=== PATIENT | female | born 1965 | race Caucasian/White ===

== ENCOUNTER 2020-12-18 16:45 | Inpatient (IN) | payer BC ==
[2020-12-18] VITALS (7 sets, daily range): BP systolic 94–110; BP diastolic 49–71
[~2020-12-18] VITALS: Ht 160 cm; Wt 74.3 kg
[2020-12-18] MEDS: AA 4.25 %/CALCIUM/LYTES/D5W 1,000 ML IV SCH (18:00)
[2020-12-18] MEDS ORDERED: hydrALAZINE 20 MG/ML VIAL. IVP PRN (18:00)
--- NOTE | 2020-12-18 18:13 | PDOC1 ---
History and Physical Date of Admission Date of Admission DATE: 12/18/20 TIME: 18:06 Identification/Chief Complaint Chief Complaint Shortness of breath Source Source: Patient History of Present Illness History of Present Illness Ms Anton is a 55-year-old female with past medical history of overactive bladder who came to the ED at [facility] complaining of worsening shortness of breath fatigue and cough. Her shortness of breath began on 12/11/2020 she had fatigue started on 12/08/2020. She awoke on 12/12/2020 and noted myalgias and loss of appetite and diarrhea as well. She tested positive for COVID-19. Her also tested positive for COVID-19. She has complaints fever, chills, malaise, nausea, vomiting, arthralgia, myalgia, tachycardia, coughing and increased dyspnea. Patient has been exposed to inmates here plan seeing [facility] who had COVID. Patient previously declined Covid vaccination. Patient now comes very dyspneic with any activity. Initially sats on room air in the 80s. Patient denies any recent travel. No specific ill contacts other than at work and her . Patient denies any previous history of immunosuppression. She had not been vaccinated for COVID-19 but after her daughter had contracted Covid she had planned to get the vaccine last week and had delayed due to her symptoms. 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 She has 3 children at home and 3 adult children whom have also had Covid with fairly severe symptoms and she also has 5 grandchildren, presumably healthy. Febrile on admission 100.8 F, heart rate 114 bpm, respirations 33/min, O2 saturation 86% on room air, blood pressure 113/69. Admission labs WBC 7.6, Hb 14.8, platelets 188, NA 140, K3.2, chloride 101, HCO3 24, BUN 26, CR 1.2, glucose 128, calcium 8.5, bilirubin 0.5, AST 111, ALT 64, alkaline phosphatase 117, troponin 0, albumin 3.2, NT proBNP 90, CRP 143.3. EKG normal sinus rhythm rate of 95 bpm leftward axis otherwise normal intervals, QTC [address] elevations or TWI. Chest radiograph with multifocal opacities. Due to tachycardia and hypoxemia she was evaluated with CTPA which was negative for pulmonary embolism and did reveal extensive bilateral groundglass opacities and incidental finding of enlarged spleen. Initially admitted to ICU at [facility] in [place] on 12/17/2020 given Solumedrol 60 three times a day and Remdesivir. Today she becomes significantly more hypoxic with O2 saturations 86% despite 10 L oxygen and was called for transfer to [facility]. Seen bedside in ICU 40 L/min 100% FiO2 Vapotherm with O2 saturations 93%. Requiring supplemental facemask O2 15 L/min. Past Medical History Renal/: Urinary Incontinence Past Surgical History Past Surgical History: , Other (left knee arthroscopy) Family History Family History: Chronic Fatigue Social History Smoke: No ALCOHOL: occassional Drugs: None Current Problem List Problem List Problems Medical Problems: (1) Acute respiratory failure with hypoxia Status: Acute (2) COVID-19 Status: Acute Current Medications Current Medications Current Medications Remdesivir 100 mg/ Sodium Chloride 230 ml @ 460 mls/hr Q24H IV ; Start 12/18/20 at 21:00; Stop 12/21/20 at 21:29 Allergies Allergies: Coded Allergies: Penicillins (Verified Allergy, Severe, 12/18/20) ROS General: YES: Chills, Fatigue, Malaise, Appetite; No: Night Sweats, Other PSYCHOLOGICAL ROS: No: Anxiety, Behavioral Disorder, Concentration difficultie, Decreased libido, Depression, Disorientation, Hallucinations, Hostility, Irritablity, Memory difficulties, Mood Swings, Obsessive thoughts, Physical a buse, Sexual abuse, Sleep disturbances, Suicidal ideation, Other Eyes: No Blurry vision, No Decreased vision, No Double vision, No Dry eyes, No Excessive tearing, No Eye Pain, No Itchy Eyes, No Loss of vision, No Photophobia, No Scotomata, No Uses contacts, No Uses glasses, No Other HEENT: No: Heacaches, Visual Changes, Hearing change, Nasal congestion, Nasal discharge, Oral lesions, Sinus pain, Sore Throat, Epistaxis, Sneezing, Snoring, Tinnitus, Vertigo, Vocal changes, Other ALLERGY AND IMMUNOLOGY: No: Hives, Insect Bite Sensitivity, Itchy/Watery Eyes, Nasal Congestion, Post Nasal Drip, Seasonal Allergies, Other Hematological and Lymphatic: No: Bleeding Problems, Blood Clots, Blood Transfusions, Brusing, Night Sweats, Pallor, Swollen Lymph Nodes, Other ENDOCRINE: No: Breast Changes, Galactorrhea, Hair Pattern Changes, Hot Flashes, Malaise/lethargy, Mood Swings, Palpitations, Polydipsia/polyuria, Skin Changes, Temperature Intolerance, Unexpected Weight Changes, Other Breast: No New/Changing Breast Lumps, No Nipple changes, No Nipple discharge, No Other Respiratory: YES: Cough, Shortness of breath, SOB with excertion, Tachypnea; No: Hemoptysis, Orthopnea, Pleuritic Pain, Sputum Changes, Stridor, Wheezing, Other Cardiovascular: No Chest Pain, No Palpitations, No Orthopnea, No Paroxysmal Noc. Dyspnea, No Edema, No Lt Headedness, No Other Gastrointestinal: No Nausea, No Vomiting, No Abdominal Pain, No Diarrhea, No Constipation, No Melena, No Hematochezia, No Other Genitourinary: YES Frequency; No Dysuria, No Incontinence, No Hematuria, No Retention, No Discharge, No U rgency, No Pain, No Flank Pain, No Other, No , No , No , No , No , No , No Musculoskeletal: Yes Muscle Pain, Yes Muscular Weakness; No Gait Disturbance, No Joint Pain, No Joint Stiffness, No Joint Swelling, No Pain In:, No Swelling In:, No Other Neurological: No Behavorial Changes, No Bowel/Bladder ControlChng, No Confusion, No Dizziness, No Gait Disturbance, No Headaches, No Impaired Coord/balance, No Memory Loss, No Numbness/Tingling, No Seizures, No Speech Problems, No Tremors, No Visual Changes, No Weakness, No Other Skin: No Dry Skin, No Eczema, No Hair Changes, No Lumps, No Mole Changes, No Mottling, No Nail Changes, No Pruritus, No Rash, No Skin Lesion Changes, No Other, No Acne Physical Exam General: Alert, Oriented X3, Cooperative, moderate distress HEENT: Atraumatic, PERRLA, EOMI, Mucous membr. moist/pink Lungs: Other (Decreased air movement, bibasilar crackles) Heart: S1S2, RRR, no thrills, no rubs, no gallops, no murmurs Abdomen: Normal bowel sounds, Soft, No tenderness, No hepatosplenomegaly, No masses Rectal Exam: not examined Extremities: No clubbing, No cyanosis, No edema, Normal pulses, No tendern ess/swelling Skin: No rashes, No breakdown, No significant lesion Neuro: Normal gait, Normal speech, Strength at 5/5 X4 ext, Normal tone, Sensation intact, Cranial nerves 3-12 NL, Reflexes 2+ Psych/Mental Status: Mental status NL, Mood NL Vitals Vitals Vital Signs Date Time Temp Pulse Resp B/P (MAP) Pulse Ox O2 Delivery O2 Flow Rate FiO2 12/18/20 17:35 98.3 87 110/71 (84) 92 Vapo therm 40/100,+NRB 98.3 Images Images Chest radiograph: Single view of chest obtained. Hypoexpanded exam. Multifocal opacities throughout the bilateral lungs. Cardiac silhouette is mildly prominent but likely exaggerated by portable technique. IMPRESSION: * Hypoexpanded exam with bilateral pulmonic opacities. Given the patient's history this could be secondary to bilateral pneumonia. Edema could also have this radiographic appearance. CT ANGIOGRAPHY CHEST Visualized portions of the thyroid are unremarkable. No enlarged mediastinal lymph nodes are identified. Heart size is normal. No pericardial effusion. Thoracic aorta has a normal course and caliber. Pulmonary artery is not enlarged. No pulmonary embolus identified within the main, lobar or proximal segmental pulmonary arteries. Evaluation distally limited secondary to contrast bolus timing. Airways are patent. Patchy areas of consolidation noted in lungs bilaterally. No pneumothorax. No pleural effusion or thickening. Spleen is enlarged measuring 15.3 cm in long axis. No suspicious osseous lesions or acute fractures. IMPRESSION: 1. No pulmonary embolus identified in the main, lobar or proximal segmental pulmonary arteries. 2. Extensive patchy bilateral groundglass opacity. Infectious or inflammatory in etiology. This consistent with history of Covid. VTE Prophylaxis Ordered VTE Prophylaxis Devices: No VTE Pharmacological Prophylaxi: Yes Assessment/Plan Assessment/Plan A/P: Acute hypoxic Respiratory failure -due to COVID-19 likely developing ARDS. Status post remdesivir dose 1. We will continue this and steroids daily Covid 19 pneumonia -remdesivir complete 5-day course. Solu-Medrol. Eating 9 mg every 8 hours. CRP elevated would be a candidate for Actemra, will discuss with cardiology as availability is limited. Zinc, thiamine, ascorbic acid, and supportive care. Vapotherm Sepsis - due to COVID 19, no clear indication for antibiotics. ANTHONY -vasomotor nephropathy. Will monitor renal function. Elevated LFT's - due to covid 19 Elevated CRP 143. 3 - would consider actemra Mild Hypokalemia - will monitor nutrition, start clinimix Overactive bladder - offered dwyer catheter due to critical illness FEN - Regular diet PPX - lovenox FULL CODE Dispo - ICU, critically ill. She is high risk for severe disease and is amenable to BiPAP and is amenable to ventilation if necessary. cc time 47 minutes Justifications for Admission Other Justification hypoxia JOVANNY REEVES MD Dec 18, 2020 18:13
[2020-12-18] MEDS ORDERED: LOPERAMIDE 2 MG CAPSULE PO PRN (18:15)
[2020-12-18] MEDS: ASCORBIC ACID 500 MG TABLET PO SCH (18:32)
[2020-12-18] MEDS: ZINC SULFATE 220 MG CAPSULE. PO SCH (18:32)
[2020-12-18] MEDS: DOCUSATE SODIUM 100 MG CAPSULE. PO SCH (21:12)
[2020-12-18] MEDS: BENZONATATE 100 MG CAPSULE. PO SCH (21:12)
[2020-12-18] MEDS: REMDESIVIR 100mg in NORMAL SALINE 250ML X 4 DAYS IV SCH (21:13)
[2020-12-18] MEDS: ENOXAPARIN 40 MG/0.4 ML SYRINGE. SQ SCH (21:13)
[2020-12-18] MEDS: methylPREDNISolone SOD SUCC PF 40 MG/ML VIAL. IV SCH (21:13)
[2020-12-18] MEDS: STERILE WATER for RESP 1,000 ML BAG. INH PRN (22:46)
[2020-12-19] VITALS (24 sets, daily range): BP systolic 85–115; BP diastolic 50–77
[2020-12-19] MEDS: ONDANSETRON PF 4 MG/2 ML VIAL. IVP PRN ×2 (05:46→10:14)
[2020-12-19 05:50] LABS: ALBUMIN 2.5 g/dL (3.4-5.0); ALBUMIN/GLOBULIN RATIO 0.6 (1.0-1.7); BASO % 0 % (0-3); CALCIUM 8.8 mg/dL (8.5-10.1); CREATININE 0.7 mg/dL (0.6-1.0); EOS % 0 % (0-3); GFR 87.5; HEMOGLOBIN 13.1 g/dL (12.0-15.5); LYMPH # 0.4 x10^3/uL (1.0-4.8); LYMPH % 7 % (24-48); MEAN CORPUSCULAR HEMOGLOBIN 30 pg (25-35); MEAN CORPUSCULAR HGB CONC 33 g/dL (31-37); MEAN CORPUSCULAR VOLUME 89 fL (79-100); MONO # 0.4 x10^3/uL (0.0-1.1); MONO % 8 % (0-9); NEUT # 4.7 x10^3/uL (1.8-7.7); NEUT % 85 % (31-73); PLATELET COUNT 212 x10^3/uL (140-400); POTASSIUM 3.7 mmol/L (3.5-5.1); RED BLOOD COUNT 4.38 x10^6/uL (3.50-5.40); RED CELL DISTRIBUTION WIDTH 14.2 % (11.5-14.5); TOTAL BILIRUBIN 0.3 mg/dL (0.2-1.0); TOTAL PROTEIN 6.5 g/dL (6.4-8.2); WHITE BLOOD COUNT 5.5 x10^3/uL (4.0-11.0)
[2020-12-19] MEDS: methylPREDNISolone SOD SUCC PF 40 MG/ML VIAL. IV SCH (06:27)
[2020-12-19] MEDS: ASCORBIC ACID 500 MG TABLET PO SCH (08:42)
[2020-12-19] MEDS: DOCUSATE SODIUM 100 MG CAPSULE. PO SCH ×2 (08:42→20:52)
[2020-12-19] MEDS: THIAMINE 100 MG TABLET. PO SCH (08:42)
[2020-12-19] MEDS: ZINC SULFATE 220 MG CAPSULE. PO SCH (08:42)
[2020-12-19] MEDS: BENZONATATE 100 MG CAPSULE. PO SCH ×3 (08:42→19:54)
--- NOTE | 2020-12-19 09:20 | PDOC ---
PULMONARY PROGRESS NOTES DATE: 12/19/20 TIME: 09:18 Vitals Vital Signs Date Time Temp Pulse Resp B/P (MAP) Pulse Ox O2 Delivery O2 Flow Rate FiO2 12/19/20 06:00 70 22 104/62 (76) 99 vapotherm 40.0 12/19/20 04:08 98.5 98.5 Labs Laboratory Tests Test 12/19/20 05:15 White Blood Count 5.5 x10^3/uL (4.0-11.0) Red Blood Count 4.38 x10^6/uL (3.50-5.40) Hemoglobin 13.1 g/dL (12.0-15.5) Hematocrit 39.0 % (36.0-47.0) Mean Corpuscular Volume 89 fL (79-100) Mean Corpuscular Hemoglobin 30 pg (25-35) Mean Corpuscular Hemoglobin Concent 33 g/dL (31-37) Red Cell Distribution Width 14.2 % (11.5-14.5) Platelet Count 212 x10^3/uL (140-400) Neutrophils (%) (Auto) 85 % (31-73) Lymphocytes (%) (Auto) 7 % (24-48) Monocytes (%) (Auto) 8 % (0-9) Eosinophils (%) (Auto) 0 % (0-3) Basophils (%) (Auto) 0 % (0-3) Neutrophils # (Auto) 4.7 x10^3/uL (1.8-7.7) Lymphocytes # (Auto) 0.4 x10^3/uL (1.0-4.8) Monocytes # (Auto) 0.4 x10^3/uL (0.0-1.1) Eosinophils # (Auto) 0.0 x10^3/uL (0.0-0.7) Basophils # (Auto) 0.0 x10^3/uL (0.0-0.2) Sodium Level 139 mmol/L (136-145) Potassium Level 3.7 mmol/L (3.5-5.1) Chloride Level 103 mmol/L (98-107) Carbon Dioxide Level 29 mmol/L (21-32) Anion Gap 7 (6-14) Blood Urea Nitrogen 24 mg/dL (7-20) Creatinine 0.7 mg/dL (0.6-1.0) Estimated GFR (Cockcroft-Gault) 87.5 BUN/Creatinine Ratio 34 (6-20) Glucose Level 268 mg/dL (70-99) Calcium Level 8.8 mg/dL (8.5-10.1) Total Bilirubin 0.3 mg/dL (0.2-1.0) Aspartate Amino Transf (AST/SGOT) 54 U/L (15-37) Alanine Aminotransferase (ALT/SGPT) 45 U/L (14-59) Alkaline Phosphatase 90 U/L (46-116) C-Reactive Protein, Quantitative 71.9 mg/L (0-3.3) Total Protein 6.5 g/dL (6.4-8.2) Albumin 2.5 g/dL (3.4-5.0) Albumin/Globulin Ratio 0.6 (1.0-1.7) Laboratory Tests Test 12/19/20 05:15 White Blood Count 5.5 x10^3/uL (4.0-11.0) Red Blood Count 4.38 x10^6/uL (3.50-5.40) Hemoglobin 13.1 g/dL (12.0-15.5) Hematocrit 39.0 % (36.0-47.0) Mean Corpuscular Volume 89 fL (79-100) Mean Corpuscular Hemoglobin 30 pg (25-35) Mean Corpuscular Hemoglobin Concent 33 g/dL (31-37) Red Cell Distribution Width 14.2 % (11.5-14.5) Platelet Count 212 x10^3/uL (140-400) Neutrophils (%) (Auto) 85 % (31-73) Lymphocytes (%) (Auto) 7 % (24-48) Monocytes (%) (Auto) 8 % (0-9) Eosinophils (%) (Auto) 0 % (0-3) Basophils (%) (Auto) 0 % (0-3) Neutrophils # (Auto) 4.7 x10^3/uL (1.8-7.7) Lymphocytes # (Auto) 0.4 x10^3/uL (1.0-4.8) Monocytes # (Auto) 0.4 x10^3/uL (0.0-1.1) Eosinophils # (Auto) 0.0 x10^3/uL (0.0-0.7) Basophils # (Auto) 0.0 x10^3/uL (0.0-0.2) Sodium Level 139 mmol/L (136-145) Potassium Level 3.7 mmol/L (3.5-5.1) Chloride Level 103 mmol/L (98-107) Carbon Dioxide Level 29 mmol/L (21-32) Anion Gap 7 (6-14) Blood Urea Nitrogen 24 mg/dL (7-20) Creatinine 0.7 mg/dL (0.6-1.0) Estimated GFR (Cockcroft-Gault) 87.5 BUN/Creatinine Ratio 34 (6-20) Glucose Level 268 mg/dL (70-99) Calcium Level 8.8 mg/dL (8.5-10.1) Total Bilirubin 0.3 mg/dL (0.2-1.0) Aspartate Amino Transf (AST/SGOT) 54 U/L (15-37) Alanine Aminotransferase (ALT/SGPT) 45 U/L (14-59) Alkaline Phosphatase 90 U/L (46-116) C-Reactive Protein, Quantitative 71.9 mg/L (0-3.3) Total Protein 6.5 g/dL (6.4-8.2) Albumin 2.5 g/dL (3.4-5.0) Albumin/Globulin Ratio 0.6 (1.0-1.7) Impression . Full consult dictated CRP elevated Will administer Tocilizumab Continue support Remdesivir Change to dexamethasone ROMEL GRANADOS MD Dec 19, 2020 09:20
--- NOTE | 2020-12-19 09:25 | PDOC ---
[employer] PROGRESS NOTE Date of Service DOS: DATE: 12/19/20 TIME: 09:23 Chief Complaint Chief Complaint A/P: Acute hypoxic Respiratory failure -due to COVID-19 likely developing ARDS. On remdesivir, decadron Covid 19 pneumonia -remdesivir complete 5-day course. Solu-Medrol. Eating 9 mg every 8 hours. CRP elevated would be a candidate for Actemra, will discuss with cardiology as availability is limited. Zinc, thiamine, ascorbic acid, and supportive care. Vapotherm Sepsis - due to COVID 19, no clear indication for antibiotics. ANTHONY -vasomotor nephropathy. Will monitor renal function. Elevated LFT's - due to covid 19 Elevated CRP 143. 3 - would consider actemra Mild Hypokalemia - will monitor nutrition, start clinimix Overactive bladder - offered dwyer catheter due to critical illness FEN - Regular diet PPX - lovenox FULL CODE Dispo - ICU, critically ill. She is high risk for severe disease and is amenable to BiPAP and is amenable to ventilation if necessary. History of Present Illness History of Present Illness Ms Anton is a 55-year-old female with past medical history of overactive bladder who came to the ED at [facility] complaining of worsening shortness of breath fatigue and cough. Her shortness of breath began on 12/11/2020 she had fatigue started on 12/08/2020. She awoke on 12/12/2020 and noted myalgias and loss of appetite and diarrhea as well. She tested positive for COVID-19. Her also tested positive for COVID-19. She has complaints fever, chills, malaise, nausea, vomiting, arthralgia, myalgia, tachycardia, coughing and increased dyspnea. 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 Patient previously declined Covid vaccination. Patient now comes very dyspneic with any activity. Initially sats on room air in the 80s. Patient denies any recent travel. No specific ill contacts other than at work and her . Patient denies any previous history of immunosuppression. She had not been vaccinated for COVID-19 but after her daughter had contracted Covid she had planned to get the vaccine last week and had delayed due to her symptoms. 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 She has 3 children at home and 3 adult children whom have also had Covid with fairly severe symptoms and she also has 5 grandchildren, presumably healthy. Febrile on admission 100.8 F, heart rate 114 bpm, respirations 33/min, O2 saturation 86% on room air, blood pressure 113/69. Admission labs WBC 7.6, Hb 14.8, platelets 188, NA 140, K3.2, chloride 101, HCO3 24, BUN 26, CR 1.2, glucose 128, calcium 8.5, bilirubin 0.5, AST 111, ALT 64, alkaline phosphatase 117, troponin 0, albumin 3.2, NT proBNP 90, CRP 143.3. EKG normal sinus rhythm rate of 95 bpm leftward axis otherwise normal intervals, QTC [address] elevations or TWI. Chest radiograph with multifocal opacities. Due to tachycardia and hypoxemia she was evaluated with CTPA which was negative for pulmonary embolism and did reveal extensive bilateral groundglass opacities and incidental finding of e nlarged spleen. Initially admitted to ICU at [facility] in [place] on 12/17/2020 given Solumedrol 60 three times a day and Remdesivir. Today she becomes significantly more hypoxic with O2 saturations 86% despite 10 L oxygen and was called for transfer to [facility]. Seen bedside in ICU 40 L/min 100% FiO2 Vapotherm with O2 saturations 93%. Requiring supplemental facemask O2 15 L/min. 12/18: Seen in ICU. Afebrile. O2 saturation 92% on 4 L/min 100% FiO2 Vapotherm. Also on supplemental facemask O2 15 L/min. She has a little bit of an appetite today. Less GI upset. Cough improved with Tessalon. Discussed with pulmonology to change to Decadron from Solu-Medrol and dose with Actemra based on her highly elevated CRP 143.3 on initial admission. CRP 79 today cc time 30 min Vitals/I&O Vitals/I&O: Vital Signs Date Time Temp Pulse Resp B/P (MAP) Pulse Ox O2 Delivery O2 Flow Rate FiO2 12/19/20 06:00 70 22 104/62 (76) 99 vapotherm 40.0 12/19/20 04:08 98.5 98.5 I & O 12/18/20 12/18/20 12/19/20 15:00 23:00 07:00 Intake Total 150 ml 0 ml Output Total 60 ml 600 ml Balance 90 ml -600 ml Physical Exam General: Alert, Oriented X3, Cooperative, moderate distress Abdomen: Normal bowel sounds, Soft, No tenderness, No hepatosplenomegaly, No masses Extremities: No clubbing, No cyanosis, No edema, Normal pulses, No tenderne ss/swelling Skin: No rashes, No breakdown, No significant lesion Labs Labs: Laboratory Tests Test 12/19/20 05:15 White Blood Count 5.5 x10^3/uL (4.0-11.0) Red Blood Count 4.38 x10^6/uL (3.50-5.40) Hemoglobin 13.1 g/dL (12.0-15.5) Hematocrit 39.0 % (36.0-47.0) Mean Corpuscular Volume 89 fL (79-100) Mean Corpuscular Hemoglobin 30 pg (25-35) Mean Corpuscular Hemoglobin Concent 33 g/dL (31-37) Red Cell Distribution Width 14.2 % (11.5-14.5) Platelet Count 212 x10^3/uL (140-400) Neutrophils (%) (Auto) 85 % (31-73) Lymphocytes (%) (Auto) 7 % (24-48) Monocytes (%) (Auto) 8 % (0-9) Eosinophils (%) (Auto) 0 % (0-3) Basophils (%) (Auto) 0 % (0-3) Neutrophils # (Auto) 4.7 x10^3/uL (1.8-7.7) Lymphocytes # (Auto) 0.4 x10^3/uL (1.0-4.8) Monocytes # (Auto) 0.4 x10^3/uL (0.0-1.1) Eosinophils # (Auto) 0.0 x10^3/uL (0.0-0.7) Basophils # (Auto) 0.0 x10^3/uL (0.0-0.2) Sodium Level 139 mmol/L (136-145) Potassium Level 3.7 mmol/L (3.5-5.1) Chloride Level 103 mmol/L (98-107) Carbon Dioxide Level 29 mmol/L (21-32) Anion Gap 7 (6-14) Blood Urea Nitrogen 24 mg/dL (7-20) Creatinine 0.7 mg/dL (0.6-1.0) Estimated GFR (Cockcroft-Gault) 87.5 BUN/Creatinine Ratio 34 (6-20) Glucose Level 268 mg/dL (70-99) Calcium Level 8.8 mg/dL (8.5-10.1) Total Bilirubin 0.3 mg/dL (0.2-1.0) Aspartate Amino Transf (AST/SGOT) 54 U/L (15-37) Alanine Aminotransferase (ALT/SGPT) 45 U/L (14-59) Alkaline Phosphatase 90 U/L (46-116) C-Reactive Protein, Quantitative 71.9 mg/L (0-3.3) Total Protein 6.5 g/dL (6.4-8.2) Albumin 2.5 g/dL (3.4-5.0) Albumin/Globulin Ratio 0.6 (1.0-1.7) Assessment and Plan Assessmemt and Plan Problems Medical Problems: (1) Acute respiratory failure with hypoxia Status: Acute (2) COVID-19 Status: Acute Comment Review of Relevant I have reviewed the following items jeannie (where applicable) has been applied. Medications: Current Medications Medications (Trade) Dose Ordered Sig/Zoë Route PRN Reason Start Time Stop Time Status Last Admin Dose Admin Remdesivir 100 mg/ Sodium Chloride 230 ml @ 460 mls/hr Q24H IV 12/18/20 21:00 12/21/20 21:29 12/18/20 21:13 Ondansetron HCl (Zofran) 4 mg PRN Q4HRS PRN IVP NAUSEA/VOMITING 12/18/20 18:00 12/19/20 05:46 Enoxaparin Sodium (Lovenox 40mg Syringe) 40 mg Q24H SQ 12/18/20 21:00 12/18/20 21:13 Zinc Sulfate (Orazinc) 220 mg DAILY PO 12/18/20 19:00 12/19/20 08:42 Thiamine Mononitrate (Vitamin B-1) 100 mg DAILY PO 12/19/20 09:00 12/19/20 08:42 Ascorbic Acid (Vitamin C) 500 mg DAILY PO 12/18/20 19:00 12/19/20 08:42 Benzonatate (Tessalon Perle) 100 mg [id number] PO 12/18/20 21:00 12/19/20 08:42 Docusate Sodium (Colace) 100 mg BID PO 12/18/20 21:00 12/19/20 08:42 Amino Acids/ Electrolytes/ Dextrose 1,000 ml @ 80 mls/hr [id number] IV 12/18/20 18:00 12/18/20 18:00 Methylprednisolone Sodium Succinate (SOLU-Medrol 40MG VIAL) 80 mg Q8HRS IV 12/18/20 22:00 12/19/20 09:13 DC 12/19/20 06:27 Sterile Water (WATER for RESP) 1,000 ml CONT PRN INH VIA VAPOTHERM DEVICE 12/18/20 22:45 12/18/20 22:46 Justifications for Admission Other Justification hypoxia JOVANNY REEVES MD Dec 19, 2020 09:25
[2020-12-19] MEDS ORDERED: DEXTROSE 50% 25 GM / 50ML DISP.SYRIN. IV PRN (09:30)
[2020-12-19] MEDS ORDERED: methylPREDNISolone SOD SUCC PF 40 MG/ML VIAL. IV ONE (10:30)
[2020-12-19] MEDS ORDERED: ACETAMINOPHEN 325 MG TABLET. PO ONE (10:30)
[2020-12-19] MEDS ORDERED: diphenhydrAMINE 50 MG/ML VIAL IV ONE (10:30)
[2020-12-19] MEDS ORDERED: TOCILIZUMAB 400 MG in IV NORMAL SALINE 100ML 80 ML IV ONE (11:00)
[2020-12-19] MEDS: FAMOTIDINE 20 MG/2 ML VIAL IVP SCH ×2 (12:25→20:52)
[2020-12-19] MEDS: AA 4.25 %/CALCIUM/LYTES/D5W 1,000 ML IV SCH (12:57)
[2020-12-19] MEDS: INSULIN LISPRO 300 UNITS/3 ML VIAL. SQ SCH ×3 (13:04→23:45)
[2020-12-19] MEDS: guaiFENesin DM 200MG/20MG 10 ML SYRUP PO PRN ×2 (13:17→18:21)
[2020-12-19 13:36] LABS: % BANDS 8 % (0-9); % LYMPHS 4 % (24-48); % MONOS 4 % (0-10); % SEGS 84 % (35-66)
[2020-12-19 13:37] LABS: PLT ESTIMATE ADEQUATE (ADEQUATE)
[2020-12-19] MEDS: traMADol 50 MG TABLET PO PRN (19:55)
[2020-12-19] MEDS: ENOXAPARIN 40 MG/0.4 ML SYRINGE. SQ SCH (20:53)
[2020-12-19] MEDS: REMDESIVIR 100mg in NORMAL SALINE 250ML X 4 DAYS IV SCH (20:53)
[2020-12-19] MEDS: STERILE WATER for RESP 1,000 ML BAG. INH PRN (21:56)
--- NOTE | 2020-12-19 22:38 | CONS ---
DATE OF CONSULTATION: 12/19/2020 ATTENDING PHYSICIAN: Alonzo New MD REASON FOR CONSULTATION: The patient is seen in pulmonary consultation at the request of Dr. New for acute respiratory failure secondary to COVID-19. HISTORY OF PRESENT ILLNESS: The patient is a 55-year-old who presented to [facility] complaining of worsening shortness of breath that began on 12/11. She started feeling fatigued on the . She tested positive for COVID-19. also tested positive. She had some fever, chills, malaise, nausea and vomiting. Apparently, the patient was exposed to inmates at the senior care. 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 She has not been vaccinated. She is currently on nonrebreather and high flow oxygen. I was asked to see her in consultation. She had a fever of 100.8, heart rate was elevated. O2 saturation on room air was initially 86%. Chest x-ray was compatible with bilateral pulmonary infiltrates compatible with COVID-19. She also had a CT angiogram revealing no evidence of pulmonary embolism. PAST MEDICAL HISTORY: Remarkable for overactive bladder. She has had mild asthma. Last time she used albuterol was during her . SOCIAL HISTORY: She has never smoked. FAMILY HISTORY: Multiple family members tested positive for COVID-19. REVIEW OF SYSTEMS: As indicated above, otherwise a 10-point system could not be reviewed secondary to the patient's respiratory status. ALLERGIES: PENICILLIN. CURRENT MEDICATIONS: List was reviewed. She is receiving steroids, remdesivir, DVT prophylaxis, multivitamin, and zinc. PHYSICAL EXAMINATION: GENERAL: The patient was able to complete full sentences. She was in the intensive care unit, currently on Vapotherm 40 liter flow. HEENT: Eyes, the sclerae are nonicteric. NECK: Jugular venous distention was not elevated. No lymphadenopathy. CHEST: Full expansion. LUNGS: Adequate air flow, no wheezes. CARDIOVASCULAR: Regular rate and rhythm with S1, S2, no S3. ABDOMEN: Soft. EXTREMITIES: No clubbing, cyanosis or edema. LABORATORY DATA: White count was normal. She had lymphopenia. Electrolytes were noted. BUN and creatinine were noted. C-reactive protein was elevated. Albumin was low. IMPRESSION: 1. Acute hypoxemic respiratory failure secondary to COVID-19 viral pneumonia. 2. Acute respiratory distress syndrome. 3. Sepsis secondary to above. 4. Acute kidney injury. 5. Elevated LFTs. 6. Hypokalemia. PLAN: 1. Repeat CRP. 2. Continue remdesivir and steroids. 3. Oxygen supplementation. 4. DVT and gastrointestinal prophylaxis. 5. Nutritional support. 6. Vitamin D supplement. I do appreciate the privilege in sharing in this patient's care. Total cumulative critical care time of 50 minutes with no overlap, time spent interviewing and examining the patient, reviewing the current documentation, chest x-ray, formulating an impression and plan. MAGDI/MISAEL/SUNIL DR: Mariel TID: [id number]
[2020-12-20] VITALS (24 sets, daily range): BP systolic 10–124; BP diastolic 43–91
[2020-12-20] MEDS: AA 4.25 %/CALCIUM/LYTES/D5W 1,000 ML IV SCH ×2 (02:26→15:02)
[2020-12-20] MEDS: guaiFENesin DM 200MG/20MG 10 ML SYRUP PO PRN (03:54)
[2020-12-20] MEDS: INSULIN LISPRO 300 UNITS/3 ML VIAL. SQ SCH ×3 (06:07→18:00)
[2020-12-20 07:21] LABS: ALBUMIN 2.4 g/dL (3.4-5.0); ALBUMIN/GLOBULIN RATIO 0.6 (1.0-1.7); CALCIUM 8.7 mg/dL (8.5-10.1); CREATININE 0.9 mg/dL (0.6-1.0); GFR 65.5; TOTAL BILIRUBIN 0.4 mg/dL (0.2-1.0); TOTAL PROTEIN 6.2 g/dL (6.4-8.2)
[2020-12-20] MEDS: ZINC SULFATE 220 MG CAPSULE. PO SCH (08:30)
[2020-12-20] MEDS: FAMOTIDINE 20 MG/2 ML VIAL IVP SCH ×2 (08:30→20:19)
[2020-12-20] MEDS: THIAMINE 100 MG TABLET. PO SCH (08:30)
[2020-12-20] MEDS: BENZONATATE 100 MG CAPSULE. PO SCH ×3 (08:30→20:19)
[2020-12-20] MEDS: DOCUSATE SODIUM 100 MG CAPSULE. PO SCH ×2 (08:30→20:19)
[2020-12-20] MEDS: ASCORBIC ACID 500 MG TABLET PO SCH (08:30)
[2020-12-20] MEDS: DEXAMETHASONE SOD PHOS 4 MG/ML VIAL IVP SCH (08:30)
[2020-12-20] MEDS: CHOLECALCIFEROL (VITAMIN D3) 5,000 UNIT CAPSULE PO SCH (08:30)
[2020-12-20] MEDS: ONDANSETRON PF 4 MG/2 ML VIAL. IVP PRN ×2 (09:31→17:46)
--- NOTE | 2020-12-20 09:31 | PDOC ---
[employer] PROGRESS NOTE Date of Service DOS: DATE: 12/20/20 TIME: 09:26 Chief Complaint Chief Complaint A/P: Acute hypoxic Respiratory failure -due to COVID-19 likely developing ARDS. On remdesivir, decadron Covid 19 pneumonia -remdesivir complete 5-day course. Solu-Medrol. Eating 9 mg every 8 hours. CRP elevated would be a candidate for Actemra, will discuss with cardiology as availability is limited. Zinc, thiamine, ascorbic acid, and supportive care. Vapotherm Sepsis - due to COVID 19, no clear indication for antibiotics. ANTHONY -vasomotor nephropathy. Will monitor renal function. Elevated LFT's - due to covid 19 Elevated CRP 143. 3 - would consider actemra Mild Hypokalemia - will monitor nutrition, start clinimix Overactive bladder - offered dwyer catheter due to critical illness FEN - Regular diet PPX - lovenox FULL CODE Dispo - ICU, critically ill. She is high risk for severe disease and is amenable to BiPAP and is amenable to ventilation if necessary. History of Present Illness History of Present Illness Ms Anton is a 55-year-old female with past medical history of overactive bladder who came to the ED at [facility] complaining of worsening shortness of breath fatigue and cough. Her shortness of breath began on 12/11/2020 she had fatigue started on 12/08/2020. She awoke on 12/12/2020 and noted myalgias and loss of appetite and diarrhea as well. She tested positive for COVID-19. Her also tested positive for COVID-19. She has complaints fever, chills, malaise, nausea, vomiting, arthralgia, myalgia, tachycardia, coughing and increased dyspnea. Patient has been exposed to inmates here plan seeing halfway who had COVID. Patient previously declined Covid vaccination. Patient now comes very dyspneic with any activity. Initially sats on room air in the 80s. Patient denies any recent travel. No specific ill contacts other than at work and her . Patient denies any previous history of immunosuppression. She had not been vaccinated for COVID-19 but after her daughter had contracted Covid she had planned to get the vaccine last week and had delayed due to her symptoms. 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 She has 3 children at home and 3 adult children whom have also had Covid with fairly severe symptoms and she also has 5 grandchildren, presumably healthy. Febrile on admission 100.8 F, heart rate 114 bpm, respirations 33/min, O2 saturation 86% on room air, blood pressure 113/69. Admission labs WBC 7.6, Hb 14.8, platelets 188, NA 140, K3.2, chloride 101, HCO3 24, BUN 26, CR 1.2, glucose 128, calcium 8.5, bilirubin 0.5, AST 111, ALT 64, alkaline phosphatase 117, troponin 0, albumin 3.2, NT proBNP 90, CRP 143.3. EKG normal sinus rhythm rate of 95 bpm leftward axis otherwise normal intervals, QTC [address] elevations or TWI. Chest radiograph with multifocal opacities. Due to tachycardia and hypoxemia she was evaluated with CTPA which was negative for pulmonary embolism and did reveal extensive bilateral groundglass opacities and incidental finding of e nlarged spleen. Initially admitted to ICU at [facility] in [place] on 12/17/2020 given Solumedrol 60 three times a day and Remdesivir. Today she becomes significantly more hypoxic with O2 saturations 86% despite 10 L oxygen and was called for transfer to [facility]. Seen bedside in ICU 40 L/min 100% FiO2 Vapotherm with O2 saturations 93%. Requiring supplemental facemask O2 15 L/min. 12/19: Seen in ICU. Afebrile. O2 saturation 92% on 40 L/min 100% FiO2 Vapotherm + facemask O2 15 L/min. Less GI upset. Cough improved with Tessalon. D/w pulmonology to change to Decadron from Solu-Medrol and dose with Actemra based on her highly elevated CRP 143.3 Seen in ICU afebrile. O2 saturations 94% 40 L/min FiO2 Vapotherm plus facemask O2 15 L/min. Still little appetite. Transaminases decreased. Feels a little better but is complaining of nasal drainage. cc time 30 min Vitals/I&O Vitals/I&O: Vital Signs Date Time Temp Pulse Resp B/P (MAP) Pulse Ox O2 Delivery O2 Flow Rate FiO2 12/20/20 07:00 64 26 112/59 (76) 94 Vapotherm + Bipap 40.0 12/20/20 04:00 97.4 97.4 I & O 12/19/20 12/19/20 12/20/20 15:00 23:00 07:00 Intake Total 230 ml 1152.59 ml Output Total 125 ml 500 ml 275 ml Balance -125 ml -270 ml 877.59 ml Physical Exam General: Alert, Oriented X3, Cooperative, moderate distress Abdomen: Normal bowel sounds, Soft, No tenderness, No hepatosplenomegaly, No masses Extremities: No clubbing, No cyanosis, No edema, Normal pulses, No tenderness/s welling Skin: No rashes, No breakdown, No significant lesion Labs Labs: Laboratory Tests Test 12/19/20 18:13 12/19/20 23:42 12/20/20 06:00 12/20/20 07:00 Glucose (Fingerstick) 247 mg/dL (70-99) 244 mg/dL (70-99) 276 mg/dL (70-99) Sodium Level 141 mmol/L (136-145) Potassium Level 4.0 mmol/L (3.5-5.1) Chloride Level 105 mmol/L (98-107) Carbon Dioxide Level 29 mmol/L (21-32) Anion Gap 7 (6-14) Blood Urea Nitrogen 30 mg/dL (7-20) Creatinine 0.9 mg/dL (0.6-1.0) Estimated GFR (Cockcroft-Gault) 65.5 BUN/Creatinine Ratio 33 (6-20) Glucose Level 241 mg/dL (70-99) Calcium Level 8.7 mg/dL (8.5-10.1) Total Bilirubin 0.4 mg/dL (0.2-1.0) Aspartate Amino Transf (AST/SGOT) 45 U/L (15-37) Alanine Aminotransferase (ALT/SGPT) 40 U/L (14-59) Alkaline Phosphatase 92 U/L (46-116) Total Protein 6.2 g/dL (6.4-8.2) Albumin 2.4 g/dL (3.4-5.0) Albumin/Globulin Ratio 0.6 (1.0-1.7) Assessment and Plan Assessmemt and Plan Problems Medical Problems: (1) Acute respiratory failure with hypoxia Status: Acute (2) COVID-19 Status: Acute Comment Review of Relevant I have reviewed the following items jeannie (where applicable) has been applied. Medications: Current Medications Medications (Trade) Dose Ordered Sig/Zoë Route PRN Reason Start Time Stop Time Status Last Admin Dose Admin Dexamethasone Sodium Phosphate (Decadron) 6 mg DAILY IVP 12/20/20 09:00 12/20/20 08:30 Vitamin D (Vitamin D3) 5,000 unit DAILY PO 12/20/20 09:00 12/20/20 08:30 Tocilizumab 400 mg/Sodium Chloride 100 ml @ 100 mls/hr 1X ONCE IV 12/19/20 11:00 12/19/20 11:59 DC 12/19/20 12:59 Acetaminophen (Tylenol) 650 mg 1X ONCE PO 12/19/20 10:30 12/19/20 10:31 DC 12/19/20 12:26 Diphenhydramine HCl (Benadryl) 25 mg 1X ONCE IV 12/19/20 10:30 12/19/20 10:31 DC 12/19/20 12:25 Insulin Human Lispro (HumaLOG) 0-9 UNITS Q6HRS SQ 12/19/20 12:00 12/20/20 06:07 Methylprednisolone Sodium Succinate (SOLU-Medrol 40MG VIAL) 40 mg 1X ONCE IV 12/19/20 10:30 12/19/20 10:31 DC 12/19/20 12:25 Justifications for Admission Other Justification hypoxia JOVANNY REEVES MD Dec 20, 2020 09:31
--- NOTE | 2020-12-20 09:53 | PDOC ---
PULMONARY PROGRESS NOTES DATE: 12/20/20 TIME: 09:49 Subjective Patient currently on 40 L of oxygen 100% FiO2, not more short of air Vitals Vital Signs Date Time Temp Pulse Resp B/P (MAP) Pulse Ox O2 Delivery O2 Flow Rate FiO2 12/20/20 07:00 64 26 112/59 (76) 94 Vapotherm + Bipap 40.0 12/20/20 04:00 97.4 97.4 Comments On visual inspection, patient seen during the pandemic, no significant respiratory distress, no significant edema no paroxysmal breathing pattern Labs Laboratory Tests Test 12/19/20 05:15 12/19/20 12:54 12/19/20 18:13 12/19/20 23:42 White Blood Count 5.5 x10^3/uL (4.0-11.0) Red Blood Count 4.38 x10^6/uL (3.50-5.40) Hemoglobin 13.1 g/dL (12.0-15.5) Hematocrit 39.0 % (36.0-47.0) Mean Corpuscular Volume 89 fL (79-100) Mean Corpuscular Hemoglobin 30 pg (25-35) Mean Corpuscular Hemoglobin Concent 33 g/dL (31-37) Red Cell Distribution Width 14.2 % (11.5-14.5) Platelet Count 212 x10^3/uL (140-400) Neutrophils (%) (Auto) 85 % (31-73) Lymphocytes (%) (Auto) 7 % (24-48) Monocytes (%) (Auto) 8 % (0-9) Eosinophils (%) (Auto) 0 % (0-3) Basophils (%) (Auto) 0 % (0-3) Neutrophils # (Auto) 4.7 x10^3/uL (1.8-7.7) Lymphocytes # (Auto) 0.4 x10^3/uL (1.0-4.8) Monocytes # (Auto) 0.4 x10^3/uL (0.0-1.1) Eosinophils # (Auto) 0.0 x10^3/uL (0.0-0.7) Basophils # (Auto) 0.0 x10^3/uL (0.0-0.2) Segmented Neutrophils % 84 % (35-66) Band Neutrophils % 8 % (0-9) Lymphocytes % 4 % (24-48) Monocytes % 4 % (0-10) Platelet Estimate Adequate (ADEQUATE) Sodium Level 139 mmol/L (136-145) Potassium Level 3.7 mmol/L (3.5-5.1) Chloride Level 103 mmol/L (98-107) Carbon Dioxide Level 29 mmol/L (21-32) Anion Gap 7 (6-14) Blood Urea Nitrogen 24 mg/dL (7-20) Creatinine 0.7 mg/dL (0.6-1.0) Estimated GFR (Cockcroft-Gault) 87.5 BUN/Creatinine Ratio 34 (6-20) Glucose Level 268 mg/dL (70-99) Calcium Level 8.8 mg/dL (8.5-10.1) Total Bilirubin 0.3 mg/dL (0.2-1.0) Aspartate Amino Transf (AST/SGOT) 54 U/L (15-37) Alanine Aminotransferase (ALT/SGPT) 45 U/L (14-59) Alkaline Phosphatase 90 U/L (46-116) C-Reactive Protein, Quantitative 71.9 mg/L (0-3.3) Total Protein 6.5 g/dL (6.4-8.2) Albumin 2.5 g/dL (3.4-5.0) Albumin/Globulin Ratio 0.6 (1.0-1.7) Glucose (Fingerstick) 213 mg/dL (70-99) 247 mg/dL (70-99) 244 mg/dL (70-99) Test 12/20/20 06:00 12/20/20 07:00 Glucose (Fingerstick) 276 mg/dL (70-99) Sodium Level 141 mmol/L (136-145) Potassium Level 4.0 mmol/L (3.5-5.1) Chloride Level 105 mmol/L (98-107) Carbon Dioxide Level 29 mmol/L (21-32) Anion Gap 7 (6-14) Blood Urea Nitrogen 30 mg/dL (7-20) Creatinine 0.9 mg/dL (0.6-1.0) Estimated GFR (Cockcroft-Gault) 65.5 BUN/Creatinine Ratio 33 (6-20) Glucose Level 241 mg/dL (70-99) Calcium Level 8.7 mg/dL (8.5-10.1) Total Bilirubin 0.4 mg/dL (0.2-1.0) Aspartate Amino Transf (AST/SGOT) 45 U/L (15-37) Alanine Aminotransferase (ALT/SGPT) 40 U/L (14-59) Alkaline Phosphatase 92 U/L (46-116) Total Protein 6.2 g/dL (6.4-8.2) Albumin 2.4 g/dL (3.4-5.0) Albumin/Globulin Ratio 0.6 (1.0-1.7) Laboratory Tests Test 12/19/20 12:54 12/19/20 18:13 12/19/20 23:42 12/20/20 06:00 Glucose (Fingerstick) 213 mg/dL (70-99) 247 mg/dL (70-99) 244 mg/dL (70-99) 276 mg/dL (70-99) Test 12/20/20 07:00 Sodium Level 141 mmol/L (136-145) Potassium Level 4.0 mmol/L (3.5-5.1) Chloride Level 105 mmol/L (98-107) Carbon Dioxide Level 29 mmol/L (21-32) Anion Gap 7 (6-14) Blood Urea Nitrogen 30 mg/dL (7-20) Creatinine 0.9 mg/dL (0.6-1.0) Estimated GFR (Cockcroft-Gault) 65.5 BUN/Creatinine Ratio 33 (6-20) Glucose Level 241 mg/dL (70-99) Calcium Level 8.7 mg/dL (8.5-10.1) Total Bilirubin 0.4 mg/dL (0.2-1.0) Aspartate Amino Transf (AST/SGOT) 45 U/L (15-37) Alanine Aminotransferase (ALT/SGPT) 40 U/L (14-59) Alkaline Phosphatase 92 U/L (46-116) Total Protein 6.2 g/dL (6.4-8.2) Albumin 2.4 g/dL (3.4-5.0) Albumin/Globulin Ratio 0.6 (1.0-1.7) Impression . IMPRESSION: 1. Acute hypoxemic respiratory failure secondary to COVID-19 viral pneumonia. 2. Acute respiratory distress syndrome. 3. Sepsis secondary to above. 4. Acute kidney injury. 5. Elevated LFTs. 6. Hypokalemia. Plan . 12/20 Continue steroids and remdesivir Received Tocilizumab Continue oxygen supplementation Supplement with vitamin D DVT GI prophylaxis Discussed with RN Total cumulative critical care time of 30 minutes with no overlap 12/19 PLAN: 1. Repeat CRP. 2. Continue remdesivir and steroids. 3. Oxygen supplementation. 4. DVT and gastrointestinal prophylaxis. 5. Nutritional support. 6. Vitamin D supplement. I do appreciate the privilege in sharing in this patient's care. Total cumulative critical care time of 50 minutes with no overlap, time spent interviewing and examining the patient, reviewing the current documentation, chest x-ray, formulating an impression and plan. ROMEL GRANADOS MD Dec 20, 2020 09:53
[2020-12-20] MEDS: fentaNYL PF VIAL 100 MCG/2 ML VIAL IVP PRN ×3 (11:54→20:20)
[2020-12-20] MEDS: ENOXAPARIN 40 MG/0.4 ML SYRINGE. SQ SCH (20:19)
[2020-12-20] MEDS: REMDESIVIR 100mg in NORMAL SALINE 250ML X 4 DAYS IV SCH (20:55)
[2020-12-20] MEDS: ACETAMINOPHEN 325 MG TABLET. PO PRN (23:32)
[2020-12-21] VITALS (24 sets, daily range): BP systolic 83–133; BP diastolic 54–74
[2020-12-21] MEDS: AA 4.25 %/CALCIUM/LYTES/D5W 1,000 ML IV SCH ×2 (03:24→15:58)
[2020-12-21] MEDS: STERILE WATER for RESP 1,000 ML BAG. INH PRN ×2 (05:18→17:42)
[2020-12-21] MEDS: ONDANSETRON PF 4 MG/2 ML VIAL. IVP PRN ×3 (05:30→19:36)
[2020-12-21] MEDS: guaiFENesin DM 200MG/20MG 10 ML SYRUP PO PRN ×2 (05:30→21:19)
[2020-12-21] MEDS: fentaNYL PF VIAL 100 MCG/2 ML VIAL IVP PRN ×4 (05:31→19:36)
[2020-12-21] MEDS: INSULIN LISPRO 300 UNITS/3 ML VIAL. SQ SCH ×5 (06:23→23:55)
[2020-12-21] MEDS: ASCORBIC ACID 500 MG TABLET PO SCH (08:55)
[2020-12-21] MEDS: ZINC SULFATE 220 MG CAPSULE. PO SCH (08:55)
[2020-12-21] MEDS: BENZONATATE 100 MG CAPSULE. PO SCH ×3 (08:55→21:07)
[2020-12-21] MEDS: THIAMINE 100 MG TABLET. PO SCH (08:55)
[2020-12-21] MEDS: CHOLECALCIFEROL (VITAMIN D3) 5,000 UNIT CAPSULE PO SCH (08:55)
[2020-12-21] MEDS: DEXAMETHASONE SOD PHOS 4 MG/ML VIAL IVP SCH (08:56)
[2020-12-21] MEDS: FAMOTIDINE 20 MG/2 ML VIAL IVP SCH ×2 (08:56→21:05)
[2020-12-21] MEDS: DOCUSATE SODIUM 100 MG CAPSULE. PO SCH ×2 (08:57→21:00)
[2020-12-21 09:20] LABS: BASO % 0 % (0-3); EOS % 0 % (0-3); HEMATOCRIT 37.4 % (36.0-47.0); HEMOGLOBIN 12.6 g/dL (12.0-15.5); LYMPH # 0.5 x10^3/uL (1.0-4.8); LYMPH % 10 % (24-48); MEAN CORPUSCULAR HEMOGLOBIN 30 pg (25-35); MEAN CORPUSCULAR HGB CONC 34 g/dL (31-37); MEAN CORPUSCULAR VOLUME 88 fL (79-100); MONO # 0.3 x10^3/uL (0.0-1.1); MONO % 6 % (0-9); NEUT # 4.2 x10^3/uL (1.8-7.7); NEUT % 84 % (31-73); PLATELET COUNT 264 x10^3/uL (140-400); RED BLOOD COUNT 4.25 x10^6/uL (3.50-5.40); RED CELL DISTRIBUTION WIDTH 13.6 % (11.5-14.5)
[2020-12-21 09:36] LABS: ALBUMIN 2.2 g/dL (3.4-5.0); ALBUMIN/GLOBULIN RATIO 0.6 (1.0-1.7); CALCIUM 8.3 mg/dL (8.5-10.1); CREATININE 0.6 mg/dL (0.6-1.0); GFR 104.6; POTASSIUM 3.9 mmol/L (3.5-5.1); TOTAL BILIRUBIN 0.5 mg/dL (0.2-1.0); TOTAL PROTEIN 5.7 g/dL (6.4-8.2)
--- NOTE | 2020-12-21 11:17 | PDOC ---
PULMONARY PROGRESS NOTES DATE: 12/21/20 TIME: 11:16 Subjective Patient sleeping on 40 L of oxygen, 100%, Vapotherm Blood pressure low at times Vitals Vital Signs Date Time Temp Pulse Resp B/P (MAP) Pulse Ox O2 Delivery O2 Flow Rate FiO2 12/21/20 10:00 47 22 83/61 (68) 100 Vapotherm + NRB 40.0 12/21/20 08:00 97.8 97.8 Comments On visual inspection, patient seen during the , no significant respiratory distress, no significant edema no paroxysmal breathing pattern Labs Laboratory Tests Test 12/19/20 12:54 12/19/20 18:13 12/19/20 23:42 12/20/20 06:00 Glucose (Fingerstick) 213 mg/dL (70-99) 247 mg/dL (70-99) 244 mg/dL (70-99) 276 mg/dL (70-99) Test 12/20/20 07:00 12/20/20 11:39 12/20/20 17:52 12/21/20 00:00 Sodium Level 141 mmol/L (136-145) Potassium Level 4.0 mmol/L (3.5-5.1) Chloride Level 105 mmol/L (98-107) Carbon Dioxide Level 29 mmol/L (21-32) Anion Gap 7 (6-14) Blood Urea Nitrogen 30 mg/dL (7-20) Creatinine 0.9 mg/dL (0.6-1.0) Estimated GFR (Cockcroft-Gault) 65.5 BUN/Creatinine Ratio 33 (6-20) Glucose Level 241 mg/dL (70-99) Calcium Level 8.7 mg/dL (8.5-10.1) Total Bilirubin 0.4 mg/dL (0.2-1.0) Aspartate Amino Transf (AST/SGOT) 45 U/L (15-37) Alanine Aminotransferase (ALT/SGPT) 40 U/L (14-59) Alkaline Phosphatase 92 U/L (46-116) Total Protein 6.2 g/dL (6.4-8.2) Albumin 2.4 g/dL (3.4-5.0) Albumin/Globulin Ratio 0.6 (1.0-1.7) Glucose (Fingerstick) 210 mg/dL (70-99) 285 mg/dL (70-99) 192 mg/dL (70-99) Test 12/21/20 06:20 12/21/20 08:50 Glucose (Fingerstick) 222 mg/dL (70-99) White Blood Count 5.0 x10^3/uL (4.0-11.0) Red Blood Count 4.25 x10^6/uL (3.50-5.40) Hemoglobin 12.6 g/dL (12.0-15.5) Hematocrit 37.4 % (36.0-47.0) Mean Corpuscular Volume 88 fL (79-100) Mean Corpuscular Hemoglobin 30 pg (25-35) Mean Corpuscular Hemoglobin Concent 34 g/dL (31-37) Red Cell Distribution Width 13.6 % (11.5-14.5) Platelet Count 264 x10^3/uL (140-400) Neutrophils (%) (Auto) 84 % (31-73) Lymphocytes (%) (Auto) 10 % (24-48) Monocytes (%) (Auto) 6 % (0-9) Eosinophils (%) (Auto) 0 % (0-3) Basophils (%) (Auto) 0 % (0-3) Neutrophils # (Auto) 4.2 x10^3/uL (1.8-7.7) Lymphocytes # (Auto) 0.5 x10^3/uL (1.0-4.8) Monocytes # (Auto) 0.3 x10^3/uL (0.0-1.1) Eosinophils # (Auto) 0.0 x10^3/uL (0.0-0.7) Basophils # (Auto) 0.0 x10^3/uL (0.0-0.2) Sodium Level 142 mmol/L (136-145) Potassium Level 3.9 mmol/L (3.5-5.1) Chloride Level 104 mmol/L (98-107) Carbon Dioxide Level 29 mmol/L (21-32) Anion Gap 9 (6-14) Blood Urea Nitrogen 27 mg/dL (7-20) Creatinine 0.6 mg/dL (0.6-1.0) Estimated GFR (Cockcroft-Gault) 104.6 BUN/Creatinine Ratio 45 (6-20) Glucose Level 206 mg/dL (70-99) Calcium Level 8.3 mg/dL (8.5-10.1) Total Bilirubin 0.5 mg/dL (0.2-1.0) Aspartate Amino Transf (AST/SGOT) 58 U/L (15-37) Alanine Aminotransferase (ALT/SGPT) 44 U/L (14-59) Alkaline Phosphatase 83 U/L (46-116) Total Protein 5.7 g/dL (6.4-8.2) Albumin 2.2 g/dL (3.4-5.0) Albumin/Globulin Ratio 0.6 (1.0-1.7) Laboratory Tests Test 12/20/20 11:39 12/20/20 17:52 12/21/20 00:00 12/21/20 06:20 Glucose (Fingerstick) 210 mg/dL (70-99) 285 mg/dL (70-99) 192 mg/dL (70-99) 222 mg/dL (70-99) Test 12/21/20 08:50 White Blood Count 5.0 x10^3/uL (4.0-11.0) Red Blood Count 4.25 x10^6/uL (3.50-5.40) Hemoglobin 12.6 g/dL (12.0-15.5) Hematocrit 37.4 % (36.0-47.0) Mean Corpuscular Volume 88 fL (79-100) Mean Corpuscular Hemoglobin 30 pg (25-35) Mean Corpuscular Hemoglobin Concent 34 g/dL (31-37) Red Cell Distribution Width 13.6 % (11.5-14.5) Platelet Count 264 x10^3/uL (140-400) Neutrophils (%) (Auto) 84 % (31-73) Lymphocytes (%) (Auto) 10 % (24-48) Monocytes (%) (Auto) 6 % (0-9) Eosinophils (%) (Auto) 0 % (0-3) Basophils (%) (Auto) 0 % (0-3) Neutrophils # (Auto) 4.2 x10^3/uL (1.8-7.7) Lymphocytes # (Auto) 0.5 x10^3/uL (1.0-4.8) Monocytes # (Auto) 0.3 x10^3/uL (0.0-1.1) Eosinophils # (Auto) 0.0 x10^3/uL (0.0-0.7) Basophils # (Auto) 0.0 x10^3/uL (0.0-0.2) Sodium Level 142 mmol/L (136-145) Potassium Level 3.9 mmol/L (3.5-5.1) Chloride Level 104 mmol/L (98-107) Carbon Dioxide Level 29 mmol/L (21-32) Anion Gap 9 (6-14) Blood Urea Nitrogen 27 mg/dL (7-20) Creatinine 0.6 mg/dL (0.6-1.0) Estimated GFR (Cockcroft-Gault) 104.6 BUN/Creatinine Ratio 45 (6-20) Glucose Level 206 mg/dL (70-99) Calcium Level 8.3 mg/dL (8.5-10.1) Total Bilirubin 0.5 mg/dL (0.2-1.0) Aspartate Amino Transf (AST/SGOT) 58 U/L (15-37) Alanine Aminotransferase (ALT/SGPT) 44 U/L (14-59) Alkaline Phosphatase 83 U/L (46-116) Total Protein 5.7 g/dL (6.4-8.2) Albumin 2.2 g/dL (3.4-5.0) Albumin/Globulin Ratio 0.6 (1.0-1.7) Impression . IMPRESSION: 1. Acute hypoxemic respiratory failure secondary to COVID-19 viral pneumonia. 2. Acute respiratory distress syndrome. 3. Sepsis secondary to above. 4. Acute kidney injury. 5. Elevated LFTs. 6. Hypokalemia. 7. Hypotension, suspect secondary to sepsis and volume depletion Plan . 12/21, updated IV bolus normal saline Continue current support Received steroids remdesivir and tocilizumab Oxygen supplementation DVT GI prophylaxis Nutritional support Cumulative critical care time of 30 minutes with no overlap 12/20 Continue steroids and remdesivir Received Tocilizumab Continue oxygen supplementation Supplement with vitamin D DVT GI prophylaxis Discussed with RN Total cumulative critical care time of 30 minutes with no overlap ROMEL GRANADOS MD Dec 21, 2020 11:17
[2020-12-21] MEDS ORDERED: IV RINGERS,LACTATED 500ML 500 ML IV ONE (11:30)
--- NOTE | 2020-12-21 14:13 | PDOC ---
[employer] PROGRESS NOTE Date of Service DOS: DATE: 12/21/20 TIME: 13:59 Chief Complaint Chief Complaint CC: Acute hypoxic respiratory failure Covid-19 Sepsis ANTHONY Elevated LFTs Elevated CRP Milk Hypokalemia Overactive bladder History of Present Illness History of Present Illness Ms Anton is a 55-year-old female with past medical history of overactive bladder who came to the ED at [facility] complaining of worsening shortness of breath fatigue and cough. Her shortness of breath began on 12/11/2020 she had fatigue started on 12/08/2020. She awoke on 12/12/2020 and noted myalgias and loss of appetite and diarrhea as well. She tested positive for COVID-19. Her also tested positive for COVID-19. She has complaints fever, chills, malaise, nausea, vomiting, arthralgia, myalgia, tachycardia, coughing and increased dyspnea. Patient has been exposed to inmates here plan seeing nursing home who had COVID. Patient previously declined Covid vaccination. Patient now comes very dyspneic with any activity. Initially sats on room air in the 80s. Patient denies any recent travel. No specific ill contacts other than at work and her . Patient denies any previous history of immunosuppression. She had not been vaccinated for COVID-19 but after her daughter had contracted Covid she had planned to get the vaccine last week and had delayed due to her symptoms. 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 She has 3 children at home and 3 adult children whom have also had Covid with fairly severe symptoms and she also has 5 grandchildren, presumably healthy. Febrile on admission 100.8 F, heart rate 114 bpm, respirations 33/min, O2 saturation 86% on room air, blood pressure 113/69. Admission labs WBC 7.6, Hb 14.8, platelets 188, NA 140, K3.2, chloride 101, HCO3 24, BUN 26, CR 1.2, glucose 128, calcium 8.5, bilirubin 0.5, AST 111, ALT 64, alkaline phosphatase 117, troponin 0, albumin 3.2, NT proBNP 90, CRP 143.3. EKG normal sinus rhythm rate of 95 bpm leftward axis otherwise normal intervals, QTC [address] elevations or TWI. Chest radiograph with multifocal opacities. Due to tachycardia and hypoxemia she was evaluated with CTPA which was negative for pulmonary embolism and did reveal extensive bilateral groundglass opacities and incidental finding of enlarged spleen. Initially admitted to ICU at [facility] in [place] on 12/17/2020 given Solumedrol 60 three times a day and Remdesivir. Today she becomes significantly more hypoxic with O2 saturations 86% despite 10 L oxygen and was called for transfer to [facility]. Seen bedside in ICU 40 L/min 100% FiO2 Vapotherm with O2 saturations 93%. Requiring supplemental facemask O2 15 L/min. 12/19: Seen in ICU. Afebrile. O2 saturation 92% on 40 L/min 100% FiO2 Vapotherm + facemask O2 15 L/min. Less GI upset. Cough improved with Tessalon. D/w pulmonology to change to Decadron from Solu-Medrol and dose with Actemra based on her highly elevated CRP 143.3 Seen in ICU afebrile. O2 saturations 94% 40 L/min FiO2 Vapotherm plus facemask O2 15 L/min. Still little appetite. Transaminases decreased. Feels a little better but is complaining of nasal drainage. cc time 30 min 12/21/20: Patient seen and examined in ICU. Patient currently on 100% O2 on Vapotherm with 40L O2 as well as 100% O2 on nonre breather. O2 sat is at 89% when examined. Patient has Dawn to bedside drainage. Discussed with RN. Chart r jasmin. Vitals/I&O Vitals/I&O: Vital Signs Date Time Temp Pulse Resp B/P (MAP) Pulse Ox O2 Delivery O2 Flow Rate FiO2 12/21/20 13:05 95 VAPOTHERM 40.0 12/21/20 12:00 98.1 55 17 110/68 (82) 98.1 I & O 12/20/20 12/20/20 12/21/20 15:00 23:00 07:00 Intake Total 1759 ml 957.4 ml Output Total 675 ml 680 ml 425 ml Balance -675 ml 1079 ml 532.4 ml Physical Exam General: Alert, Oriented X3, Cooperative, moderate distress Abdomen: Normal bowel sounds, Soft, No tenderness, No hepatosplenomegaly, No masses Extremities: No clubbing, No cyanosis, No edema, Normal pulses, No tenderness/swelling Skin: No rashes, No breakdown, No significant lesion Labs Labs: Laboratory Tests Test 12/20/20 17:52 12/21/20 00:00 12/21/20 06:20 12/21/20 08:50 Glucose (Fingerstick) 285 mg/dL (70-99) 192 mg/dL (70-99) 222 mg/dL (70-99) White Blood Count 5.0 x10^3/uL (4.0-11.0) Red Blood Count 4.25 x10^6/uL (3.50-5.40) Hemoglobin 12.6 g/dL (12.0-15.5) Hematocrit 37.4 % (36.0-47.0) Mean Corpuscular Volume 88 fL (79-100) Mean Corpuscular Hemoglobin 30 pg (25-35) Mean Corpuscular Hemoglobin Concent 34 g/dL (31-37) Red Cell Distribution Width 13.6 % (11.5-14.5) Platelet Count 264 x10^3/uL (140-400) Neutrophils (%) (Auto) 84 % (31-73) Lymphocytes (%) (Auto) 10 % (24-48) Monocytes (%) (Auto) 6 % (0-9) Eosinophils (%) (Auto) 0 % (0-3) Basophils (%) (Auto) 0 % (0-3) Neutrophils # (Auto) 4.2 x10^3/uL (1.8-7.7) Lymphocytes # (Auto) 0.5 x10^3/uL (1.0-4.8) Monocytes # (Auto) 0.3 x10^3/uL (0.0-1.1) Eosinophils # (Auto) 0.0 x10^3/uL (0.0-0.7) Basophils # (Auto) 0.0 x10^3/uL (0.0-0.2) Sodium Level 142 mmol/L (136-145) Potassium Level 3.9 mmol/L (3.5-5.1) Chloride Level 104 mmol/L (98-107) Carbon Dioxide Level 29 mmol/L (21-32) Anion Gap 9 (6-14) Blood Urea Nitrogen 27 mg/dL (7-20) Creatinine 0.6 mg/dL (0.6-1.0) Estimated GFR (Cockcroft-Gault) 104.6 BUN/Creatinine Ratio 45 (6-20) Glucose Level 206 mg/dL (70-99) Calcium Level 8.3 mg/dL (8.5-10.1) Total Bilirubin 0.5 mg/dL (0.2-1.0) Aspartate Amino Transf (AST/SGOT) 58 U/L (15-37) Alanine Aminotransferase (ALT/SGPT) 44 U/L (14-59) Alkaline Phosphatase 83 U/L (46-116) Total Protein 5.7 g/dL (6.4-8.2) Albumin 2.2 g/dL (3.4-5.0) Albumin/Globulin Ratio 0.6 (1.0-1.7) Test 12/21/20 12:10 Glucose (Fingerstick) 250 mg/dL (70-99) Review of Systems Review of Systems: No changes in vision. No bleeding. No rashes. Assessment and Plan Assessmemt and Plan Problems Medical Problems: (1) Acute respiratory failure with hypoxia Status: Acute (2) COVID-19 Status: Acute Acute hypoxic respiratory failure Covid-19 Sepsis ANTHONY Elevated LFTs Elevated CRP Milk Hypokalemia Overactive bladder Plan: 1. ICU monitoring 2. Covid protocol (Vitamin D, Vitamin B1, Vitamin C, Zinc, Dexamethasone, Remdes ivir, Robitussin) 3. Add Adivan 4. Add Lortab 5. Add Robitussin with Codeine 6. Trend labs 7. DVT prophylaxis (Lovenox) 8. Trying to wean down oxygen requirements (currently on BiPAP and Vapotherm) Prognosis guarded CC time 32 minutes Comment Review of Relevant I have reviewed the following items jeannie (where applicable) has been applied. Medications: Current Medications Medications (Trade) Dose Ordered Sig/Zoë Route PRN Reason Start Time Stop Time Status Last Admin Dose Admin Ringer's Solution 500 ml @ 500 mls/hr 1X ONCE IV 12/21/20 11:30 12/21/20 12:29 DC 12/21/20 11:30 Justifications for Admission Other Justification hypoxia CASTLE,NIAL K III DO Dec 21, 2020 14:13
[2020-12-21] MEDS: guaiFENesin/CODEINE 100mg/10mg 5 ML LIQUID PO PRN (14:36)
[2020-12-21] MEDS: ENOXAPARIN 40 MG/0.4 ML SYRINGE. SQ SCH (21:06)
[2020-12-21] MEDS: REMDESIVIR 100mg in NORMAL SALINE 250ML X 4 DAYS IV SCH (21:08)
[2020-12-21] MEDS: ACETAMINOPHEN 325 MG TABLET. PO PRN (23:45)
[2020-12-22] VITALS (24 sets, daily range): BP systolic 86–120; BP diastolic 51–70
[2020-12-22] MEDS: guaiFENesin DM 200MG/20MG 10 ML SYRUP PO PRN (04:12)
[2020-12-22] MEDS: fentaNYL PF VIAL 100 MCG/2 ML VIAL IVP PRN ×2 (04:13→07:25)
[2020-12-22] MEDS: STERILE WATER for RESP 1,000 ML BAG. INH PRN ×2 (05:00→17:34)
[2020-12-22] MEDS: AA 4.25 %/CALCIUM/LYTES/D5W 1,000 ML IV SCH ×2 (05:44→22:00)
[2020-12-22] MEDS: INSULIN LISPRO 300 UNITS/3 ML VIAL. SQ SCH ×4 (06:00→23:32)
[2020-12-22 06:27] LABS: ALBUMIN 2.3 g/dL (3.4-5.0); ALBUMIN/GLOBULIN RATIO 0.7 (1.0-1.7); CALCIUM 8.3 mg/dL (8.5-10.1); CREATININE 0.7 mg/dL (0.6-1.0); GFR 87.5; POTASSIUM 4.2 mmol/L (3.5-5.1); TOTAL BILIRUBIN 0.6 mg/dL (0.2-1.0); TOTAL PROTEIN 5.6 g/dL (6.4-8.2)
[2020-12-22] MEDS: ONDANSETRON PF 4 MG/2 ML VIAL. IVP PRN (07:25)
--- NOTE | 2020-12-22 08:28 | PDOC ---
PULMONARY PROGRESS NOTES DATE: 12/22/20 TIME: 08:28 Subjective Patient with no new symptoms Currently on Vapotherm, some nausea Vitals Vital Signs Date Time Temp Pulse Resp B/P (MAP) Pulse Ox O2 Delivery O2 Flow Rate FiO2 12/22/20 08:00 97.8 55 18 99/54 (69) 97 Vapotherm + NRB 40.0 97.8 Comments On visual inspection, patient seen during the COVID pandemic, no significant respiratory distress, no significant edema no paroxysmal breathing pattern Labs Laboratory Tests Test 12/20/20 11:39 12/20/20 17:52 12/21/20 00:00 12/21/20 06:20 Glucose (Fingerstick) 210 mg/dL (70-99) 285 mg/dL (70-99) 192 mg/dL (70-99) 222 mg/dL (70-99) Test 12/21/20 08:50 12/21/20 12:10 12/21/20 17:43 12/21/20 23:48 White Blood Count 5.0 x10^3/uL (4.0-11.0) Red Blood Count 4.25 x10^6/uL (3.50-5.40) Hemoglobin 12.6 g/dL (12.0-15.5) Hematocrit 37.4 % (36.0-47.0) Mean Corpuscular Volume 88 fL (79-100) Mean Corpuscular Hemoglobin 30 pg (25-35) Mean Corpuscular Hemoglobin Concent 34 g/dL (31-37) Red Cell Distribution Width 13.6 % (11.5-14.5) Platelet Count 264 x10^3/uL (140-400) Neutrophils (%) (Auto) 84 % (31-73) Lymphocytes (%) (Auto) 10 % (24-48) Monocytes (%) (Auto) 6 % (0-9) Eosinophils (%) (Auto) 0 % (0-3) Basophils (%) (Auto) 0 % (0-3) Neutrophils # (Auto) 4.2 x10^3/uL (1.8-7.7) Lymphocytes # (Auto) 0.5 x10^3/uL (1.0-4.8) Monocytes # (Auto) 0.3 x10^3/uL (0.0-1.1) Eosinophils # (Auto) 0.0 x10^3/uL (0.0-0.7) Basophils # (Auto) 0.0 x10^3/uL (0.0-0.2) Sodium Level 142 mmol/L (136-145) Potassium Level 3.9 mmol/L (3.5-5.1) Chloride Level 104 mmol/L (98-107) Carbon Dioxide Level 29 mmol/L (21-32) Anion Gap 9 (6-14) Blood Urea Nitrogen 27 mg/dL (7-20) Creatinine 0.6 mg/dL (0.6-1.0) Estimated GFR (Cockcroft-Gault) 104.6 BUN/Creatinine Ratio 45 (6-20) Glucose Level 206 mg/dL (70-99) Calcium Level 8.3 mg/dL (8.5-10.1) Total Bilirubin 0.5 mg/dL (0.2-1.0) Aspartate Amino Transf (AST/SGOT) 58 U/L (15-37) Alanine Aminotransferase (ALT/SGPT) 44 U/L (14-59) Alkaline Phosphatase 83 U/L (46-116) Total Protein 5.7 g/dL (6.4-8.2) Albumin 2.2 g/dL (3.4-5.0) Albumin/Globulin Ratio 0.6 (1.0-1.7) Glucose (Fingerstick) 250 mg/dL (70-99) 232 mg/dL (70-99) 176 mg/dL (70-99) Test 12/22/20 05:50 12/22/20 05:55 Sodium Level 141 mmol/L (136-145) Potassium Level 4.2 mmol/L (3.5-5.1) Chloride Level 104 mmol/L (98-107) Carbon Dioxide Level 32 mmol/L (21-32) Anion Gap 5 (6-14) Blood Urea Nitrogen 21 mg/dL (7-20) Creatinine 0.7 mg/dL (0.6-1.0) Estimated GFR (Cockcroft-Gault) 87.5 BUN/Creatinine Ratio 30 (6-20) Glucose Level 173 mg/dL (70-99) Calcium Level 8.3 mg/dL (8.5-10.1) Total Bilirubin 0.6 mg/dL (0.2-1.0) Aspartate Amino Transf (AST/SGOT) 62 U/L (15-37) Alanine Aminotransferase (ALT/SGPT) 54 U/L (14-59) Alkaline Phosphatase 85 U/L (46-116) Total Protein 5.6 g/dL (6.4-8.2) Albumin 2.3 g/dL (3.4-5.0) Albumin/Globulin Ratio 0.7 (1.0-1.7) Glucose (Fingerstick) 163 mg/dL (70-99) Laboratory Tests Test 12/21/20 08:50 12/21/20 12:10 12/21/20 17:43 12/21/20 23:48 White Blood Count 5.0 x10^3/uL (4.0-11.0) Red Blood Count 4.25 x10^6/uL (3.50-5.40) Hemoglobin 12.6 g/dL (12.0-15.5) Hematocrit 37.4 % (36.0-47.0) Mean Corpuscular Volume 88 fL (79-100) Mean Corpuscular Hemoglobin 30 pg (25-35) Mean Corpuscular Hemoglobin Concent 34 g/dL (31-37) Red Cell Distribution Width 13.6 % (11.5-14.5) Platelet Count 264 x10^3/uL (140-400) Neutrophils (%) (Auto) 84 % (31-73) Lymphocytes (%) (Auto) 10 % (24-48) Monocytes (%) (Auto) 6 % (0-9) Eosinophils (%) (Auto) 0 % (0-3) Basophils (%) (Auto) 0 % (0-3) Neutrophils # (Auto) 4.2 x10^3/uL (1.8-7.7) Lymphocytes # (Auto) 0.5 x10^3/uL (1.0-4.8) Monocytes # (Auto) 0.3 x10^3/uL (0.0-1.1) Eosinophils # (Auto) 0.0 x10^3/uL (0.0-0.7) Basophils # (Auto) 0.0 x10^3/uL (0.0-0.2) Sodium Level 142 mmol/L (136-145) Potassium Level 3.9 mmol/L (3.5-5.1) Chloride Level 104 mmol/L (98-107) Carbon Dioxide Level 29 mmol/L (21-32) Anion Gap 9 (6-14) Blood Urea Nitrogen 27 mg/dL (7-20) Creatinine 0.6 mg/dL (0.6-1.0) Estimated GFR (Cockcroft-Gault) 104.6 BUN/Creatinine Ratio 45 (6-20) Glucose Level 206 mg/dL (70-99) Calcium Level 8.3 mg/dL (8.5-10.1) Total Bilirubin 0.5 mg/dL (0.2-1.0) Aspartate Amino Transf (AST/SGOT) 58 U/L (15-37) Alanine Aminotransferase (ALT/SGPT) 44 U/L (14-59) Alkaline Phosphatase 83 U/L (46-116) Total Protein 5.7 g/dL (6.4-8.2) Albumin 2.2 g/dL (3.4-5.0) Albumin/Globulin Ratio 0.6 (1.0-1.7) Glucose (Fingerstick) 250 mg/dL (70-99) 232 mg/dL (70-99) 176 mg/dL (70-99) Test 12/22/20 05:50 12/22/20 05:55 Sodium Level 141 mmol/L (136-145) Potassium Level 4.2 mmol/L (3.5-5.1) Chloride Level 104 mmol/L (98-107) Carbon Dioxide Level 32 mmol/L (21-32) Anion Gap 5 (6-14) Blood Urea Nitrogen 21 mg/dL (7-20) Creatinine 0.7 mg/dL (0.6-1.0) Estimated GFR (Cockcroft-Gault) 87.5 BUN/Creatinine Ratio 30 (6-20) Glucose Level 173 mg/dL (70-99) Calcium Level 8.3 mg/dL (8.5-10.1) Total Bilirubin 0.6 mg/dL (0.2-1.0) Aspartate Amino Transf (AST/SGOT) 62 U/L (15-37) Alanine Aminotransferase (ALT/SGPT) 54 U/L (14-59) Alkaline Phosphatase 85 U/L (46-116) Total Protein 5.6 g/dL (6.4-8.2) Albumin 2.3 g/dL (3.4-5.0) Albumin/Globulin Ratio 0.7 (1.0-1.7) Glucose (Fingerstick) 163 mg/dL (70-99) Impression . IMPRESSION: 1. Acute hypoxemic respiratory failure secondary to COVID-19 viral pneumonia. 2. Acute respiratory distress syndrome. 3. Sepsis secondary to above. 4. Acute kidney injury. 5. Elevated LFTs. 6. Hypokalemia. 7. Hypotension, suspect secondary to sepsis and volume depletion Plan . Updated 12/22 Has some nausea, will administer Zofran Blood pressure better today Continue remdesivir Status post tocilizumab DVT GI prophylaxis Oxygen per Vapotherm 12/21, updated IV bolus normal saline Continue current support Received steroids remdesivir and tocilizumab Oxygen supplementation DVT GI prophylaxis Nutritional support Cumulative critical care time of 30 minutes with no overlap 12/20 Continue steroids and remdesivir Received Tocilizumab Continue oxygen supplementation Supplement with vitamin D DVT GI prophylaxis Discussed with RN Total cumulative critical care time of 30 minutes with no overlap ROMEL GRANADOS MD Dec 22, 2020 08:28
[2020-12-22] MEDS: FAMOTIDINE 20 MG/2 ML VIAL IVP SCH ×2 (09:21→20:20)
[2020-12-22] MEDS: DEXAMETHASONE SOD PHOS 4 MG/ML VIAL IVP SCH (09:21)
[2020-12-22] MEDS: PROCHLORPERAZINE 10 MG/2 ML VIAL. IV PRN (09:24)
[2020-12-22] MEDS: THIAMINE 100 MG TABLET. PO SCH (10:34)
[2020-12-22] MEDS: CHOLECALCIFEROL (VITAMIN D3) 5,000 UNIT CAPSULE PO SCH (10:34)
[2020-12-22] MEDS: BENZONATATE 100 MG CAPSULE. PO SCH ×3 (10:35→20:20)
[2020-12-22] MEDS: traMADol 50 MG TABLET PO PRN (10:35)
[2020-12-22] MEDS: DOCUSATE SODIUM 100 MG CAPSULE. PO SCH ×2 (10:35→20:20)
[2020-12-22] MEDS: ZINC SULFATE 220 MG CAPSULE. PO SCH (10:35)
[2020-12-22] MEDS: ASCORBIC ACID 500 MG TABLET PO SCH (10:35)
[2020-12-22] MEDS: guaiFENesin/CODEINE 100mg/10mg 5 ML LIQUID PO PRN (10:35)
--- NOTE | 2020-12-22 11:33 | NUR ---
SS following for discharge planning. SS reviewed pt chart and discussed with pt RN. Pt is from home with spouse and is currently on Vapotherm and non-rebreather at 100%. COVID19 positive. Pt on IV Decadron and Clinimix. Not stable. SS will continue to follow for discharge planning.
--- NOTE | 2020-12-22 13:14 | PDOC ---
[employer] PROGRESS NOTE Date of Service DOS: DATE: 12/22/20 TIME: 13:04 Chief Complaint Chief Complaint CC: Acute hypoxic respiratory failure Covid-19 Sepsis ANTHONY Elevated LFTs Elevated CRP Milk Hypokalemia Overactive bladder History of Present Illness History of Present Illness Ms Anton is a 55-year-old female with past medical history of overactive bladder who came to the ED at [facility] complaining of worsening shortness of breath fatigue and cough. Her shortness of breath began on 12/11/2020 she had fatigue started on 12/08/2020. She awoke on 12/12/2020 and noted myalgias and loss of appetite and diarrhea as well. She tested positive for COVID-19. Her also tested positive for COVID-19. She has complaints fever, chills, malaise, nausea, vomiting, arthralgia, myalgia, tachycardia, coughing and increased dyspnea. Patient has been exposed to inmates here plan seeing senior living who had COVID. Patient previously declined Covid vaccination. Patient now comes very dyspneic with any activity. Initially sats on room air in the 80s. Patient denies any recent travel. No specific ill contacts other than at work and her . Patient denies any previous history of immunosuppression. She had not been vaccinated for COVID-19 but after her daughter had contracted Covid she had planned to get the vaccine last week and had delayed due to her symptoms. 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 She has 3 children at home and 3 adult children whom have also had Covid with fairly severe symptoms and she also has 5 grandchildren, presumably healthy. Febrile on admission 100.8 F, heart rate 114 bpm, respirations 33/min, O2 saturation 86% on room air, blood pressure 113/69. Admission labs WBC 7.6, Hb 14.8, platelets 188, NA 140, K3.2, chloride 101, HCO3 24, BUN 26, CR 1.2, glucose 128, calcium 8.5, bilirubin 0.5, AST 111, ALT 64, alkaline phosphatase 117, troponin 0, albumin 3.2, NT proBNP 90, CRP 143.3. EKG normal sinus rhythm rate of 95 bpm leftward axis otherwise normal intervals, QTC [address] elevations or TWI. Chest radiograph with multifocal opacities. Due to tachycardia and hypoxemia she was evaluated with CTPA which was negative for pulmonary embolism and did reveal extensive bilateral groundglass opacities and incidental finding of enlarged spleen. Initially admitted to ICU at [facility] in [place] on 12/17/2020 given Solumedrol 60 three times a day and Remdesivir. Today she becomes significantly more hypoxic with O2 saturations 86% despite 10 L oxygen and was called for transfer to [facility]. Seen bedside in ICU 40 L/min 100% FiO2 Vapotherm with O2 saturations 93%. Requiring supplemental facemask O2 15 L/min. 12/19: Seen in ICU. Afebrile. O2 saturation 92% on 40 L/min 100% FiO2 Vapotherm + facemask O2 15 L/min. Less GI upset. Cough improved with Tessalon. D/w pulmonology to change to Decadron from Solu-Medrol and dose with Actemra based on her highly elevated CRP 143.3 Seen in ICU afebrile. O2 saturations 94% 40 L/min FiO2 Vapotherm plus facemask O2 15 L/min. Still little appetite. Transaminases decreased. Feels a little better but is complaining of nasal drainage. cc time 30 min 12/21/20: Patient seen and examined in ICU. Patient currently on 100% O2 on Vapotherm with 40L O2 as well as 100% O2 on nonre breather. O2 sat is at 89% when examined. Patient has Dawn to bedside drainage. Discussed with RN. Chart shelley castellanos. 12/22/20: Patient was seen and examined in the ICU today. She is complaining of back pain so pain medications were adjusted for her. Currently on Clinimix. On nonre breather at 100% O2 and Vapotherm at 100% O2. Current O2 sat is 99%. Discussed with RN. Chart reviewed. Vitals/I&O Vitals/I&O: Vital Signs Date Time Temp Pulse Resp B/P (MAP) Pulse Ox O2 Delivery O2 Flow Rate FiO2 12/22/20 11:40 99 VAPOTHERM 40.0 12/22/20 11:00 60 16 86/52 (63) 12/22/20 08:00 97.8 97.8 I & O 12/21/20 12/21/20 12/22/20 15:00 23:00 07:00 Intake Total 500 ml 1428 ml 739.24 ml Output Total 800 ml 1705 ml 670 ml Balance -300 ml -277 ml 69.24 ml Physical Exam General: Alert, Oriented X3, Cooperative, moderate distress Abdomen: Normal bowel sounds, Soft, No tenderness, No hepatosplenomegaly, No masses Extremities: No clubbing, No cyanosis, No edema, Normal pulses, No tenderness/swelling Skin: No rashes, No breakdown, No significant lesion Labs Labs: Laboratory Tests Test 12/21/20 17:43 12/21/20 23:48 12/22/20 05:50 12/22/20 05:55 Glucose (Fingerstick) 232 mg/dL (70-99) 176 mg/dL (70-99) 163 mg/dL (70-99) Sodium Level 141 mmol/L (136-145) Potassium Level 4.2 mmol/L (3.5-5.1) Chloride Level 104 mmol/L (98-107) Carbon Dioxide Level 32 mmol/L (21-32) Anion Gap 5 (6-14) Blood Urea Nitrogen 21 mg/dL (7-20) Creatinine 0.7 mg/dL (0.6-1.0) Estimated GFR (Cockcroft-Gault) 87.5 BUN/Creatinine Ratio 30 (6-20) Glucose Level 173 mg/dL (70-99) Calcium Level 8.3 mg/dL (8.5-10.1) Total Bilirubin 0.6 mg/dL (0.2-1.0) Aspartate Amino Transf (AST/SGOT) 62 U/L (15-37) Alanine Aminotransferase (ALT/SGPT) 54 U/L (14-59) Alkaline Phosphatase 85 U/L (46-116) Total Protein 5.6 g/dL (6.4-8.2) Albumin 2.3 g/dL (3.4-5.0) Albumin/Globulin Ratio 0.7 (1.0-1.7) Review of Systems Review of Systems: GI: no nausea. no vomiting MSK: patient admits back pain. Eyes: no changes in vision. no blurry vision. Assessment and Plan Assessmemt and Plan Problems Medical Problems: (1) Acute respiratory failure with hypoxia Status: Acute (2) COVID-19 Status: Acute Acute hypoxic respiratory failure Covid-19 Sepsis ANTHONY Elevated LFTs Elevated CRP Milk Hypokalemia Overactive bladder Plan: 1. Patient going for PICC line today 2. Start Lortab PRN 5mg q 4 hr for back pain 3. Covid protocol (Vitamin D, Vitamin B1, Vitamin C, Zinc, Dexamethasone, Robitussin) 4. ICU monitoring 5. Vent weaning 6. Trend labs 7. DVT prophylaxis (Lovenox) 8. Full code 9. Prognosis guarded Appreciate subspecialist input CC time 31 minutes Comment Review of Relevant I have reviewed the following items jeannie (where applicable) has been applied. Justifications for Admission Other Justification hypoxia ANJELICA AVILA III DO Dec 22, 2020 13:14
[2020-12-22] MEDS: ENOXAPARIN 40 MG/0.4 ML SYRINGE. SQ SCH (20:21)
[2020-12-23] VITALS (22 sets, daily range): BP systolic 82–100; BP diastolic 51–65
[2020-12-23] MEDS: guaiFENesin/CODEINE 100mg/10mg 5 ML LIQUID PO PRN ×3 (03:13→20:53)
[2020-12-23] MEDS: INSULIN LISPRO 300 UNITS/3 ML VIAL. SQ SCH ×4 (06:00→23:44)
[2020-12-23] MEDS: THIAMINE 100 MG TABLET. PO SCH (09:05)
[2020-12-23] MEDS: DEXAMETHASONE SOD PHOS 4 MG/ML VIAL IVP SCH (09:05)
[2020-12-23] MEDS: DOCUSATE SODIUM 100 MG CAPSULE. PO SCH ×3 (09:05→21:00)
[2020-12-23] MEDS: ZINC SULFATE 220 MG CAPSULE. PO SCH (09:05)
[2020-12-23] MEDS: FAMOTIDINE 20 MG/2 ML VIAL IVP SCH ×2 (09:05→20:53)
[2020-12-23] MEDS: ASCORBIC ACID 500 MG TABLET PO SCH (09:05)
[2020-12-23] MEDS: BENZONATATE 100 MG CAPSULE. PO SCH ×3 (09:05→20:53)
[2020-12-23] MEDS: CHOLECALCIFEROL (VITAMIN D3) 5,000 UNIT CAPSULE PO SCH (09:05)
--- NOTE | 2020-12-23 09:14 | PDOC ---
[employer] PROGRESS NOTE Date of Service DOS: DATE: 12/23/20 TIME: 09:04 Chief Complaint Chief Complaint CC: Acute hypoxic respiratory failure Covid-19 Sepsis ANTHONY Elevated LFTs Elevated CRP Milk Hypokalemia Overactive bladder History of Present Illness History of Present Illness Ms Anton is a 55-year-old female with past medical history of overactive bladder who came to the ED at [facility] complaining of worsening shortness of breath fatigue and cough. Her shortness of breath began on 12/11/2020 she had fatigue started on 12/08/2020. She awoke on 12/12/2020 and noted myalgias and loss of appetite and diarrhea as well. She tested positive for COVID-19. Her also tested positive for COVID-19. She has complaints fever, chills, malaise, nausea, vomiting, arthralgia, myalgia, tachycardia, coughing and increased dyspnea. Patient has been exposed to inmates here plan seeing skilled nursing who had COVID. Patient previously declined Covid vaccination. Patient now comes very dyspneic with any activity. Initially sats on room air in the 80s. Patient denies any recent travel. No specific ill contacts other than at work and her . Patient denies any previous history of immunosuppression. She had not been vaccinated for COVID-19 but after her daughter had contracted Covid she had planned to get the vaccine last week and had delayed due to her symptoms. 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 She has 3 children at home and 3 adult children whom have also had Covid with fairly severe symptoms and she also has 5 grandchildren, presumably healthy. Febrile on admission 100.8 F, heart rate 114 bpm, respirations 33/min, O2 saturation 86% on room air, blood pressure 113/69. Admission labs WBC 7.6, Hb 14.8, platelets 188, NA 140, K3.2, chloride 101, HCO3 24, BUN 26, CR 1.2, glucose 128, calcium 8.5, bilirubin 0.5, AST 111, ALT 64, alkaline phosphatase 117, troponin 0, albumin 3.2, NT proBNP 90, CRP 143.3. EKG normal sinus rhythm rate of 95 bpm leftward axis otherwise normal intervals, QTC [address] elevations or TWI. Chest radiograph with multifocal opacities. Due to tachycardia and hypoxemia she was evaluated with CTPA which was negative for pulmonary embolism and did reveal extensive bilateral groundglass opacities and incidental finding of enlarged spleen. Initially admitted to ICU at [facility] in [place] on 12/17/2020 given Solumedrol 60 three times a day and Remdesivir. Today she becomes significantly more hypoxic with O2 saturations 86% despite 10 L oxygen and was called for transfer to [facility]. Seen bedside in ICU 40 L/min 100% FiO2 Vapotherm with O2 saturations 93%. Requiring supplemental facemask O2 15 L/min. 12/19: Seen in ICU. Afebrile. O2 saturation 92% on 40 L/min 100% FiO2 Vapotherm + facemask O2 15 L/min. Less GI upset. Cough improved with Tessalon. D/w pulmonology to change to Decadron from Solu-Medrol and dose with Actemra based on her highly elevated CRP 143.3 Seen in ICU afebrile. O2 saturations 94% 40 L/min FiO2 Vapotherm plus facemask O2 15 L/min. Still little appetite. Transaminases decreased. Feels a little better but is complaining of nasal drainage. cc time 30 min 12/21/20: Patient seen and examined in ICU. Patient currently on 100% O2 on Vapotherm with 40L O2 as well as 100% O2 on nonre breather. O2 sat is at 89% when examined. Patient has Dawn to bedside drainage. Discussed with RN. Chart r jasmin. 12/22/20: Patient was seen and examined in the ICU today. She is complaining of back pain so pain medications were adjusted for her. Currently on Clinimix. On nonre breather at 100% O2 and Vapotherm at 100% O2. Current O2 sat is 99%. Discussed with RN. Chart reviewed. 12/23/20: Patient seen and examined in ICU. Resting with NAD. Patient has been sleeping all day and night. Current O2 sat is at 95%. On Clinimix. On vapotherm with 100% O2 and non-rebreather at 100% O2. Discussed with RN. Chart reviewed. Vitals/I&O Vitals/I&O: Vital Signs Date Time Temp Pulse Resp B/P (MAP) Pulse Ox O2 Delivery O2 Flow Rate FiO2 12/23/20 08:05 97 VAPOTHERM 40.0 12/23/20 07:00 56 26 100/63 (75) 12/23/20 04:00 97.1 97.1 I & O 12/22/20 12/22/20 12/23/20 15:00 23:00 07:00 Intake Total 0 ml Output Total 605 ml 350 ml 650 ml Balance -605 ml -350 ml -650 ml Physical Exam General: Alert, Oriented X3, Cooperative, moderate distress Abdomen: Normal bowel sounds, Soft, No tenderness, No hepatosplenomegaly, No masses Extremities: No clubbing, No cyanosis, No edema, Normal pulses, No tenderness/swelling Skin: No rashes, No breakdown, No significant lesion Labs Labs: Laboratory Tests Test 12/22/20 13:19 12/22/20 18:44 12/22/20 23:27 Glucose (Fingerstick) 245 mg/dL (70-99) 194 mg/dL (70-99) 151 mg/dL (70-99) Review of Systems Review of Systems: GI: no nausea. no vomiting. Eyes: no changes in vision. no blurry vision. Assessment and Plan Assessmemt and Plan Problems Medical Problems: (1) Acute respiratory failure with hypoxia Status: Acute (2) COVID-19 Status: Acute Acute hypoxic respiratory failure Covid-19 Sepsis ANTHONY Elevated LFTs Elevated CRP Milk Hypokalemia Overactive bladder Plan: 1. ICU monitoring 2. Covid protocol (Vitamin D, Vitamin B1, Vitamin C, Zinc, Dexamethasone, Robitussin) 3. Titrate O2 requirements down 4. Continue Lortab PRN for back pain 5. Trend labs 6. DVT prophylaxis (Lovenox 40mg SQ q 24h) 7. Full code 8. Appreciate subspecialist input 9. Continue Clinimix for nutrition 10. Prognosis guarded CC time 32 minutes Comment Review of Relevant I have reviewed the following items jeannie (where applicable) has been applied. Justifications for Admission Other Justification hypoxia ANJELICA AVILA III DO Dec 23, 2020 09:14
--- NOTE | 2020-12-23 09:30 | PDOC ---
PULMONARY PROGRESS NOTES DATE: 12/23/20 TIME: 09:29 Subjective Patient still nauseated Continue Vapotherm No new complaints Vitals Vital Signs Date Time Temp Pulse Resp B/P (MAP) Pulse Ox O2 Delivery O2 Flow Rate FiO2 12/23/20 08:05 97 VAPOTHERM 40.0 12/23/20 07:00 56 26 100/63 (75) 12/23/20 04:00 97.1 97.1 Comments On visual inspection, patient seen during the pandemic, no significant respiratory distress, no significant edema no paroxysmal breathing pattern Labs Laboratory Tests Test 12/21/20 12:10 12/21/20 17:43 12/21/20 23:48 12/22/20 05:50 Glucose (Fingerstick) 250 mg/dL (70-99) 232 mg/dL (70-99) 176 mg/dL (70-99) Sodium Level 141 mmol/L (136-145) Potassium Level 4.2 mmol/L (3.5-5.1) Chloride Level 104 mmol/L (98-107) Carbon Dioxide Level 32 mmol/L (21-32) Anion Gap 5 (6-14) Blood Urea Nitrogen 21 mg/dL (7-20) Creatinine 0.7 mg/dL (0.6-1.0) Estimated GFR (Cockcroft-Gault) 87.5 BUN/Creatinine Ratio 30 (6-20) Glucose Level 173 mg/dL (70-99) Calcium Level 8.3 mg/dL (8.5-10.1) Total Bilirubin 0.6 mg/dL (0.2-1.0) Aspartate Amino Transf (AST/SGOT) 62 U/L (15-37) Alanine Aminotransferase (ALT/SGPT) 54 U/L (14-59) Alkaline Phosphatase 85 U/L (46-116) Total Protein 5.6 g/dL (6.4-8.2) Albumin 2.3 g/dL (3.4-5.0) Albumin/Globulin Ratio 0.7 (1.0-1.7) Test 12/22/20 05:55 12/22/20 13:19 12/22/20 18:44 12/22/20 23:27 Glucose (Fingerstick) 163 mg/dL (70-99) 245 mg/dL (70-99) 194 mg/dL (70-99) 151 mg/dL (70-99) Laboratory Tests Test 12/22/20 13:19 12/22/20 18:44 12/22/20 23:27 Glucose (Fingerstick) 245 mg/dL (70-99) 194 mg/dL (70-99) 151 mg/dL (70-99) Impression . IMPRESSION: 1. Acute hypoxemic respiratory failure secondary to COVID-19 viral pneumonia. 2. Acute respiratory distress syndrome. 3. Sepsis secondary to above. 4. Acute kidney injury. 5. Elevated LFTs. 6. Hypokalemia. 7. Hypotension, suspect secondary to sepsis and volume depletion Plan . Updated 12/23 As needed Zofran Remdesivir Status post tocilizumab Steroid Vapotherm Up to chair updated 12/22 Has some nausea, will administer Zofran Blood pressure better today Continue remdesivir Status post tocilizumab DVT GI prophylaxis Oxygen per Vapotherm 12/21, updated IV bolus normal saline Continue current support Received steroids remdesivir and tocilizumab Oxygen supplementation DVT GI prophylaxis Nutritional support Cumulative critical care time of 30 minutes with no overlap 12/20 Continue steroids and remdesivir Received Tocilizumab Continue oxygen supplementation Supplement with vitamin D DVT GI prophylaxis Discussed with RN Total cumulative critical care time of 30 minutes with no overlap ROMEL GRANADOS MD Dec 23, 2020 09:30
[2020-12-23] MEDS: ONDANSETRON PF 4 MG/2 ML VIAL. IVP PRN (10:08)
[2020-12-23] MEDS: AA 4.25 %/CALCIUM/LYTES/D5W 1,000 ML IV SCH (10:30)
[2020-12-23] MEDS: traMADol 50 MG TABLET PO PRN ×2 (13:17→20:53)
[2020-12-23] MEDS: STERILE WATER for RESP 1,000 ML BAG. INH PRN (16:34)
--- NOTE | 2020-12-23 16:51 | RAD ---
Single AP view of the chest. Comparison: CT from 12/17/2020. Indication: PICC line placement Findings: New left-sided PICC line is seen with tip in the SVC right atrial junction. The heart is not enlarged . There is no pneumothorax or effusion. Mixed airspace interstitial opacities appear relatively stab le. Impression: 1. New left-sided PICC line appears in good position. 2. Mixed airspace interstitial opacities are grossly unchanged suggest atypical viral infection. Electronically signed by: Gregory Law MD (12/23/2020 4:48 PM) [facility]
--- NOTE | 2020-12-23 19:40 | NUR ---
Pt in bed assessment completed vss poc explained pt denied pain at this time will resume care and continue to monitor pt.
[2020-12-23] MEDS: ENOXAPARIN 40 MG/0.4 ML SYRINGE. SQ SCH (20:54)
[2020-12-24] VITALS (24 sets, daily range): BP systolic 78–105; BP diastolic 48–67
[2020-12-24] MEDS: AA 4.25 %/CALCIUM/LYTES/D5W 1,000 ML IV SCH ×2 (01:08→14:04)
[2020-12-24] MEDS: STERILE WATER for RESP 1,000 ML BAG. INH PRN (04:40)
[2020-12-24] MEDS: INSULIN LISPRO 300 UNITS/3 ML VIAL. SQ SCH ×3 (06:06→18:00)
[2020-12-24 06:16] LABS: BASO % 0 % (0-3); EOS # 0.1 x10^3/uL (0.0-0.7); EOS % 1 % (0-3); HEMATOCRIT 40.8 % (36.0-47.0); HEMOGLOBIN 13.6 g/dL (12.0-15.5); LYMPH # 0.6 x10^3/uL (1.0-4.8); LYMPH % 10 % (24-48); MEAN CORPUSCULAR HEMOGLOBIN 29 pg (25-35); MEAN CORPUSCULAR HGB CONC 33 g/dL (31-37); MEAN CORPUSCULAR VOLUME 88 fL (79-100); MONO # 0.4 x10^3/uL (0.0-1.1); MONO % 6 % (0-9); NEUT % 82 % (31-73); PLATELET COUNT 217 x10^3/uL (140-400); RED BLOOD COUNT 4.61 x10^6/uL (3.50-5.40); RED CELL DISTRIBUTION WIDTH 13.3 % (11.5-14.5); WHITE BLOOD COUNT 6.2 x10^3/uL (4.0-11.0)
[2020-12-24 06:31] LABS: CALCIUM 8.3 mg/dL (8.5-10.1); CREATININE 0.6 mg/dL (0.6-1.0); GFR 104.6; POTASSIUM 3.8 mmol/L (3.5-5.1)
[2020-12-24] MEDS: DOCUSATE SODIUM 100 MG CAPSULE. PO SCH ×2 (09:32→20:57)
[2020-12-24] MEDS: ASCORBIC ACID 500 MG TABLET PO SCH (09:32)
--- NOTE | 2020-12-24 09:32 | PDOC ---
PULMONARY PROGRESS NOTES DATE: 12/24/20 TIME: 09:32 Subjective Patient feels better Continue Vapotherm No new complaints Vitals Vital Signs Date Time Temp Pulse Resp B/P (MAP) Pulse Ox O2 Delivery O2 Flow Rate FiO2 12/24/20 08:45 94 VAPOTHERM 40.0 12/24/20 06:00 82 20 99/63 (75) 12/24/20 03:00 97.2 97.2 Comments On visual inspection, patient seen during the pandemic, no significant respiratory distress, no significant edema no paroxysmal breathing pattern Labs Laboratory Tests Test 12/22/20 13:19 12/22/20 18:44 12/22/20 23:27 12/23/20 12:28 Glucose (Fingerstick) 245 mg/dL (70-99) 194 mg/dL (70-99) 151 mg/dL (70-99) 234 mg/dL (70-99) Test 12/23/20 17:08 12/23/20 23:40 12/24/20 06:00 12/24/20 06:03 Glucose (Fingerstick) 187 mg/dL (70-99) 137 mg/dL (70-99) 156 mg/dL (70-99) White Blood Count 6.2 x10^3/uL (4.0-11.0) Red Blood Count 4.61 x10^6/uL (3.50-5.40) Hemoglobin 13.6 g/dL (12.0-15.5) Hematocrit 40.8 % (36.0-47.0) Mean Corpuscular Volume 88 fL (79-100) Mean Corpuscular Hemoglobin 29 pg (25-35) Mean Corpuscular Hemoglobin Concent 33 g/dL (31-37) Red Cell Distribution Width 13.3 % (11.5-14.5) Platelet Count 217 x10^3/uL (140-400) Neutrophils (%) (Auto) 82 % (31-73) Lymphocytes (%) (Auto) 10 % (24-48) Monocytes (%) (Auto) 6 % (0-9) Eosinophils (%) (Auto) 1 % (0-3) Basophils (%) (Auto) 0 % (0-3) Neutrophils # (Auto) 5.0 x10^3/uL (1.8-7.7) Lymphocytes # (Auto) 0.6 x10^3/uL (1.0-4.8) Monocytes # (Auto) 0.4 x10^3/uL (0.0-1.1) Eosinophils # (Auto) 0.1 x10^3/uL (0.0-0.7) Basophils # (Auto) 0.0 x10^3/uL (0.0-0.2) Sodium Level 138 mmol/L (136-145) Potassium Level 3.8 mmol/L (3.5-5.1) Chloride Level 100 mmol/L (98-107) Carbon Dioxide Level 31 mmol/L (21-32) Anion Gap 7 (6-14) Blood Urea Nitrogen 19 mg/dL (7-20) Creatinine 0.6 mg/dL (0.6-1.0) Estimated GFR (Cockcroft-Gault) 104.6 Glucose Level 143 mg/dL (70-99) Calcium Level 8.3 mg/dL (8.5-10.1) Laboratory Tests Test 12/23/20 12:28 12/23/20 17:08 12/23/20 23:40 12/24/20 06:00 Glucose (Fingerstick) 234 mg/dL (70-99) 187 mg/dL (70-99) 137 mg/dL (70-99) White Blood Count 6.2 x10^3/uL (4.0-11.0) Red Blood Count 4.61 x10^6/uL (3.50-5.40) Hemoglobin 13.6 g/dL (12.0-15.5) Hematocrit 40.8 % (36.0-47.0) Mean Corpuscular Volume 88 fL (79-100) Mean Corpuscular Hemoglobin 29 pg (25-35) Mean Corpuscular Hemoglobin Concent 33 g/dL (31-37) Red Cell Distribution Width 13.3 % (11.5-14.5) Platelet Count 217 x10^3/uL (140-400) Neutrophils (%) (Auto) 82 % (31-73) Lymphocytes (%) (Auto) 10 % (24-48) Monocytes (%) (Auto) 6 % (0-9) Eosinophils (%) (Auto) 1 % (0-3) Basophils (%) (Auto) 0 % (0-3) Neutrophils # (Auto) 5.0 x10^3/uL (1.8-7.7) Lymphocytes # (Auto) 0.6 x10^3/uL (1.0-4.8) Monocytes # (Auto) 0.4 x10^3/uL (0.0-1.1) Eosinophils # (Auto) 0.1 x10^3/uL (0.0-0.7) Basophils # (Auto) 0.0 x10^3/uL (0.0-0.2) Sodium Level 138 mmol/L (136-145) Potassium Level 3.8 mmol/L (3.5-5.1) Chloride Level 100 mmol/L (98-107) Carbon Dioxide Level 31 mmol/L (21-32) Anion Gap 7 (6-14) Blood Urea Nitrogen 19 mg/dL (7-20) Creatinine 0.6 mg/dL (0.6-1.0) Estimated GFR (Cockcroft-Gault) 104.6 Glucose Level 143 mg/dL (70-99) Calcium Level 8.3 mg/dL (8.5-10.1) Test 12/24/20 06:03 Glucose (Fingerstick) 156 mg/dL (70-99) Impression . IMPRESSION: 1. Acute hypoxemic respiratory failure secondary to COVID-19 viral pneumonia. 2. Acute respiratory distress syndrome. 3. Sepsis secondary to above. 4. Acute kidney injury. 5. Elevated LFTs. 6. Hypokalemia. 7. Hypotension, suspect secondary to sepsis and volume depletion Plan . Updated 12/24 We will continue Vapotherm Remdesivir Received tocilizumab Steroids Vapotherm Enteral nutrition DVT GI prophylaxis updated 12/23 As needed Zofran Remdesivir Status post tocilizumab Steroid Vapotherm Up to chair updated 12/22 Has some nausea, will administer Zofran Blood pressure better today Continue remdesivir Status post tocilizumab DVT GI prophylaxis Oxygen per ROMEL Sanz MD Dec 24, 2020 09:32
[2020-12-24] MEDS: THIAMINE 100 MG TABLET. PO SCH (09:33)
[2020-12-24] MEDS: FAMOTIDINE 20 MG/2 ML VIAL IVP SCH ×2 (09:33→20:58)
[2020-12-24] MEDS: BENZONATATE 100 MG CAPSULE. PO SCH ×3 (09:33→20:57)
[2020-12-24] MEDS: CHOLECALCIFEROL (VITAMIN D3) 5,000 UNIT CAPSULE PO SCH (09:33)
[2020-12-24] MEDS: ZINC SULFATE 220 MG CAPSULE. PO SCH (09:33)
[2020-12-24] MEDS: DEXAMETHASONE SOD PHOS 4 MG/ML VIAL IVP SCH (09:35)
--- NOTE | 2020-12-24 10:50 | PDOC ---
[employer] PROGRESS NOTE Date of Service DOS: DATE: 12/24/20 TIME: 10:39 Chief Complaint Chief Complaint CC: Acute hypoxic respiratory failure Covid-19 Sepsis ANTHONY Elevated LFTs Elevated CRP Milk Hypokalemia Overactive bladder History of Present Illness History of Present Illness Ms Anton is a 55-year-old female with past medical history of overactive bladder who came to the ED at [facility] complaining of worsening shortness of breath fatigue and cough. Her shortness of breath began on 12/11/2020 she had fatigue started on 12/08/2020. She awoke on 12/12/2020 and noted myalgias and loss of appetite and diarrhea as well. She tested positive for COVID-19. Her also tested positive for COVID-19. She has complaints fever, chills, malaise, nausea, vomiting, arthralgia, myalgia, tachycardia, coughing and increased dyspnea. Patient has been exposed to inmates here plan seeing group home who had COVID. Patient previously declined Covid vaccination. Patient now comes very dyspneic with any activity. Initially sats on room air in the 80s. Patient denies any recent travel. No specific ill contacts other than at work and her . Patient denies any previous history of immunosuppression. She had not been vaccinated for COVID-19 but after her daughter had contracted Covid she had planned to get the vaccine last week and had delayed due to her symptoms. 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 She has 3 children at home and 3 adult children whom have also had Covid with fairly severe symptoms and she also has 5 grandchildren, presumably healthy. Febrile on admission 100.8 F, heart rate 114 bpm, respirations 33/min, O2 saturation 86% on room air, blood pressure 113/69. Admission labs WBC 7.6, Hb 14.8, platelets 188, NA 140, K3.2, chloride 101, HCO3 24, BUN 26, CR 1.2, glucose 128, calcium 8.5, bilirubin 0.5, AST 111, ALT 64, alkaline phosphatase 117, troponin 0, albumin 3.2, NT proBNP 90, CRP 143.3. EKG normal sinus rhythm rate of 95 bpm leftward axis otherwise normal intervals, QTC [address] elevations or TWI. Chest radiograph with multifocal opacities. Due to tachycardia and hypoxemia she was evaluated with CTPA which was negative for pulmonary embolism and did reveal extensive bilateral groundglass opacities and incidental finding of enlarged spleen. Initially admitted to ICU at [facility] in [place] on 12/17/2020 given Solumedrol 60 three times a day and Remdesivir. Today she becomes significantly more hypoxic with O2 saturations 86% despite 10 L oxygen and was called for transfer to [facility]. Seen bedside in ICU 40 L/min 100% FiO2 Vapotherm with O2 saturations 93%. Requiring supplemental facemask O2 15 L/min. 12/19: Seen in ICU. Afebrile. O2 saturation 92% on 40 L/min 100% FiO2 Vapotherm + facemask O2 15 L/min. Less GI upset. Cough improved with Tessalon. D/w pulmonology to change to Decadron from Solu-Medrol and dose with Actemra based on her highly elevated CRP 143.3 Seen in ICU afebrile. O2 saturations 94% 40 L/min FiO2 Vapotherm plus facemask O2 15 L/min. Still little appetite. Transaminases decreased. Feels a little better but is complaining of nasal drainage. cc time 30 min 12/21/20: Patient seen and examined in ICU. Patient currently on 100% O2 on Vapotherm with 40L O2 as well as 100% O2 on nonre breather. O2 sat is at 89% when examined. Patient has Dawn to bedside drainage. Discussed with RN. Chart r jasmin. 12/22/20: Patient was seen and examined in the ICU today. She is complaining of back pain so pain medications were adjusted for her. Currently on Clinimix. On nonre breather at 100% O2 and Vapotherm at 100% O2. Current O2 sat is 99%. Discussed with RN. Chart reviewed. 12/23/20: Patient seen and examined in ICU. Resting with NAD. Patient has been sleeping all day and night. Current O2 sat is at 95%. On Clinimix. On vapotherm with 100% O2 and non-rebreather at 100% O2. Discussed with RN. Chart reviewed. 12/24/20: Patient was seen and examined in the ICU today. She is currently on Vapotherm with 100% O2 as well as a non-rebreather with 100% O2 which she had on all night. O2 sat has been in the 90s for the past day. Patient has a Dawn to bedside as well as a PICC line in place in the left upper arm. She is on Clinimix. Discussed with RN who states that patient desats with movement or when she tries to stand up. Patient ate about 1/2 her breakfast this morning. Chart reviewed. Vitals/I&O Vitals/I&O: Vital Signs Date Time Temp Pulse Resp B/P (MAP) Pulse Ox O2 Delivery O2 Flow Rate FiO2 12/24/20 10:16 96 VAPOTHERM 40.0 12/24/20 10:00 68 22 81/51 (61) 12/24/20 07:00 98.7 98.7 I & O 12/23/20 12/23/20 12/24/20 15:00 23:00 07:00 Intake Total 360 ml 360 ml 0 ml Output Total 505 ml 320 ml 950 ml Balance -145 ml 40 ml -950 ml Physical Exam General: Alert, Oriented X3, Cooperative, moderate distress Abdomen: Normal bowel sounds, Soft, No tenderness, No hepatosplenomegaly, No masses Extremities: No clubbing, No cyanosis, No edema, Normal pulses, No tenderness/swelling Skin: No rashes, No breakdown, No significant lesion Labs Labs: Laboratory Tests Test 12/23/20 12:28 12/23/20 17:08 12/23/20 23:40 12/24/20 06:00 Glucose (Fingerstick) 234 mg/dL (70-99) 187 mg/dL (70-99) 137 mg/dL (70-99) White Blood Count 6.2 x10^3/uL (4.0-11.0) Red Blood Count 4.61 x10^6/uL (3.50-5.40) Hemoglobin 13.6 g/dL (12.0-15.5) Hematocrit 40.8 % (36.0-47.0) Mean Corpuscular Volume 88 fL (79-100) Mean Corpuscular Hemoglobin 29 pg (25-35) Mean Corpuscular Hemoglobin Concent 33 g/dL (31-37) Red Cell Distribution Width 13.3 % (11.5-14.5) Platelet Count 217 x10^3/uL (140-400) Neutrophils (%) (Auto) 82 % (31-73) Lymphocytes (%) (Auto) 10 % (24-48) Monocytes (%) (Auto) 6 % (0-9) Eosinophils (%) (Auto) 1 % (0-3) Basophils (%) (Auto) 0 % (0-3) Neutrophils # (Auto) 5.0 x10^3/uL (1.8-7.7) Lymphocytes # (Auto) 0.6 x10^3/uL (1.0-4.8) Monocytes # (Auto) 0.4 x10^3/uL (0.0-1.1) Eosinophils # (Auto) 0.1 x10^3/uL (0.0-0.7) Basophils # (Auto) 0.0 x10^3/uL (0.0-0.2) Sodium Level 138 mmol/L (136-145) Potassium Level 3.8 mmol/L (3.5-5.1) Chloride Level 100 mmol/L (98-107) Carbon Dioxide Level 31 mmol/L (21-32) Anion Gap 7 (6-14) Blood Urea Nitrogen 19 mg/dL (7-20) Creatinine 0.6 mg/dL (0.6-1.0) Estimated GFR (Cockcroft-Gault) 104.6 Glucose Level 143 mg/dL (70-99) Calcium Level 8.3 mg/dL (8.5-10.1) Test 12/24/20 06:03 Glucose (Fingerstick) 156 mg/dL (70-99) Review of Systems Review of Systems: GI: no nausea. no vomiting. Eyes: no changes in vision. no blurry vision. Assessment and Plan Assessmemt and Plan Problems Medical Problems: (1) Acute respiratory failure with hypoxia Status: Acute (2) COVID-19 Status: Acute Acute hypoxic respiratory failure Covid-19 Sepsis ANTHONY Elevated LFTs Elevated CRP Milk Hypokalemia Overactive bladder Plan: 1. ICU monitoring 2. Covid protocol (Vitamin D, Vitamin B1, Vitamin C, Zinc, Dexamethasone, Robitussin) 3. Trying to titrate down O2 requirements 4. Trend labs 5. DVT prophylaxis (Lovenox 40mg SQ q 24h) 6. Continue Clinimix for nutrition 7. Full code 8. Appreciate subspecialist input 9. Prognosis guarded CC time 33 minutes Comment Review of Relevant I have reviewed the following items jeannie (where applicable) has been applied. Justifications for Admission Other Justification hypoxia ANJELICA AVILA III DO Dec 24, 2020 10:50
[2020-12-24] MEDS: ACETAMINOPHEN 325 MG TABLET. PO PRN (17:12)
[2020-12-24] MEDS: guaiFENesin/CODEINE 100mg/10mg 5 ML LIQUID PO PRN (17:52)
[2020-12-24] MEDS: CALCIUM CARBONATE 500 MG TAB.CHEW PO PRN (19:47)
[2020-12-24] MEDS: ENOXAPARIN 40 MG/0.4 ML SYRINGE. SQ SCH (20:57)
[2020-12-24] MEDS ORDERED: SODIUM BICARBONATE VIAL 50 MEQ in IV 1/2 NORMAL SALINE 1,000 ML IV SCH (23:00)
[2020-12-24] MEDS ORDERED: SODIUM BICARB ADULT 8.4% 50 MEQ/50 ML DISP.SYRIN. IV ONE (23:00)
[2020-12-25] VITALS (23 sets, daily range): BP systolic 81–114; BP diastolic 52–72
[2020-12-25] MEDS: AA 4.25 %/CALCIUM/LYTES/D5W 1,000 ML IV SCH ×2 (01:45→13:11)
[2020-12-25] MEDS: INSULIN LISPRO 300 UNITS/3 ML VIAL. SQ SCH ×4 (05:42→17:52)
[2020-12-25 06:25] LABS: BASO % 1 % (0-3); EOS # 0.1 x10^3/uL (0.0-0.7); EOS % 1 % (0-3); HEMATOCRIT 39.9 % (36.0-47.0); HEMOGLOBIN 13.5 g/dL (12.0-15.5); LYMPH # 0.6 x10^3/uL (1.0-4.8); LYMPH % 9 % (24-48); MEAN CORPUSCULAR HEMOGLOBIN 29 pg (25-35); MEAN CORPUSCULAR HGB CONC 34 g/dL (31-37); MEAN CORPUSCULAR VOLUME 87 fL (79-100); MONO # 0.5 x10^3/uL (0.0-1.1); MONO % 7 % (0-9); NEUT # 6.3 x10^3/uL (1.8-7.7); NEUT % 83 % (31-73); PLATELET COUNT 223 x10^3/uL (140-400); RED BLOOD COUNT 4.59 x10^6/uL (3.50-5.40); RED CELL DISTRIBUTION WIDTH 13.1 % (11.5-14.5); WHITE BLOOD COUNT 7.6 x10^3/uL (4.0-11.0)
[2020-12-25 06:28] LABS: CALCIUM 8.2 mg/dL (8.5-10.1); CREATININE 0.5 mg/dL (0.6-1.0); GFR 129.1; POTASSIUM 3.8 mmol/L (3.5-5.1)
[2020-12-25] MEDS: ZINC SULFATE 220 MG CAPSULE. PO SCH (08:06)
[2020-12-25] MEDS: THIAMINE 100 MG TABLET. PO SCH (08:06)
[2020-12-25] MEDS: ASCORBIC ACID 500 MG TABLET PO SCH (08:07)
[2020-12-25] MEDS: DEXAMETHASONE SOD PHOS 4 MG/ML VIAL IVP SCH (08:07)
[2020-12-25] MEDS: BENZONATATE 100 MG CAPSULE. PO SCH ×3 (08:07→20:41)
[2020-12-25] MEDS: DOCUSATE SODIUM 100 MG CAPSULE. PO SCH ×2 (08:07→20:41)
[2020-12-25] MEDS: CHOLECALCIFEROL (VITAMIN D3) 5,000 UNIT CAPSULE PO SCH (08:07)
[2020-12-25] MEDS: FAMOTIDINE 20 MG/2 ML VIAL IVP SCH ×2 (08:08→20:41)
[2020-12-25] MEDS: guaiFENesin/CODEINE 100mg/10mg 5 ML LIQUID PO PRN ×3 (08:23→20:41)
--- NOTE | 2020-12-25 09:50 | PDOC ---
PULMONARY PROGRESS NOTES DATE: 12/25/20 TIME: 09:48 Subjective Patient remains on 100% FiO2 at 40 L with Vapotherm and in addition 100% nonrebreather mask. Appears comfortable. Vitals Vital Signs Date Time Temp Pulse Resp B/P (MAP) Pulse Ox O2 Delivery O2 Flow Rate FiO2 12/25/20 09:15 74 85/56 (66) 96 40.0 12/25/20 08:37 VAPOTHERM 12/25/20 06:00 22 12/25/20 04:00 98.2 98.2 Comments On visual inspection, patient seen during the COVID- pandemic, no significant respiratory distress, no significant edema no paroxysmal breathing pattern General: Alert, No acute distress Labs Laboratory Tests Test 12/23/20 12:28 12/23/20 17:08 12/23/20 23:40 12/24/20 06:00 Glucose (Fingerstick) 234 mg/dL (70-99) 187 mg/dL (70-99) 137 mg/dL (70-99) White Blood Count 6.2 x10^3/uL (4.0-11.0) Red Blood Count 4.61 x10^6/uL (3.50-5.40) Hemoglobin 13.6 g/dL (12.0-15.5) Hematocrit 40.8 % (36.0-47.0) Mean Corpuscular Volume 88 fL (79-100) Mean Corpuscular Hemoglobin 29 pg (25-35) Mean Corpuscular Hemoglobin Concent 33 g/dL (31-37) Red Cell Distribution Width 13.3 % (11.5-14.5) Platelet Count 217 x10^3/uL (140-400) Neutrophils (%) (Auto) 82 % (31-73) Lymphocytes (%) (Auto) 10 % (24-48) Monocytes (%) (Auto) 6 % (0-9) Eosinophils (%) (Auto) 1 % (0-3) Basophils (%) (Auto) 0 % (0-3) Neutrophils # (Auto) 5.0 x10^3/uL (1.8-7.7) Lymphocytes # (Auto) 0.6 x10^3/uL (1.0-4.8) Monocytes # (Auto) 0.4 x10^3/uL (0.0-1.1) Eosinophils # (Auto) 0.1 x10^3/uL (0.0-0.7) Basophils # (Auto) 0.0 x10^3/uL (0.0-0.2) Sodium Level 138 mmol/L (136-145) Potassium Level 3.8 mmol/L (3.5-5.1) Chloride Level 100 mmol/L (98-107) Carbon Dioxide Level 31 mmol/L (21-32) Anion Gap 7 (6-14) Blood Urea Nitrogen 19 mg/dL (7-20) Creatinine 0.6 mg/dL (0.6-1.0) Estimated GFR (Cockcroft-Gault) 104.6 Glucose Level 143 mg/dL (70-99) Calcium Level 8.3 mg/dL (8.5-10.1) Test 12/24/20 06:03 12/24/20 11:37 12/24/20 17:57 12/25/20 00:36 Glucose (Fingerstick) 156 mg/dL (70-99) 260 mg/dL (70-99) 222 mg/dL (70-99) 131 mg/dL (70-99) Test 12/25/20 05:37 12/25/20 06:10 Glucose (Fingerstick) 151 mg/dL (70-99) White Blood Count 7.6 x10^3/uL (4.0-11.0) Red Blood Count 4.59 x10^6/uL (3.50-5.40) Hemoglobin 13.5 g/dL (12.0-15.5) Hematocrit 39.9 % (36.0-47.0) Mean Corpuscular Volume 87 fL (79-100) Mean Corpuscular Hemoglobin 29 pg (25-35) Mean Corpuscular Hemoglobin Concent 34 g/dL (31-37) Red Cell Distribution Width 13.1 % (11.5-14.5) Platelet Count 223 x10^3/uL (140-400) Neutrophils (%) (Auto) 83 % (31-73) Lymphocytes (%) (Auto) 9 % (24-48) Monocytes (%) (Auto) 7 % (0-9) Eosinophils (%) (Auto) 1 % (0-3) Basophils (%) (Auto) 1 % (0-3) Neutrophils # (Auto) 6.3 x10^3/uL (1.8-7.7) Lymphocytes # (Auto) 0.6 x10^3/uL (1.0-4.8) Monocytes # (Auto) 0.5 x10^3/uL (0.0-1.1) Eosinophils # (Auto) 0.1 x10^3/uL (0.0-0.7) Basophils # (Auto) 0.0 x10^3/uL (0.0-0.2) Sodium Level 140 mmol/L (136-145) Potassium Level 3.8 mmol/L (3.5-5.1) Chloride Level 104 mmol/L (98-107) Carbon Dioxide Level 32 mmol/L (21-32) Anion Gap 4 (6-14) Blood Urea Nitrogen 17 mg/dL (7-20) Creatinine 0.5 mg/dL (0.6-1.0) Estimated GFR (Cockcroft-Gault) 129.1 Glucose Level 134 mg/dL (70-99) Calcium Level 8.2 mg/dL (8.5-10.1) Laboratory Tests Test 12/24/20 11:37 12/24/20 17:57 12/25/20 00:36 12/25/20 05:37 Glucose (Fingerstick) 260 mg/dL (70-99) 222 mg/dL (70-99) 131 mg/dL (70-99) 151 mg/dL (70-99) Test 12/25/20 06:10 White Blood Count 7.6 x10^3/uL (4.0-11.0) Red Blood Count 4.59 x10^6/uL (3.50-5.40) Hemoglobin 13.5 g/dL (12.0-15.5) Hematocrit 39.9 % (36.0-47.0) Mean Corpuscular Volume 87 fL (79-100) Mean Corpuscular Hemoglobin 29 pg (25-35) Mean Corpuscular Hemoglobin Concent 34 g/dL (31-37) Red Cell Distribution Width 13.1 % (11.5-14.5) Platelet Count 223 x10^3/uL (140-400) Neutrophils (%) (Auto) 83 % (31-73) Lymphocytes (%) (Auto) 9 % (24-48) Monocytes (%) (Auto) 7 % (0-9) Eosinophils (%) (Auto) 1 % (0-3) Basophils (%) (Auto) 1 % (0-3) Neutrophils # (Auto) 6.3 x10^3/uL (1.8-7.7) Lymphocytes # (Auto) 0.6 x10^3/uL (1.0-4.8) Monocytes # (Auto) 0.5 x10^3/uL (0.0-1.1) Eosinophils # (Auto) 0.1 x10^3/uL (0.0-0.7) Basophils # (Auto) 0.0 x10^3/uL (0.0-0.2) Sodium Level 140 mmol/L (136-145) Potassium Level 3.8 mmol/L (3.5-5.1) Chloride Level 104 mmol/L (98-107) Carbon Dioxide Level 32 mmol/L (21-32) Anion Gap 4 (6-14) Blood Urea Nitrogen 17 mg/dL (7-20) Creatinine 0.5 mg/dL (0.6-1.0) Estimated GFR (Cockcroft-Gault) 129.1 Glucose Level 134 mg/dL (70-99) Calcium Level 8.2 mg/dL (8.5-10.1) Comments Chest x-ray reviewed 12/23/2020. Diffuse bilateral interstitial infiltrates consistent with viral pneumonia. Impression . IMPRESSION: 1. Acute hypoxemic respiratory failure secondary to COVID-19 viral pneumonia. 2. Acute respiratory distress syndrome. 3. Sepsis secondary to above. 4. Acute kidney injury. 5. Elevated LFTs. 6. Hypokalemia. 7. Hypotension, suspect secondary to sepsis and volume depletion, stable now Plan . Updated 12/25 We will continue Vapotherm at 100% FiO2 and additional 100% nonrebreather mask. Status post remdesivir Received tocilizumab Steroids with gradual taper per protocol. Nutrition. DVT GI prophylaxis Patient remains critical. We will closely watch for need for mechanical ventilation. Updated 12/24 We will continue Vapotherm Remdesivir Received tocilizumab Steroids Vapotherm Enteral nutrition DVT GI prophylaxis updated 12/23 As needed Zofran Remdesivir Status post tocilizumab Steroid Vapotherm Up to chair updated 12/22 Has some nausea, will administer Zofran Blood pressure better today Continue remdesivir Status post tocilizumab DVT GI prophylaxis Oxygen per Vapotherm KAYLA LUCERO MD Dec 25, 2020 09:50
[2020-12-25] MEDS: ONDANSETRON PF 4 MG/2 ML VIAL. IVP PRN ×2 (10:53→18:37)
[2020-12-25] MEDS: STERILE WATER for RESP 1,000 ML BAG. INH PRN (10:59)
--- NOTE | 2020-12-25 12:40 | PDOC ---
[employer] PROGRESS NOTE Date of Service DOS: DATE: 12/25/20 TIME: 12:31 Chief Complaint Chief Complaint CC: Acute hypoxic respiratory failure Covid-19 Sepsis ANTHONY Elevated LFTs Elevated CRP Milk Hypokalemia Overactive bladder History of Present Illness History of Present Illness Ms Anton is a 55-year-old female with past medical history of overactive bladder who came to the ED at [facility] complaining of worsening shortness of breath fatigue and cough. Her shortness of breath began on 12/11/2020 she had fatigue started on 12/08/2020. She awoke on 12/12/2020 and noted myalgias and loss of appetite and diarrhea as well. She tested positive for COVID-19. Her also tested positive for COVID-19. She has complaints fever, chills, malaise, nausea, vomiting, arthralgia, myalgia, tachycardia, coughing and increased dyspnea. Patient has been exposed to inmates here plan seeing assisted who had COVID. Patient previously declined Covid vaccination. Patient now comes very dyspneic with any activity. Initially sats on room air in the 80s. Patient denies any recent travel. No specific ill contacts other than at work and her . Patient denies any previous history of immunosuppression. She had not been vaccinated for COVID-19 but after her daughter had contracted Covid she had planned to get the vaccine last week and had delayed due to her symptoms. 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 She has 3 children at home and 3 adult children whom have also had Covid with fairly severe symptoms and she also has 5 grandchildren, presumably healthy. Febrile on admission 100.8 F, heart rate 114 bpm, respirations 33/min, O2 saturation 86% on room air, blood pressure 113/69. Admission labs WBC 7.6, Hb 14.8, platelets 188, NA 140, K3.2, chloride 101, HCO3 24, BUN 26, CR 1.2, glucose 128, calcium 8.5, bilirubin 0.5, AST 111, ALT 64, alkaline phosphatase 117, troponin 0, albumin 3.2, NT proBNP 90, CRP 143.3. EKG normal sinus rhythm rate of 95 bpm leftward axis otherwise normal intervals, QTC [address] elevations or TWI. Chest radiograph with multifocal opacities. Due to tachycardia and hypoxemia she was evaluated with CTPA which was negative for pulmonary embolism and did reveal extensive bilateral groundglass opacities and incidental finding of enlarged spleen. Initially admitted to ICU at [facility] in [place] on 12/17/2020 given Solumedrol 60 three times a day and Remdesivir. Today she becomes significantly more hypoxic with O2 saturations 86% despite 10 L oxygen and was called for transfer to [facility]. Seen bedside in ICU 40 L/min 100% FiO2 Vapotherm with O2 saturations 93%. Requi ring supplemental facemask O2 15 L/min. 12/19: Seen in ICU. Afebrile. O2 saturation 92% on 40 L/min 100% FiO2 Vapotherm + facemask O2 15 L/min. Less GI upset. Cough improved with Tessalon. D/w pulmonology to change to Decadron from Solu-Medrol and dose with Actemra based on her highly elevated CRP 143.3 Seen in ICU afebrile. O2 saturations 94% 40 L/min FiO2 Vapotherm plus facemask O2 15 L/min. Still little appetite. Transaminases decreased. Feels a little better but is complaining of nasal drainage. cc time 30 min 12/21/20: Patient seen and examined in ICU. Patient currently on 100% O2 on Vapotherm with 40L O2 as well as 100% O2 on nonre breather. O2 sat is at 89% when examined. Patient has Dawn to bedside drainage. Discussed with RN. Chart reviewed. 12/22/20: Patient was seen and examined in the ICU today. She is complaining of back pain so pain medications were adjusted for her. Currently on Clinimix. On nonre breather at 100% O2 and Vapotherm at 100% O2. Current O2 sat is 99%. Discussed with RN. Chart reviewed. 12/23/20: Patient seen and examined in ICU. Resting with NAD. Patient has been sleeping all day and night. Current O2 sat is at 95%. On Clinimix. On vapotherm with 100% O2 and non-rebreather at 100% O2. Discussed with RN. Chart reviewed. 12/24/20: Patient was seen and examined in the ICU today. She is currently on Vapotherm with 100% O2 as well as a non-rebreather with 100% O2 which she had on all night. O2 sat has been in the 90s for the past day. Patient has a Dawn to bedside as well as a PICC line in place in the left upper arm. She is on Clinimix. Discussed with RN who states that patient desats with movement or when she tries to stand up. Patient ate about 1/2 her breakfast this morning. Chart reviewed. 12/25/20: Patient seen and examined in the ICU. Currently on Vapotherm at 100% O2 as well as non-rebreather at 100% O2. Dawn to bedside present. On Clinimix. Patient does not have good appetite and only ate about 1/2 of her breakfast this morning. Discussed with RN. Chart reviewed. Vitals/I&O Vitals/I&O: Vital Signs Date Time Temp Pulse Resp B/P (MAP) Pulse Ox O2 Delivery O2 Flow Rate FiO2 12/25/20 12:13 84 100/66 (77) 95 40.0 12/25/20 12:10 Vapotherm 12/25/20 11:06 97.5 97.5 12/25/20 06:00 22 I & O 12/24/20 12/24/20 12/25/20 15:00 23:00 07:00 Intake Total 580 ml 350 ml 800 ml Output Total 1000 ml 300 ml 1200 ml Balance -420 ml 50 ml -400 ml Physical Exam General: Alert, Oriented X3, Cooperative, moderate distress Abdomen: Normal bowel sounds, Soft, No tenderness, No hepatosplenomegaly, No masses Extremities: No clubbing, No cyanosis, No edema, Normal pulses, No tenderness/swelling Skin: No rashes, No breakdown, No significant lesion Labs Labs: Laboratory Tests Test 12/24/20 17:57 12/25/20 00:36 12/25/20 05:37 12/25/20 06:10 Glucose (Fingerstick) 222 mg/dL (70-99) 131 mg/dL (70-99) 151 mg/dL (70-99) White Blood Count 7.6 x10^3/uL (4.0-11.0) Red Blood Count 4.59 x10^6/uL (3.50-5.40) Hemoglobin 13.5 g/dL (12.0-15.5) Hematocrit 39.9 % (36.0-47.0) Mean Corpuscular Volume 87 fL (79-100) Mean Corpuscular Hemoglobin 29 pg (25-35) Mean Corpuscular Hemoglobin Concent 34 g/dL (31-37) Red Cell Distribution Width 13.1 % (11.5-14.5) Platelet Count 223 x10^3/uL (140-400) Neutrophils (%) (Auto) 83 % (31-73) Lymphocytes (%) (Auto) 9 % (24-48) Monocytes (%) (Auto) 7 % (0-9) Eosinophils (%) (Auto) 1 % (0-3) Basophils (%) (Auto) 1 % (0-3) Neutrophils # (Auto) 6.3 x10^3/uL (1.8-7.7) Lymphocytes # (Auto) 0.6 x10^3/uL (1.0-4.8) Monocytes # (Auto) 0.5 x10^3/uL (0.0-1.1) Eosinophils # (Auto) 0.1 x10^3/uL (0.0-0.7) Basophils # (Auto) 0.0 x10^3/uL (0.0-0.2) Sodium Level 140 mmol/L (136-145) Potassium Level 3.8 mmol/L (3.5-5.1) Chloride Level 104 mmol/L (98-107) Carbon Dioxide Level 32 mmol/L (21-32) Anion Gap 4 (6-14) Blood Urea Nitrogen 17 mg/dL (7-20) Creatinine 0.5 mg/dL (0.6-1.0) Estimated GFR (Cockcroft-Gault) 129.1 Glucose Level 134 mg/dL (70-99) Calcium Level 8.2 mg/dL (8.5-10.1) Test 12/25/20 11:48 Glucose (Fingerstick) 245 mg/dL (70-99) Review of Systems Review of Systems: GI: no vomiting. patient admits heartburn. Eyes: no changes in vision. no blurry vision. Assessment and Plan Assessmemt and Plan Problems Medical Problems: (1) Acute respiratory failure with hypoxia Status: Acute (2) COVID-19 Status: Acute Acute hypoxic respiratory failure Covid-19 Sepsis ANTHONY Elevated LFTs Elevated CRP Milk Hypokalemia Overactive bladder Plan: 1. ICU monitoring 2. Continue covid protocol (completed remdesivir on 12/21, added doxycycline , Vitamin D, Vitamin B1, Vitamin C, Zinc, Dexamethasone, Robitussin) 3. Titrate down O2 requirements 4. Trend labs 5. Continue DVT prophylaxis (Lovenox 40mg SQ q 24hr) 6. Continue Clinimix 7. Full code 8. Appreciate subspecialist input 9. Prognosis guarded Discussed with pharmacy CC time 32 minutes Comment Review of Relevant I have reviewed the following items jeannie (where applicable) has been applied. Medications: Current Medications Medications (Trade) Dose Ordered Sig/Zoë Route PRN Reason Start Time Stop Time Status Last Admin Dose Admin Calcium Carbonate/ Glycine (Tums) 500 mg PRN AFTMEALHC PRN PO INDIGESTION 12/24/20 19:30 12/24/20 19:47 Justifications for Admission Other Justification hypoxia ANJELICA AVILA III DO Dec 25, 2020 12:40
[2020-12-25] MEDS: DOXYCYCLINE HYCLATE 100 MG in IV DEXTROSE 5% 100ML 100 ML IV SCH ×2 (13:57→21:02)
--- NOTE | 2020-12-25 16:19 | NUR ---
SS following up with discharge planning. SS reviewed pt chart and discussed with pt RN. Pt is currently on Vapotherm and Non-Rebreather at 100%. COVID19 positive. Pt on IV Decadron, IV Doxycycline, and Clinimix. Not stable. SS will continue to follow for discharge planning.
[2020-12-25] MEDS: CALCIUM CARBONATE 500 MG TAB.CHEW PO PRN (17:47)
[2020-12-25] MEDS: ENOXAPARIN 40 MG/0.4 ML SYRINGE. SQ SCH (20:41)
[2020-12-25] MEDS: ZOLPIDEM 5 MG TABLET. PO PRN (20:41)
[2020-12-25] MEDS: LACTOBACILLUS RHAMNOSUS GG 1 CAPSULE. PO SCH (20:41)
[2020-12-26] VITALS (24 sets, daily range): BP systolic 70–156; BP diastolic 50–126
[2020-12-26 04:03] LABS: BASO # 0.1 x10^3/uL (0.0-0.2); BASO % 1 % (0-3); EOS # 0.1 x10^3/uL (0.0-0.7); EOS % 1 % (0-3); HEMOGLOBIN 13.7 g/dL (12.0-15.5); LYMPH # 0.7 x10^3/uL (1.0-4.8); LYMPH % 6 % (24-48); MEAN CORPUSCULAR HEMOGLOBIN 29 pg (25-35); MEAN CORPUSCULAR HGB CONC 34 g/dL (31-37); MEAN CORPUSCULAR VOLUME 87 fL (79-100); MONO # 0.7 x10^3/uL (0.0-1.1); MONO % 7 % (0-9); NEUT # 9.7 x10^3/uL (1.8-7.7); NEUT % 86 % (31-73); PLATELET COUNT 204 x10^3/uL (140-400); RED BLOOD COUNT 4.72 x10^6/uL (3.50-5.40); RED CELL DISTRIBUTION WIDTH 13.4 % (11.5-14.5); WHITE BLOOD COUNT 11.3 x10^3/uL (4.0-11.0)
[2020-12-26 04:30] LABS: CALCIUM 8.5 mg/dL (8.5-10.1); CREATININE 0.6 mg/dL (0.6-1.0); GFR 104.6
[2020-12-26] MEDS: guaiFENesin/CODEINE 100mg/10mg 5 ML LIQUID PO PRN ×2 (04:34→20:15)
[2020-12-26] MEDS: AA 4.25 %/CALCIUM/LYTES/D5W 1,000 ML IV SCH ×2 (04:37→14:30)
[2020-12-26] MEDS: INSULIN LISPRO 300 UNITS/3 ML VIAL. SQ SCH ×4 (05:10→18:33)
[2020-12-26] MEDS: THIAMINE 100 MG TABLET. PO SCH (08:49)
[2020-12-26] MEDS: LACTOBACILLUS RHAMNOSUS GG 1 CAPSULE. PO SCH ×2 (08:49→20:15)
[2020-12-26] MEDS: DEXAMETHASONE SOD PHOS 4 MG/ML VIAL IVP SCH (08:49)
[2020-12-26] MEDS: ZINC SULFATE 220 MG CAPSULE. PO SCH (08:49)
[2020-12-26] MEDS: BENZONATATE 100 MG CAPSULE. PO SCH ×3 (08:49→20:15)
[2020-12-26] MEDS: CHOLECALCIFEROL (VITAMIN D3) 5,000 UNIT CAPSULE PO SCH (08:49)
[2020-12-26] MEDS: ASCORBIC ACID 500 MG TABLET PO SCH (08:49)
[2020-12-26] MEDS: FAMOTIDINE 20 MG/2 ML VIAL IVP SCH ×2 (08:49→20:16)
[2020-12-26] MEDS: DOCUSATE SODIUM 100 MG CAPSULE. PO SCH ×2 (08:49→20:15)
[2020-12-26] MEDS: DOXYCYCLINE HYCLATE 100 MG in IV DEXTROSE 5% 100ML 100 ML IV SCH ×2 (08:50→20:16)
--- NOTE | 2020-12-26 09:59 | PDOC ---
PULMONARY PROGRESS NOTES DATE: 12/26/20 TIME: 09:58 Subjective Patient remains on 100% FiO2 at 40 L with Vapotherm and in addition 100% nonrebreather mask. Appears comfortable. Vitals Vital Signs Date Time Temp Pulse Resp B/P (MAP) Pulse Ox O2 Delivery O2 Flow Rate FiO2 12/26/20 07:40 95 VAPOTHERM 40.0 12/26/20 07:00 84 22 95/57 (70) 12/26/20 04:00 98.4 98.4 Comments On visual inspection, patient seen during the COVID- pandemic, no significant respiratory distress, no significant edema no paroxysmal breathing pattern General: Alert, No acute distress Labs Laboratory Tests Test 12/24/20 11:37 12/24/20 17:57 12/25/20 00:36 12/25/20 05:37 Glucose (Fingerstick) 260 mg/dL (70-99) 222 mg/dL (70-99) 131 mg/dL (70-99) 151 mg/dL (70-99) Test 12/25/20 06:10 12/25/20 11:48 12/25/20 17:49 12/25/20 23:35 White Blood Count 7.6 x10^3/uL (4.0-11.0) Red Blood Count 4.59 x10^6/uL (3.50-5.40) Hemoglobin 13.5 g/dL (12.0-15.5) Hematocrit 39.9 % (36.0-47.0) Mean Corpuscular Volume 87 fL (79-100) Mean Corpuscular Hemoglobin 29 pg (25-35) Mean Corpuscular Hemoglobin Concent 34 g/dL (31-37) Red Cell Distribution Width 13.1 % (11.5-14.5) Platelet Count 223 x10^3/uL (140-400) Neutrophils (%) (Auto) 83 % (31-73) Lymphocytes (%) (Auto) 9 % (24-48) Monocytes (%) (Auto) 7 % (0-9) Eosinophils (%) (Auto) 1 % (0-3) Basophils (%) (Auto) 1 % (0-3) Neutrophils # (Auto) 6.3 x10^3/uL (1.8-7.7) Lymphocytes # (Auto) 0.6 x10^3/uL (1.0-4.8) Monocytes # (Auto) 0.5 x10^3/uL (0.0-1.1) Eosinophils # (Auto) 0.1 x10^3/uL (0.0-0.7) Basophils # (Auto) 0.0 x10^3/uL (0.0-0.2) Sodium Level 140 mmol/L (136-145) Potassium Level 3.8 mmol/L (3.5-5.1) Chloride Level 104 mmol/L (98-107) Carbon Dioxide Level 32 mmol/L (21-32) Anion Gap 4 (6-14) Blood Urea Nitrogen 17 mg/dL (7-20) Creatinine 0.5 mg/dL (0.6-1.0) Estimated GFR (Cockcroft-Gault) 129.1 Glucose Level 134 mg/dL (70-99) Calcium Level 8.2 mg/dL (8.5-10.1) Glucose (Fingerstick) 245 mg/dL (70-99) 234 mg/dL (70-99) 139 mg/dL (70-99) Test 12/26/20 03:48 White Blood Count 11.3 x10^3/uL (4.0-11.0) Red Blood Count 4.72 x10^6/uL (3.50-5.40) Hemoglobin 13.7 g/dL (12.0-15.5) Hematocrit 41.0 % (36.0-47.0) Mean Corpuscular Volume 87 fL (79-100) Mean Corpuscular Hemoglobin 29 pg (25-35) Mean Corpuscular Hemoglobin Concent 34 g/dL (31-37) Red Cell Distribution Width 13.4 % (11.5-14.5) Platelet Count 204 x10^3/uL (140-400) Neutrophils (%) (Auto) 86 % (31-73) Lymphocytes (%) (Auto) 6 % (24-48) Monocytes (%) (Auto) 7 % (0-9) Eosinophils (%) (Auto) 1 % (0-3) Basophils (%) (Auto) 1 % (0-3) Neutrophils # (Auto) 9.7 x10^3/uL (1.8-7.7) Lymphocytes # (Auto) 0.7 x10^3/uL (1.0-4.8) Monocytes # (Auto) 0.7 x10^3/uL (0.0-1.1) Eosinophils # (Auto) 0.1 x10^3/uL (0.0-0.7) Basophils # (Auto) 0.1 x10^3/uL (0.0-0.2) Sodium Level 139 mmol/L (136-145) Potassium Level 4.0 mmol/L (3.5-5.1) Chloride Level 103 mmol/L (98-107) Carbon Dioxide Level 31 mmol/L (21-32) Anion Gap 5 (6-14) Blood Urea Nitrogen 17 mg/dL (7-20) Creatinine 0.6 mg/dL (0.6-1.0) Estimated GFR (Cockcroft-Gault) 104.6 Glucose Level 124 mg/dL (70-99) Calcium Level 8.5 mg/dL (8.5-10.1) Laboratory Tests Test 12/25/20 11:48 12/25/20 17:49 12/25/20 23:35 12/26/20 03:48 Glucose (Fingerstick) 245 mg/dL (70-99) 234 mg/dL (70-99) 139 mg/dL (70-99) White Blood Count 11.3 x10^3/uL (4.0-11.0) Red Blood Count 4.72 x10^6/uL (3.50-5.40) Hemoglobin 13.7 g/dL (12.0-15.5) Hematocrit 41.0 % (36.0-47.0) Mean Corpuscular Volume 87 fL (79-100) Mean Corpuscular Hemoglobin 29 pg (25-35) Mean Corpuscular Hemoglobin Concent 34 g/dL (31-37) Red Cell Distribution Width 13.4 % (11.5-14.5) Platelet Count 204 x10^3/uL (140-400) Neutrophils (%) (Auto) 86 % (31-73) Lymphocytes (%) (Auto) 6 % (24-48) Monocytes (%) (Auto) 7 % (0-9) Eosinophils (%) (Auto) 1 % (0-3) Basophils (%) (Auto) 1 % (0-3) Neutrophils # (Auto) 9.7 x10^3/uL (1.8-7.7) Lymphocytes # (Auto) 0.7 x10^3/uL (1.0-4.8) Monocytes # (Auto) 0.7 x10^3/uL (0.0-1.1) Eosinophils # (Auto) 0.1 x10^3/uL (0.0-0.7) Basophils # (Auto) 0.1 x10^3/uL (0.0-0.2) Sodium Level 139 mmol/L (136-145) Potassium Level 4.0 mmol/L (3.5-5.1) Chloride Level 103 mmol/L (98-107) Carbon Dioxide Level 31 mmol/L (21-32) Anion Gap 5 (6-14) Blood Urea Nitrogen 17 mg/dL (7-20) Creatinine 0.6 mg/dL (0.6-1.0) Estimated GFR (Cockcroft-Gault) 104.6 Glucose Level 124 mg/dL (70-99) Calcium Level 8.5 mg/dL (8.5-10.1) Comments Chest x-ray reviewed 12/23/2020. Diffuse bilateral interstitial infiltrates consistent with viral pneumonia. Impression . IMPRESSION: 1. Acute hypoxemic respiratory failure secondary to COVID-19 viral pneumonia. 2. Acute respiratory distress syndrome. 3. Sepsis secondary to above. 4. Acute kidney injury. 5. Elevated LFTs. 6. Hypokalemia. 7. Hypotension, suspect secondary to sepsis and volume depletion, stable now Plan . Updated 12/26 We will continue Vapotherm at 100% FiO2 and additional 100% nonrebreather mask. Status post remdesivir Received tocilizumab Steroids with gradual taper per protocol. Nutrition. DVT GI prophylaxis Patient remains critical. We will closely watch for need for mechanical ventilation. So far tolerating reasonably well Updated 12/25 We will continue Vapotherm at 100% FiO2 and additional 100% nonrebreather mask. Status post remdesivir Received tocilizumab Steroids with gradual taper per protocol. Nutrition. DVT GI prophylaxis Patient remains critical. We will closely watch for need for mechanical ventilation. Updated 12/24 We will continue Vapotherm Remdesivir Received tocilizumab Steroids Vapotherm Enteral nutrition DVT GI prophylaxis updated 12/23 As needed Zofran Remdesivir Status post tocilizumab Steroid Vapotherm Up to chair updated 12/22 Has some nausea, will administer Zofran Blood pressure better today Continue remdesivir Status post tocilizumab DVT GI prophylaxis Oxygen per Vapotherm KAYLA LUCERO MD Dec 26, 2020 09:59
--- NOTE | 2020-12-26 11:15 | PDOC ---
[employer] PROGRESS NOTE Date of Service DOS: DATE: 12/26/20 TIME: 11:06 Chief Complaint Chief Complaint CC: Acute hypoxic respiratory failure Covid-19 Sepsis ANTHONY Elevated LFTs Elevated CRP Milk Hypokalemia Overactive bladder History of Present Illness History of Present Illness Ms Anton is a 55-year-old female with past medical history of overactive bladder who came to the ED at [facility] complaining of worsening shortness of breath fatigue and cough. Her shortness of breath began on 12/11/2020 she had fatigue started on 12/08/2020. She awoke on 12/12/2020 and noted myalgias and loss of appetite and diarrhea as well. She tested positive for COVID-19. Her also tested positive for COVID-19. She has complaints fever, chills, malaise, nausea, vomiting, arthralgia, myalgia, tachycardia, coughing and increased dyspnea. Patient has been exposed to inmates here plan seeing fpc who had COVID. Patient previously declined Covid vaccination. Patient now comes very dyspneic with any activity. Initially sats on room air in the 80s. Patient denies any recent travel. No specific ill contacts other than at work and her . Patient denies any previous history of immunosuppression. She had not been vaccinated for COVID-19 but after her daughter had contracted Covid she had planned to get the vaccine last week and had delayed due to her symptoms. 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 She has 3 children at home and 3 adult children whom have also had Covid with fairly severe symptoms and she also has 5 grandchildren, presumably healthy. Febrile on admission 100.8 F, heart rate 114 bpm, respirations 33/min, O2 saturation 86% on room air, blood pressure 113/69. Admission labs WBC 7.6, Hb 14.8, platelets 188, NA 140, K3.2, chloride 101, HCO3 24, BUN 26, CR 1.2, glucose 128, calcium 8.5, bilirubin 0.5, AST 111, ALT 64, alkaline phosphatase 117, troponin 0, albumin 3.2, NT proBNP 90, CRP 143.3. EKG normal sinus rhythm rate of 95 bpm leftward axis otherwise normal intervals, QTC [address] elevations or TWI. Chest radiograph with multifocal opacities. Due to tachycardia and hypoxemia she was evaluated with CTPA which was negative for pulmonary embolism and did reveal extensive bilateral groundglass opacities and incidental finding of enlarged spleen. Initially admitted to ICU at [facility] in [place] on 12/17/2020 given Solumedrol 60 three times a day and Remdesivir. Today she becomes significantly more hypoxic with O2 saturations 86% despite 10 L oxygen and was called for transfer to [facility]. Seen bedside in ICU 40 L/min 100% FiO2 Vapotherm with O2 saturations 93%. Requi ring supplemental facemask O2 15 L/min. 12/19: Seen in ICU. Afebrile. O2 saturation 92% on 40 L/min 100% FiO2 Vapotherm + facemask O2 15 L/min. Less GI upset. Cough improved with Tessalon. D/w pulmonology to change to Decadron from Solu-Medrol and dose with Actemra based on her highly elevated CRP 143.3 Seen in ICU afebrile. O2 saturations 94% 40 L/min FiO2 Vapotherm plus facemask O2 15 L/min. Still little appetite. Transaminases decreased. Feels a little better but is complaining of nasal drainage. cc time 30 min 12/21/20: Patient seen and examined in ICU. Patient currently on 100% O2 on Vapotherm with 40L O2 as well as 100% O2 on nonre breather. O2 sat is at 89% when examined. Patient has Dawn to bedside drainage. Discussed with RN. Chart reviewed. 12/22/20: Patient was seen and examined in the ICU today. She is complaining of back pain so pain medications were adjusted for her. Currently on Clinimix. On nonre breather at 100% O2 and Vapotherm at 100% O2. Current O2 sat is 99%. Discussed with RN. Chart reviewed. 12/23/20: Patient seen and examined in ICU. Resting with NAD. Patient has been sleeping all day and night. Current O2 sat is at 95%. On Clinimix. On vapotherm with 100% O2 and non-rebreather at 100% O2. Discussed with RN. Chart reviewed. 12/24/20: Patient was seen and examined in the ICU today. She is currently on Vapotherm with 100% O2 as well as a non-rebreather with 100% O2 which she had on all night. O2 sat has been in the 90s for the past day. Patient has a Dawn to bedside as well as a PICC line in place in the left upper arm. She is on Clinimix. Discussed with RN who states that patient desats with movement or when she tries to stand up. Patient ate about 1/2 her breakfast this morning. Chart reviewed. 12/25/20: Patient seen and examined in the ICU. Currently on Vapotherm at 100% O2 as well as non-rebreather at 100% O2. Dawn to bedside present. On Clinimix. Patient does not have good appetite and only ate about 1/2 of her breakfast this morning. Discussed with RN. Chart reviewed. 12/26/20: Patient seen and examined in the ICU today. She is resting. O2 sat is at 98% while being examined. Dawn to bedside in place. She is on Vapotherm at 100% O2 and non-rebreather at 100% O2. She is still on Clinimix. Discussed with Rn. Chart reviewed. Vitals/I&O Vitals/I&O: Vital Signs Date Time Temp Pulse Resp B/P (MAP) Pulse Ox O2 Delivery O2 Flow Rate FiO2 12/26/20 07:40 95 VAPOTHERM 40.0 12/26/20 07:00 84 22 95/57 (70) 12/26/20 04:00 98.4 98.4 I & O 12/25/20 12/25/20 12/26/20 15:00 23:00 07:00 Intake Total 50 ml 300 ml 100 ml Output Total 1200 ml 575 ml 500 ml Balance -1150 ml -275 ml -400 ml Physical Exam General: Alert, Oriented X3, Cooperative, moderate distress Abdomen: Normal bowel sounds, Soft, No tenderness, No hepatosplenomegaly, No masses Extremities: No clubbing, No cyanosis, No edema, Normal pulses, No tenderness/swelling Skin: No rashes, No breakdown, No significant lesion Labs Labs: Laboratory Tests Test 12/25/20 11:48 12/25/20 17:49 12/25/20 23:35 12/26/20 03:48 Glucose (Fingerstick) 245 mg/dL (70-99) 234 mg/dL (70-99) 139 mg/dL (70-99) White Blood Count 11.3 x10^3/uL (4.0-11.0) Red Blood Count 4.72 x10^6/uL (3.50-5.40) Hemoglobin 13.7 g/dL (12.0-15.5) Hematocrit 41.0 % (36.0-47.0) Mean Corpuscular Volume 87 fL (79-100) Mean Corpuscular Hemoglobin 29 pg (25-35) Mean Corpuscular Hemoglobin Concent 34 g/dL (31-37) Red Cell Distribution Width 13.4 % (11.5-14.5) Platelet Count 204 x10^3/uL (140-400) Neutrophils (%) (Auto) 86 % (31-73) Lymphocytes (%) (Auto) 6 % (24-48) Monocytes (%) (Auto) 7 % (0-9) Eosinophils (%) (Auto) 1 % (0-3) Basophils (%) (Auto) 1 % (0-3) Neutrophils # (Auto) 9.7 x10^3/uL (1.8-7.7) Lymphocytes # (Auto) 0.7 x10^3/uL (1.0-4.8) Monocytes # (Auto) 0.7 x10^3/uL (0.0-1.1) Eosinophils # (Auto) 0.1 x10^3/uL (0.0-0.7) Basophils # (Auto) 0.1 x10^3/uL (0.0-0.2) Sodium Level 139 mmol/L (136-145) Potassium Level 4.0 mmol/L (3.5-5.1) Chloride Level 103 mmol/L (98-107) Carbon Dioxide Level 31 mmol/L (21-32) Anion Gap 5 (6-14) Blood Urea Nitrogen 17 mg/dL (7-20) Creatinine 0.6 mg/dL (0.6-1.0) Estimated GFR (Cockcroft-Gault) 104.6 Glucose Level 124 mg/dL (70-99) Calcium Level 8.5 mg/dL (8.5-10.1) Review of Systems Review of Systems: GI: no nausea. no vomiting. Eyes: no changes in vision. no blurry vision. Assessment and Plan Assessmemt and Plan Problems Medical Problems: (1) Acute respiratory failure with hypoxia Status: Acute (2) COVID-19 Status: Acute Acute hypoxic respiratory failure Covid-19 Sepsis ANTHONY Elevated LFTs Elevated CRP Milk Hypokalemia Overactive bladder Plan: 1. ICU monitoring 2. Continue Covid protocol (completed remdesivir on 12/21, doxycycline, Vitamin D, Vitamin B1, Vitamin C, Zinc, Dexamethasone, Robitussin) 3. Trying to titrate down O2 requirements 4. DVT prophylaxis (Lovenox 40mg SQ q 24hr) 5. Trend labs 6. Continue Clinimix 7. Full code 8. Appreciate subspecialist input 9. Prognosis guarded CC time 31 minutes Comment Review of Relevant I have reviewed the following items jeannie (where applicable) has been applied. Medications: Current Medications Medications (Trade) Dose Ordered Sig/Zoë Route PRN Reason Start Time Stop Time Status Last Admin Dose Admin Doxycycline Hyclate 100 mg/ Dextrose 100 ml @ 50 mls/hr Q12HR IV 12/25/20 14:00 12/26/20 08:50 Lactobacillus Rhamnosus (Culturelle) 1 cap BID PO 12/25/20 21:00 12/26/20 08:49 Justifications for Admission Other Justification hypoxia ANJELICA AVILA III DO Dec 26, 2020 11:15
[2020-12-26] MEDS: ONDANSETRON PF 4 MG/2 ML VIAL. IVP PRN (12:43)
[2020-12-26] MEDS: PROCHLORPERAZINE 10 MG/2 ML VIAL. IV PRN (12:50)
[2020-12-26] MEDS: fentaNYL PF VIAL 100 MCG/2 ML VIAL IVP PRN (14:28)
[2020-12-26] MEDS: ENOXAPARIN 40 MG/0.4 ML SYRINGE. SQ SCH (20:15)
[2020-12-26] MEDS: ZOLPIDEM 5 MG TABLET. PO PRN (21:38)
[2020-12-27] VITALS (23 sets, daily range): BP systolic 79–143; BP diastolic 47–95
[2020-12-27] MEDS: STERILE WATER for RESP 1,000 ML BAG. INH PRN ×2 (01:30→13:20)
[2020-12-27] MEDS: CALCIUM CARBONATE 500 MG TAB.CHEW PO PRN (02:27)
[2020-12-27] MEDS: guaiFENesin/CODEINE 100mg/10mg 5 ML LIQUID PO PRN ×4 (03:03→22:17)
[2020-12-27] MEDS: INSULIN LISPRO 300 UNITS/3 ML VIAL. SQ SCH ×5 (06:00→22:15)
[2020-12-27 06:23] LABS: BASO % 0 % (0-3); EOS # 0.1 x10^3/uL (0.0-0.7); EOS % 1 % (0-3); HEMATOCRIT 38.7 % (36.0-47.0); LYMPH # 0.5 x10^3/uL (1.0-4.8); LYMPH % 5 % (24-48); MEAN CORPUSCULAR HEMOGLOBIN 30 pg (25-35); MEAN CORPUSCULAR HGB CONC 34 g/dL (31-37); MEAN CORPUSCULAR VOLUME 87 fL (79-100); MONO # 0.7 x10^3/uL (0.0-1.1); MONO % 6 % (0-9); NEUT # 8.9 x10^3/uL (1.8-7.7); NEUT % 88 % (31-73); PLATELET COUNT 157 x10^3/uL (140-400); RED BLOOD COUNT 4.43 x10^6/uL (3.50-5.40); RED CELL DISTRIBUTION WIDTH 13.2 % (11.5-14.5); WHITE BLOOD COUNT 10.1 x10^3/uL (4.0-11.0)
[2020-12-27] MEDS: AA 4.25 %/CALCIUM/LYTES/D5W 1,000 ML IV SCH ×2 (06:42→18:04)
[2020-12-27 06:49] LABS: CALCIUM 8.4 mg/dL (8.5-10.1); CREATININE 0.6 mg/dL (0.6-1.0); GFR 104.6; POTASSIUM 4.1 mmol/L (3.5-5.1)
[2020-12-27] MEDS: DOXYCYCLINE HYCLATE 100 MG in IV DEXTROSE 5% 100ML 100 ML IV SCH ×2 (08:08→20:04)
[2020-12-27] MEDS: ZINC SULFATE 220 MG CAPSULE. PO SCH (08:10)
[2020-12-27] MEDS: THIAMINE 100 MG TABLET. PO SCH (08:10)
[2020-12-27] MEDS: CHOLECALCIFEROL (VITAMIN D3) 5,000 UNIT CAPSULE PO SCH (08:10)
[2020-12-27] MEDS: LACTOBACILLUS RHAMNOSUS GG 1 CAPSULE. PO SCH ×2 (08:10→20:04)
[2020-12-27] MEDS: DOCUSATE SODIUM 100 MG CAPSULE. PO SCH ×2 (08:10→20:04)
[2020-12-27] MEDS: ASCORBIC ACID 500 MG TABLET PO SCH (08:11)
[2020-12-27] MEDS: FAMOTIDINE 20 MG/2 ML VIAL IVP SCH ×2 (08:11→20:04)
[2020-12-27] MEDS: DEXAMETHASONE SOD PHOS 4 MG/ML VIAL IVP SCH (08:11)
[2020-12-27] MEDS: BENZONATATE 100 MG CAPSULE. PO SCH ×3 (08:11→20:03)
--- NOTE | 2020-12-27 11:05 | PDOC ---
[employer] PROGRESS NOTE Date of Service DOS: DATE: 12/27/20 TIME: 10:56 Chief Complaint Chief Complaint CC: Acute hypoxic respiratory failure Covid-19 Sepsis ANTHONY Elevated LFTs Elevated CRP Milk Hypokalemia Overactive bladder History of Present Illness History of Present Illness Ms Anton is a 55-year-old female with past medical history of overactive bladder who came to the ED at [facility] complaining of worsening shortness of breath fatigue and cough. Her shortness of breath began on 12/11/2020 she had fatigue started on 12/08/2020. She awoke on 12/12/2020 and noted myalgias and loss of appetite and diarrhea as well. She tested positive for COVID-19. Her also tested positive for COVID-19. She has complaints fever, chills, malaise, nausea, vomiting, arthralgia, myalgia, tachycardia, coughing and increased dyspnea. 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 Patient previously declined Covid vaccination. Patient now comes very dyspneic with any activity. Initially sats on room air in the 80s. Patient denies any recent travel. No specific ill contacts other than at work and her . Patient denies any previous history of immunosuppression. She had not been vaccinated for COVID-19 but after her daughter had contracted Covid she had planned to get the vaccine last week and had delayed due to her symptoms. 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 She has 3 children at home and 3 adult children whom have also had Covid with fairly severe symptoms and she also has 5 grandchildren, presumably healthy. Febrile on admission 100.8 F, heart rate 114 bpm, respirations 33/min, O2 saturation 86% on room air, blood pressure 113/69. Admission labs WBC 7.6, Hb 14.8, platelets 188, NA 140, K3.2, chloride 101, HCO3 24, BUN 26, CR 1.2, glucose 128, calcium 8.5, bilirubin 0.5, AST 111, ALT 64, alkaline phosphatase 117, troponin 0, albumin 3.2, NT proBNP 90, CRP 143.3. EKG normal sinus rhythm rate of 95 bpm leftward axis otherwise normal intervals, QTC [address] elevations or TWI. Chest radiograph with multifocal opacities. Due to tachycardia and hypoxemia she was evaluated with CTPA which was negative for pulmonary embolism and did reveal extensive bilateral groundglass opacities and incidental finding of enlarged spleen. Initially admitted to ICU at [facility] in [place] on 12/17/2020 given Solumedrol 60 three times a day and Remdesivir. Today she becomes significantly more hypoxic with O2 saturations 86% despite 10 L oxygen and was called for transfer to [facility]. Seen bedside in ICU 40 L/min 100% FiO2 Vapotherm with O2 saturations 93%. Requi ring supplemental facemask O2 15 L/min. 12/19: Seen in ICU. Afebrile. O2 saturation 92% on 40 L/min 100% FiO2 Vapotherm + facemask O2 15 L/min. Less GI upset. Cough improved with Tessalon. D/w pulmonology to change to Decadron from Solu-Medrol and dose with Actemra based on her highly elevated CRP 143.3 Seen in ICU afebrile. O2 saturations 94% 40 L/min FiO2 Vapotherm plus facemask O2 15 L/min. Still little appetite. Transaminases decreased. Feels a little better but is complaining of nasal drainage. cc time 30 min 12/21/20: Patient seen and examined in ICU. Patient currently on 100% O2 on Vapotherm with 40L O2 as well as 100% O2 on nonre breather. O2 sat is at 89% when examined. Patient has Dawn to bedside drainage. Discussed with RN. Chart reviewed. 12/22/20: Patient was seen and examined in the ICU today. She is complaining of back pain so pain medications were adjusted for her. Currently on Clinimix. On nonre breather at 100% O2 and Vapotherm at 100% O2. Current O2 sat is 99%. Discussed with RN. Chart reviewed. 12/23/20: Patient seen and examined in ICU. Resting with NAD. Patient has been sleeping all day and night. Current O2 sat is at 95%. On Clinimix. On vapotherm with 100% O2 and non-rebreather at 100% O2. Discussed with RN. Chart reviewed. 12/24/20: Patient was seen and examined in the ICU today. She is currently on Vapotherm with 100% O2 as well as a non-rebreather with 100% O2 which she had on all night. O2 sat has been in the 90s for the past day. Patient has a Dawn to bedside as well as a PICC line in place in the left upper arm. She is on Clinimix. Discussed with RN who states that patient desats with movement or when she tries to stand up. Patient ate about 1/2 her breakfast this morning. Chart reviewed. 12/25/20: Patient seen and examined in the ICU. Currently on Vapotherm at 100% O2 as well as non-rebreather at 100% O2. Dawn to bedside present. On Clinimix. Patient does not have good appetite and only ate about 1/2 of her breakfast this morning. Discussed with RN. Chart reviewed. 12/26/20: Patient seen and examined in the ICU today. She is resting. O2 sat is at 98% while being examined. Dawn to bedside in place. She is on Vapotherm at 100% O2 and non-rebreather at 100% O2. She is still on Clinimix. Discussed with Rn. Chart reviewed. 12/27/20: Patient seen and examined in the ICU. Resting with NAD. O2 sat is at 94%. On non-rebreather at 100% O2 and Vapotherm at 100% O2. She is on IV fluid, Clinimix, and Doxycycline. Discussed with RN who states that patient is eating better this morning than yesterday. Chart reviewed. Vitals/I&O Vitals/I&O: Vital Signs Date Time Temp Pulse Resp B/P (MAP) Pulse Ox O2 Delivery O2 Flow Rate FiO2 12/27/20 10:00 75 26 94/62 (73) 96 Vapotherm + nonrebreather 55.0 12/27/20 08:00 98.5 98.5 I & O 12/26/20 12/26/20 12/27/20 14:59 22:59 06:59 Intake Total 3141 ml Output Total 575 ml 1175 ml 405 ml Balance -575 ml 1966 ml -405 ml Physical Exam General: Alert, Oriented X3, Cooperative, moderate distress Abdomen: Normal bowel sounds, Soft, No tenderness, No hepatosplenomegaly, No masses Extremities: No clubbing, No cyanosis, No edema, Normal pulses, No tenderness/swelling Skin: No rashes, No breakdown, No significant lesion Labs Labs: Laboratory Tests Test 12/26/20 18:31 12/27/20 00:05 12/27/20 05:45 12/27/20 06:00 Glucose (Fingerstick) 219 mg/dL (70-99) 186 mg/dL (70-99) 144 mg/dL (70-99) White Blood Count 10.1 x10^3/uL (4.0-11.0) Red Blood Count 4.43 x10^6/uL (3.50-5.40) Hemoglobin 13.0 g/dL (12.0-15.5) Hematocrit 38.7 % (36.0-47.0) Mean Corpuscular Volume 87 fL (79-100) Mean Corpuscular Hemoglobin 30 pg (25-35) Mean Corpuscular Hemoglobin Concent 34 g/dL (31-37) Red Cell Distribution Width 13.2 % (11.5-14.5) Platelet Count 157 x10^3/uL (140-400) Neutrophils (%) (Auto) 88 % (31-73) Lymphocytes (%) (Auto) 5 % (24-48) Monocytes (%) (Auto) 6 % (0-9) Eosinophils (%) (Auto) 1 % (0-3) Basophils (%) (Auto) 0 % (0-3) Neutrophils # (Auto) 8.9 x10^3/uL (1.8-7.7) Lymphocytes # (Auto) 0.5 x10^3/uL (1.0-4.8) Monocytes # (Auto) 0.7 x10^3/uL (0.0-1.1) Eosinophils # (Auto) 0.1 x10^3/uL (0.0-0.7) Basophils # (Auto) 0.0 x10^3/uL (0.0-0.2) Sodium Level 137 mmol/L (136-145) Potassium Level 4.1 mmol/L (3.5-5.1) Chloride Level 100 mmol/L (98-107) Carbon Dioxide Level 31 mmol/L (21-32) Anion Gap 6 (6-14) Blood Urea Nitrogen 17 mg/dL (7-20) Creatinine 0.6 mg/dL (0.6-1.0) Estimated GFR (Cockcroft-Gault) 104.6 Glucose Level 137 mg/dL (70-99) Calcium Level 8.4 mg/dL (8.5-10.1) Review of Systems Review of Systems: GI: no nausea. no vomiting. Eyes: no changes in vision. no blurry vision. Assessment and Plan Assessmemt and Plan Problems Medical Problems: (1) Acute respiratory failure with hypoxia Status: Acute (2) COVID-19 Status: Acute Acute hypoxic respiratory failure Covid-19 Sepsis ANTHONY Elevated LFTs Elevated CRP Milk Hypokalemia Overactive bladder Plan: 1. ICU monitoring 2. Covid protocol (Completed Remdesivir on 12/21. Currently on doxycycline, Vitamin D, Vitamin B1, Vitamin C, Zinc, Dexamethasone, Robitussin) 3. Titrate down O2 requirements 4. Continue DVT prophylaxis (Lovenox 40mg SQ q 24hr) 5. Trend labs 6. Continue Clinimix 7. Full code 8. Appreciate subspecialist input 9. Prognosis guarded CC time 31 minutes Comment Review of Relevant I have reviewed the following items jeannie (where applicable) has been applied. Justifications for Admission Other Justification hypoxia ANJELICA AVILA III DO Dec 27, 2020 11:05
--- NOTE | 2020-12-27 11:13 | PDOC ---
PULMONARY PROGRESS NOTES DATE: 12/27/20 TIME: 11:13 Subjective Patient remains on 100% FiO2 at 40 L with Vapotherm and in addition 100% nonrebreather mask. Appears comfortable. Vitals Vital Signs Date Time Temp Pulse Resp B/P (MAP) Pulse Ox O2 Delivery O2 Flow Rate FiO2 12/27/20 10:00 75 26 94/62 (73) 96 Vapotherm + nonrebreather 55.0 12/27/20 08:00 98.5 98.5 Comments On visual inspection, patient seen during the ID pandemic, no significant respiratory distress, no significant edema no paroxysmal breathing pattern General: Alert, No acute distress Labs Laboratory Tests Test 12/25/20 11:48 12/25/20 17:49 12/25/20 23:35 12/26/20 03:48 Glucose (Fingerstick) 245 mg/dL (70-99) 234 mg/dL (70-99) 139 mg/dL (70-99) White Blood Count 11.3 x10^3/uL (4.0-11.0) Red Blood Count 4.72 x10^6/uL (3.50-5.40) Hemoglobin 13.7 g/dL (12.0-15.5) Hematocrit 41.0 % (36.0-47.0) Mean Corpuscular Volume 87 fL (79-100) Mean Corpuscular Hemoglobin 29 pg (25-35) Mean Corpuscular Hemoglobin Concent 34 g/dL (31-37) Red Cell Distribution Width 13.4 % (11.5-14.5) Platelet Count 204 x10^3/uL (140-400) Neutrophils (%) (Auto) 86 % (31-73) Lymphocytes (%) (Auto) 6 % (24-48) Monocytes (%) (Auto) 7 % (0-9) Eosinophils (%) (Auto) 1 % (0-3) Basophils (%) (Auto) 1 % (0-3) Neutrophils # (Auto) 9.7 x10^3/uL (1.8-7.7) Lymphocytes # (Auto) 0.7 x10^3/uL (1.0-4.8) Monocytes # (Auto) 0.7 x10^3/uL (0.0-1.1) Eosinophils # (Auto) 0.1 x10^3/uL (0.0-0.7) Basophils # (Auto) 0.1 x10^3/uL (0.0-0.2) Sodium Level 139 mmol/L (136-145) Potassium Level 4.0 mmol/L (3.5-5.1) Chloride Level 103 mmol/L (98-107) Carbon Dioxide Level 31 mmol/L (21-32) Anion Gap 5 (6-14) Blood Urea Nitrogen 17 mg/dL (7-20) Creatinine 0.6 mg/dL (0.6-1.0) Estimated GFR (Cockcroft-Gault) 104.6 Glucose Level 124 mg/dL (70-99) Calcium Level 8.5 mg/dL (8.5-10.1) Test 12/26/20 18:31 12/27/20 00:05 12/27/20 05:45 12/27/20 06:00 Glucose (Fingerstick) 219 mg/dL (70-99) 186 mg/dL (70-99) 144 mg/dL (70-99) White Blood Count 10.1 x10^3/uL (4.0-11.0) Red Blood Count 4.43 x10^6/uL (3.50-5.40) Hemoglobin 13.0 g/dL (12.0-15.5) Hematocrit 38.7 % (36.0-47.0) Mean Corpuscular Volume 87 fL (79-100) Mean Corpuscular Hemoglobin 30 pg (25-35) Mean Corpuscular Hemoglobin Concent 34 g/dL (31-37) Red Cell Distribution Width 13.2 % (11.5-14.5) Platelet Count 157 x10^3/uL (140-400) Neutrophils (%) (Auto) 88 % (31-73) Lymphocytes (%) (Auto) 5 % (24-48) Monocytes (%) (Auto) 6 % (0-9) Eosinophils (%) (Auto) 1 % (0-3) Basophils (%) (Auto) 0 % (0-3) Neutrophils # (Auto) 8.9 x10^3/uL (1.8-7.7) Lymphocytes # (Auto) 0.5 x10^3/uL (1.0-4.8) Monocytes # (Auto) 0.7 x10^3/uL (0.0-1.1) Eosinophils # (Auto) 0.1 x10^3/uL (0.0-0.7) Basophils # (Auto) 0.0 x10^3/uL (0.0-0.2) Sodium Level 137 mmol/L (136-145) Potassium Level 4.1 mmol/L (3.5-5.1) Chloride Level 100 mmol/L (98-107) Carbon Dioxide Level 31 mmol/L (21-32) Anion Gap 6 (6-14) Blood Urea Nitrogen 17 mg/dL (7-20) Creatinine 0.6 mg/dL (0.6-1.0) Estimated GFR (Cockcroft-Gault) 104.6 Glucose Level 137 mg/dL (70-99) Calcium Level 8.4 mg/dL (8.5-10.1) Laboratory Tests Test 12/26/20 18:31 12/27/20 00:05 12/27/20 05:45 12/27/20 06:00 Glucose (Fingerstick) 219 mg/dL (70-99) 186 mg/dL (70-99) 144 mg/dL (70-99) White Blood Count 10.1 x10^3/uL (4.0-11.0) Red Blood Count 4.43 x10^6/uL (3.50-5.40) Hemoglobin 13.0 g/dL (12.0-15.5) Hematocrit 38.7 % (36.0-47.0) Mean Corpuscular Volume 87 fL (79-100) Mean Corpuscular Hemoglobin 30 pg (25-35) Mean Corpuscular Hemoglobin Concent 34 g/dL (31-37) Red Cell Distribution Width 13.2 % (11.5-14.5) Platelet Count 157 x10^3/uL (140-400) Neutrophils (%) (Auto) 88 % (31-73) Lymphocytes (%) (Auto) 5 % (24-48) Monocytes (%) (Auto) 6 % (0-9) Eosinophils (%) (Auto) 1 % (0-3) Basophils (%) (Auto) 0 % (0-3) Neutrophils # (Auto) 8.9 x10^3/uL (1.8-7.7) Lymphocytes # (Auto) 0.5 x10^3/uL (1.0-4.8) Monocytes # (Auto) 0.7 x10^3/uL (0.0-1.1) Eosinophils # (Auto) 0.1 x10^3/uL (0.0-0.7) Basophils # (Auto) 0.0 x10^3/uL (0.0-0.2) Sodium Level 137 mmol/L (136-145) Potassium Level 4.1 mmol/L (3.5-5.1) Chloride Level 100 mmol/L (98-107) Carbon Dioxide Level 31 mmol/L (21-32) Anion Gap 6 (6-14) Blood Urea Nitrogen 17 mg/dL (7-20) Creatinine 0.6 mg/dL (0.6-1.0) Estimated GFR (Cockcroft-Gault) 104.6 Glucose Level 137 mg/dL (70-99) Calcium Level 8.4 mg/dL (8.5-10.1) Comments Chest x-ray reviewed 12/23/2020. Diffuse bilateral interstitial infiltrates consistent with viral pneumonia. Impression . IMPRESSION: 1. Acute hypoxemic respiratory failure secondary to COVID-19 viral pneumonia. 2. Acute respiratory distress syndrome. 3. Sepsis secondary to above. 4. Acute kidney injury. 5. Elevated LFTs. 6. Hypokalemia. 7. Hypotension, suspect secondary to sepsis and volume depletion, stable now Plan . Updated 12/27 We will continue Vapotherm at 100% FiO2 and additional 100% nonrebreather mask. Status post remdesivir Received tocilizumab Steroids with gradual taper per protocol. Nutrition. DVT GI prophylaxis Patient remains critical. We will closely watch for need for mechanical ventilation. So far tolerating reasonably well Updated 12/26 We will continue Vapotherm at 100% FiO2 and additional 100% nonrebreather mask. Status post remdesivir Received tocilizumab Steroids with gradual taper per protocol. Nutrition. DVT GI prophylaxis Patient remains critical. We will closely watch for need for mechanical ventilation. So far tolerating reasonably well Updated 12/25 We will continue Vapotherm at 100% FiO2 and additional 100% nonrebreather mask. Status post remdesivir Received tocilizumab Steroids with gradual taper per protocol. Nutrition. DVT GI prophylaxis Patient remains critical. We will closely watch for need for mechanical ventilation. Updated 12/24 We will continue Vapotherm Remdesivir Received tocilizumab Steroids Vapotherm Enteral nutrition DVT GI prophylaxis updated 12/23 As needed Zofran Remdesivir Status post tocilizumab Steroid Vapotherm Up to chair updated 12/22 Has some nausea, will administer Zofran Blood pressure better today Continue remdesivir Status post tocilizumab DVT GI prophylaxis Oxygen per Vapotherm KAYLA LUCERO MD Dec 27, 2020 11:13
[2020-12-27] MEDS: ENOXAPARIN 40 MG/0.4 ML SYRINGE. SQ SCH (20:03)
[2020-12-27] MEDS: ZOLPIDEM 5 MG TABLET. PO PRN (20:04)
[2020-12-28] VITALS (23 sets, daily range): BP systolic 85–117; BP diastolic 53–81
[2020-12-28] MEDS: AA 4.25 %/CALCIUM/LYTES/D5W 1,000 ML IV SCH ×2 (02:54→15:30)
[2020-12-28 04:34] LABS: BASO % 0 % (0-3); EOS # 0.1 x10^3/uL (0.0-0.7); EOS % 1 % (0-3); HEMATOCRIT 38.3 % (36.0-47.0); HEMOGLOBIN 13.2 g/dL (12.0-15.5); LYMPH # 0.8 x10^3/uL (1.0-4.8); LYMPH % 8 % (24-48); MEAN CORPUSCULAR HEMOGLOBIN 30 pg (25-35); MEAN CORPUSCULAR HGB CONC 34 g/dL (31-37); MEAN CORPUSCULAR VOLUME 87 fL (79-100); MONO # 0.8 x10^3/uL (0.0-1.1); MONO % 7 % (0-9); NEUT % 83 % (31-73); PLATELET COUNT 159 x10^3/uL (140-400); RED CELL DISTRIBUTION WIDTH 13.3 % (11.5-14.5); WHITE BLOOD COUNT 10.8 x10^3/uL (4.0-11.0)
[2020-12-28] MEDS: INSULIN LISPRO 300 UNITS/3 ML VIAL. SQ SCH ×4 (04:37→23:31)
[2020-12-28 04:54] LABS: CALCIUM 8.8 mg/dL (8.5-10.1); CREATININE 0.5 mg/dL (0.6-1.0); GFR 129.1
[2020-12-28] MEDS: guaiFENesin/CODEINE 100mg/10mg 5 ML LIQUID PO PRN ×2 (07:13→20:10)
[2020-12-28] MEDS: LACTOBACILLUS RHAMNOSUS GG 1 CAPSULE. PO SCH ×2 (07:53→19:59)
[2020-12-28] MEDS: ASCORBIC ACID 500 MG TABLET PO SCH (07:54)
[2020-12-28] MEDS: DOCUSATE SODIUM 100 MG CAPSULE. PO SCH ×2 (07:54→19:59)
[2020-12-28] MEDS: CHOLECALCIFEROL (VITAMIN D3) 5,000 UNIT CAPSULE PO SCH (07:54)
[2020-12-28] MEDS: ZINC SULFATE 220 MG CAPSULE. PO SCH (07:54)
[2020-12-28] MEDS: BENZONATATE 100 MG CAPSULE. PO SCH ×3 (07:54→19:59)
[2020-12-28] MEDS: THIAMINE 100 MG TABLET. PO SCH (07:54)
[2020-12-28] MEDS: FAMOTIDINE 20 MG/2 ML VIAL IVP SCH ×2 (07:55→20:00)
[2020-12-28] MEDS: DEXAMETHASONE SOD PHOS 4 MG/ML VIAL IVP SCH (07:55)
[2020-12-28] MEDS: DOXYCYCLINE HYCLATE 100 MG in IV DEXTROSE 5% 100ML 100 ML IV SCH ×2 (07:56→19:57)
--- NOTE | 2020-12-28 08:48 | PDOC ---
[employer] PROGRESS NOTE Date of Service DOS: DATE: 12/28/20 TIME: 08:43 Chief Complaint Chief Complaint CC: Acute hypoxic respiratory failure Covid-19 Sepsis ANTHONY Elevated LFTs Elevated CRP Milk Hypokalemia Overactive bladder History of Present Illness History of Present Illness Ms Anton is a 55-year-old female with past medical history of overactive bladder who came to the ED at [facility] complaining of worsening shortness of breath fatigue and cough. Her shortness of breath began on 12/11/2020 she had fatigue started on 12/08/2020. She awoke on 12/12/2020 and noted myalgias and loss of appetite and diarrhea as well. She tested positive for COVID-19. Her also tested positive for COVID-19. She has complaints fever, chills, malaise, nausea, vomiting, arthralgia, myalgia, tachycardia, coughing and increased dyspnea. 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 Patient previously declined Covid vaccination. Patient now comes very dyspneic with any activity. Initially sats on room air in the 80s. Patient denies any recent travel. No specific ill contacts other than at work and her . Patient denies any previous history of immunosuppression. She had not been vaccinated for COVID-19 but after her daughter had contracted Covid she had planned to get the vaccine last week and had delayed due to her symptoms. 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 She has 3 children at home and 3 adult children whom have also had Covid with fairly severe symptoms and she also has 5 grandchildren, presumably healthy. Febrile on admission 100.8 F, heart rate 114 bpm, respirations 33/min, O2 saturation 86% on room air, blood pressure 113/69. Admission labs WBC 7.6, Hb 14.8, platelets 188, NA 140, K3.2, chloride 101, HCO3 24, BUN 26, CR 1.2, glucose 128, calcium 8.5, bilirubin 0.5, AST 111, ALT 64, alkaline phosphatase 117, troponin 0, albumin 3.2, NT proBNP 90, CRP 143.3. EKG normal sinus rhythm rate of 95 bpm leftward axis otherwise normal intervals, QTC [address] elevations or TWI. Chest radiograph with multifocal opacities. Due to tachycardia and hypoxemia she was evaluated with CTPA which was negative for pulmonary embolism and did reveal extensive bilateral groundglass opacities and incidental finding of enlarged spleen. Initially admitted to ICU at [facility] in [place] on 12/17/2020 given Solumedrol 60 three times a day and Remdesivir. Today she becomes significantly more hypoxic with O2 saturations 86% despite 10 L oxygen and was called for transfer to [facility]. Seen bedside in ICU 40 L/min 100% FiO2 Vapotherm with O2 saturations 93%. Requi ring supplemental facemask O2 15 L/min. 12/19: Seen in ICU. Afebrile. O2 saturation 92% on 40 L/min 100% FiO2 Vapotherm + facemask O2 15 L/min. Less GI upset. Cough improved with Tessalon. D/w pulmonology to change to Decadron from Solu-Medrol and dose with Actemra based on her highly elevated CRP 143.3 Seen in ICU afebrile. O2 saturations 94% 40 L/min FiO2 Vapotherm plus facemask O2 15 L/min. Still little appetite. Transaminases decreased. Feels a little better but is complaining of nasal drainage. cc time 30 min 12/21/20: Patient seen and examined in ICU. Patient currently on 100% O2 on Vapotherm with 40L O2 as well as 100% O2 on nonre breather. O2 sat is at 89% when examined. Patient has Dawn to bedside drainage. Discussed with RN. Chart reviewed. 12/22/20: Patient was seen and examined in the ICU today. She is complaining of back pain so pain medications were adjusted for her. Currently on Clinimix. On nonre breather at 100% O2 and Vapotherm at 100% O2. Current O2 sat is 99%. Discussed with RN. Chart reviewed. 12/23/20: Patient seen and examined in ICU. Resting with NAD. Patient has been sleeping all day and night. Current O2 sat is at 95%. On Clinimix. On vapotherm with 100% O2 and non-rebreather at 100% O2. Discussed with RN. Chart reviewed. 12/24/20: Patient was seen and examined in the ICU today. She is currently on Vapotherm with 100% O2 as well as a non-rebreather with 100% O2 which she had on all night. O2 sat has been in the 90s for the past day. Patient has a Dawn to bedside as well as a PICC line in place in the left upper arm. She is on Clinimix. Discussed with RN who states that patient desats with movement or when she tries to stand up. Patient ate about 1/2 her breakfast this morning. Chart reviewed. 12/25/20: Patient seen and examined in the ICU. Currently on Vapotherm at 100% O2 as well as non-rebreather at 100% O2. Dawn to bedside present. On Clinimix. Patient does not have good appetite and only ate about 1/2 of her breakfast this morning. Discussed with RN. Chart reviewed. 12/26/20: Patient seen and examined in the ICU today. She is resting. O2 sat is at 98% while being examined. Dawn to bedside in place. She is on Vapotherm at 100% O2 and non-rebreather at 100% O2. She is still on Clinimix. Discussed with Rn. Chart reviewed. 12/27/20: Patient seen and examined in the ICU. Resting with NAD. O2 sat is at 94%. On non-rebreather at 100% O2 and Vapotherm at 100% O2. She is on IV fluid, Clinimix, and Doxycycline. Discussed with RN who states that patient is eating better this morning than yesterday. Chart reviewed. 12/28/2020: Patient seen in ICU. Afebrile, breathing on Vapotherm 40 L. She has completed remdesivir and s/p tocilizumab. Continue Decadron for 10-day course with slow taper to begin tomorrow. Continue empiric antibiotics. Continue supportive care, Clinimix. Critical care time 30 minutes spent reviewing charts, reviewing labs, reviewing imaging, discussing with RN. Vitals/I&O Vitals/I&O: Vital Signs Date Time Temp Pulse Resp B/P (MAP) Pulse Ox O2 Delivery O2 Flow Rate FiO2 12/28/20 07:46 95 VAPOTHERM 40.0 12/28/20 06:05 82 22 96/62 (73) 12/28/20 04:13 98.4 98.4 I & O 12/27/20 12/27/20 12/28/20 15:00 23:00 07:00 Intake Total 850 ml 2188 ml 1210 ml Output Total 1450 ml 1150 ml 575 ml Balance -600 ml 1038 ml 635 ml Physical Exam General: Alert, Oriented X3, Cooperative, moderate distress Lungs: Crackles Abdomen: Normal bowel sounds, Soft, No tenderness, No hepatosplenomegaly, No masses Extremities: No clubbing, No cyanosis, No edema, Normal pulses, No tenderness/swelling Skin: No rashes, No breakdown, No significant lesion Labs Labs: Laboratory Tests Test 12/27/20 12:48 12/27/20 16:55 12/27/20 22:13 12/28/20 04:20 Glucose (Fingerstick) 267 mg/dL (70-99) 204 mg/dL (70-99) 150 mg/dL (70-99) White Blood Count 10.8 x10^3/uL (4.0-11.0) Red Blood Count 4.40 x10^6/uL (3.50-5.40) Hemoglobin 13.2 g/dL (12.0-15.5) Hematocrit 38.3 % (36.0-47.0) Mean Corpuscular Volume 87 fL (79-100) Mean Corpuscular Hemoglobin 30 pg (25-35) Mean Corpuscular Hemoglobin Concent 34 g/dL (31-37) Red Cell Distribution Width 13.3 % (11.5-14.5) Platelet Count 159 x10^3/uL (140-400) Neutrophils (%) (Auto) 83 % (31-73) Lymphocytes (%) (Auto) 8 % (24-48) Monocytes (%) (Auto) 7 % (0-9) Eosinophils (%) (Auto) 1 % (0-3) Basophils (%) (Auto) 0 % (0-3) Neutrophils # (Auto) 9.0 x10^3/uL (1.8-7.7) Lymphocytes # (Auto) 0.8 x10^3/uL (1.0-4.8) Monocytes # (Auto) 0.8 x10^3/uL (0.0-1.1) Eosinophils # (Auto) 0.1 x10^3/uL (0.0-0.7) Basophils # (Auto) 0.0 x10^3/uL (0.0-0.2) Sodium Level 137 mmol/L (136-145) Potassium Level 4.0 mmol/L (3.5-5.1) Chloride Level 102 mmol/L (98-107) Carbon Dioxide Level 31 mmol/L (21-32) Anion Gap 4 (6-14) Blood Urea Nitrogen 17 mg/dL (7-20) Creatinine 0.5 mg/dL (0.6-1.0) Estimated GFR (Cockcroft-Gault) 129.1 Glucose Level 127 mg/dL (70-99) Calcium Level 8.8 mg/dL (8.5-10.1) Test 12/28/20 04:27 Glucose (Fingerstick) 122 mg/dL (70-99) Assessment and Plan Assessmemt and Plan Problems Medical Problems: (1) Acute respiratory failure with hypoxia Status: Acute (2) COVID-19 Status: Acute Comment Review of Relevant I have reviewed the following items jeannie (where applicable) has been applied. Justifications for Admission Other Justification hypoxia SANDRA HILLS MD Dec 28, 2020 08:47
--- NOTE | 2020-12-28 09:24 | RAD ---
EXAM: Chest, single view. HISTORY: Covid 19. COMPARISON: 12/23/2020 FINDINGS: A frontal view of the chest is obtained. There has been interval increase in diffuse mixed interstitial and alveolar infiltrate. There are suspected trace pleural effusions. There is no pneumo thorax. There is a stable cardiac silhouette. There is a left PICC with the tip overlying expected lo cation of the superior cavoatrial junction. IMPRESSION: Increase in diffuse mixed interstitial and alveolar infiltrate. Electronically signed by: Flory Phillips MD (12/28/2020 9:22 AM) [id number]
--- NOTE | 2020-12-28 10:30 | PDOC ---
PULMONARY PROGRESS NOTES DATE: 12/28/20 TIME: 10:28 Subjective Patient remains on 100% FiO2 at 40 L with Vapotherm and in addition 100% nonrebreather mask. Appears comfortable. Vitals Vital Signs Date Time Temp Pulse Resp B/P (MAP) Pulse Ox O2 Delivery O2 Flow Rate FiO2 12/28/20 09:00 80 26 96/62 (73) 97 Vapotherm + nonrebreather 40.0 12/28/20 08:00 98.2 98.2 Comments On visual inspection, patient seen during the ID pandemic, no significant respiratory distress, no significant edema no paroxysmal breathing pattern General: Alert, No acute distress Labs Laboratory Tests Test 12/26/20 18:31 12/27/20 00:05 12/27/20 05:45 12/27/20 06:00 Glucose (Fingerstick) 219 mg/dL (70-99) 186 mg/dL (70-99) 144 mg/dL (70-99) White Blood Count 10.1 x10^3/uL (4.0-11.0) Red Blood Count 4.43 x10^6/uL (3.50-5.40) Hemoglobin 13.0 g/dL (12.0-15.5) Hematocrit 38.7 % (36.0-47.0) Mean Corpuscular Volume 87 fL (79-100) Mean Corpuscular Hemoglobin 30 pg (25-35) Mean Corpuscular Hemoglobin Concent 34 g/dL (31-37) Red Cell Distribution Width 13.2 % (11.5-14.5) Platelet Count 157 x10^3/uL (140-400) Neutrophils (%) (Auto) 88 % (31-73) Lymphocytes (%) (Auto) 5 % (24-48) Monocytes (%) (Auto) 6 % (0-9) Eosinophils (%) (Auto) 1 % (0-3) Basophils (%) (Auto) 0 % (0-3) Neutrophils # (Auto) 8.9 x10^3/uL (1.8-7.7) Lymphocytes # (Auto) 0.5 x10^3/uL (1.0-4.8) Monocytes # (Auto) 0.7 x10^3/uL (0.0-1.1) Eosinophils # (Auto) 0.1 x10^3/uL (0.0-0.7) Basophils # (Auto) 0.0 x10^3/uL (0.0-0.2) Sodium Level 137 mmol/L (136-145) Potassium Level 4.1 mmol/L (3.5-5.1) Chloride Level 100 mmol/L (98-107) Carbon Dioxide Level 31 mmol/L (21-32) Anion Gap 6 (6-14) Blood Urea Nitrogen 17 mg/dL (7-20) Creatinine 0.6 mg/dL (0.6-1.0) Estimated GFR (Cockcroft-Gault) 104.6 Glucose Level 137 mg/dL (70-99) Calcium Level 8.4 mg/dL (8.5-10.1) Test 12/27/20 12:48 12/27/20 16:55 12/27/20 22:13 12/28/20 04:20 Glucose (Fingerstick) 267 mg/dL (70-99) 204 mg/dL (70-99) 150 mg/dL (70-99) White Blood Count 10.8 x10^3/uL (4.0-11.0) Red Blood Count 4.40 x10^6/uL (3.50-5.40) Hemoglobin 13.2 g/dL (12.0-15.5) Hematocrit 38.3 % (36.0-47.0) Mean Corpuscular Volume 87 fL (79-100) Mean Corpuscular Hemoglobin 30 pg (25-35) Mean Corpuscular Hemoglobin Concent 34 g/dL (31-37) Red Cell Distribution Width 13.3 % (11.5-14.5) Platelet Count 159 x10^3/uL (140-400) Neutrophils (%) (Auto) 83 % (31-73) Lymphocytes (%) (Auto) 8 % (24-48) Monocytes (%) (Auto) 7 % (0-9) Eosinophils (%) (Auto) 1 % (0-3) Basophils (%) (Auto) 0 % (0-3) Neutrophils # (Auto) 9.0 x10^3/uL (1.8-7.7) Lymphocytes # (Auto) 0.8 x10^3/uL (1.0-4.8) Monocytes # (Auto) 0.8 x10^3/uL (0.0-1.1) Eosinophils # (Auto) 0.1 x10^3/uL (0.0-0.7) Basophils # (Auto) 0.0 x10^3/uL (0.0-0.2) Sodium Level 137 mmol/L (136-145) Potassium Level 4.0 mmol/L (3.5-5.1) Chloride Level 102 mmol/L (98-107) Carbon Dioxide Level 31 mmol/L (21-32) Anion Gap 4 (6-14) Blood Urea Nitrogen 17 mg/dL (7-20) Creatinine 0.5 mg/dL (0.6-1.0) Estimated GFR (Cockcroft-Gault) 129.1 Glucose Level 127 mg/dL (70-99) Calcium Level 8.8 mg/dL (8.5-10.1) Test 12/28/20 04:27 Glucose (Fingerstick) 122 mg/dL (70-99) Laboratory Tests Test 12/27/20 12:48 12/27/20 16:55 12/27/20 22:13 12/28/20 04:20 Glucose (Fingerstick) 267 mg/dL (70-99) 204 mg/dL (70-99) 150 mg/dL (70-99) White Blood Count 10.8 x10^3/uL (4.0-11.0) Red Blood Count 4.40 x10^6/uL (3.50-5.40) Hemoglobin 13.2 g/dL (12.0-15.5) Hematocrit 38.3 % (36.0-47.0) Mean Corpuscular Volume 87 fL (79-100) Mean Corpuscular Hemoglobin 30 pg (25-35) Mean Corpuscular Hemoglobin Concent 34 g/dL (31-37) Red Cell Distribution Width 13.3 % (11.5-14.5) Platelet Count 159 x10^3/uL (140-400) Neutrophils (%) (Auto) 83 % (31-73) Lymphocytes (%) (Auto) 8 % (24-48) Monocytes (%) (Auto) 7 % (0-9) Eosinophils (%) (Auto) 1 % (0-3) Basophils (%) (Auto) 0 % (0-3) Neutrophils # (Auto) 9.0 x10^3/uL (1.8-7.7) Lymphocytes # (Auto) 0.8 x10^3/uL (1.0-4.8) Monocytes # (Auto) 0.8 x10^3/uL (0.0-1.1) Eosinophils # (Auto) 0.1 x10^3/uL (0.0-0.7) Basophils # (Auto) 0.0 x10^3/uL (0.0-0.2) Sodium Level 137 mmol/L (136-145) Potassium Level 4.0 mmol/L (3.5-5.1) Chloride Level 102 mmol/L (98-107) Carbon Dioxide Level 31 mmol/L (21-32) Anion Gap 4 (6-14) Blood Urea Nitrogen 17 mg/dL (7-20) Creatinine 0.5 mg/dL (0.6-1.0) Estimated GFR (Cockcroft-Gault) 129.1 Glucose Level 127 mg/dL (70-99) Calcium Level 8.8 mg/dL (8.5-10.1) Test 12/28/20 04:27 Glucose (Fingerstick) 122 mg/dL (70-99) Comments Chest x-ray reviewed 12/28/2020 Diffuse interstitial infiltrates without any pleural effusion. Mild worsening Chest x-ray reviewed 12/23/2020. Diffuse bilateral interstitial infiltrates consistent with viral pneumonia. Impression . IMPRESSION: 1. Acute hypoxemic respiratory failure secondary to COVID-19 viral pneumonia. 2. Acute respiratory distress syndrome. 3. Sepsis secondary to above. 4. Acute kidney injury. 5. Elevated LFTs. 6. Hypokalemia. 7. Hypotension, suspect secondary to sepsis and volume depletion, stable now Plan . Updated 12/28 We will continue Vapotherm at 100% FiO2 and additional 100% nonrebreather mask. Status post remdesivir Received tocilizumab Steroids with gradual taper per protocol. Nutrition. DVT GI prophylaxis Patient remains critical. We will closely watch for need for mechanical ventilation. So far tolerating reasonably well Chest x-ray with persistent diffuse infiltrates with mild worsening. Needs to closely watch respiratory status while in the ICU Updated 12/27 We will continue Vapotherm at 100% FiO2 and additional 100% nonrebreather mask. Status post remdesivir Received tocilizumab Steroids with gradual taper per protocol. Nutrition. DVT GI prophylaxis Patient remains critical. We will closely watch for need for mechanical ventilation. So far tolerating reasonably well Updated 12/26 We will continue Vapotherm at 100% FiO2 and additional 100% nonrebreather mask. Status post remdesivir Received tocilizumab Steroids with gradual taper per protocol. Nutrition. DVT GI prophylaxis Patient remains critical. We will closely watch for need for mechanical ventilation. So far tolerating reasonably well Updated 12/25 We will continue Vapotherm at 100% FiO2 and additional 100% nonrebreather mask. Status post remdesivir Received tocilizumab Steroids with gradual taper per protocol. Nutrition. DVT GI prophylaxis Patient remains critical. We will closely watch for need for mechanical ventilation. Updated 12/24 We will continue Vapotherm Remdesivir Received tocilizumab Steroids Vapotherm Enteral nutrition DVT GI prophylaxis updated 12/23 As needed Zofran Remdesivir Status post tocilizumab Steroid Vapotherm Up to chair updated 12/22 Has some nausea, will administer Zofran Blood pressure better today Continue remdesivir Status post tocilizumab DVT GI prophylaxis Oxygen per Vapotherm KAYLA LUCERO MD Dec 28, 2020 10:30
[2020-12-28] MEDS: ENOXAPARIN 40 MG/0.4 ML SYRINGE. SQ SCH (19:59)
[2020-12-28] MEDS: ZOLPIDEM 5 MG TABLET. PO PRN (20:07)
[2020-12-28] MEDS: CALCIUM CARBONATE 500 MG TAB.CHEW PO PRN (20:07)
[2020-12-28] MEDS: STERILE WATER for RESP 1,000 ML BAG. INH PRN (23:19)
[2020-12-29] VITALS (20 sets, daily range): BP systolic 81–112; BP diastolic 49–80
[2020-12-29] MEDS: AA 4.25 %/CALCIUM/LYTES/D5W 1,000 ML IV SCH ×2 (03:24→16:30)
[2020-12-29] MEDS: guaiFENesin/CODEINE 100mg/10mg 5 ML LIQUID PO PRN ×2 (05:31→17:46)
[2020-12-29] MEDS: INSULIN LISPRO 300 UNITS/3 ML VIAL. SQ SCH ×4 (05:41→23:59)
[2020-12-29 05:53] LABS: BASO % 1 % (0-3); EOS # 0.2 x10^3/uL (0.0-0.7); EOS % 2 % (0-3); HEMATOCRIT 38.9 % (36.0-47.0); HEMOGLOBIN 13.2 g/dL (12.0-15.5); LYMPH # 1.1 x10^3/uL (1.0-4.8); LYMPH % 10 % (24-48); MEAN CORPUSCULAR HEMOGLOBIN 30 pg (25-35); MEAN CORPUSCULAR HGB CONC 34 g/dL (31-37); MEAN CORPUSCULAR VOLUME 88 fL (79-100); MONO # 0.9 x10^3/uL (0.0-1.1); MONO % 9 % (0-9); NEUT % 79 % (31-73); PLATELET COUNT 133 x10^3/uL (140-400); RED BLOOD COUNT 4.44 x10^6/uL (3.50-5.40); RED CELL DISTRIBUTION WIDTH 13.2 % (11.5-14.5); WHITE BLOOD COUNT 10.1 x10^3/uL (4.0-11.0)
[2020-12-29 06:06] LABS: CALCIUM 8.8 mg/dL (8.5-10.1); CREATININE 0.5 mg/dL (0.6-1.0); GFR 129.1; POTASSIUM 3.9 mmol/L (3.5-5.1)
--- NOTE | 2020-12-29 07:19 | PDOC ---
[employer] PROGRESS NOTE Date of Service DOS: DATE: 12/29/20 TIME: 07:14 Chief Complaint Chief Complaint CC: Acute hypoxic respiratory failure Covid-19 Sepsis ANTHONY Elevated LFTs Elevated CRP Milk Hypokalemia Overactive bladder History of Present Illness History of Present Illness Ms Anton is a 55-year-old female with past medical history of overactive bladder who came to the ED at [facility] complaining of worsening shortness of breath fatigue and cough. Her shortness of breath began on 12/11/2020 she had fatigue started on 12/08/2020. She awoke on 12/12/2020 and noted myalgias and loss of appetite and diarrhea as well. She tested positive for COVID-19. Her also tested positive for COVID-19. She has complaints fever, chills, malaise, nausea, vomiting, arthralgia, myalgia, tachycardia, coughing and increased dyspnea. Patient has been exposed to inmates here plan seeing alf who had COVID. Patient previously declined Covid vaccination. Patient now comes very dyspneic with any activity. Initially sats on room air in the 80s. Patient denies any recent travel. No specific ill contacts other than at work and her . Patient denies any previous history of immunosuppression. She had not been vaccinated for COVID-19 but after her daughter had contracted Covid she had planned to get the vaccine last week and had delayed due to her symptoms. 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 She has 3 children at home and 3 adult children whom have also had Covid with fairly severe symptoms and she also has 5 grandchildren, presumably healthy. Febrile on admission 100.8 F, heart rate 114 bpm, respirations 33/min, O2 saturation 86% on room air, blood pressure 113/69. Admission labs WBC 7.6, Hb 14.8, platelets 188, NA 140, K3.2, chloride 101, HCO3 24, BUN 26, CR 1.2, glucose 128, calcium 8.5, bilirubin 0.5, AST 111, ALT 64, alkaline phosphatase 117, troponin 0, albumin 3.2, NT proBNP 90, CRP 143.3. EKG normal sinus rhythm rate of 95 bpm leftward axis otherwise normal intervals, QTC [address] elevations or TWI. Chest radiograph with multifocal opacities. Due to tachycardia and hypoxemia she was evaluated with CTPA which was negative for pulmonary embolism and did reveal extensive bilateral groundglass opacities and incidental finding of enlarged spleen. Initially admitted to ICU at [facility] in [place] on 12/17/2020 given Solumedrol 60 three times a day and Remdesivir. Today she becomes significantly more hypoxic with O2 saturations 86% despite 10 L oxygen and was called for transfer to [facility]. Seen bedside in ICU 40 L/min 100% FiO2 Vapotherm with O2 saturations 93%. Requi ring supplemental facemask O2 15 L/min. 12/19: Seen in ICU. Afebrile. O2 saturation 92% on 40 L/min 100% FiO2 Vapotherm + facemask O2 15 L/min. Less GI upset. Cough improved with Tessalon. D/w pulmonology to change to Decadron from Solu-Medrol and dose with Actemra based on her highly elevated CRP 143.3 Seen in ICU afebrile. O2 saturations 94% 40 L/min FiO2 Vapotherm plus facemask O2 15 L/min. Still little appetite. Transaminases decreased. Feels a little better but is complaining of nasal drainage. cc time 30 min 12/21/20: Patient seen and examined in ICU. Patient currently on 100% O2 on Vapotherm with 40L O2 as well as 100% O2 on nonre breather. O2 sat is at 89% when examined. Patient has Dawn to bedside drainage. Discussed with RN. Chart reviewed. 12/22/20: Patient was seen and examined in the ICU today. She is complaining of back pain so pain medications were adjusted for her. Currently on Clinimix. On nonre breather at 100% O2 and Vapotherm at 100% O2. Current O2 sat is 99%. Discussed with RN. Chart reviewed. 12/23/20: Patient seen and examined in ICU. Resting with NAD. Patient has been sleeping all day and night. Current O2 sat is at 95%. On Clinimix. On vapotherm with 100% O2 and non-rebreather at 100% O2. Discussed with RN. Chart reviewed. 12/24/20: Patient was seen and examined in the ICU today. She is currently on Vapotherm with 100% O2 as well as a non-rebreather with 100% O2 which she had on all night. O2 sat has been in the 90s for the past day. Patient has a Dawn to bedside as well as a PICC line in place in the left upper arm. She is on Clinimix. Discussed with RN who states that patient desats with movement or when she tries to stand up. Patient ate about 1/2 her breakfast this morning. Chart reviewed. 12/25/20: Patient seen and examined in the ICU. Currently on Vapotherm at 100% O2 as well as non-rebreather at 100% O2. Dawn to bedside present. On Clinimix. Patient does not have good appetite and only ate about 1/2 of her breakfast this morning. Discussed with RN. Chart reviewed. 12/26/20: Patient seen and examined in the ICU today. She is resting. O2 sat is at 98% while being examined. Dawn to bedside in place. She is on Vapotherm at 100% O2 and non-rebreather at 100% O2. She is still on Clinimix. Discussed with Rn. Chart reviewed. 12/27/20: Patient seen and examined in the ICU. Resting with NAD. O2 sat is at 94%. On non-rebreather at 100% O2 and Vapotherm at 100% O2. She is on IV fluid, Clinimix, and Doxycycline. Discussed with RN who states that patient is eating better this morning than yesterday. Chart reviewed. 12/28/2020: Patient seen in ICU. Afebrile, breathing on Vapotherm 40 L. She has completed remdesivir and s/p tocilizumab. Continue Decadron for 10-day course with slow taper to begin tomorrow. Continue empiric antibiotics. Continue supportive care, Clinimix. Critical care time 30 minutes spent reviewing charts, reviewing labs, reviewing imaging, discussing with RN. 12/29/2020: Afebrile overnight; breathing on Vapotherm 40 L. She has completed remdesivir and s/p tocilizumab. Continue Decadron for 10-day course with slow taper to begin tomorrow. Continue empiric antibiotics. Continue supportive care. Critical care time 30 minutes spent reviewing charts, reviewing labs, reviewing imaging, discussing with RN. Vitals/I&O Vitals/I&O: Vital Signs Date Time Temp Pulse Resp B/P (MAP) Pulse Ox O2 Delivery O2 Flow Rate FiO2 12/29/20 06:00 80 28 108/69 (82) 97 Vapotherm + nonrebreather 40.0 12/29/20 03:00 97.0 97.0 I & O 12/28/20 12/28/20 12/29/20 15:00 23:00 07:00 Intake Total 400 ml 1250 ml Output Total 630 ml 1260 ml 630 ml Balance -230 ml -1260 ml 620 ml Physical Exam General: Alert, Oriented X3, Cooperative, mild distress Heart: Regular rate Lungs: Other (Intubated on vent) Abdomen: Normal bowel sounds, Soft, No tenderness, No hepatosplenomegaly, No masses Extremities: No clubbing, No cyanosis, No edema, Normal pulses, No tenderness/swelling Skin: No rashes, No breakdown, No significant lesion Labs Labs: Laboratory Tests Test 12/29/20 05:26 12/29/20 05:30 Glucose (Fingerstick) 65 mg/dL (70-99) White Blood Count 10.1 x10^3/uL (4.0-11.0) Red Blood Count 4.44 x10^6/uL (3.50-5.40) Hemoglobin 13.2 g/dL (12.0-15.5) Hematocrit 38.9 % (36.0-47.0) Mean Corpuscular Volume 88 fL (79-100) Mean Corpuscular Hemoglobin 30 pg (25-35) Mean Corpuscular Hemoglobin Concent 34 g/dL (31-37) Red Cell Distribution Width 13.2 % (11.5-14.5) Platelet Count 133 x10^3/uL (140-400) Neutrophils (%) (Auto) 79 % (31-73) Lymphocytes (%) (Auto) 10 % (24-48) Monocytes (%) (Auto) 9 % (0-9) Eosinophils (%) (Auto) 2 % (0-3) Basophils (%) (Auto) 1 % (0-3) Neutrophils # (Auto) 8.0 x10^3/uL (1.8-7.7) Lymphocytes # (Auto) 1.1 x10^3/uL (1.0-4.8) Monocytes # (Auto) 0.9 x10^3/uL (0.0-1.1) Eosinophils # (Auto) 0.2 x10^3/uL (0.0-0.7) Basophils # (Auto) 0.0 x10^3/uL (0.0-0.2) Sodium Level 138 mmol/L (136-145) Potassium Level 3.9 mmol/L (3.5-5.1) Chloride Level 101 mmol/L (98-107) Carbon Dioxide Level 32 mmol/L (21-32) Anion Gap 5 (6-14) Blood Urea Nitrogen 19 mg/dL (7-20) Creatinine 0.5 mg/dL (0.6-1.0) Estimated GFR (Cockcroft-Gault) 129.1 Glucose Level 120 mg/dL (70-99) Calcium Level 8.8 mg/dL (8.5-10.1) Assessment and Plan Assessmemt and Plan Problems Medical Problems: (1) Acute respiratory failure with hypoxia Status: Acute (2) COVID-19 Status: Acute Comment Review of Relevant I have reviewed the following items jeannie (where applicable) has been applied. Justifications for Admission Other Justification hypoxia SANDRA HILLS MD Dec 29, 2020 07:19
[2020-12-29] MEDS: DEXAMETHASONE SOD PHOS 4 MG/ML VIAL IVP SCH (08:34)
[2020-12-29] MEDS: ASCORBIC ACID 500 MG TABLET PO SCH (08:35)
[2020-12-29] MEDS: CHOLECALCIFEROL (VITAMIN D3) 5,000 UNIT CAPSULE PO SCH (08:35)
[2020-12-29] MEDS: FAMOTIDINE 20 MG/2 ML VIAL IVP SCH ×2 (08:35→20:34)
[2020-12-29] MEDS: LACTOBACILLUS RHAMNOSUS GG 1 CAPSULE. PO SCH ×2 (08:35→20:34)
[2020-12-29] MEDS: DOCUSATE SODIUM 100 MG CAPSULE. PO SCH ×2 (08:35→20:34)
[2020-12-29] MEDS: THIAMINE 100 MG TABLET. PO SCH (08:35)
[2020-12-29] MEDS: ZINC SULFATE 220 MG CAPSULE. PO SCH (08:35)
[2020-12-29] MEDS: DOXYCYCLINE HYCLATE 100 MG in IV DEXTROSE 5% 100ML 100 ML IV SCH ×2 (08:36→20:35)
[2020-12-29] MEDS: BENZONATATE 100 MG CAPSULE. PO SCH ×3 (08:39→20:33)
--- NOTE | 2020-12-29 11:01 | PDOC ---
PULMONARY PROGRESS NOTES DATE: 12/29/20 TIME: 11:00 Subjective Patient remains on 100% FiO2 at 40 L with Vapotherm and in addition 100% nonrebreather mask. Appears comfortable. Vitals Vital Signs Date Time Temp Pulse Resp B/P (MAP) Pulse Ox O2 Delivery O2 Flow Rate FiO2 12/29/20 08:50 98 VAPOTHERM 40.0 12/29/20 06:00 80 28 108/69 (82) 12/29/20 03:00 97.0 97.0 Comments On visual inspection, patient seen during the COVID- pandemic, no significant respiratory distress, no significant edema no paroxysmal breathing pattern General: Alert, No acute distress Lungs: Other (Intubated on vent) Labs Laboratory Tests Test 12/27/20 12:48 12/27/20 16:55 12/27/20 22:13 12/28/20 04:20 Glucose (Fingerstick) 267 mg/dL (70-99) 204 mg/dL (70-99) 150 mg/dL (70-99) White Blood Count 10.8 x10^3/uL (4.0-11.0) Red Blood Count 4.40 x10^6/uL (3.50-5.40) Hemoglobin 13.2 g/dL (12.0-15.5) Hematocrit 38.3 % (36.0-47.0) Mean Corpuscular Volume 87 fL (79-100) Mean Corpuscular Hemoglobin 30 pg (25-35) Mean Corpuscular Hemoglobin Concent 34 g/dL (31-37) Red Cell Distribution Width 13.3 % (11.5-14.5) Platelet Count 159 x10^3/uL (140-400) Neutrophils (%) (Auto) 83 % (31-73) Lymphocytes (%) (Auto) 8 % (24-48) Monocytes (%) (Auto) 7 % (0-9) Eosinophils (%) (Auto) 1 % (0-3) Basophils (%) (Auto) 0 % (0-3) Neutrophils # (Auto) 9.0 x10^3/uL (1.8-7.7) Lymphocytes # (Auto) 0.8 x10^3/uL (1.0-4.8) Monocytes # (Auto) 0.8 x10^3/uL (0.0-1.1) Eosinophils # (Auto) 0.1 x10^3/uL (0.0-0.7) Basophils # (Auto) 0.0 x10^3/uL (0.0-0.2) Sodium Level 137 mmol/L (136-145) Potassium Level 4.0 mmol/L (3.5-5.1) Chloride Level 102 mmol/L (98-107) Carbon Dioxide Level 31 mmol/L (21-32) Anion Gap 4 (6-14) Blood Urea Nitrogen 17 mg/dL (7-20) Creatinine 0.5 mg/dL (0.6-1.0) Estimated GFR (Cockcroft-Gault) 129.1 Glucose Level 127 mg/dL (70-99) Calcium Level 8.8 mg/dL (8.5-10.1) Test 12/28/20 04:27 12/29/20 05:26 12/29/20 05:30 Glucose (Fingerstick) 122 mg/dL (70-99) 65 mg/dL (70-99) White Blood Count 10.1 x10^3/uL (4.0-11.0) Red Blood Count 4.44 x10^6/uL (3.50-5.40) Hemoglobin 13.2 g/dL (12.0-15.5) Hematocrit 38.9 % (36.0-47.0) Mean Corpuscular Volume 88 fL (79-100) Mean Corpuscular Hemoglobin 30 pg (25-35) Mean Corpuscular Hemoglobin Concent 34 g/dL (31-37) Red Cell Distribution Width 13.2 % (11.5-14.5) Platelet Count 133 x10^3/uL (140-400) Neutrophils (%) (Auto) 79 % (31-73) Lymphocytes (%) (Auto) 10 % (24-48) Monocytes (%) (Auto) 9 % (0-9) Eosinophils (%) (Auto) 2 % (0-3) Basophils (%) (Auto) 1 % (0-3) Neutrophils # (Auto) 8.0 x10^3/uL (1.8-7.7) Lymphocytes # (Auto) 1.1 x10^3/uL (1.0-4.8) Monocytes # (Auto) 0.9 x10^3/uL (0.0-1.1) Eosinophils # (Auto) 0.2 x10^3/uL (0.0-0.7) Basophils # (Auto) 0.0 x10^3/uL (0.0-0.2) Sodium Level 138 mmol/L (136-145) Potassium Level 3.9 mmol/L (3.5-5.1) Chloride Level 101 mmol/L (98-107) Carbon Dioxide Level 32 mmol/L (21-32) Anion Gap 5 (6-14) Blood Urea Nitrogen 19 mg/dL (7-20) Creatinine 0.5 mg/dL (0.6-1.0) Estimated GFR (Cockcroft-Gault) 129.1 Glucose Level 120 mg/dL (70-99) Calcium Level 8.8 mg/dL (8.5-10.1) Laboratory Tests Test 12/29/20 05:26 12/29/20 05:30 Glucose (Fingerstick) 65 mg/dL (70-99) White Blood Count 10.1 x10^3/uL (4.0-11.0) Red Blood Count 4.44 x10^6/uL (3.50-5.40) Hemoglobin 13.2 g/dL (12.0-15.5) Hematocrit 38.9 % (36.0-47.0) Mean Corpuscular Volume 88 fL (79-100) Mean Corpuscular Hemoglobin 30 pg (25-35) Mean Corpuscular Hemoglobin Concent 34 g/dL (31-37) Red Cell Distribution Width 13.2 % (11.5-14.5) Platelet Count 133 x10^3/uL (140-400) Neutrophils (%) (Auto) 79 % (31-73) Lymphocytes (%) (Auto) 10 % (24-48) Monocytes (%) (Auto) 9 % (0-9) Eosinophils (%) (Auto) 2 % (0-3) Basophils (%) (Auto) 1 % (0-3) Neutrophils # (Auto) 8.0 x10^3/uL (1.8-7.7) Lymphocytes # (Auto) 1.1 x10^3/uL (1.0-4.8) Monocytes # (Auto) 0.9 x10^3/uL (0.0-1.1) Eosinophils # (Auto) 0.2 x10^3/uL (0.0-0.7) Basophils # (Auto) 0.0 x10^3/uL (0.0-0.2) Sodium Level 138 mmol/L (136-145) Potassium Level 3.9 mmol/L (3.5-5.1) Chloride Level 101 mmol/L (98-107) Carbon Dioxide Level 32 mmol/L (21-32) Anion Gap 5 (6-14) Blood Urea Nitrogen 19 mg/dL (7-20) Creatinine 0.5 mg/dL (0.6-1.0) Estimated GFR (Cockcroft-Gault) 129.1 Glucose Level 120 mg/dL (70-99) Calcium Level 8.8 mg/dL (8.5-10.1) Comments Chest x-ray reviewed 12/28/2020 Diffuse interstitial infiltrates without any pleural effusion. Mild worsening Chest x-ray reviewed 12/23/2020. Diffuse bilateral interstitial infiltrates consistent with viral pneumonia. Impression . IMPRESSION: 1. Acute hypoxemic respiratory failure secondary to COVID-19 viral pneumonia. 2. Acute respiratory distress syndrome. 3. Sepsis secondary to above. 4. Acute kidney injury. 5. Elevated LFTs. 6. Hypokalemia. 7. Hypotension, suspect secondary to sepsis and volume depletion, stable now Plan . Updated 12/29 We will continue Vapotherm at 100% FiO2 and additional 100% nonrebreather mask. Status post remdesivir Received tocilizumab Steroids with gradual taper per protocol. Nutrition. DVT GI prophylaxis Patient remains critical. We will closely watch for need for mechanical ventilation. So far tolerating reasonably well Chest x-ray with persistent diffuse infiltrates with mild worsening. Needs to closely watch respiratory status while in the ICU Updated 12/28 We will continue Vapotherm at 100% FiO2 and additional 100% nonrebreather mask. Status post remdesivir Received tocilizumab Steroids with gradual taper per protocol. Nutrition. DVT GI prophylaxis Patient remains critical. We will closely watch for need for mechanical ventilation. So far tolerating reasonably well Chest x-ray with persistent diffuse infiltrates with mild worsening. Needs to closely watch respiratory status while in the ICU Updated 12/27 We will continue Vapotherm at 100% FiO2 and additional 100% nonrebreather mask. Status post remdesivir Received tocilizumab Steroids with gradual taper per protocol. Nutrition. DVT GI prophylaxis Patient remains critical. We will closely watch for need for mechanical ventilation. So far tolerating reasonably well Updated 12/26 We will continue Vapotherm at 100% FiO2 and additional 100% nonrebreather mask. Status post remdesivir Received tocilizumab Steroids with gradual taper per protocol. Nutrition. DVT GI prophylaxis Patient remains critical. We will closely watch for need for mechanical ventilation. So far tolerating reasonably well Updated 12/25 We will continue Vapotherm at 100% FiO2 and additional 100% nonrebreather mask. Status post remdesivir Received tocilizumab Steroids with gradual taper per protocol. Nutrition. DVT GI prophylaxis Patient remains critical. We will closely watch for need for mechanical ventilation. Updated 12/24 We will continue Vapotherm Remdesivir Received tocilizumab Steroids Vapotherm Enteral nutrition DVT GI prophylaxis updated 12/23 As needed Zofran Remdesivir Status post tocilizumab Steroid Vapotherm Up to chair updated 12/22 Has some nausea, will administer Zofran Blood pressure better today Continue remdesivir Status post tocilizumab DVT GI prophylaxis Oxygen per Vapotherm KAYLA LUCERO MD Dec 29, 2020 11:01
[2020-12-29] MEDS: STERILE WATER for RESP 1,000 ML BAG. INH PRN (11:44)
[2020-12-29] MEDS: CALCIUM CARBONATE 500 MG TAB.CHEW PO PRN (16:44)
[2020-12-29] MEDS: ZOLPIDEM 5 MG TABLET. PO PRN (20:33)
[2020-12-29] MEDS: ENOXAPARIN 40 MG/0.4 ML SYRINGE. SQ SCH (20:34)
[2020-12-30] VITALS (17 sets, daily range): BP systolic 87–111; BP diastolic 48–83
[2020-12-30] MEDS: STERILE WATER for RESP 1,000 ML BAG. INH PRN (01:00)
[2020-12-30] MEDS: AA 4.25 %/CALCIUM/LYTES/D5W 1,000 ML IV SCH ×2 (05:33→18:23)
[2020-12-30] MEDS: INSULIN LISPRO 300 UNITS/3 ML VIAL. SQ SCH ×4 (05:39→23:08)
[2020-12-30 05:41] LABS: BASO # 0.1 x10^3/uL (0.0-0.2); BASO % 1 % (0-3); EOS # 0.1 x10^3/uL (0.0-0.7); EOS % 1 % (0-3); HEMATOCRIT 36.4 % (36.0-47.0); HEMOGLOBIN 12.5 g/dL (12.0-15.5); LYMPH # 1.2 x10^3/uL (1.0-4.8); LYMPH % 12 % (24-48); MEAN CORPUSCULAR HEMOGLOBIN 30 pg (25-35); MEAN CORPUSCULAR HGB CONC 34 g/dL (31-37); MEAN CORPUSCULAR VOLUME 87 fL (79-100); MONO # 0.9 x10^3/uL (0.0-1.1); MONO % 9 % (0-9); NEUT # 8.1 x10^3/uL (1.8-7.7); NEUT % 78 % (31-73); PLATELET COUNT 155 x10^3/uL (140-400); RED BLOOD COUNT 4.19 x10^6/uL (3.50-5.40); RED CELL DISTRIBUTION WIDTH 13.1 % (11.5-14.5); WHITE BLOOD COUNT 10.4 x10^3/uL (4.0-11.0)
[2020-12-30 05:49] LABS: CALCIUM 8.1 mg/dL (8.5-10.1); CREATININE 0.6 mg/dL (0.6-1.0); GFR 104.6
--- NOTE | 2020-12-30 07:47 | PDOC ---
[employer] PROGRESS NOTE Date of Service DOS: DATE: 12/30/20 TIME: 07:39 Chief Complaint Chief Complaint CC: Acute hypoxic respiratory failure Covid-19 Sepsis ANTHONY Elevated LFTs Elevated CRP Milk Hypokalemia Overactive bladder History of Present Illness History of Present Illness Ms Anton is a 55-year-old female with past medical history of overactive bladder who came to the ED at [facility] complaining of worsening shortness of breath fatigue and cough. Her shortness of breath began on 12/11/2020 she had fatigue started on 12/08/2020. She awoke on 12/12/2020 and noted myalgias and loss of appetite and diarrhea as well. She tested positive for COVID-19. Her also tested positive for COVID-19. She has complaints fever, chills, malaise, nausea, vomiting, arthralgia, myalgia, tachycardia, coughing and increased dyspnea. Patient has been exposed to inmates here plan seeing jail who had COVID. Patient previously declined Covid vaccination. Patient now comes very dyspneic with any activity. Initially sats on room air in the 80s. Patient denies any recent travel. No specific ill contacts other than at work and her . Patient denies any previous history of immunosuppression. She had not been vaccinated for COVID-19 but after her daughter had contracted Covid she had planned to get the vaccine last week and had delayed due to her symptoms. 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 She has 3 children at home and 3 adult children whom have also had Covid with fairly severe symptoms and she also has 5 grandchildren, presumably healthy. Febrile on admission 100.8 F, heart rate 114 bpm, respirations 33/min, O2 saturation 86% on room air, blood pressure 113/69. Admission labs WBC 7.6, Hb 14.8, platelets 188, NA 140, K3.2, chloride 101, HCO3 24, BUN 26, CR 1.2, glucose 128, calcium 8.5, bilirubin 0.5, AST 111, ALT 64, alkaline phosphatase 117, troponin 0, albumin 3.2, NT proBNP 90, CRP 143.3. EKG normal sinus rhythm rate of 95 bpm leftward axis otherwise normal intervals, QTC [address] elevations or TWI. Chest radiograph with multifocal opacities. Due to tachycardia and hypoxemia she was evaluated with CTPA which was negative for pulmonary embolism and did reveal extensive bilateral groundglass opacities and incidental finding of enlarged spleen. Initially admitted to ICU at [facility] in [place] on 12/17/2020 given Solumedrol 60 three times a day and Remdesivir. Today she becomes significantly more hypoxic with O2 saturations 86% despite 10 L oxygen and was called for transfer to [facility]. Seen bedside in ICU 40 L/min 100% FiO2 Vapotherm with O2 saturations 93%. Requi ring supplemental facemask O2 15 L/min. 12/19: Seen in ICU. Afebrile. O2 saturation 92% on 40 L/min 100% FiO2 Vapotherm + facemask O2 15 L/min. Less GI upset. Cough improved with Tessalon. D/w pulmonology to change to Decadron from Solu-Medrol and dose with Actemra based on her highly elevated CRP 143.3 Seen in ICU afebrile. O2 saturations 94% 40 L/min FiO2 Vapotherm plus facemask O2 15 L/min. Still little appetite. Transaminases decreased. Feels a little better but is complaining of nasal drainage. cc time 30 min 12/21/20: Patient seen and examined in ICU. Patient currently on 100% O2 on Vapotherm with 40L O2 as well as 100% O2 on nonre breather. O2 sat is at 89% when examined. Patient has Dawn to bedside drainage. Discussed with RN. Chart reviewed. 12/22/20: Patient was seen and examined in the ICU today. She is complaining of back pain so pain medications were adjusted for her. Currently on Clinimix. On nonre breather at 100% O2 and Vapotherm at 100% O2. Current O2 sat is 99%. Discussed with RN. Chart reviewed. 12/23/20: Patient seen and examined in ICU. Resting with NAD. Patient has been sleeping all day and night. Current O2 sat is at 95%. On Clinimix. On vapotherm with 100% O2 and non-rebreather at 100% O2. Discussed with RN. Chart reviewed. 12/24/20: Patient was seen and examined in the ICU today. She is currently on Vapotherm with 100% O2 as well as a non-rebreather with 100% O2 which she had on all night. O2 sat has been in the 90s for the past day. Patient has a Dawn to bedside as well as a PICC line in place in the left upper arm. She is on Clinimix. Discussed with RN who states that patient desats with movement or when she tries to stand up. Patient ate about 1/2 her breakfast this morning. Chart reviewed. 12/25/20: Patient seen and examined in the ICU. Currently on Vapotherm at 100% O2 as well as non-rebreather at 100% O2. Dawn to bedside present. On Clinimix. Patient does not have good appetite and only ate about 1/2 of her breakfast this morning. Discussed with RN. Chart reviewed. 12/26/20: Patient seen and examined in the ICU today. She is resting. O2 sat is at 98% while being examined. Dawn to bedside in place. She is on Vapotherm at 100% O2 and non-rebreather at 100% O2. She is still on Clinimix. Discussed with Rn. Chart reviewed. 12/27/20: Patient seen and examined in the ICU. Resting with NAD. O2 sat is at 94%. On non-rebreather at 100% O2 and Vapotherm at 100% O2. She is on IV fluid, Clinimix, and Doxycycline. Discussed with RN who states that patient is eating better this morning than yesterday. Chart reviewed. 12/28/2020: Patient seen in ICU. Afebrile, breathing on Vapotherm 40 L. She has completed remdesivir and s/p tocilizumab. Continue Decadron for 10-day course with slow taper to begin tomorrow. Continue empiric antibiotics. Continue supportive care, Clinimix. Critical care time 30 minutes spent reviewing charts, reviewing labs, reviewing imaging, discussing with RN. 12/29/2020: Afebrile overnight; breathing on Vapotherm 40 L. She has completed remdesivir and s/p tocilizumab. Continue Decadron for 10-day course with slow taper to begin tomorrow. Continue empiric antibiotics. Continue supportive care. Critical care time 30 minutes spent reviewing charts, reviewing labs, reviewing imaging, discussing with RN. 12/30/2020: Afebrile. On Vapotherm 40 L. Completed remdesivir and s/p tocilizumab. Completed Decadron for 10-day course; will initiate Decadron 5-day taper. Continue to monitor respiratory status in ICU. Continue empiric antibiotics. Continue supportive care. Critical care time 30 minutes spent reviewing charts, reviewing labs, reviewing imaging, discussing with RN. Vitals/I&O Vitals/I&O: Vital Signs Date Time Temp Pulse Resp B/P (MAP) Pulse Ox O2 Delivery O2 Flow Rate FiO2 12/30/20 06:44 72 23 107/73 (84) 99 Vapotherm + nonrebreather 40.0 12/30/20 05:29 98.9 98.9 I & O 12/29/20 12/29/20 12/30/20 15:00 23:00 07:00 Intake Total 100 ml 2134 ml 400 ml Output Total 750 ml 1200 ml 1100 ml Balance -650 ml 934 ml -700 ml Physical Exam General: Alert, Oriented X3, Cooperative, No acute distress Heart: Regular rate Lungs: Other (Intubated on vent) Abdomen: Normal bowel sounds, Soft, No tenderness, No hepatosplenomegaly, No masses Extremities: No clubbing, No cyanosis, No edema, Normal pulses, No tenderness/swelling Skin: No rashes, No breakdown, No significant lesion Labs Labs: Laboratory Tests Test 12/29/20 12:37 12/29/20 16:52 12/29/20 23:47 12/30/20 05:20 Glucose (Fingerstick) 244 mg/dL (70-99) 255 mg/dL (70-99) 130 mg/dL (70-99) White Blood Count 10.4 x10^3/uL (4.0-11.0) Red Blood Count 4.19 x10^6/uL (3.50-5.40) Hemoglobin 12.5 g/dL (12.0-15.5) Hematocrit 36.4 % (36.0-47.0) Mean Corpuscular Volume 87 fL (79-100) Mean Corpuscular Hemoglobin 30 pg (25-35) Mean Corpuscular Hemoglobin Concent 34 g/dL (31-37) Red Cell Distribution Width 13.1 % (11.5-14.5) Platelet Count 155 x10^3/uL (140-400) Neutrophils (%) (Auto) 78 % (31-73) Lymphocytes (%) (Auto) 12 % (24-48) Monocytes (%) (Auto) 9 % (0-9) Eosinophils (%) (Auto) 1 % (0-3) Basophils (%) (Auto) 1 % (0-3) Neutrophils # (Auto) 8.1 x10^3/uL (1.8-7.7) Lymphocytes # (Auto) 1.2 x10^3/uL (1.0-4.8) Monocytes # (Auto) 0.9 x10^3/uL (0.0-1.1) Eosinophils # (Auto) 0.1 x10^3/uL (0.0-0.7) Basophils # (Auto) 0.1 x10^3/uL (0.0-0.2) Sodium Level 138 mmol/L (136-145) Potassium Level 4.0 mmol/L (3.5-5.1) Chloride Level 102 mmol/L (98-107) Carbon Dioxide Level 31 mmol/L (21-32) Anion Gap 5 (6-14) Blood Urea Nitrogen 17 mg/dL (7-20) Creatinine 0.6 mg/dL (0.6-1.0) Estimated GFR (Cockcroft-Gault) 104.6 Glucose Level 104 mg/dL (70-99) Calcium Level 8.1 mg/dL (8.5-10.1) Test 12/30/20 05:37 Glucose (Fingerstick) 119 mg/dL (70-99) Assessment and Plan Assessmemt and Plan Problems Medical Problems: (1) Acute respiratory failure with hypoxia Status: Acute (2) COVID-19 Status: Acute Comment Review of Relevant I have reviewed the following items jeannie (where applicable) has been applied. Justifications for Admission Other Justification hypoxia SANDRA HILLS MD Dec 30, 2020 07:47
[2020-12-30] MEDS: DOXYCYCLINE HYCLATE 100 MG in IV DEXTROSE 5% 100ML 100 ML IV SCH ×2 (08:49→20:17)
[2020-12-30] MEDS: DEXAMETHASONE SOD PHOS 4 MG/ML VIAL IVP SCH (08:53)
[2020-12-30] MEDS: CHOLECALCIFEROL (VITAMIN D3) 5,000 UNIT CAPSULE PO SCH (08:54)
[2020-12-30] MEDS: CALCIUM CARBONATE 500 MG TAB.CHEW PO PRN (08:54)
[2020-12-30] MEDS: BENZONATATE 100 MG CAPSULE. PO SCH ×3 (08:54→20:16)
[2020-12-30] MEDS: DOCUSATE SODIUM 100 MG CAPSULE. PO SCH ×2 (08:54→20:16)
[2020-12-30] MEDS: ZINC SULFATE 220 MG CAPSULE. PO SCH (08:54)
[2020-12-30] MEDS: FAMOTIDINE 20 MG/2 ML VIAL IVP SCH ×2 (08:54→20:17)
[2020-12-30] MEDS: LACTOBACILLUS RHAMNOSUS GG 1 CAPSULE. PO SCH ×2 (08:54→20:17)
[2020-12-30] MEDS: THIAMINE 100 MG TABLET. PO SCH (08:54)
[2020-12-30] MEDS: ASCORBIC ACID 500 MG TABLET PO SCH (08:54)
[2020-12-30] MEDS: guaiFENesin/CODEINE 100mg/10mg 5 ML LIQUID PO PRN ×2 (08:54→18:17)
--- NOTE | 2020-12-30 10:19 | PDOC ---
PULMONARY PROGRESS NOTES DATE: 12/30/20 TIME: 10:18 Subjective Patient remains on 100% FiO2 at 40 L with Vapotherm and in addition 100% nonrebreather mask. Appears comfortable. Vitals Vital Signs Date Time Temp Pulse Resp B/P (MAP) Pulse Ox O2 Delivery O2 Flow Rate FiO2 12/30/20 08:53 98 VAPOTHERM 40.0 12/30/20 06:44 72 23 107/73 (84) 12/30/20 05:29 98.9 98.9 Comments On visual inspection, patient seen during the ID pandemic, no significant respiratory distress, no significant edema no paroxysmal breathing pattern General: Alert, No acute distress Labs Laboratory Tests Test 12/29/20 05:26 12/29/20 05:30 12/29/20 12:37 12/29/20 16:52 Glucose (Fingerstick) 65 mg/dL (70-99) 244 mg/dL (70-99) 255 mg/dL (70-99) White Blood Count 10.1 x10^3/uL (4.0-11.0) Red Blood Count 4.44 x10^6/uL (3.50-5.40) Hemoglobin 13.2 g/dL (12.0-15.5) Hematocrit 38.9 % (36.0-47.0) Mean Corpuscular Volume 88 fL (79-100) Mean Corpuscular Hemoglobin 30 pg (25-35) Mean Corpuscular Hemoglobin Concent 34 g/dL (31-37) Red Cell Distribution Width 13.2 % (11.5-14.5) Platelet Count 133 x10^3/uL (140-400) Neutrophils (%) (Auto) 79 % (31-73) Lymphocytes (%) (Auto) 10 % (24-48) Monocytes (%) (Auto) 9 % (0-9) Eosinophils (%) (Auto) 2 % (0-3) Basophils (%) (Auto) 1 % (0-3) Neutrophils # (Auto) 8.0 x10^3/uL (1.8-7.7) Lymphocytes # (Auto) 1.1 x10^3/uL (1.0-4.8) Monocytes # (Auto) 0.9 x10^3/uL (0.0-1.1) Eosinophils # (Auto) 0.2 x10^3/uL (0.0-0.7) Basophils # (Auto) 0.0 x10^3/uL (0.0-0.2) Sodium Level 138 mmol/L (136-145) Potassium Level 3.9 mmol/L (3.5-5.1) Chloride Level 101 mmol/L (98-107) Carbon Dioxide Level 32 mmol/L (21-32) Anion Gap 5 (6-14) Blood Urea Nitrogen 19 mg/dL (7-20) Creatinine 0.5 mg/dL (0.6-1.0) Estimated GFR (Cockcroft-Gault) 129.1 Glucose Level 120 mg/dL (70-99) Calcium Level 8.8 mg/dL (8.5-10.1) Test 12/29/20 23:47 12/30/20 05:20 12/30/20 05:37 Glucose (Fingerstick) 130 mg/dL (70-99) 119 mg/dL (70-99) White Blood Count 10.4 x10^3/uL (4.0-11.0) Red Blood Count 4.19 x10^6/uL (3.50-5.40) Hemoglobin 12.5 g/dL (12.0-15.5) Hematocrit 36.4 % (36.0-47.0) Mean Corpuscular Volume 87 fL (79-100) Mean Corpuscular Hemoglobin 30 pg (25-35) Mean Corpuscular Hemoglobin Concent 34 g/dL (31-37) Red Cell Distribution Width 13.1 % (11.5-14.5) Platelet Count 155 x10^3/uL (140-400) Neutrophils (%) (Auto) 78 % (31-73) Lymphocytes (%) (Auto) 12 % (24-48) Monocytes (%) (Auto) 9 % (0-9) Eosinophils (%) (Auto) 1 % (0-3) Basophils (%) (Auto) 1 % (0-3) Neutrophils # (Auto) 8.1 x10^3/uL (1.8-7.7) Lymphocytes # (Auto) 1.2 x10^3/uL (1.0-4.8) Monocytes # (Auto) 0.9 x10^3/uL (0.0-1.1) Eosinophils # (Auto) 0.1 x10^3/uL (0.0-0.7) Basophils # (Auto) 0.1 x10^3/uL (0.0-0.2) Sodium Level 138 mmol/L (136-145) Potassium Level 4.0 mmol/L (3.5-5.1) Chloride Level 102 mmol/L (98-107) Carbon Dioxide Level 31 mmol/L (21-32) Anion Gap 5 (6-14) Blood Urea Nitrogen 17 mg/dL (7-20) Creatinine 0.6 mg/dL (0.6-1.0) Estimated GFR (Cockcroft-Gault) 104.6 Glucose Level 104 mg/dL (70-99) Calcium Level 8.1 mg/dL (8.5-10.1) Laboratory Tests Test 12/29/20 12:37 12/29/20 16:52 12/29/20 23:47 12/30/20 05:20 Glucose (Fingerstick) 244 mg/dL (70-99) 255 mg/dL (70-99) 130 mg/dL (70-99) White Blood Count 10.4 x10^3/uL (4.0-11.0) Red Blood Count 4.19 x10^6/uL (3.50-5.40) Hemoglobin 12.5 g/dL (12.0-15.5) Hematocrit 36.4 % (36.0-47.0) Mean Corpuscular Volume 87 fL (79-100) Mean Corpuscular Hemoglobin 30 pg (25-35) Mean Corpuscular Hemoglobin Concent 34 g/dL (31-37) Red Cell Distribution Width 13.1 % (11.5-14.5) Platelet Count 155 x10^3/uL (140-400) Neutrophils (%) (Auto) 78 % (31-73) Lymphocytes (%) (Auto) 12 % (24-48) Monocytes (%) (Auto) 9 % (0-9) Eosinophils (%) (Auto) 1 % (0-3) Basophils (%) (Auto) 1 % (0-3) Neutrophils # (Auto) 8.1 x10^3/uL (1.8-7.7) Lymphocytes # (Auto) 1.2 x10^3/uL (1.0-4.8) Monocytes # (Auto) 0.9 x10^3/uL (0.0-1.1) Eosinophils # (Auto) 0.1 x10^3/uL (0.0-0.7) Basophils # (Auto) 0.1 x10^3/uL (0.0-0.2) Sodium Level 138 mmol/L (136-145) Potassium Level 4.0 mmol/L (3.5-5.1) Chloride Level 102 mmol/L (98-107) Carbon Dioxide Level 31 mmol/L (21-32) Anion Gap 5 (6-14) Blood Urea Nitrogen 17 mg/dL (7-20) Creatinine 0.6 mg/dL (0.6-1.0) Estimated GFR (Cockcroft-Gault) 104.6 Glucose Level 104 mg/dL (70-99) Calcium Level 8.1 mg/dL (8.5-10.1) Test 12/30/20 05:37 Glucose (Fingerstick) 119 mg/dL (70-99) Comments Chest x-ray reviewed 12/28/2020 Diffuse interstitial infiltrates without any pleural effusion. Mild worsening Chest x-ray reviewed 12/23/2020. Diffuse bilateral interstitial infiltrates consistent with viral pneumonia. Impression . IMPRESSION: 1. Acute hypoxemic respiratory failure secondary to COVID-19 viral pneumonia. 2. Acute respiratory distress syndrome. 3. Sepsis secondary to above. 4. Acute kidney injury. 5. Elevated LFTs. 6. Hypokalemia. 7. Hypotension, suspect secondary to sepsis and volume depletion, stable now Plan . Updated 12/30 We will continue Vapotherm at 100% FiO2 and additional 100% nonrebreather mask. Status post remdesivir Received tocilizumab Steroids with gradual taper per protocol. Nutrition. DVT GI prophylaxis Patient remains critical. We will closely watch for need for mechanical ventilation. So far tolerating reasonably well Chest x-ray with persistent diffuse infiltrates with mild worsening. Needs to closely watch respiratory status while in the ICU Updated 12/29 We will continue Vapotherm at 100% FiO2 and additional 100% nonrebreather mask. Status post remdesivir Received tocilizumab Steroids with gradual taper per protocol. Nutrition. DVT GI prophylaxis Patient remains critical. We will closely watch for need for mechanical ventilation. So far tolerating reasonably well Chest x-ray with persistent diffuse infiltrates with mild worsening. Needs to closely watch respiratory status while in the ICU Updated 12/28 We will continue Vapotherm at 100% FiO2 and additional 100% nonrebreather mask. Status post remdesivir Received tocilizumab Steroids with gradual taper per protocol. Nutrition. DVT GI prophylaxis Patient remains critical. We will closely watch for need for mechanical ventilation. So far tolerating reasonably well Chest x-ray with persistent diffuse infiltrates with mild worsening. Needs to closely watch respiratory status while in the ICU Updated 12/27 We will continue Vapotherm at 100% FiO2 and additional 100% nonrebreather mask. Status post remdesivir Received tocilizumab Steroids with gradual taper per protocol. Nutrition. DVT GI prophylaxis Patient remains critical. We will closely watch for need for mechanical ventil ation. So far tolerating reasonably well Updated 12/26 We will continue Vapotherm at 100% FiO2 and additional 100% nonrebreather mask. Status post remdesivir Received tocilizumab Steroids with gradual taper per protocol. Nutrition. DVT GI prophylaxis Patient remains critical. We will closely watch for need for mechanical ventilation. So far tolerating reasonably well Updated 12/25 We will continue Vapotherm at 100% FiO2 and additional 100% nonrebreather mask. Status post remdesivir Received tocilizumab Steroids with gradual taper per protocol. Nutrition. DVT GI prophylaxis Patient remains critical. We will closely watch for need for mechanical ventilation. Updated 12/24 We will continue Vapotherm Remdesivir Received tocilizumab Steroids Vapotherm Enteral nutrition DVT GI prophylaxis updated 12/23 As needed Zofran Remdesivir Status post tocilizumab Steroid Vapotherm Up to chair updated 12/22 Has some nausea, will administer Zofran Blood pressure better today Continue remdesivir Status post tocilizumab DVT GI prophylaxis Oxygen per Vapotherm KAYLA LUCERO MD Dec 30, 2020 10:19
[2020-12-30] MEDS: ONDANSETRON PF 4 MG/2 ML VIAL. IVP PRN (19:06)
[2020-12-30] MEDS: ENOXAPARIN 40 MG/0.4 ML SYRINGE. SQ SCH (20:16)
[2020-12-30] MEDS: ZOLPIDEM 5 MG TABLET. PO PRN (20:19)
[2020-12-31] VITALS (23 sets, daily range): BP systolic 84–103; BP diastolic 49–67
[2020-12-31] MEDS: AA 4.25 %/CALCIUM/LYTES/D5W 1,000 ML IV SCH ×2 (05:30→17:50)
[2020-12-31] MEDS: INSULIN LISPRO 300 UNITS/3 ML VIAL. SQ SCH ×3 (06:00→17:54)
[2020-12-31 08:14] LABS: BASO # 0.1 x10^3/uL (0.0-0.2); BASO % 1 % (0-3); EOS # 0.1 x10^3/uL (0.0-0.7); EOS % 1 % (0-3); HEMATOCRIT 37.1 % (36.0-47.0); HEMOGLOBIN 12.7 g/dL (12.0-15.5); LYMPH # 1.5 x10^3/uL (1.0-4.8); LYMPH % 14 % (24-48); MEAN CORPUSCULAR HEMOGLOBIN 30 pg (25-35); MEAN CORPUSCULAR HGB CONC 34 g/dL (31-37); MEAN CORPUSCULAR VOLUME 87 fL (79-100); MONO # 0.9 x10^3/uL (0.0-1.1); MONO % 8 % (0-9); NEUT # 8.3 x10^3/uL (1.8-7.7); NEUT % 76 % (31-73); PLATELET COUNT 159 x10^3/uL (140-400); RED BLOOD COUNT 4.27 x10^6/uL (3.50-5.40); RED CELL DISTRIBUTION WIDTH 13.4 % (11.5-14.5); WHITE BLOOD COUNT 10.9 x10^3/uL (4.0-11.0)
[2020-12-31] MEDS: DOXYCYCLINE HYCLATE 100 MG in IV DEXTROSE 5% 100ML 100 ML IV SCH ×2 (08:21→20:09)
[2020-12-31] MEDS: CHOLECALCIFEROL (VITAMIN D3) 5,000 UNIT CAPSULE PO SCH (08:22)
[2020-12-31] MEDS: THIAMINE 100 MG TABLET. PO SCH (08:22)
[2020-12-31] MEDS: LACTOBACILLUS RHAMNOSUS GG 1 CAPSULE. PO SCH ×2 (08:22→20:06)
[2020-12-31] MEDS: DOCUSATE SODIUM 100 MG CAPSULE. PO SCH ×2 (08:22→20:05)
[2020-12-31] MEDS: guaiFENesin/CODEINE 100mg/10mg 5 ML LIQUID PO PRN ×2 (08:22→17:50)
[2020-12-31] MEDS: ASCORBIC ACID 500 MG TABLET PO SCH (08:22)
[2020-12-31] MEDS: ZINC SULFATE 220 MG CAPSULE. PO SCH (08:22)
[2020-12-31] MEDS: BENZONATATE 100 MG CAPSULE. PO SCH ×3 (08:23→20:06)
[2020-12-31] MEDS: DEXAMETHASONE SOD PHOS 4 MG/ML VIAL IVP SCH (08:23)
[2020-12-31] MEDS: FAMOTIDINE 20 MG/2 ML VIAL IVP SCH ×2 (08:24→20:05)
[2020-12-31 08:41] LABS: ALBUMIN 2.4 g/dL (3.4-5.0); ALBUMIN/GLOBULIN RATIO 0.8 (1.0-1.7); CALCIUM 8.7 mg/dL (8.5-10.1); CREATININE 0.4 mg/dL (0.6-1.0); POTASSIUM 4.1 mmol/L (3.5-5.1); TOTAL BILIRUBIN 0.4 mg/dL (0.2-1.0); TOTAL PROTEIN 5.6 g/dL (6.4-8.2)
--- NOTE | 2020-12-31 10:10 | PDOC ---
PULMONARY PROGRESS NOTES DATE: 12/31/20 TIME: 10:10 Subjective Patient remains on 100% FiO2 at 40 L with Vapotherm and in addition 100% nonrebreather mask. Appears comfortable. Vitals Vital Signs Date Time Temp Pulse Resp B/P (MAP) Pulse Ox O2 Delivery O2 Flow Rate FiO2 12/31/20 09:00 76 40 85/51 (62) 98 vapotherm/NRB 40.0 12/31/20 07:00 97.0 97.0 Comments On visual inspection, patient seen during the ID pandemic, no significant respiratory distress, no significant edema no paroxysmal breathing pattern General: Alert, No acute distress Labs Laboratory Tests Test 12/29/20 12:37 12/29/20 16:52 12/29/20 23:47 12/30/20 05:20 Glucose (Fingerstick) 244 mg/dL (70-99) 255 mg/dL (70-99) 130 mg/dL (70-99) White Blood Count 10.4 x10^3/uL (4.0-11.0) Red Blood Count 4.19 x10^6/uL (3.50-5.40) Hemoglobin 12.5 g/dL (12.0-15.5) Hematocrit 36.4 % (36.0-47.0) Mean Corpuscular Volume 87 fL (79-100) Mean Corpuscular Hemoglobin 30 pg (25-35) Mean Corpuscular Hemoglobin Concent 34 g/dL (31-37) Red Cell Distribution Width 13.1 % (11.5-14.5) Platelet Count 155 x10^3/uL (140-400) Neutrophils (%) (Auto) 78 % (31-73) Lymphocytes (%) (Auto) 12 % (24-48) Monocytes (%) (Auto) 9 % (0-9) Eosinophils (%) (Auto) 1 % (0-3) Basophils (%) (Auto) 1 % (0-3) Neutrophils # (Auto) 8.1 x10^3/uL (1.8-7.7) Lymphocytes # (Auto) 1.2 x10^3/uL (1.0-4.8) Monocytes # (Auto) 0.9 x10^3/uL (0.0-1.1) Eosinophils # (Auto) 0.1 x10^3/uL (0.0-0.7) Basophils # (Auto) 0.1 x10^3/uL (0.0-0.2) Sodium Level 138 mmol/L (136-145) Potassium Level 4.0 mmol/L (3.5-5.1) Chloride Level 102 mmol/L (98-107) Carbon Dioxide Level 31 mmol/L (21-32) Anion Gap 5 (6-14) Blood Urea Nitrogen 17 mg/dL (7-20) Creatinine 0.6 mg/dL (0.6-1.0) Estimated GFR (Cockcroft-Gault) 104.6 Glucose Level 104 mg/dL (70-99) Calcium Level 8.1 mg/dL (8.5-10.1) Test 12/30/20 05:37 12/30/20 13:00 12/30/20 18:00 12/30/20 23:06 Glucose (Fingerstick) 119 mg/dL (70-99) 227 mg/dL (70-99) 269 mg/dL (70-99) 173 mg/dL (70-99) Test 12/31/20 05:48 12/31/20 06:00 Glucose (Fingerstick) 104 mg/dL (70-99) White Blood Count 10.9 x10^3/uL (4.0-11.0) Red Blood Count 4.27 x10^6/uL (3.50-5.40) Hemoglobin 12.7 g/dL (12.0-15.5) Hematocrit 37.1 % (36.0-47.0) Mean Corpuscular Volume 87 fL (79-100) Mean Corpuscular Hemoglobin 30 pg (25-35) Mean Corpuscular Hemoglobin Concent 34 g/dL (31-37) Red Cell Distribution Width 13.4 % (11.5-14.5) Platelet Count 159 x10^3/uL (140-400) Neutrophils (%) (Auto) 76 % (31-73) Lymphocytes (%) (Auto) 14 % (24-48) Monocytes (%) (Auto) 8 % (0-9) Eosinophils (%) (Auto) 1 % (0-3) Basophils (%) (Auto) 1 % (0-3) Neutrophils # (Auto) 8.3 x10^3/uL (1.8-7.7) Lymphocytes # (Auto) 1.5 x10^3/uL (1.0-4.8) Monocytes # (Auto) 0.9 x10^3/uL (0.0-1.1) Eosinophils # (Auto) 0.1 x10^3/uL (0.0-0.7) Basophils # (Auto) 0.1 x10^3/uL (0.0-0.2) Sodium Level 138 mmol/L (136-145) Potassium Level 4.1 mmol/L (3.5-5.1) Chloride Level 100 mmol/L (98-107) Carbon Dioxide Level 31 mmol/L (21-32) Anion Gap 7 (6-14) Blood Urea Nitrogen 18 mg/dL (7-20) Creatinine 0.4 mg/dL (0.6-1.0) Estimated GFR (Cockcroft-Gault) 167.0 BUN/Creatinine Ratio 45 (6-20) Glucose Level 89 mg/dL (70-99) Calcium Level 8.7 mg/dL (8.5-10.1) Total Bilirubin 0.4 mg/dL (0.2-1.0) Aspartate Amino Transf (AST/SGOT) 27 U/L (15-37) Alanine Aminotransferase (ALT/SGPT) 17 U/L (14-59) Alkaline Phosphatase 91 U/L (46-116) Total Protein 5.6 g/dL (6.4-8.2) Albumin 2.4 g/dL (3.4-5.0) Albumin/Globulin Ratio 0.8 (1.0-1.7) Laboratory Tests Test 12/30/20 13:00 12/30/20 18:00 12/30/20 23:06 12/31/20 05:48 Glucose (Fingerstick) 227 mg/dL (70-99) 269 mg/dL (70-99) 173 mg/dL (70-99) 104 mg/dL (70-99) Test 12/31/20 06:00 White Blood Count 10.9 x10^3/uL (4.0-11.0) Red Blood Count 4.27 x10^6/uL (3.50-5.40) Hemoglobin 12.7 g/dL (12.0-15.5) Hematocrit 37.1 % (36.0-47.0) Mean Corpuscular Volume 87 fL (79-100) Mean Corpuscular Hemoglobin 30 pg (25-35) Mean Corpuscular Hemoglobin Concent 34 g/dL (31-37) Red Cell Distribution Width 13.4 % (11.5-14.5) Platelet Count 159 x10^3/uL (140-400) Neutrophils (%) (Auto) 76 % (31-73) Lymphocytes (%) (Auto) 14 % (24-48) Monocytes (%) (Auto) 8 % (0-9) Eosinophils (%) (Auto) 1 % (0-3) Basophils (%) (Auto) 1 % (0-3) Neutrophils # (Auto) 8.3 x10^3/uL (1.8-7.7) Lymphocytes # (Auto) 1.5 x10^3/uL (1.0-4.8) Monocytes # (Auto) 0.9 x10^3/uL (0.0-1.1) Eosinophils # (Auto) 0.1 x10^3/uL (0.0-0.7) Basophils # (Auto) 0.1 x10^3/uL (0.0-0.2) Sodium Level 138 mmol/L (136-145) Potassium Level 4.1 mmol/L (3.5-5.1) Chloride Level 100 mmol/L (98-107) Carbon Dioxide Level 31 mmol/L (21-32) Anion Gap 7 (6-14) Blood Urea Nitrogen 18 mg/dL (7-20) Creatinine 0.4 mg/dL (0.6-1.0) Estimated GFR (Cockcroft-Gault) 167.0 BUN/Creatinine Ratio 45 (6-20) Glucose Level 89 mg/dL (70-99) Calcium Level 8.7 mg/dL (8.5-10.1) Total Bilirubin 0.4 mg/dL (0.2-1.0) Aspartate Amino Transf (AST/SGOT) 27 U/L (15-37) Alanine Aminotransferase (ALT/SGPT) 17 U/L (14-59) Alkaline Phosphatase 91 U/L (46-116) Total Protein 5.6 g/dL (6.4-8.2) Albumin 2.4 g/dL (3.4-5.0) Albumin/Globulin Ratio 0.8 (1.0-1.7) Comments Chest x-ray reviewed 12/28/2020 Diffuse interstitial infiltrates without any pleural effusion. Mild worsening Chest x-ray reviewed 12/23/2020. Diffuse bilateral interstitial infiltrates consistent with viral pneumonia. Impression . IMPRESSION: 1. Acute hypoxemic respiratory failure secondary to COVID-19 viral pneumonia. 2. Acute respiratory distress syndrome. 3. Sepsis secondary to above. 4. Acute kidney injury. 5. Elevated LFTs. 6. Hypokalemia. 7. Hypotension, suspect secondary to sepsis and volume depletion, stable now Plan . Updated 12/31 We will continue Vapotherm at 100% FiO2 and additional 100% nonrebreather mask. Status post remdesivir Received tocilizumab Steroids with gradual taper per protocol. Nutrition. DVT GI prophylaxis Patient remains critical. We will closely watch for need for mechanical ventilation. So far tolerating reasonably well Chest x-ray with persistent diffuse infiltrates with mild worsening. Needs to closely watch respiratory status while in the ICU Updated 12/30 We will continue Vapotherm at 100% FiO2 and additional 100% nonrebreather mask. Status post remdesivir Received tocilizumab Steroids with gradual taper per protocol. Nutrition. DVT GI prophylaxis Patient remains critical. We will closely watch for need for mechanical ventilation. So far tolerating reasonably well Chest x-ray with persistent diffuse infiltrates with mild worsening. Needs to closely watch respiratory status while in the ICU Updated 12/29 We will continue Vapotherm at 100% FiO2 and additional 100% nonrebreather mask. Status post remdesivir Received tocilizumab Steroids with gradual taper per protocol. Nutrition. DVT GI prophylaxis Patient remains critical. We will closely watch for need for mechanical ventilation. So far tolerating reasonably well Chest x-ray with persistent diffuse infiltrates with mild worsening. Needs to closely watch respiratory status while in the ICU Updated 12/28 We will continue Vapotherm at 100% FiO2 and additional 100% nonrebreather mask. Status post remdesivir Received tocilizumab Steroids with gradual taper per protocol. Nutrition. DVT GI prophylaxis Patient remains critical. We will closely watch for need for mechanical ventilation. So far tolerating reasonably well Chest x-ray with persistent diffuse infiltrates with mild worsening. Needs to closely watch respiratory status while in the ICU Updated 12/27 We will continue Vapotherm at 100% FiO2 and additional 100% nonrebreather mask. Status post remdesivir Received tocilizumab Steroids with gradual taper per protocol. Nutrition. DVT GI prophylaxis Patient remains critical. We will closely watch for need for mechanical ventilation. So far tolerating reasonably well Updated 12/26 We will continue Vapotherm at 100% FiO2 and additional 100% nonrebreather mask. Status post remdesivir Received tocilizumab Steroids with gradual taper per protocol. Nutrition. DVT GI prophylaxis Patient remains critical. We will closely watch for need for mechanical ventilation. So far tolerating reasonably well Updated 12/25 We will continue Vapotherm at 100% FiO2 and additional 100% nonrebreather mask. Status post remdesivir Received tocilizumab Steroids with gradual taper per protocol. Nutrition. DVT GI prophylaxis Patient remains critical. We will closely watch for need for mechanical ventilation. Updated 12/24 We will continue Vapotherm Remdesivir Received tocilizumab Steroids Vapotherm Enteral nutrition DVT GI prophylaxis updated 12/23 As needed Zofran Remdesivir Status post tocilizumab Steroid Vapotherm Up to chair updated 12/22 Has some nausea, will administer Zofran Blood pressure better today Continue remdesivir Status post tocilizumab DVT GI prophylaxis Oxygen per Vapotherm KAYLA LUCERO MD Dec 31, 2020 10:10
[2020-12-31] MEDS: ACETAMINOPHEN 325 MG TABLET. PO PRN (11:58)
--- NOTE | 2020-12-31 12:09 | PDOC ---
[employer] PROGRESS NOTE Date of Service DOS: DATE: 12/31/20 TIME: 12:08 Chief Complaint Chief Complaint CC: Acute hypoxic respiratory failure Covid-19 Sepsis ANTHONY Elevated LFTs Elevated CRP Milk Hypokalemia Overactive bladder History of Present Illness History of Present Illness Ms Anton is a 55-year-old female with past medical history of overactive bladder who came to the ED at [facility] complaining of worsening shortness of breath fatigue and cough. Her shortness of breath began on 12/11/2020 she had fatigue started on 12/08/2020. She awoke on 12/12/2020 and noted myalgias and loss of appetite and diarrhea as well. She tested positive for COVID-19. Her also tested positive for COVID-19. She has complaints fever, chills, malaise, nausea, vomiting, arthralgia, myalgia, tachycardia, coughing and increased dyspnea. Patient has been exposed to inmates here plan seeing [facility] who had COVID. Patient previously declined Covid vaccination. Patient now comes very dyspneic with any activity. Initially sats on room air in the 80s. Patient denies any recent travel. No specific ill contacts other than at work and her . Patient denies any previous history of immunosuppression. She had not been vaccinated for COVID-19 but after her daughter had contracted Covid she had planned to get the vaccine last week and had delayed due to her symptoms. 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 She has 3 children at home and 3 adult children whom have also had Covid with fairly severe symptoms and she also has 5 grandchildren, presumably healthy. Febrile on admission 100.8 F, heart rate 114 bpm, respirations 33/min, O2 saturation 86% on room air, blood pressure 113/69. Admission labs WBC 7.6, Hb 14.8, platelets 188, NA 140, K3.2, chloride 101, HCO3 24, BUN 26, CR 1.2, glucose 128, calcium 8.5, bilirubin 0.5, AST 111, ALT 64, alkaline phosphatase 117, troponin 0, albumin 3.2, NT proBNP 90, CRP 143.3. EKG normal sinus rhythm rate of 95 bpm leftward axis otherwise normal intervals, QTC [address] elevations or TWI. Chest radiograph with multifocal opacities. Due to tachycardia and hypoxemia she was evaluated with CTPA which was negative for pulmonary embolism and did reveal extensive bilateral groundglass opacities and incidental finding of enlarged spleen. Initially admitted to ICU at [facility] in [place] on 12/17/2020 given Solumedrol 60 three times a day and Remdesivir. Today she becomes significantly more hypoxic with O2 saturations 86% despite 10 L oxygen and was called for transfer to [facility]. Seen bedside in ICU 40 L/min 100% FiO2 Vapotherm with O2 saturations 93%. Requi ring supplemental facemask O2 15 L/min. 12/19: Seen in ICU. Afebrile. O2 saturation 92% on 40 L/min 100% FiO2 Vapotherm + facemask O2 15 L/min. Less GI upset. Cough improved with Tessalon. D/w pulmonology to change to Decadron from Solu-Medrol and dose with Actemra based on her highly elevated CRP 143.3 Seen in ICU afebrile. O2 saturations 94% 40 L/min FiO2 Vapotherm plus facemask O2 15 L/min. Still little appetite. Transaminases decreased. Feels a little better but is complaining of nasal drainage. cc time 30 min 12/21/20: Patient seen and examined in ICU. Patient currently on 100% O2 on Vapotherm with 40L O2 as well as 100% O2 on nonre breather. O2 sat is at 89% when examined. Patient has Dawn to bedside drainage. Discussed with RN. Chart reviewed. 12/22/20: Patient was seen and examined in the ICU today. She is complaining of back pain so pain medications were adjusted for her. Currently on Clinimix. On nonre breather at 100% O2 and Vapotherm at 100% O2. Current O2 sat is 99%. Discussed with RN. Chart reviewed. 12/23/20: Patient seen and examined in ICU. Resting with NAD. Patient has been sleeping all day and night. Current O2 sat is at 95%. On Clinimix. On vapotherm with 100% O2 and non-rebreather at 100% O2. Discussed with RN. Chart reviewed. 12/24/20: Patient was seen and examined in the ICU today. She is currently on Vapotherm with 100% O2 as well as a non-rebreather with 100% O2 which she had on all night. O2 sat has been in the 90s for the past day. Patient has a Dawn to bedside as well as a PICC line in place in the left upper arm. She is on Clinimix. Discussed with RN who states that patient desats with movement or when she tries to stand up. Patient ate about 1/2 her breakfast this morning. Chart reviewed. 12/25/20: Patient seen and examined in the ICU. Currently on Vapotherm at 100% O2 as well as non-rebreather at 100% O2. Dawn to bedside present. On Clinimix. Patient does not have good appetite and only ate about 1/2 of her breakfast this morning. Discussed with RN. Chart reviewed. 12/26/20: Patient seen and examined in the ICU today. She is resting. O2 sat is at 98% while being examined. Dawn to bedside in place. She is on Vapotherm at 100% O2 and non-rebreather at 100% O2. She is still on Clinimix. Discussed with Rn. Chart reviewed. 12/27/20: Patient seen and examined in the ICU. Resting with NAD. O2 sat is at 94%. On non-rebreather at 100% O2 and Vapotherm at 100% O2. She is on IV fluid, Clinimix, and Doxycycline. Discussed with RN who states that patient is eating better this morning than yesterday. Chart reviewed. 12/28/2020: Patient seen in ICU. Afebrile, breathing on Vapotherm 40 L. She has completed remdesivir and s/p tocilizumab. Continue Decadron for 10-day course with slow taper to begin tomorrow. Continue empiric antibiotics. Continue supportive care, Clinimix. Critical care time 30 minutes spent reviewing charts, reviewing labs, reviewing imaging, discussing with RN. 12/29/2020: Afebrile overnight; breathing on Vapotherm 40 L. She has completed remdesivir and s/p tocilizumab. Continue Decadron for 10-day course with slow taper to begin tomorrow. Continue empiric antibiotics. Continue supportive care. Critical care time 30 minutes spent reviewing charts, reviewing labs, reviewing imaging, discussing with RN. 12/30/2020: Afebrile. On Vapotherm 40 L. Completed remdesivir and s/p tocilizumab. Completed Decadron for 10-day course; will initiate Decadron 5-day taper. Continue to monitor respiratory status in ICU. Continue empiric antibiotics. Continue supportive care. Critical care time 30 minutes spent reviewing charts, reviewing labs, reviewing imaging, discussing with RN. 12/31/2020: Sitting upright in bed eating food, using smart phone. Afebrile, on Vapotherm 40 L. Completed remdesivir and s/p tocilizumab. Continue Decadron taper. Continue to monitor respiratory status in ICU. Continue empiric antibiotics. Continue supportive care. Critical care time 30 minutes spent reviewing charts, reviewing labs, reviewing imaging, discussing with RN. Vitals/I&O Vitals/I&O: Vital Signs Date Time Temp Pulse Resp B/P (MAP) Pulse Ox O2 Delivery O2 Flow Rate FiO2 12/31/20 10:00 68 37 90/55 (67) 96 vapotherm/NRB 40.0 12/31/20 07:00 97.0 97.0 I & O 12/30/20 12/30/20 12/31/20 15:00 23:00 07:00 Intake Total 100 ml 2225 ml 580 ml Output Total 625 ml 1600 ml 1050 ml Balance -525 ml 625 ml -470 ml Physical Exam General: Alert, Oriented X3, Cooperative, No acute distress Heart: Regular rate Abdomen: Normal bowel sounds, Soft, No tenderness, No hepatosplenomegaly, No masses Extremities: No clubbing, No cyanosis, No edema, Normal pulses, No tenderness/swelling Skin: No rashes, No breakdown, No significant lesion Labs Labs: Laboratory Tests Test 12/30/20 13:00 12/30/20 18:00 12/30/20 23:06 12/31/20 05:48 Glucose (Fingerstick) 227 mg/dL (70-99) 269 mg/dL (70-99) 173 mg/dL (70-99) 104 mg/dL (70-99) Test 12/31/20 06:00 12/31/20 11:48 White Blood Count 10.9 x10^3/uL (4.0-11.0) Red Blood Count 4.27 x10^6/uL (3.50-5.40) Hemoglobin 12.7 g/dL (12.0-15.5) Hematocrit 37.1 % (36.0-47.0) Mean Corpuscular Volume 87 fL (79-100) Mean Corpuscular Hemoglobin 30 pg (25-35) Mean Corpuscular Hemoglobin Concent 34 g/dL (31-37) Red Cell Distribution Width 13.4 % (11.5-14.5) Platelet Count 159 x10^3/uL (140-400) Neutrophils (%) (Auto) 76 % (31-73) Lymphocytes (%) (Auto) 14 % (24-48) Monocytes (%) (Auto) 8 % (0-9) Eosinophils (%) (Auto) 1 % (0-3) Basophils (%) (Auto) 1 % (0-3) Neutrophils # (Auto) 8.3 x10^3/uL (1.8-7.7) Lymphocytes # (Auto) 1.5 x10^3/uL (1.0-4.8) Monocytes # (Auto) 0.9 x10^3/uL (0.0-1.1) Eosinophils # (Auto) 0.1 x10^3/uL (0.0-0.7) Basophils # (Auto) 0.1 x10^3/uL (0.0-0.2) Sodium Level 138 mmol/L (136-145) Potassium Level 4.1 mmol/L (3.5-5.1) Chloride Level 100 mmol/L (98-107) Carbon Dioxide Level 31 mmol/L (21-32) Anion Gap 7 (6-14) Blood Urea Nitrogen 18 mg/dL (7-20) Creatinine 0.4 mg/dL (0.6-1.0) Estimated GFR (Cockcroft-Gault) 167.0 BUN/Creatinine Ratio 45 (6-20) Glucose Level 89 mg/dL (70-99) Calcium Level 8.7 mg/dL (8.5-10.1) Total Bilirubin 0.4 mg/dL (0.2-1.0) Aspartate Amino Transf (AST/SGOT) 27 U/L (15-37) Alanine Aminotransferase (ALT/SGPT) 17 U/L (14-59) Alkaline Phosphatase 91 U/L (46-116) Total Protein 5.6 g/dL (6.4-8.2) Albumin 2.4 g/dL (3.4-5.0) Albumin/Globulin Ratio 0.8 (1.0-1.7) Glucose (Fingerstick) 272 mg/dL (70-99) Assessment and Plan Assessmemt and Plan Problems Medical Problems: (1) Acute respiratory failure with hypoxia Status: Acute (2) COVID-19 Status: Acute Comment Review of Relevant I have reviewed the following items jeannie (where applicable) has been applied. Justifications for Admission Other Justification hypoxia SANDRA HILLS MD Dec 31, 2020 12:09
[2020-12-31] MEDS: ENOXAPARIN 40 MG/0.4 ML SYRINGE. SQ SCH (20:06)
[2020-12-31] MEDS: CALCIUM CARBONATE 500 MG TAB.CHEW PO PRN (20:06)
[2020-12-31] MEDS: ZOLPIDEM 5 MG TABLET. PO PRN (22:13)
[2021-01-01] VITALS (15 sets, daily range): BP systolic 69–112; BP diastolic 42–74
[2021-01-01] MEDS: STERILE WATER for RESP 1,000 ML BAG. INH PRN (01:51)
[2021-01-01] MEDS: AA 4.25 %/CALCIUM/LYTES/D5W 1,000 ML IV SCH ×2 (05:52→19:28)
[2021-01-01] MEDS: INSULIN LISPRO 300 UNITS/3 ML VIAL. SQ SCH ×5 (06:00→23:52)
--- NOTE | 2021-01-01 08:16 | PDOC ---
[employer] PROGRESS NOTE Date of Service DOS: DATE: 01/01/21 TIME: 08:10 Chief Complaint Chief Complaint CC: Acute hypoxic respiratory failure Covid-19 Sepsis ANTHONY Elevated LFTs Elevated CRP Milk Hypokalemia Overactive bladder History of Present Illness History of Present Illness Ms Anton is a 55-year-old female with past medical history of overactive bladder who came to the ED at [facility] complaining of worsening shortness of breath fatigue and cough. Her shortness of breath began on 12/11/2020 she had fatigue started on 12/08/2020. She awoke on 12/12/2020 and noted myalgias and loss of appetite and diarrhea as well. She tested positive for COVID-19. Her also tested positive for COVID-19. She has complaints fever, chills, malaise, nausea, vomiting, arthralgia, myalgia, tachycardia, coughing and increased dyspnea. Patient has been exposed to inmates here plan seeing [facility] who had COVID. Patient previously declined Covid vaccination. Patient now comes very dyspneic with any activity. Initially sats on room air in the 80s. Patient denies any recent travel. No specific ill contacts other than at work and her . Patient denies any previous history of immunosuppression. She had not been vaccinated for COVID-19 but after her daughter had contracted Covid she had planned to get the vaccine last week and had delayed due to her symptoms. 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 She has 3 children at home and 3 adult children whom have also had Covid with fairly severe symptoms and she also has 5 grandchildren, presumably healthy. Febrile on admission 100.8 F, heart rate 114 bpm, respirations 33/min, O2 saturation 86% on room air, blood pressure 113/69. Admission labs WBC 7.6, Hb 14.8, platelets 188, NA 140, K3.2, chloride 101, HCO3 24, BUN 26, CR 1.2, glucose 128, calcium 8.5, bilirubin 0.5, AST 111, ALT 64, alkaline phosphatase 117, troponin 0, albumin 3.2, NT proBNP 90, CRP 143.3. EKG normal sinus rhythm rate of 95 bpm leftward axis otherwise normal intervals, QTC [address] elevations or TWI. Chest radiograph with multifocal opacities. Due to tachycardia and hypoxemia she was evaluated with CTPA which was negative for pulmonary embolism and did reveal extensive bilateral groundglass opacities and incidental finding of enlarged spleen. Initially admitted to ICU at [facility] in [place] on 12/17/2020 given Solumedrol 60 three times a day and Remdesivir. Today she becomes significantly more hypoxic with O2 saturations 86% despite 10 L oxygen and was called for transfer to [facility]. Seen bedside in ICU 40 L/min 100% FiO2 Vapotherm with O2 saturations 93%. Requi ring supplemental facemask O2 15 L/min. 12/19: Seen in ICU. Afebrile. O2 saturation 92% on 40 L/min 100% FiO2 Vapotherm + facemask O2 15 L/min. Less GI upset. Cough improved with Tessalon. D/w pulmonology to change to Decadron from Solu-Medrol and dose with Actemra based on her highly elevated CRP 143.3 Seen in ICU afebrile. O2 saturations 94% 40 L/min FiO2 Vapotherm plus facemask O2 15 L/min. Still little appetite. Transaminases decreased. Feels a little better but is complaining of nasal drainage. cc time 30 min 12/21/20: Patient seen and examined in ICU. Patient currently on 100% O2 on Vapotherm with 40L O2 as well as 100% O2 on nonre breather. O2 sat is at 89% when examined. Patient has Dawn to bedside drainage. Discussed with RN. Chart reviewed. 12/22/20: Patient was seen and examined in the ICU today. She is complaining of back pain so pain medications were adjusted for her. Currently on Clinimix. On nonre breather at 100% O2 and Vapotherm at 100% O2. Current O2 sat is 99%. Discussed with RN. Chart reviewed. 12/23/20: Patient seen and examined in ICU. Resting with NAD. Patient has been sleeping all day and night. Current O2 sat is at 95%. On Clinimix. On vapotherm with 100% O2 and non-rebreather at 100% O2. Discussed with RN. Chart reviewed. 12/24/20: Patient was seen and examined in the ICU today. She is currently on Vapotherm with 100% O2 as well as a non-rebreather with 100% O2 which she had on all night. O2 sat has been in the 90s for the past day. Patient has a Dawn to bedside as well as a PICC line in place in the left upper arm. She is on Clinimix. Discussed with RN who states that patient desats with movement or when she tries to stand up. Patient ate about 1/2 her breakfast this morning. Chart reviewed. 12/25/20: Patient seen and examined in the ICU. Currently on Vapotherm at 100% O2 as well as non-rebreather at 100% O2. Dawn to bedside present. On Clinimix. Patient does not have good appetite and only ate about 1/2 of her breakfast this morning. Discussed with RN. Chart reviewed. 12/26/20: Patient seen and examined in the ICU today. She is resting. O2 sat is at 98% while being examined. Dawn to bedside in place. She is on Vapotherm at 100% O2 and non-rebreather at 100% O2. She is still on Clinimix. Discussed with Rn. Chart reviewed. 12/27/20: Patient seen and examined in the ICU. Resting with NAD. O2 sat is at 94%. On non-rebreather at 100% O2 and Vapotherm at 100% O2. She is on IV fluid, Clinimix, and Doxycycline. Discussed with RN who states that patient is eating better this morning than yesterday. Chart reviewed. 12/28/2020: Patient seen in ICU. Afebrile, breathing on Vapotherm 40 L. She has completed remdesivir and s/p tocilizumab. Continue Decadron for 10-day course with slow taper to begin tomorrow. Continue empiric antibiotics. Continue supportive care, Clinimix. Critical care time 30 minutes spent reviewing charts, reviewing labs, reviewing imaging, discussing with RN. 12/29/2020: Afebrile overnight; breathing on Vapotherm 40 L. She has completed remdesivir and s/p tocilizumab. Continue Decadron for 10-day course with slow taper to begin tomorrow. Continue empiric antibiotics. Continue supportive care. Critical care time 30 minutes spent reviewing charts, reviewing labs, reviewing imaging, discussing with RN. 12/30/2020: Afebrile. On Vapotherm 40 L. Completed remdesivir and s/p tocilizumab. Completed Decadron for 10-day course; will initiate Decadron 5-day taper. Continue to monitor respiratory status in ICU. Continue empiric antibiotics. Continue supportive care. Critical care time 30 minutes spent reviewing charts, reviewing labs, reviewing imaging, discussing with RN. 12/31/2020: Sitting upright in bed eating food, using smart phone. Afebrile, on Vapotherm 40 L. Completed remdesivir and s/p tocilizumab. Continue Decadron taper. Continue to monitor respiratory status in ICU. Continue empiric antibiotics. Continue supportive care. Critical care time 30 minutes spent reviewing charts, reviewing labs, reviewing imaging, discussing with RN. 01/01/2021: Afebrile. Currently on 15 L nonrebreather. Completed remdesivir and s/p tocilizumab. Discussed with Dr. Davies, not a candidate for baricitinib. Continue Decadron taper. Continue empiric antibiotics. Continue supportive care and monitoring of respiratory status in ICU. Critical care time 30 minutes spent reviewing charts, reviewing labs, reviewing imaging, discussing with RN. Vitals/I&O Vitals/I&O: Vital Signs Date Time Temp Pulse Resp B/P (MAP) Pulse Ox O2 Delivery O2 Flow Rate FiO2 01/01/21 07:28 Non-Rebreather 15.0 01/01/21 06:00 74 19 87/55 (66) 90 01/01/21 04:00 94.2 94.2 I & O 12/31/20 12/31/20 01/01/21 15:00 23:00 07:00 Intake Total 250 ml 300 ml 3322 ml Output Total 750 ml 1150 ml 1400 ml Balance -500 ml -850 ml 1922 ml Physical Exam General: Alert, Oriented X3, Cooperative, No acute distress Heart: Regular rate Lungs: Other (No significant increased work of breathing) Abdomen: Normal bowel sounds, Soft, No tenderness, No hepatosplenomegaly, No masses Extremities: No clubbing, No cyanosis, No edema, Normal pulses, No tenderness/swelling Skin: No rashes, No breakdown, No significant lesion Labs Labs: Laboratory Tests Test 12/31/20 11:48 12/31/20 17:39 12/31/20 23:59 01/01/21 05:59 Glucose (Fingerstick) 272 mg/dL (70-99) 180 mg/dL (70-99) 134 mg/dL (70-99) 130 mg/dL (70-99) Assessment and Plan Assessmemt and Plan Problems Medical Problems: (1) Acute respiratory failure with hypoxia Status: Acute (2) COVID-19 Status: Acute Comment Review of Relevant I have reviewed the following items jeannie (where applicable) has been applied. Justifications for Admission Other Justification hypoxia SANDRA HILLS MD Jan 01, 2021 08:16
[2021-01-01] MEDS: DOCUSATE SODIUM 100 MG CAPSULE. PO SCH ×2 (08:19→19:42)
[2021-01-01] MEDS: ASCORBIC ACID 500 MG TABLET PO SCH (08:19)
[2021-01-01] MEDS: ZINC SULFATE 220 MG CAPSULE. PO SCH (08:19)
[2021-01-01] MEDS: CHOLECALCIFEROL (VITAMIN D3) 5,000 UNIT CAPSULE PO SCH (08:19)
[2021-01-01] MEDS: THIAMINE 100 MG TABLET. PO SCH (08:19)
[2021-01-01] MEDS: BENZONATATE 100 MG CAPSULE. PO SCH ×3 (08:19→19:42)
[2021-01-01] MEDS: FAMOTIDINE 20 MG/2 ML VIAL IVP SCH ×2 (08:20→19:41)
[2021-01-01] MEDS: LACTOBACILLUS RHAMNOSUS GG 1 CAPSULE. PO SCH ×2 (08:20→19:42)
[2021-01-01] MEDS: guaiFENesin/CODEINE 100mg/10mg 5 ML LIQUID PO PRN ×3 (08:20→23:51)
[2021-01-01] MEDS: DEXAMETHASONE SOD PHOS 4 MG/ML VIAL IVP SCH (08:20)
[2021-01-01] MEDS: DOXYCYCLINE HYCLATE 100 MG in IV DEXTROSE 5% 100ML 100 ML IV SCH ×2 (08:34→19:43)
--- NOTE | 2021-01-01 09:46 | PDOC ---
PULMONARY PROGRESS NOTES DATE: 01/01/21 TIME: 09:45 Subjective Patient remains on 100% FiO2 at 40 L with Vapotherm and in addition 100% nonrebreather mask. Appears comfortable. Vitals Vital Signs Date Time Temp Pulse Resp B/P (MAP) Pulse Ox O2 Delivery O2 Flow Rate FiO2 01/01/21 08:00 74 38 91/60 (70) 96 40.0 01/01/21 07:45 VAPOTHERM 01/01/21 04:00 94.2 94.2 Comments On visual inspection, patient seen during the COVID- pandemic, no significant respiratory distress, no significant edema no paroxysmal breathing pattern General: Alert, No acute distress Labs Laboratory Tests Test 12/30/20 13:00 12/30/20 18:00 12/30/20 23:06 12/31/20 05:48 Glucose (Fingerstick) 227 mg/dL (70-99) 269 mg/dL (70-99) 173 mg/dL (70-99) 104 mg/dL (70-99) Test 12/31/20 06:00 12/31/20 11:48 12/31/20 17:39 12/31/20 23:59 White Blood Count 10.9 x10^3/uL (4.0-11.0) Red Blood Count 4.27 x10^6/uL (3.50-5.40) Hemoglobin 12.7 g/dL (12.0-15.5) Hematocrit 37.1 % (36.0-47.0) Mean Corpuscular Volume 87 fL (79-100) Mean Corpuscular Hemoglobin 30 pg (25-35) Mean Corpuscular Hemoglobin Concent 34 g/dL (31-37) Red Cell Distribution Width 13.4 % (11.5-14.5) Platelet Count 159 x10^3/uL (140-400) Neutrophils (%) (Auto) 76 % (31-73) Lymphocytes (%) (Auto) 14 % (24-48) Monocytes (%) (Auto) 8 % (0-9) Eosinophils (%) (Auto) 1 % (0-3) Basophils (%) (Auto) 1 % (0-3) Neutrophils # (Auto) 8.3 x10^3/uL (1.8-7.7) Lymphocytes # (Auto) 1.5 x10^3/uL (1.0-4.8) Monocytes # (Auto) 0.9 x10^3/uL (0.0-1.1) Eosinophils # (Auto) 0.1 x10^3/uL (0.0-0.7) Basophils # (Auto) 0.1 x10^3/uL (0.0-0.2) Sodium Level 138 mmol/L (136-145) Potassium Level 4.1 mmol/L (3.5-5.1) Chloride Level 100 mmol/L (98-107) Carbon Dioxide Level 31 mmol/L (21-32) Anion Gap 7 (6-14) Blood Urea Nitrogen 18 mg/dL (7-20) Creatinine 0.4 mg/dL (0.6-1.0) Estimated GFR (Cockcroft-Gault) 167.0 BUN/Creatinine Ratio 45 (6-20) Glucose Level 89 mg/dL (70-99) Calcium Level 8.7 mg/dL (8.5-10.1) Total Bilirubin 0.4 mg/dL (0.2-1.0) Aspartate Amino Transf (AST/SGOT) 27 U/L (15-37) Alanine Aminotransferase (ALT/SGPT) 17 U/L (14-59) Alkaline Phosphatase 91 U/L (46-116) Total Protein 5.6 g/dL (6.4-8.2) Albumin 2.4 g/dL (3.4-5.0) Albumin/Globulin Ratio 0.8 (1.0-1.7) Glucose (Fingerstick) 272 mg/dL (70-99) 180 mg/dL (70-99) 134 mg/dL (70-99) Test 01/01/21 05:59 Glucose (Fingerstick) 130 mg/dL (70-99) Laboratory Tests Test 12/31/20 11:48 12/31/20 17:39 12/31/20 23:59 01/01/21 05:59 Glucose (Fingerstick) 272 mg/dL (70-99) 180 mg/dL (70-99) 134 mg/dL (70-99) 130 mg/dL (70-99) Comments Chest x-ray reviewed 12/28/2020 Diffuse interstitial infiltrates without any pleural effusion. Mild worsening Chest x-ray reviewed 12/23/2020. Diffuse bilateral interstitial infiltrates consistent with viral pneumonia. Impression . IMPRESSION: 1. Acute hypoxemic respiratory failure secondary to COVID-19 viral pneumonia. 2. Acute respiratory distress syndrome. 3. Sepsis secondary to above. 4. Acute kidney injury. 5. Elevated LFTs. 6. Hypokalemia. 7. Hypotension, suspect secondary to sepsis and volume depletion, stable now Plan . Updated 01/01 We will continue Vapotherm at 100% FiO2 and additional 100% nonrebreather mask. Status post remdesivir Received tocilizumab Steroids with gradual taper per protocol. Nutrition. DVT GI prophylaxis Patient remains critical. We will closely watch for need for mechanical ventilation. So far tolerating reasonably well Chest x-ray with persistent diffuse infiltrates with mild worsening. Needs to closely watch respiratory status while in the ICU. So far holding okay Updated 12/31 We will continue Vapotherm at 100% FiO2 and additional 100% nonrebreather mask. Status post remdesivir Received tocilizumab Steroids with gradual taper per protocol. Nutrition. DVT GI prophylaxis Patient remains critical. We will closely watch for need for mechanical ventilation. So far tolerating reasonably well Chest x-ray with persistent diffuse infiltrates with mild worsening. Needs to closely watch respiratory status while in the ICU Updated 12/30 We will continue Vapotherm at 100% FiO2 and additional 100% nonrebreather mask. Status post remdesivir Received tocilizumab Steroids with gradual taper per protocol. Nutrition. DVT GI prophylaxis Patient remains critical. We will closely watch for need for mechanical ventilation. So far tolerating reasonably well Chest x-ray with persistent diffuse infiltrates with mild worsening. Needs to closely watch respiratory status while in the ICU Updated 12/29 We will continue Vapotherm at 100% FiO2 and additional 100% nonrebreather mask. Status post remdesivir Received tocilizumab Steroids with gradual taper per protocol. Nutrition. DVT GI prophylaxis Patient remains critical. We will closely watch for need for mechanical ventilation. So far tolerating reasonably well Chest x-ray with persistent diffuse infiltrates with mild worsening. Needs to closely watch respiratory status while in the ICU Updated 12/28 We will continue Vapotherm at 100% FiO2 and additional 100% nonrebreather mask. Status post remdesivir Received tocilizumab Steroids with gradual taper per protocol. Nutrition. DVT GI prophylaxis Patient remains critical. We will closely watch for need for mechanical ventilation. So far tolerating reasonably well Chest x-ray with persistent diffuse infiltrates with mild worsening. Needs to closely watch respiratory status while in the ICU Updated 12/27 We will continue Vapotherm at 100% FiO2 and additional 100% nonrebreather mask. Status post remdesivir Received tocilizumab Steroids with gradual taper per protocol. Nutrition. DVT GI prophylaxis Patient remains critical. We will closely watch for need for mechanical ventilation. So far tolerating reasonably well Updated 12/26 We will continue Vapotherm at 100% FiO2 and additional 100% nonrebreather mask. Status post remdesivir Received tocilizumab Steroids with gradual taper per protocol. Nutrition. DVT GI prophylaxis Patient remains critical. We will closely watch for need for mechanical ventilation. So far tolerating reasonably well Updated 12/25 We will continue Vapotherm at 100% FiO2 and additional 100% nonrebreather mask. Status post remdesivir Received tocilizumab Steroids with gradual taper per protocol. Nutrition. DVT GI prophylaxis Patient remains critical. We will closely watch for need for mechanical ventilation. Updated 12/24 We will continue Vapotherm Remdesivir Received tocilizumab Steroids Vapotherm Enteral nutrition DVT GI prophylaxis updated 12/23 As needed Zofran Remdesivir Status post tocilizumab Steroid Vapotherm Up to chair updated 12/22 Has some nausea, will administer Zofran Blood pressure better today Continue remdesivir Status post tocilizumab DVT GI prophylaxis Oxygen per Vapotherm KAYLA LUCERO MD Jan 01, 2021 09:46
[2021-01-01] MEDS: ONDANSETRON PF 4 MG/2 ML VIAL. IVP PRN (19:42)
[2021-01-01] MEDS: ENOXAPARIN 40 MG/0.4 ML SYRINGE. SQ SCH (19:42)
[2021-01-01] MEDS: CALCIUM CARBONATE 500 MG TAB.CHEW PO PRN (21:06)
[2021-01-01] MEDS: ZOLPIDEM 5 MG TABLET. PO PRN (22:29)
[2021-01-02] VITALS (14 sets, daily range): BP systolic 82–116; BP diastolic 51–69
[2021-01-02] MEDS: STERILE WATER for RESP 1,000 ML BAG. INH PRN ×2 (04:35→15:37)
[2021-01-02] MEDS ORDERED: ALTEPLASE 1MG SYRINGE. INT CAT ONE (05:00)
[2021-01-02] MEDS: INSULIN LISPRO 300 UNITS/3 ML VIAL. SQ SCH ×3 (05:30→17:15)
--- NOTE | 2021-01-02 06:06 | PDOC ---
PULMONARY PROGRESS NOTES DATE: 01/02/21 TIME: 06:05 Subjective Patient remains on 90% FiO2 at 40 L with Vapotherm and in addition 100% nonrebreather mask. Appears comfortable. has cough Vitals Vital Signs Date Time Temp Pulse Resp B/P (MAP) Pulse Ox O2 Delivery O2 Flow Rate FiO2 01/02/21 05:00 94 VAPOTHERM 40.0 01/02/21 05:00 68 19 84/59 (67) 01/02/21 00:00 98.1 98.1 Comments On visual inspection, patient seen during the COVID-19 pandemic, no distress alert nc at rrr no accessory muscle use no rash no edema General: Alert, No acute distress Labs Laboratory Tests Test 12/31/20 11:48 12/31/20 17:39 12/31/20 23:59 01/01/21 05:59 Glucose (Fingerstick) 272 mg/dL (70-99) 180 mg/dL (70-99) 134 mg/dL (70-99) 130 mg/dL (70-99) Test 01/01/21 12:25 01/01/21 16:54 01/01/21 23:01 01/02/21 05:26 Glucose (Fingerstick) 274 mg/dL (70-99) 183 mg/dL (70-99) 121 mg/dL (70-99) 111 mg/dL (70-99) Laboratory Tests Test 01/01/21 12:25 01/01/21 16:54 01/01/21 23:01 01/02/21 05:26 Glucose (Fingerstick) 274 mg/dL (70-99) 183 mg/dL (70-99) 121 mg/dL (70-99) 111 mg/dL (70-99) Comments Chest x-ray reviewed 12/28/2020 Diffuse interstitial infiltrates without any pleural effusion. Mild worsening Chest x-ray reviewed 12/23/2020. Diffuse bilateral interstitial infiltrates consistent with viral pneumonia. Impression . IMPRESSION: 1. Acute hypoxemic respiratory failure secondary to COVID-19 viral pneumonia. 2. Acute respiratory distress syndrome. 3. Sepsis secondary to above. 4. Acute kidney injury. 5. Elevated LFTs. 6. Hypokalemia. 7. Hypotension, suspect secondary to sepsis and volume depletion, stable now Plan . Updated 01/02 We will continue Vapotherm 100% nonrebreather mask. titrate fi02 to keep sat 90% Status post remdesivir Received tocilizumab Steroids with gradual taper per protocol. Nutrition. DVT GI prophylaxis Patient remains critical. monitor resp status closely in icu So far tolerating reasonably well Chest x-ray with persistent diffuse infiltrates with mild worsening. discussed w rn Updated 01/01 We will continue Vapotherm at 100% FiO2 and additional 100% nonrebreather mask. Status post remdesivir Received tocilizumab Steroids with gradual taper per protocol. Nutrition. DVT GI prophylaxis Patient remains critical. We will closely watch for need for mechanical ventilation. So far tolerating reasonably well Chest x-ray with persistent diffuse infiltrates with mild worsening. Needs to closely watch respiratory status while in the ICU. So far holding okay Updated 12/31 We will continue Vapotherm at 100% FiO2 and additional 100% nonrebreather mask. Status post remdesivir Received tocilizumab Steroids with gradual taper per protocol. Nutrition. DVT GI prophylaxis Patient remains critical. We will closely watch for need for mechanical ventilation. So far tolerating reasonably well Chest x-ray with persistent diffuse infiltrates with mild worsening. Needs to closely watch respiratory status while in the ICU Updated 12/30 We will continue Vapotherm at 100% FiO2 and additional 100% nonrebreather mask. Status post remdesivir Received tocilizumab Steroids with gradual taper per protocol. Nutrition. DVT GI prophylaxis Patient remains critical. We will closely watch for need for mechanical ventilation. So far tolerating reasonably well Chest x-ray with persistent diffuse infiltrates with mild worsening. Needs to closely watch respiratory status while in the ICU Updated 12/29 We will continue Vapotherm at 100% FiO2 and additional 100% nonrebreather mask. Status post remdesivir Received tocilizumab Steroids with gradual taper per protocol. Nutrition. DVT GI prophylaxis Patient remains critical. We will closely watch for need for mechanical ventilation. So far tolerating reasonably well Chest x-ray with persistent diffuse infiltrates with mild worsening. Needs to closely watch respiratory status while in the ICU Updated 12/28 We will continue Vapotherm at 100% FiO2 and additional 100% nonrebreather mask. Status post remdesivir Received tocilizumab Steroids with gradual taper per protocol. Nutrition. DVT GI prophylaxis Patient remains critical. We will closely watch for need for mechanical ventilation. So far tolerating reasonably well Chest x-ray with persistent diffuse infiltrates with mild worsening. Needs to closely watch respiratory status while in the ICU Updated 12/27 We will continue Vapotherm at 100% FiO2 and additional 100% nonrebreather mask. Status post remdesivir Received tocilizumab Steroids with gradual taper per protocol. Nutrition. DVT GI prophylaxis Patient remains critical. We will closely watch for need for mechanical ventilation. So far tolerating reasonably well Updated 12/26 We will continue Vapotherm at 100% FiO2 and additional 100% nonrebreather mask. Status post remdesivir Received tocilizumab Steroids with gradual taper per protocol. Nutrition. DVT GI prophylaxis Patient remains critical. We will closely watch for need for mechanical ventilation. So far tolerating reasonably well Updated 12/25 We will continue Vapotherm at 100% FiO2 and additional 100% nonrebreather mask. Status post remdesivir Received tocilizumab Steroids with gradual taper per protocol. Nutrition. DVT GI prophylaxis Patient remains critical. We will closely watch for need for mechanical ventilation. Updated 12/24 We will continue Vapotherm Remdesivir Received tocilizumab Steroids Vapotherm Enteral nutrition DVT GI prophylaxis updated 12/23 As needed Zofran Remdesivir Status post tocilizumab Steroid Vapotherm Up to chair updated 12/22 Has some nausea, will administer Zofran Blood pressure better today Continue remdesivir Status post tocilizumab DVT GI prophylaxis Oxygen per GIOVANNI Vann MD Jan 02, 2021 06:06
[2021-01-02 06:38] LABS: BASO # 0.1 x10^3/uL (0.0-0.2); BASO % 1 % (0-3); EOS # 0.2 x10^3/uL (0.0-0.7); EOS % 2 % (0-3); HEMATOCRIT 37.5 % (36.0-47.0); HEMOGLOBIN 12.6 g/dL (12.0-15.5); LYMPH # 1.7 x10^3/uL (1.0-4.8); LYMPH % 17 % (24-48); MEAN CORPUSCULAR HEMOGLOBIN 29 pg (25-35); MEAN CORPUSCULAR HGB CONC 34 g/dL (31-37); MEAN CORPUSCULAR VOLUME 87 fL (79-100); MONO # 1.1 x10^3/uL (0.0-1.1); MONO % 11 % (0-9); NEUT # 6.8 x10^3/uL (1.8-7.7); NEUT % 69 % (31-73); PLATELET COUNT 203 x10^3/uL (140-400); RED CELL DISTRIBUTION WIDTH 13.5 % (11.5-14.5); WHITE BLOOD COUNT 9.9 x10^3/uL (4.0-11.0)
[2021-01-02 06:46] LABS: CALCIUM 8.6 mg/dL (8.5-10.1); CREATININE 0.5 mg/dL (0.6-1.0); GFR 129.1; POTASSIUM 3.9 mmol/L (3.5-5.1)
--- NOTE | 2021-01-02 07:00 | NUR ---
gera used x1 for PICC line. Blood return noted. No complaints noted at this time.
--- NOTE | 2021-01-02 07:48 | PDOC ---
[employer] PROGRESS NOTE Date of Service DOS: DATE: 01/02/21 TIME: 07:45 Chief Complaint Chief Complaint CC: Acute hypoxic respiratory failure Covid-19 Sepsis ANTHONY Elevated LFTs Elevated CRP Milk Hypokalemia Overactive bladder History of Present Illness History of Present Illness Ms Antno is a 55-year-old female with past medical history of overactive bladder who came to the ED at [facility] complaining of worsening shortness of breath fatigue and cough. Her shortness of breath began on 12/11/2020 she had fatigue started on 12/08/2020. She awoke on 12/12/2020 and noted myalgias and loss of appetite and diarrhea as well. She tested positive for COVID-19. Her also tested positive for COVID-19. She has complaints fever, chills, malaise, nausea, vomiting, arthralgia, myalgia, tachycardia, coughing and increased dyspnea. Patient has been exposed to inmates here plan seeing senior living who had COVID. Patient previously declined Covid vaccination. Patient now comes very dyspneic with any activity. Initially sats on room air in the 80s. Patient denies any recent travel. No specific ill contacts other than at work and her . Patient denies any previous history of immunosuppression. She had not been vaccinated for COVID-19 but after her daughter had contracted Covid she had planned to get the vaccine last week and had delayed due to her symptoms. 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 She has 3 children at home and 3 adult children whom have also had Covid with fairly severe symptoms and she also has 5 grandchildren, presumably healthy. Febrile on admission 100.8 F, heart rate 114 bpm, respirations 33/min, O2 saturation 86% on room air, blood pressure 113/69. Admission labs WBC 7.6, Hb 14.8, platelets 188, NA 140, K3.2, chloride 101, HCO3 24, BUN 26, CR 1.2, glucose 128, calcium 8.5, bilirubin 0.5, AST 111, ALT 64, alkaline phosphatase 117, troponin 0, albumin 3.2, NT proBNP 90, CRP 143.3. EKG normal sinus rhythm rate of 95 bpm leftward axis otherwise normal intervals, QTC [address] elevations or TWI. Chest radiograph with multifocal opacities. Due to tachycardia and hypoxemia she was evaluated with CTPA which was negative for pulmonary embolism and did reveal extensive bilateral groundglass opacities and incidental finding of enlarged spleen. Initially admitted to ICU at [facility] in [place] on 12/17/2020 given Solumedrol 60 three times a day and Remdesivir. Today she becomes significantly more hypoxic with O2 saturations 86% despite 10 L oxygen and was called for transfer to [facility]. Seen bedside in ICU 40 L/min 100% FiO2 Vapotherm with O2 saturations 93%. Requi ring supplemental facemask O2 15 L/min. 12/19: Seen in ICU. Afebrile. O2 saturation 92% on 40 L/min 100% FiO2 Vapotherm + facemask O2 15 L/min. Less GI upset. Cough improved with Tessalon. D/w pulmonology to change to Decadron from Solu-Medrol and dose with Actemra based on her highly elevated CRP 143.3 Seen in ICU afebrile. O2 saturations 94% 40 L/min FiO2 Vapotherm plus facemask O2 15 L/min. Still little appetite. Transaminases decreased. Feels a little better but is complaining of nasal drainage. cc time 30 min 12/21/20: Patient seen and examined in ICU. Patient currently on 100% O2 on Vapotherm with 40L O2 as well as 100% O2 on nonre breather. O2 sat is at 89% when examined. Patient has Dawn to bedside drainage. Discussed with RN. Chart reviewed. 12/22/20: Patient was seen and examined in the ICU today. She is complaining of back pain so pain medications were adjusted for her. Currently on Clinimix. On nonre breather at 100% O2 and Vapotherm at 100% O2. Current O2 sat is 99%. Discussed with RN. Chart reviewed. 12/23/20: Patient seen and examined in ICU. Resting with NAD. Patient has been sleeping all day and night. Current O2 sat is at 95%. On Clinimix. On vapotherm with 100% O2 and non-rebreather at 100% O2. Discussed with RN. Chart reviewed. 12/24/20: Patient was seen and examined in the ICU today. She is currently on Vapotherm with 100% O2 as well as a non-rebreather with 100% O2 which she had on all night. O2 sat has been in the 90s for the past day. Patient has a Dawn to bedside as well as a PICC line in place in the left upper arm. She is on Clinimix. Discussed with RN who states that patient desats with movement or when she tries to stand up. Patient ate about 1/2 her breakfast this morning. Chart reviewed. 12/25/20: Patient seen and examined in the ICU. Currently on Vapotherm at 100% O2 as well as non-rebreather at 100% O2. Dawn to bedside present. On Clinimix. Patient does not have good appetite and only ate about 1/2 of her breakfast this morning. Discussed with RN. Chart reviewed. 12/26/20: Patient seen and examined in the ICU today. She is resting. O2 sat is at 98% while being examined. Dawn to bedside in place. She is on Vapotherm at 100% O2 and non-rebreather at 100% O2. She is still on Clinimix. Discussed with Rn. Chart reviewed. 12/27/20: Patient seen and examined in the ICU. Resting with NAD. O2 sat is at 94%. On non-rebreather at 100% O2 and Vapotherm at 100% O2. She is on IV fluid, Clinimix, and Doxycycline. Discussed with RN who states that patient is eating better this morning than yesterday. Chart reviewed. 12/28/2020: Patient seen in ICU. Afebrile, breathing on Vapotherm 40 L. She has completed remdesivir and s/p tocilizumab. Continue Decadron for 10-day course with slow taper to begin tomorrow. Continue empiric antibiotics. Continue supportive care, Clinimix. Critical care time 30 minutes spent reviewing charts, reviewing labs, reviewing imaging, discussing with RN. 12/29/2020: Afebrile overnight; breathing on Vapotherm 40 L. She has completed remdesivir and s/p tocilizumab. Continue Decadron for 10-day course with slow taper to begin tomorrow. Continue empiric antibiotics. Continue supportive care. Critical care time 30 minutes spent reviewing charts, reviewing labs, reviewing imaging, discussing with RN. 12/30/2020: Afebrile. On Vapotherm 40 L. Completed remdesivir and s/p tocilizumab. Completed Decadron for 10-day course; will initiate Decadron 5-day taper. Continue to monitor respiratory status in ICU. Continue empiric antibiotics. Continue supportive care. Critical care time 30 minutes spent reviewing charts, reviewing labs, reviewing imaging, discussing with RN. 12/31/2020: Sitting upright in bed eating food, using smart phone. Afebrile, on Vapotherm 40 L. Completed remdesivir and s/p tocilizumab. Continue Decadron taper. Continue to monitor respiratory status in ICU. Continue empiric antibiotics. Continue supportive care. Critical care time 30 minutes spent reviewing charts, reviewing labs, reviewing imaging, discussing with RN. 01/01/2021: Afebrile. Currently on 15 L nonrebreather. Completed remdesivir and s/p tocilizumab. Discussed with Dr. Davies, not a candidate for baricitinib. Continue Decadron taper. Continue empiric antibiotics. Continue supportive care and monitoring of respiratory status in ICU. Critical care time 30 minutes spent reviewing charts, reviewing labs, reviewing imaging, discussing with RN. 01/02/2021: Breathing on Vapotherm 40 L. Afebrile. No acute events overnight. S/P remdesivir and Tocilizumab; not a candidate for baricitinib. Continue Decadron taper and empiric antibiotics. Continue supportive care and monitoring of respiratory status in ICU. Critical care time 30 minutes spent reviewing charts, reviewing labs, reviewing imaging, discussing with RN. Vitals/I&O Vitals/I&O: Vital Signs Date Time Temp Pulse Resp B/P (MAP) Pulse Ox O2 Delivery O2 Flow Rate FiO2 01/02/21 07:44 95 VAPOTHERM 40.0 01/02/21 07:38 98.1 80 23 98/63 (75) 98.1 I & O0 01/01/21 01/01/21 01/02/21 15:00 23:00 07:00 Intake Total 100 ml 1318 ml 460 ml Output Total 775 ml 350 ml 1275 ml Balance -675 ml 968 ml -815 ml Physical Exam General: Alert, Oriented X3, Cooperative, No acute distress Heart: Regular rate Lungs: Other (No increased work of breathing) Abdomen: Normal bowel sounds, Soft, No tenderness, No hepatosplenomegaly, No masses Extremities: No clubbing, No cyanosis, No edema, Normal pulses, No tenderness/swelling Skin: No rashes, No breakdown, No significant lesion Labs Labs: Laboratory Tests Test 01/01/21 12:25 01/01/21 16:54 01/01/21 23:01 01/02/21 05:26 Glucose (Fingerstick) 274 mg/dL (70-99) 183 mg/dL (70-99) 121 mg/dL (70-99) 111 mg/dL (70-99) Test 01/02/21 06:20 White Blood Count 9.9 x10^3/uL (4.0-11.0) Red Blood Count 4.30 x10^6/uL (3.50-5.40) Hemoglobin 12.6 g/dL (12.0-15.5) Hematocrit 37.5 % (36.0-47.0) Mean Corpuscular Volume 87 fL (79-100) Mean Corpuscular Hemoglobin 29 pg (25-35) Mean Corpuscular Hemoglobin Concent 34 g/dL (31-37) Red Cell Distribution Width 13.5 % (11.5-14.5) Platelet Count 203 x10^3/uL (140-400) Neutrophils (%) (Auto) 69 % (31-73) Lymphocytes (%) (Auto) 17 % (24-48) Monocytes (%) (Auto) 11 % (0-9) Eosinophils (%) (Auto) 2 % (0-3) Basophils (%) (Auto) 1 % (0-3) Neutrophils # (Auto) 6.8 x10^3/uL (1.8-7.7) Lymphocytes # (Auto) 1.7 x10^3/uL (1.0-4.8) Monocytes # (Auto) 1.1 x10^3/uL (0.0-1.1) Eosinophils # (Auto) 0.2 x10^3/uL (0.0-0.7) Basophils # (Auto) 0.1 x10^3/uL (0.0-0.2) Sodium Level 137 mmol/L (136-145) Potassium Level 3.9 mmol/L (3.5-5.1) Chloride Level 101 mmol/L (98-107) Carbon Dioxide Level 33 mmol/L (21-32) Anion Gap 3 (6-14) Blood Urea Nitrogen 16 mg/dL (7-20) Creatinine 0.5 mg/dL (0.6-1.0) Estimated GFR (Cockcroft-Gault) 129.1 Glucose Level 105 mg/dL (70-99) Calcium Level 8.6 mg/dL (8.5-10.1) Assessment and Plan Assessmemt and Plan Problems Medical Problems: (1) Acute respiratory failure with hypoxia Status: Acute (2) COVID-19 Status: Acute Comment Review of Relevant I have reviewed the following items jeannie (where applicable) has been applied. Medications: Current Medications Medications (Trade) Dose Ordered Sig/Zoë Route PRN Reason Start Time Stop Time Status Last Admin Dose Admin Alteplase, Recombinant (Cathflo For Central Catheter Clearance) 1 mg 1X ONCE INT CAT 01/02/21 05:00 01/02/21 05:01 DC 01/02/21 05:12 Justifications for Admission Other Justification hypoxia SANDRA HILLS MD Jan 02, 2021 07:48
[2021-01-02] MEDS: AA 4.25 %/CALCIUM/LYTES/D5W 1,000 ML IV SCH ×2 (08:08→20:31)
[2021-01-02] MEDS: DOXYCYCLINE HYCLATE 100 MG in IV DEXTROSE 5% 100ML 100 ML IV SCH ×2 (08:11→20:49)
[2021-01-02] MEDS: DEXAMETHASONE SOD PHOS 4 MG/ML VIAL IVP SCH (08:13)
[2021-01-02] MEDS: FAMOTIDINE 20 MG/2 ML VIAL IVP SCH ×2 (08:15→20:49)
[2021-01-02] MEDS: THIAMINE 100 MG TABLET. PO SCH (08:17)
[2021-01-02] MEDS: guaiFENesin/CODEINE 100mg/10mg 5 ML LIQUID PO PRN (08:17)
[2021-01-02] MEDS: ASCORBIC ACID 500 MG TABLET PO SCH (08:17)
[2021-01-02] MEDS: LACTOBACILLUS RHAMNOSUS GG 1 CAPSULE. PO SCH ×2 (08:17→20:31)
[2021-01-02] MEDS: BENZONATATE 100 MG CAPSULE. PO SCH ×3 (08:17→20:31)
[2021-01-02] MEDS: ZINC SULFATE 220 MG CAPSULE. PO SCH (08:17)
[2021-01-02] MEDS: DOCUSATE SODIUM 100 MG CAPSULE. PO SCH ×2 (08:17→20:31)
[2021-01-02] MEDS: CHOLECALCIFEROL (VITAMIN D3) 5,000 UNIT CAPSULE PO SCH (08:18)
[2021-01-02] MEDS: ENOXAPARIN 40 MG/0.4 ML SYRINGE. SQ SCH (20:31)
[2021-01-02] MEDS: CALCIUM CARBONATE 500 MG TAB.CHEW PO PRN (20:31)
[2021-01-02] MEDS: ZOLPIDEM 5 MG TABLET. PO PRN (20:49)
[2021-01-03] VITALS (13 sets, daily range): BP systolic 84–123; BP diastolic 53–79
[2021-01-03] MEDS: STERILE WATER for RESP 1,000 ML BAG. INH PRN ×2 (01:31→12:11)
[2021-01-03] MEDS: INSULIN LISPRO 300 UNITS/3 ML VIAL. SQ SCH ×5 (06:00→21:12)
--- NOTE | 2021-01-03 07:00 | PDOC ---
PULMONARY PROGRESS NOTES DATE: 01/03/21 TIME: 07:00 Subjective Patient remains on 100% FiO2 at 40 L with Vapotherm no 100% nonrebreather mask. Appears comfortable. has cough Vitals Vital Signs Date Time Temp Pulse Resp B/P (MAP) Pulse Ox O2 Delivery O2 Flow Rate FiO2 01/03/21 06:00 78 31 96/60 (72) 94 01/03/21 04:13 VAPOTHERM 40.0 01/02/21 20:00 98.2 98.2 Comments On visual inspection, patient seen during the COVID- pandemic, no distress alert nc at rrr no accessory muscle use no rash no edema General: Alert, No acute distress Lungs: Other (No increased work of breathing) Labs Laboratory Tests Test 01/01/21 12:25 01/01/21 16:54 01/01/21 23:01 01/02/21 05:26 Glucose (Fingerstick) 274 mg/dL (70-99) 183 mg/dL (70-99) 121 mg/dL (70-99) 111 mg/dL (70-99) Test 01/02/21 06:20 01/02/21 11:31 01/02/21 16:50 01/02/21 23:54 White Blood Count 9.9 x10^3/uL (4.0-11.0) Red Blood Count 4.30 x10^6/uL (3.50-5.40) Hemoglobin 12.6 g/dL (12.0-15.5) Hematocrit 37.5 % (36.0-47.0) Mean Corpuscular Volume 87 fL (79-100) Mean Corpuscular Hemoglobin 29 pg (25-35) Mean Corpuscular Hemoglobin Concent 34 g/dL (31-37) Red Cell Distribution Width 13.5 % (11.5-14.5) Platelet Count 203 x10^3/uL (140-400) Neutrophils (%) (Auto) 69 % (31-73) Lymphocytes (%) (Auto) 17 % (24-48) Monocytes (%) (Auto) 11 % (0-9) Eosinophils (%) (Auto) 2 % (0-3) Basophils (%) (Auto) 1 % (0-3) Neutrophils # (Auto) 6.8 x10^3/uL (1.8-7.7) Lymphocytes # (Auto) 1.7 x10^3/uL (1.0-4.8) Monocytes # (Auto) 1.1 x10^3/uL (0.0-1.1) Eosinophils # (Auto) 0.2 x10^3/uL (0.0-0.7) Basophils # (Auto) 0.1 x10^3/uL (0.0-0.2) Sodium Level 137 mmol/L (136-145) Potassium Level 3.9 mmol/L (3.5-5.1) Chloride Level 101 mmol/L (98-107) Carbon Dioxide Level 33 mmol/L (21-32) Anion Gap 3 (6-14) Blood Urea Nitrogen 16 mg/dL (7-20) Creatinine 0.5 mg/dL (0.6-1.0) Estimated GFR (Cockcroft-Gault) 129.1 Glucose Level 105 mg/dL (70-99) Calcium Level 8.6 mg/dL (8.5-10.1) Glucose (Fingerstick) 254 mg/dL (70-99) 243 mg/dL (70-99) 160 mg/dL (70-99) Test 01/03/21 06:41 Glucose (Fingerstick) 121 mg/dL (70-99) Laboratory Tests Test 01/02/21 11:31 01/02/21 16:50 01/02/21 23:54 01/03/21 06:41 Glucose (Fingerstick) 254 mg/dL (70-99) 243 mg/dL (70-99) 160 mg/dL (70-99) 121 mg/dL (70-99) Comments Chest x-ray reviewed 12/28/2020 Diffuse interstitial infiltrates without any pleural effusion. Mild worsening Chest x-ray reviewed 12/23/2020. Diffuse bilateral interstitial infiltrates consistent with viral pneumonia. Impression . IMPRESSION: 1. Acute hypoxemic respiratory failure secondary to COVID-19 viral pneumonia. 2. Acute respiratory distress syndrome. 3. Sepsis secondary to above. 4. Acute kidney injury. 5. Elevated LFTs. 6. Hypokalemia. 7. Hypotension, suspect secondary to sepsis and volume depletion, stable now Plan . Updated 01/03 We will continue Vapotherm oxygenation improved titrate fi02 to keep sat 90% Status post remdesivir Received tocilizumab Steroids with gradual taper per protocol. Nutrition. DVT GI prophylaxis monitor resp status closely Chest x-ray with persistent diffuse infiltrates with mild worsening. discussed w rn Updated 01/02 We will continue Vapotherm 100% nonrebreather mask. titrate fi02 to keep sat 90% Status post remdesivir Received tocilizumab Steroids with gradual taper per protocol. Nutrition. DVT GI prophylaxis Patient remains critical. monitor resp status closely in icu So far tolerating reasonably well Chest x-ray with persistent diffuse infiltrates with mild worsening. discussed w rn Updated 01/01 We will continue Vapotherm at 100% FiO2 and additional 100% nonrebreather mask. Status post remdesivir Received tocilizumab Steroids with gradual taper per protocol. Nutrition. DVT GI prophylaxis Patient remains critical. We will closely watch for need for mechanical ventilation. So far tolerating reasonably well Chest x-ray with persistent diffuse infiltrates with mild worsening. Needs to closely watch respiratory status while in the ICU. So far holding okay Updated 12/31 We will continue Vapotherm at 100% FiO2 and additional 100% nonrebreather mask. Status post remdesivir Received tocilizumab Steroids with gradual taper per protocol. Nutrition. DVT GI prophylaxis Patient remains critical. We will closely watch for need for mechanical ventilation. So far tolerating reasonably well Chest x-ray with persistent diffuse infiltrates with mild worsening. Needs to closely watch respiratory status while in the ICU Updated 12/30 We will continue Vapotherm at 100% FiO2 and additional 100% nonrebreather mask. Status post remdesivir Received tocilizumab Steroids with gradual taper per protocol. Nutrition. DVT GI prophylaxis Patient remains critical. We will closely watch for need for mechanical ventilation. So far tolerating reasonably well Chest x-ray with persistent diffuse infiltrates with mild worsening. Needs to closely watch respiratory status while in the ICU Updated 12/29 We will continue Vapotherm at 100% FiO2 and additional 100% nonrebreather mask. Status post remdesivir Received tocilizumab Steroids with gradual taper per protocol. Nutrition. DVT GI prophylaxis Patient remains critical. We will closely watch for need for mechanical ventilation. So far tolerating reasonably well Chest x-ray with persistent diffuse infiltrates with mild worsening. Needs to closely watch respiratory status while in the ICU Updated 12/28 We will continue Vapotherm at 100% FiO2 and additional 100% nonrebreather mask. Status post remdesivir Received tocilizumab Steroids with gradual taper per protocol. Nutrition. DVT GI prophylaxis Patient remains critical. We will closely watch for need for mechanical ventilation. So far tolerating reasonably well Chest x-ray with persistent diffuse infiltrates with mild worsening. Needs to closely watch respiratory status while in the ICU Updated 12/27 We will continue Vapotherm at 100% FiO2 and additional 100% nonrebreather mask. Status post remdesivir Received tocilizumab Steroids with gradual taper per protocol. Nutrition. DVT GI prophylaxis Patient remains critical. We will closely watch for need for mechanical ventilation. So far tolerating reasonably well Updated 12/26 We will continue Vapotherm at 100% FiO2 and additional 100% nonrebreather mask. Status post remdesivir Received tocilizumab Steroids with gradual taper per protocol. Nutrition. DVT GI prophylaxis Patient remains critical. We will closely watch for need for mechanical ventilation. So far tolerating reasonably well Updated 12/25 We will continue Vapotherm at 100% FiO2 and additional 100% nonrebreather mask. Status post remdesivir Received tocilizumab Steroids with gradual taper per protocol. Nutrition. DVT GI prophylaxis Patient remains critical. We will closely watch for need for mechanical ventilation. Updated 12/24 We will continue Vapotherm Remdesivir Received tocilizumab Steroids Vapotherm Enteral nutrition DVT GI prophylaxis updated 12/23 As needed Zofran Remdesivir Status post tocilizumab Steroid Vapotherm Up to chair updated 12/22 Has some nausea, will administer Zofran Blood pressure better today Continue remdesivir Status post tocilizumab DVT GI prophylaxis Oxygen per Vapotherm GIOVANNI BUSH MD Jan 03, 2021 07:00
--- NOTE | 2021-01-03 07:25 | PDOC ---
[employer] PROGRESS NOTE Date of Service DOS: DATE: 01/03/21 TIME: 07:21 Chief Complaint Chief Complaint CC: Acute hypoxic respiratory failure Covid-19 Sepsis ANTHONY Elevated LFTs Elevated CRP Milk Hypokalemia Overactive bladder History of Present Illness History of Present Illness Ms Anton is a 55-year-old female with past medical history of overactive bladder who came to the ED at [facility] complaining of worsening shortness of breath fatigue and cough. Her shortness of breath began on 12/11/2020 she had fatigue started on 12/08/2020. She awoke on 12/12/2020 and noted myalgias and loss of appetite and diarrhea as well. She tested positive for COVID-19. Her also tested positive for COVID-19. She has complaints fever, chills, malaise, nausea, vomiting, arthralgia, myalgia, tachycardia, coughing and increased dyspnea. 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 Patient previously declined Covid vaccination. Patient now comes very dyspneic with any activity. Initially sats on room air in the 80s. Patient denies any recent travel. No specific ill contacts other than at work and her . Patient denies any previous history of immunosuppression. She had not been vaccinated for COVID-19 but after her daughter had contracted Covid she had planned to get the vaccine last week and had delayed due to her symptoms. 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 She has 3 children at home and 3 adult children whom have also had Covid with fairly severe symptoms and she also has 5 grandchildren, presumably healthy. Febrile on admission 100.8 F, heart rate 114 bpm, respirations 33/min, O2 saturation 86% on room air, blood pressure 113/69. Admission labs WBC 7.6, Hb 14.8, platelets 188, NA 140, K3.2, chloride 101, HCO3 24, BUN 26, CR 1.2, glucose 128, calcium 8.5, bilirubin 0.5, AST 111, ALT 64, alkaline phosphatase 117, troponin 0, albumin 3.2, NT proBNP 90, CRP 143.3. EKG normal sinus rhythm rate of 95 bpm leftward axis otherwise normal intervals, QTC [address] elevations or TWI. Chest radiograph with multifocal opacities. Due to tachycardia and hypoxemia she was evaluated with CTPA which was negative for pulmonary embolism and did reveal extensive bilateral groundglass opacities and incidental finding of enlarged spleen. Initially admitted to ICU at [facility] in [place] on 12/17/2020 given Solumedrol 60 three times a day and Remdesivir. Today she becomes significantly more hypoxic with O2 saturations 86% despite 10 L oxygen and was called for transfer to [facility]. Seen bedside in ICU 40 L/min 100% FiO2 Vapotherm with O2 saturations 93%. Requi ring supplemental facemask O2 15 L/min. 12/19: Seen in ICU. Afebrile. O2 saturation 92% on 40 L/min 100% FiO2 Vapotherm + facemask O2 15 L/min. Less GI upset. Cough improved with Tessalon. D/w pulmonology to change to Decadron from Solu-Medrol and dose with Actemra based on her highly elevated CRP 143.3 Seen in ICU afebrile. O2 saturations 94% 40 L/min FiO2 Vapotherm plus facemask O2 15 L/min. Still little appetite. Transaminases decreased. Feels a little better but is complaining of nasal drainage. cc time 30 min 12/21/20: Patient seen and examined in ICU. Patient currently on 100% O2 on Vapotherm with 40L O2 as well as 100% O2 on nonre breather. O2 sat is at 89% when examined. Patient has Dawn to bedside drainage. Discussed with RN. Chart reviewed. 12/22/20: Patient was seen and examined in the ICU today. She is complaining of back pain so pain medications were adjusted for her. Currently on Clinimix. On nonre breather at 100% O2 and Vapotherm at 100% O2. Current O2 sat is 99%. Discussed with RN. Chart reviewed. 12/23/20: Patient seen and examined in ICU. Resting with NAD. Patient has been sleeping all day and night. Current O2 sat is at 95%. On Clinimix. On vapotherm with 100% O2 and non-rebreather at 100% O2. Discussed with RN. Chart reviewed. 12/24/20: Patient was seen and examined in the ICU today. She is currently on Vapotherm with 100% O2 as well as a non-rebreather with 100% O2 which she had on all night. O2 sat has been in the 90s for the past day. Patient has a Dawn to bedside as well as a PICC line in place in the left upper arm. She is on Clinimix. Discussed with RN who states that patient desats with movement or when she tries to stand up. Patient ate about 1/2 her breakfast this morning. Chart reviewed. 12/25/20: Patient seen and examined in the ICU. Currently on Vapotherm at 100% O2 as well as non-rebreather at 100% O2. Dawn to bedside present. On Clinimix. Patient does not have good appetite and only ate about 1/2 of her breakfast this morning. Discussed with RN. Chart reviewed. 12/26/20: Patient seen and examined in the ICU today. She is resting. O2 sat is at 98% while being examined. Dawn to bedside in place. She is on Vapotherm at 100% O2 and non-rebreather at 100% O2. She is still on Clinimix. Discussed with Rn. Chart reviewed. 12/27/20: Patient seen and examined in the ICU. Resting with NAD. O2 sat is at 94%. On non-rebreather at 100% O2 and Vapotherm at 100% O2. She is on IV fluid, Clinimix, and Doxycycline. Discussed with RN who states that patient is eating better this morning than yesterday. Chart reviewed. 12/28/2020: Patient seen in ICU. Afebrile, breathing on Vapotherm 40 L. She has completed remdesivir and s/p tocilizumab. Continue Decadron for 10-day course with slow taper to begin tomorrow. Continue empiric antibiotics. Continue supportive care, Clinimix. Critical care time 30 minutes spent reviewing charts, reviewing labs, reviewing imaging, discussing with RN. 12/29/2020: Afebrile overnight; breathing on Vapotherm 40 L. She has completed remdesivir and s/p tocilizumab. Continue Decadron for 10-day course with slow taper to begin tomorrow. Continue empiric antibiotics. Continue supportive care. Critical care time 30 minutes spent reviewing charts, reviewing labs, reviewing imaging, discussing with RN. 12/30/2020: Afebrile. On Vapotherm 40 L. Completed remdesivir and s/p tocilizumab. Completed Decadron for 10-day course; will initiate Decadron 5-day taper. Continue to monitor respiratory status in ICU. Continue empiric antibiotics. Continue supportive care. Critical care time 30 minutes spent reviewing charts, reviewing labs, reviewing imaging, discussing with RN. 12/31/2020: Sitting upright in bed eating food, using smart phone. Afebrile, on Vapotherm 40 L. Completed remdesivir and s/p tocilizumab. Continue Decadron taper. Continue to monitor respiratory status in ICU. Continue empiric antibiotics. Continue supportive care. Critical care time 30 minutes spent reviewing charts, reviewing labs, reviewing imaging, discussing with RN. 01/01/2021: Afebrile. Currently on 15 L nonrebreather. Completed remdesivir and s/p tocilizumab. Discussed with Dr. Davies, not a candidate for baricitinib. Continue Decadron taper. Continue empiric antibiotics. Continue supportive care and monitoring of respiratory status in ICU. Critical care time 30 minutes spent reviewing charts, reviewing labs, reviewing imaging, discussing with RN. 01/02/2021: Breathing on Vapotherm 40 L. Afebrile. No acute events overnight. S/P remdesivir and Tocilizumab; not a candidate for baricitinib. Continue Decadron taper and empiric antibiotics. Continue supportive care and monitoring of respiratory status in ICU. Critical care time 30 minutes spent reviewing charts, reviewing labs, reviewing imaging, discussing with RN. 01/03/2021: Afebrile. Breathing on Vapotherm 40 L. States she feels fine, just "picking at breakfast". S/P remdesivir and Tocilizumab; not a candidate for baricitinib. Will continue empiric antibiotics, with Decadron taper to end tomorrow. Will obtain chest x-ray tomorrow. Continue supportive care and monitoring of respiratory status in ICU. Critical care time 30 minutes spent reviewing charts, reviewing labs, reviewing imaging, discussing with RN. Vitals/I&O Vitals/I&O: Vital Signs Date Time Temp Pulse Resp B/P (MAP) Pulse Ox O2 Delivery O2 Flow Rate FiO2 01/03/21 06:00 78 31 96/60 (72) 94 01/03/21 04:13 VAPOTHERM 40.0 01/02/21 20:00 98.2 98.2 I & O 01/02/21 01/02/21 01/03/21 15:00 23:00 07:00 Intake Total 450 ml 350 ml 100 ml Output Total 425 ml 770 ml 1070 ml Balance 25 ml -420 ml -970 ml Physical Exam General: Alert, Oriented X3, Cooperative, No acute distress Heart: Regular rate Lungs: Other (No increased work of breathing) Abdomen: Normal bowel sounds, Soft, No tenderness, No hepatosplenomegaly, No masses Extremities: No clubbing, No cyanosis, No edema, Normal pulses, No tenderness/swelling Skin: No rashes, No breakdown, No significant lesion Labs Labs: Laboratory Tests Test 01/02/21 11:31 01/02/21 16:50 01/02/21 23:54 01/03/21 06:41 Glucose (Fingerstick) 254 mg/dL (70-99) 243 mg/dL (70-99) 160 mg/dL (70-99) 121 mg/dL (70-99) Assessment and Plan Assessmemt and Plan Problems Medical Problems: (1) Acute respiratory failure with hypoxia Status: Acute (2) COVID-19 Status: Acute Comment Review of Relevant I have reviewed the following items jeannie (where applicable) has been applied. Justifications for Admission Other Justification hypoxia SANDRA HILLS MD Jan 03, 2021 07:25
[2021-01-03] MEDS: DEXAMETHASONE SOD PHOS 4 MG/ML VIAL IVP SCH (08:15)
[2021-01-03] MEDS: CHOLECALCIFEROL (VITAMIN D3) 5,000 UNIT CAPSULE PO SCH (08:16)
[2021-01-03] MEDS: LACTOBACILLUS RHAMNOSUS GG 1 CAPSULE. PO SCH ×2 (08:16→20:45)
[2021-01-03] MEDS: BENZONATATE 100 MG CAPSULE. PO SCH ×3 (08:16→20:45)
[2021-01-03] MEDS: DOCUSATE SODIUM 100 MG CAPSULE. PO SCH ×2 (08:16→20:45)
[2021-01-03] MEDS: ASCORBIC ACID 500 MG TABLET PO SCH (08:16)
[2021-01-03] MEDS: THIAMINE 100 MG TABLET. PO SCH (08:16)
[2021-01-03] MEDS: ZINC SULFATE 220 MG CAPSULE. PO SCH (08:16)
[2021-01-03] MEDS: FAMOTIDINE 20 MG/2 ML VIAL IVP SCH ×2 (08:17→20:45)
[2021-01-03] MEDS: DOXYCYCLINE HYCLATE 100 MG in IV DEXTROSE 5% 100ML 100 ML IV SCH ×2 (08:46→20:45)
[2021-01-03] MEDS: AA 4.25 %/CALCIUM/LYTES/D5W 1,000 ML IV SCH ×2 (09:42→20:44)
--- NOTE | 2021-01-03 16:15 | NUR ---
Recvd patient transfer to 6S. Patient settled in room on vapotherm 40L and 90%. Complains of headche. PAtient A/O X4. Explained unit routines and policies. Patient verbalized understanding
[2021-01-03] MEDS: HYDROcodone/APAP 5/325MG 1 TAB TABLET PO PRN (16:28)
[2021-01-03] MEDS: CALCIUM CARBONATE 500 MG TAB.CHEW PO PRN ×2 (18:11→20:43)
[2021-01-03] MEDS: ENOXAPARIN 40 MG/0.4 ML SYRINGE. SQ SCH (20:43)
[2021-01-03] MEDS: ZOLPIDEM 5 MG TABLET. PO PRN (21:07)
[2021-01-04 03:00] VITALS: BP 111/60
[2021-01-04] MEDS: INSULIN LISPRO 300 UNITS/3 ML VIAL. SQ SCH ×3 (06:00→17:37)
[2021-01-04] MEDS: guaiFENesin/CODEINE 100mg/10mg 5 ML LIQUID PO PRN ×3 (06:49→23:26)
[2021-01-04 07:00] VITALS: BP 94/59
--- NOTE | 2021-01-04 07:52 | PDOC ---
PULMONARY PROGRESS NOTES DATE: 01/04/21 TIME: 07:52 Subjective Patient continues to require 100% FiO2 40 L flow Eating Does not feel worse Vitals Vital Signs Date Time Temp Pulse Resp B/P (MAP) Pulse Ox O2 Delivery O2 Flow Rate FiO2 01/04/21 04:41 93 VAPOTHERM 40.0 01/04/21 03:00 98.1 87 18 111/60 (77) 98.1 General: Alert Lungs: Clear Cardiovascular: S1 Abdomen: Soft Neuro Exam: Alert Extremities: No Edema Skin: Warm Labs Laboratory Tests Test 01/02/21 11:31 01/02/21 16:50 01/02/21 23:54 01/03/21 06:41 Glucose (Fingerstick) 254 mg/dL (70-99) 243 mg/dL (70-99) 160 mg/dL (70-99) 121 mg/dL (70-99) Test 01/03/21 12:34 01/03/21 17:13 01/03/21 18:22 01/03/21 20:25 Glucose (Fingerstick) 252 mg/dL (70-99) 210 mg/dL (70-99) 251 mg/dL (70-99) 214 mg/dL (70-99) Laboratory Tests Test 01/03/21 12:34 01/03/21 17:13 01/03/21 18:22 01/03/21 20:25 Glucose (Fingerstick) 252 mg/dL (70-99) 210 mg/dL (70-99) 251 mg/dL (70-99) 214 mg/dL (70-99) Comments Chest x-ray reviewed 12/28/2020 Diffuse interstitial infiltrates without any pleural effusion. Mild worsening Chest x-ray reviewed 12/23/2020. Diffuse bilateral interstitial infiltrates consistent with viral pneumonia. Impression . IMPRESSION: 1. Acute hypoxemic respiratory failure secondary to COVID-19 viral pneumonia. 2. Acute respiratory distress syndrome. 3. Sepsis secondary to above. 4. Acute kidney injury. 5. Elevated LFTs. 6. Hypokalemia. 7. Hypotension, suspect secondary to sepsis and volume depletion, stable now Plan . Updated 01/04 Continue oxygen supplementation Discussed with RN Up to chair Finish course of steroids Received tocilizumab in remdesivir updated 01/03 We will continue Vapotherm oxygenation improved titrate fi02 to keep sat 90% Status post remdesivir Received tocilizumab Steroids with gradual taper per protocol. Nutrition. DVT GI prophylaxis monitor resp status closely Chest x-ray with persistent diffuse infiltrates with mild worsening. discussed thomas sparks Updated 01/02 We will continue Vapotherm 100% nonrebreather mask. titrate fi02 to keep sat 90% Status post remdesivir Received tocilizumab Steroids with gradual taper per protocol. Nutrition. DVT GI prophylaxis Patient remains critical. monitor resp status closely in icu So far tolerating reasonably well Chest x-ray with persistent diffuse infiltrates with mild worsening. discussed w ROMEL Edward MD Jan 04, 2021 07:52
[2021-01-04] MEDS: BENZONATATE 100 MG CAPSULE. PO SCH ×3 (08:25→23:26)
[2021-01-04] MEDS: ASCORBIC ACID 500 MG TABLET PO SCH (08:25)
[2021-01-04] MEDS: DOCUSATE SODIUM 100 MG CAPSULE. PO SCH ×2 (08:25→23:27)
[2021-01-04] MEDS: ZINC SULFATE 220 MG CAPSULE. PO SCH (08:25)
[2021-01-04] MEDS: CHOLECALCIFEROL (VITAMIN D3) 5,000 UNIT CAPSULE PO SCH (08:25)
[2021-01-04] MEDS: FAMOTIDINE 20 MG/2 ML VIAL IVP SCH ×2 (08:25→23:26)
[2021-01-04] MEDS: THIAMINE 100 MG TABLET. PO SCH (08:25)
[2021-01-04] MEDS: LACTOBACILLUS RHAMNOSUS GG 1 CAPSULE. PO SCH ×2 (08:25→23:27)
[2021-01-04] MEDS: DOXYCYCLINE HYCLATE 100 MG in IV DEXTROSE 5% 100ML 100 ML IV SCH ×2 (08:27→23:25)
[2021-01-04 10:30] LABS: BASO # 0.1 x10^3/uL (0.0-0.2); BASO % 1 % (0-3); EOS # 0.2 x10^3/uL (0.0-0.7); EOS % 3 % (0-3); HEMATOCRIT 34.9 % (36.0-47.0); HEMOGLOBIN 11.2 g/dL (12.0-15.5); LYMPH # 1.7 x10^3/uL (1.0-4.8); LYMPH % 23 % (24-48); MEAN CORPUSCULAR HEMOGLOBIN 29 pg (25-35); MEAN CORPUSCULAR HGB CONC 32 g/dL (31-37); MEAN CORPUSCULAR VOLUME 90 fL (79-100); MONO # 0.7 x10^3/uL (0.0-1.1); MONO % 10 % (0-9); NEUT # 4.6 x10^3/uL (1.8-7.7); NEUT % 63 % (31-73); PLATELET COUNT 206 x10^3/uL (140-400); RED BLOOD COUNT 3.88 x10^6/uL (3.50-5.40); RED CELL DISTRIBUTION WIDTH 13.9 % (11.5-14.5); WHITE BLOOD COUNT 7.4 x10^3/uL (4.0-11.0)
[2021-01-04 11:00] VITALS: BP 86/53
[2021-01-04 11:11] LABS: CALCIUM 8.4 mg/dL (8.5-10.1); CREATININE 0.5 mg/dL (0.6-1.0); GFR 129.1; POTASSIUM 4.3 mmol/L (3.5-5.1)
--- NOTE | 2021-01-04 12:04 | PDOC ---
[employer] PROGRESS NOTE Date of Service DOS: DATE: 01/04/21 TIME: 12:00 Chief Complaint Chief Complaint CC: Acute hypoxic respiratory failure Covid-19 Sepsis ANTHONY Elevated LFTs Elevated CRP Milk Hypokalemia Overactive bladder History of Present Illness History of Present Illness 01/04/2021: Pt seen and examined. Resting with NAD. On vapotherm 35L 100% FiO2. Ms Anton is a 55-year-old female with past medical history of overactive bladder who came to the ED at [facility] complaining of worsening shortness of breath fatigue and cough. Her shortness of breath began on 12/11/2020 she had fatigue started on 12/08/2020. She awoke on 12/12/2020 and noted myalgias and loss of appetite and diarrhea as well. She tested positive for COVID-19. Her also tested positive for COVID-19. She has complaints fever, chills, malaise, nausea, vomiting, arthralgia, myalgia, tachycardia, coughing and increased dyspnea. 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 Patient previously declined Covid vaccination. Patient now comes very dyspneic with any activity. Initially sats on room air in the 80s. Patient denies any recent travel. No specific ill contacts other than at work and her . Patient denies any previous history of immunosuppression. She had not been vaccinated for COVID-19 but after her daughter had contracted Covid she had planned to get the vaccine last week and had delayed due to her symptoms. 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 She has 3 children at home and 3 adult children whom have also had Covid with fairly severe symptoms and she also has 5 grandchildren, presumably healthy. Febrile on admission 100.8 F, heart rate 114 bpm, respirations 33/min, O2 saturation 86% on room air, blood pressure 113/69. Admission labs WBC 7.6, Hb 14.8, platelets 188, NA 140, K3.2, chloride 101, HCO3 24, BUN 26, CR 1.2, glucose 128, calcium 8.5, bilirubin 0.5, AST 111, ALT 64, alkaline phosphatase 117, troponin 0, albumin 3.2, NT proBNP 90, CRP 143.3. EKG normal sinus rhythm rate of 95 bpm leftward axis otherwise normal intervals, QTC [address] elevations or TWI. Chest radiograph with multifocal opacities. Due to tachycardia and hypoxemia she was evaluated with CTPA which was negative for pulmonary embolism and did reveal extensive bilateral groundglass opacities and incidental finding of enlarged spleen. Initially admitted to ICU at [facility] in [place] on 12/17/2020 given Solumedrol 60 three times a day and Remdesivir. Today she becomes significantly more hypoxic with O2 saturations 86% despite 10 L oxygen and was called for transfer to [facility]. Seen bedside in ICU 40 L/min 100% FiO2 Vapotherm with O2 saturations 93%. Requiring supplemental facemask O2 15 L/min. 12/19: Seen in ICU. Afebrile. O2 saturation 92% on 40 L/min 100% FiO2 Vapotherm + facemask O2 15 L/min. Less GI upset. Cough improved with Tessalon. D/w pulmonology to change to Decadron from Solu-Medrol and dose with Actemra based on her highly elevated CRP 143.3 Seen in ICU afebrile. O2 saturations 94% 40 L/min FiO2 Vapotherm plus facemask O2 15 L/min. Still little appetite. Transaminases decreased. Feels a little better but is complaining of nasal drainage. cc time 30 min 12/21/20: Patient seen and examined in ICU. Patient currently on 100% O2 on Vapotherm with 40L O2 as well as 100% O2 on nonre breather. O2 sat is at 89% when examined. Patient has Dawn to bedside drainage. Discussed with RN. Chart reviewed. 12/22/20: Patient was seen and examined in the ICU today. She is complaining of back pain so pain medications were adjusted for her. Currently on Clinimix. On nonre breather at 100% O2 and Vapotherm at 100% O2. Current O2 sat is 99%. Discussed with RN. Chart reviewed. 12/23/20: Patient seen and examined in ICU. Resting with NAD. Patient has been sleeping all day and night. Current O2 sat is at 95%. On Clinimix. On vapotherm with 100% O2 and non-rebreather at 100% O2. Discussed with RN. Chart reviewed. 12/24/20: Patient was seen and examined in the ICU today. She is currently on Vapotherm with 100% O2 as well as a non-rebreather with 100% O2 which she had on all night. O2 sat has been in the 90s for the past day. Patient has a Dawn to bedside as well as a PICC line in place in the left upper arm. She is on Clinimix. Discussed with RN who states that patient desats with movement or when she tries to stand up. Patient ate about 1/2 her breakfast this morning. Chart reviewed. 12/25/20: Patient seen and examined in the ICU. Currently on Vapotherm at 100% O2 as well as non-rebreather at 100% O2. Dawn to bedside present. On Clinimix. Patient does not have good appetite and only ate about 1/2 of her breakfast this morning. Discussed with RN. Chart reviewed. 12/26/20: Patient seen and examined in the ICU today. She is resting. O2 sat is at 98% while being examined. Dawn to bedside in place. She is on Vapotherm at 100% O2 and non-rebreather at 100% O2. She is still on Clinimix. Discussed with Rn. Chart reviewed. 12/27/20: Patient seen and examined in the ICU. Resting with NAD. O2 sat is at 94%. On non-rebreather at 100% O2 and Vapotherm at 100% O2. She is on IV fluid, Clinimix, and Doxycycline. Discussed with RN who states that patient is eating better this morning than yesterday. Chart reviewed. 12/28/2020: Patient seen in ICU. Afebrile, breathing on Vapotherm 40 L. She has completed remdesivir and s/p tocilizumab. Continue Decadron for 10-day course with slow taper to begin tomorrow. Continue empiric antibiotics. Continue supportive care, Clinimix. Critical care time 30 minutes spent reviewing charts, reviewing labs, reviewing imaging, discussing with RN. 12/29/2020: Afebrile overnight; breathing on Vapotherm 40 L. She has completed remdesivir and s/p tocilizumab. Continue Decadron for 10-day course with slow taper to begin tomorrow. Continue empiric antibiotics. Continue supportive care. Critical care time 30 minutes spent reviewing charts, reviewing labs, reviewing imaging, discussing with RN. 12/30/2020: Afebrile. On Vapotherm 40 L. Completed remdesivir and s/p tocilizumab. Completed Decadron for 10-day course; will initiate Decadron 5-day taper. Continue to monitor respiratory status in ICU. Continue empiric antibiotics. Continue supportive care. Critical care time 30 minutes spent reviewing charts, reviewing labs, reviewing imaging, discussing with RN. 12/31/2020: Sitting upright in bed eating food, using smart phone. Afebrile, on Vapotherm 40 L. Completed remdesivir and s/p tocilizumab. Continue Decadron taper. Continue to monitor respiratory status in ICU. Continue empiric antibiotics. Continue supportive care. Critical care time 30 minutes spent reviewing charts, reviewing labs, reviewing imaging, discussing with RN. 01/01/2021: Afebrile. Currently on 15 L nonrebreather. Completed remdesivir and s/p tocilizumab. Discussed with Dr. Davies, not a candidate for baricitinib. Continue Decadron taper. Continue empiric antibiotics. Continue supportive care and monitoring of respiratory status in ICU. Critical care time 30 minutes spent reviewing charts, reviewing labs, reviewing imaging, discussing with RN. 01/02/2021: Breathing on Vapotherm 40 L. Afebrile. No acute events overnight. S/P remdesivir and Tocilizumab; not a candidate for baricitinib. Continue Decadron taper and empiric antibiotics. Continue supportive care and monitoring of respiratory status in ICU. Critical care time 30 minutes spent reviewing charts, reviewing labs, reviewing imaging, discussing with RN. 01/03/2021: Afebrile. Breathing on Vapotherm 40 L. States she feels fine, just "picking at breakfast". S/P remdesivir and Tocilizumab; not a candidate for baricitinib. Will continue empiric antibiotics, with Decadron taper to end tomorrow. Will obtain chest x-ray tomorrow. Continue supportive care and monito ring of respiratory status in ICU. Critical care time 30 minutes spent reviewing charts, reviewing labs, reviewing imaging, discussing with RN. Vitals/I&O Vitals/I&O: Vital Signs Date Time Temp Pulse Resp B/P (MAP) Pulse Ox O2 Delivery O2 Flow Rate FiO2 01/04/21 11:00 98.6 74 18 86/53 (64) 97 vapotherm 40.0 98.6 I & O 01/03/21 01/03/21 01/04/21 15:00 23:00 07:00 Intake Total 640 ml 250 ml 100 ml Output Total 1360 ml 700 ml 950 ml Balance -720 ml -450 ml -850 ml Physical Exam General: Alert, Oriented X3, Cooperative, No acute distress Heart: Regular rate Lungs: Other (No increased work of breathing) Abdomen: Normal bowel sounds, Soft, No tenderness, No hepatosplenomegaly, No masses Extremities: No clubbing, No cyanosis, No edema, Normal pulses, No tenderness/swelling Skin: No rashes, No breakdown, No significant lesion Labs Labs: Laboratory Tests Test 01/03/21 12:34 01/03/21 17:13 01/03/21 18:22 01/03/21 20:25 Glucose (Fingerstick) 252 mg/dL (70-99) 210 mg/dL (70-99) 251 mg/dL (70-99) 214 mg/dL (70-99) Test 01/04/21 08:04 01/04/21 10:21 01/04/21 10:50 01/04/21 11:47 Glucose (Fingerstick) 116 mg/dL (70-99) 152 mg/dL (70-99) White Blood Count 7.4 x10^3/uL (4.0-11.0) Red Blood Count 3.88 x10^6/uL (3.50-5.40) Hemoglobin 11.2 g/dL (12.0-15.5) Hematocrit 34.9 % (36.0-47.0) Mean Corpuscular Volume 90 fL (79-100) Mean Corpuscular Hemoglobin 29 pg (25-35) Mean Corpuscular Hemoglobin Concent 32 g/dL (31-37) Red Cell Distribution Width 13.9 % (11.5-14.5) Platelet Count 206 x10^3/uL (140-400) Neutrophils (%) (Auto) 63 % (31-73) Lymphocytes (%) (Auto) 23 % (24-48) Monocytes (%) (Auto) 10 % (0-9) Eosinophils (%) (Auto) 3 % (0-3) Basophils (%) (Auto) 1 % (0-3) Neutrophils # (Auto) 4.6 x10^3/uL (1.8-7.7) Lymphocytes # (Auto) 1.7 x10^3/uL (1.0-4.8) Monocytes # (Auto) 0.7 x10^3/uL (0.0-1.1) Eosinophils # (Auto) 0.2 x10^3/uL (0.0-0.7) Basophils # (Auto) 0.1 x10^3/uL (0.0-0.2) Sodium Level 132 mmol/L (136-145) Potassium Level 4.3 mmol/L (3.5-5.1) Chloride Level 98 mmol/L (98-107) Carbon Dioxide Level 31 mmol/L (21-32) Anion Gap 3 (6-14) Blood Urea Nitrogen 21 mg/dL (7-20) Creatinine 0.5 mg/dL (0.6-1.0) Estimated GFR (Cockcroft-Gault) 129.1 Glucose Level 284 mg/dL (70-99) Calcium Level 8.4 mg/dL (8.5-10.1) Assessment and Plan Assessmemt and Plan Problems Medical Problems: (1) Acute respiratory failure with hypoxia Status: Acute (2) COVID-19 Status: Acute 01/04/2021 Acute hypoxic respiratory failure Covid-19 Sepsis ANTHONY Elevated LFTs Elevated CRP Milk Hypokalemia Overactive bladder Plan: Continue vapotherm 35L 100% FiO2 Covid protocol Trend labs Appreciate subspecialist input DVT Prophylaxis Full code Home meds Prognosis guarded Comment Review of Relevant I have reviewed the following items jeannie (where applicable) has been applied. Justifications for Admission Other Justification hypoxia ANJELICA AVILA III DO Jan 04, 2021 12:04
--- NOTE | 2021-01-04 12:04 | NUR ---
SS following up with discharge planning. SS reviewed pt chart and discussed with pt RN. Pt is currently on Vapotherm at 100%. COVID19 positive. Pt on IV Doxycycline and Clinimix. SS will continue to follow for discharge planning.
[2021-01-04] MEDS: AA 4.25 %/CALCIUM/LYTES/D5W 1,000 ML IV SCH (14:11)
--- NOTE | 2021-01-04 14:45 | RAD ---
XR CHEST 1V INDICATION: COVID-19 pneumonia . COMPARISON STUDY: 12/28/2020. FINDINGS: Life Support Devices: Left PICC. Lungs: Low lung volume. Improving but persistent bilateral perihilar and basilar opacities. Pleura: No pleural effusion or pneumothorax. Heart and Mediastinum: Stable cardiomediastinal silhouette and great vessels. Bones and Soft Tissues: Stable regional skeleton and soft tissues. IMPRESSION: Improving but persistent bilateral perihilar and basilar opacities. Electronically signed by: Wayne Romero MD (01/04/2021 2:42 PM) [id number]
[2021-01-04 15:00] VITALS: BP 86/53
[2021-01-04] MEDS: ONDANSETRON PF 4 MG/2 ML VIAL. IVP PRN (15:06)
[2021-01-04 19:14] VITALS: BP 106/58
[2021-01-04 22:42] VITALS: BP 118/78
[2021-01-04] MEDS: ENOXAPARIN 40 MG/0.4 ML SYRINGE. SQ SCH (23:25)
[2021-01-04] MEDS: HYDROcodone/APAP 5/325MG 1 TAB TABLET PO PRN (23:26)
[2021-01-04] MEDS: ZOLPIDEM 5 MG TABLET. PO PRN (23:27)
[2021-01-04] MEDS: traMADol 50 MG TABLET PO PRN (23:27)
[2021-01-05 02:36] VITALS: BP 96/56
[2021-01-05 07:00] VITALS: BP 99/61
[2021-01-05] MEDS: INSULIN LISPRO 300 UNITS/3 ML VIAL. SQ SCH ×3 (08:00→17:00)
[2021-01-05] MEDS: ZINC SULFATE 220 MG CAPSULE. PO SCH (08:43)
[2021-01-05] MEDS: ASCORBIC ACID 500 MG TABLET PO SCH (08:43)
[2021-01-05] MEDS: THIAMINE 100 MG TABLET. PO SCH (08:43)
[2021-01-05] MEDS: DOCUSATE SODIUM 100 MG CAPSULE. PO SCH ×2 (08:43→20:22)
[2021-01-05] MEDS: DOXYCYCLINE HYCLATE 100 MG in IV DEXTROSE 5% 100ML 100 ML IV SCH ×2 (08:44→20:22)
[2021-01-05] MEDS: FAMOTIDINE 20 MG/2 ML VIAL IVP SCH ×2 (08:44→20:21)
[2021-01-05] MEDS: guaiFENesin/CODEINE 100mg/10mg 5 ML LIQUID PO PRN (08:44)
[2021-01-05] MEDS: BENZONATATE 100 MG CAPSULE. PO SCH ×3 (08:44→20:22)
[2021-01-05] MEDS: CHOLECALCIFEROL (VITAMIN D3) 5,000 UNIT CAPSULE PO SCH (08:44)
[2021-01-05] MEDS: LACTOBACILLUS RHAMNOSUS GG 1 CAPSULE. PO SCH ×2 (08:44→20:22)
[2021-01-05] MEDS: AA 4.25 %/CALCIUM/LYTES/D5W 1,000 ML IV SCH (08:45)
--- NOTE | 2021-01-05 09:04 | PDOC ---
PULMONARY PROGRESS NOTES DATE: 01/05/21 TIME: 09:04 Subjective Patient did not sleep well down to 30 L 100% Eating Does not feel worse Vitals Vital Signs Date Time Temp Pulse Resp B/P (MAP) Pulse Ox O2 Delivery O2 Flow Rate FiO2 01/05/21 08:32 100 VAPOTHERM 30.0 01/05/21 07:00 96.8 73 18 99/61 (74) 96.8 General: Alert Lungs: Clear Cardiovascular: S1 Abdomen: Soft Neuro Exam: Alert Extremities: No Edema Skin: Warm Labs Laboratory Tests Test 01/03/21 12:34 01/03/21 17:13 01/03/21 18:22 01/03/21 20:25 Glucose (Fingerstick) 252 mg/dL (70-99) 210 mg/dL (70-99) 251 mg/dL (70-99) 214 mg/dL (70-99) Test 01/04/21 08:04 01/04/21 10:21 01/04/21 10:50 01/04/21 11:47 Glucose (Fingerstick) 116 mg/dL (70-99) 152 mg/dL (70-99) White Blood Count 7.4 x10^3/uL (4.0-11.0) Red Blood Count 3.88 x10^6/uL (3.50-5.40) Hemoglobin 11.2 g/dL (12.0-15.5) Hematocrit 34.9 % (36.0-47.0) Mean Corpuscular Volume 90 fL (79-100) Mean Corpuscular Hemoglobin 29 pg (25-35) Mean Corpuscular Hemoglobin Concent 32 g/dL (31-37) Red Cell Distribution Width 13.9 % (11.5-14.5) Platelet Count 206 x10^3/uL (140-400) Neutrophils (%) (Auto) 63 % (31-73) Lymphocytes (%) (Auto) 23 % (24-48) Monocytes (%) (Auto) 10 % (0-9) Eosinophils (%) (Auto) 3 % (0-3) Basophils (%) (Auto) 1 % (0-3) Neutrophils # (Auto) 4.6 x10^3/uL (1.8-7.7) Lymphocytes # (Auto) 1.7 x10^3/uL (1.0-4.8) Monocytes # (Auto) 0.7 x10^3/uL (0.0-1.1) Eosinophils # (Auto) 0.2 x10^3/uL (0.0-0.7) Basophils # (Auto) 0.1 x10^3/uL (0.0-0.2) Sodium Level 132 mmol/L (136-145) Potassium Level 4.3 mmol/L (3.5-5.1) Chloride Level 98 mmol/L (98-107) Carbon Dioxide Level 31 mmol/L (21-32) Anion Gap 3 (6-14) Blood Urea Nitrogen 21 mg/dL (7-20) Creatinine 0.5 mg/dL (0.6-1.0) Estimated GFR (Cockcroft-Gault) 129.1 Glucose Level 284 mg/dL (70-99) Calcium Level 8.4 mg/dL (8.5-10.1) Test 01/04/21 17:11 01/04/21 20:36 01/05/21 08:35 Glucose (Fingerstick) 163 mg/dL (70-99) 173 mg/dL (70-99) 111 mg/dL (70-99) Laboratory Tests Test 01/04/21 10:21 01/04/21 10:50 01/04/21 11:47 01/04/21 17:11 White Blood Count 7.4 x10^3/uL (4.0-11.0) Red Blood Count 3.88 x10^6/uL (3.50-5.40) Hemoglobin 11.2 g/dL (12.0-15.5) Hematocrit 34.9 % (36.0-47.0) Mean Corpuscular Volume 90 fL (79-100) Mean Corpuscular Hemoglobin 29 pg (25-35) Mean Corpuscular Hemoglobin Concent 32 g/dL (31-37) Red Cell Distribution Width 13.9 % (11.5-14.5) Platelet Count 206 x10^3/uL (140-400) Neutrophils (%) (Auto) 63 % (31-73) Lymphocytes (%) (Auto) 23 % (24-48) Monocytes (%) (Auto) 10 % (0-9) Eosinophils (%) (Auto) 3 % (0-3) Basophils (%) (Auto) 1 % (0-3) Neutrophils # (Auto) 4.6 x10^3/uL (1.8-7.7) Lymphocytes # (Auto) 1.7 x10^3/uL (1.0-4.8) Monocytes # (Auto) 0.7 x10^3/uL (0.0-1.1) Eosinophils # (Auto) 0.2 x10^3/uL (0.0-0.7) Basophils # (Auto) 0.1 x10^3/uL (0.0-0.2) Sodium Level 132 mmol/L (136-145) Potassium Level 4.3 mmol/L (3.5-5.1) Chloride Level 98 mmol/L (98-107) Carbon Dioxide Level 31 mmol/L (21-32) Anion Gap 3 (6-14) Blood Urea Nitrogen 21 mg/dL (7-20) Creatinine 0.5 mg/dL (0.6-1.0) Estimated GFR (Cockcroft-Gault) 129.1 Glucose Level 284 mg/dL (70-99) Calcium Level 8.4 mg/dL (8.5-10.1) Glucose (Fingerstick) 152 mg/dL (70-99) 163 mg/dL (70-99) Test 01/04/21 20:36 01/05/21 08:35 Glucose (Fingerstick) 173 mg/dL (70-99) 111 mg/dL (70-99) Comments Chest x-ray reviewed 12/28/2020 Diffuse interstitial infiltrates without any pleural effusion. Mild worsening Chest x-ray reviewed 12/23/2020. Diffuse bilateral interstitial infiltrates consistent with viral pneumonia. Impression . IMPRESSION: 1. Acute hypoxemic respiratory failure secondary to COVID-19 viral pneumonia. 2. Acute respiratory distress syndrome. 3. Sepsis secondary to above. 4. Acute kidney injury. 5. Elevated LFTs. 6. Hypokalemia. 7. Hypotension, suspect secondary to sepsis and volume depletion, stable now Plan . Updated 01/05 Continue current support Up to chair Avoid caffeinated beverages in the afternoon Received tocilizumab and remdesivir Updated 01/04 Continue oxygen supplementation Discussed with RN Up to chair Finish course of steroids Received tocilizumab in remdesivir updated 01/03 We will continue Vapotherm oxygenation improved titrate fi02 to keep sat 90% Status post remdesivir Received tocilizumab Steroids with gradual taper per protocol. Nutrition. DVT GI prophylaxis monitor resp status closely Chest x-ray with persistent diffuse infiltrates with mild worsening. discussed w ROMEL Edward MD Jan 05, 2021 09:04
[2021-01-05 10:33] VITALS: BP 93/61
[2021-01-05] MEDS: ONDANSETRON PF 4 MG/2 ML VIAL. IVP PRN (12:52)
[2021-01-05] MEDS: ACETAMINOPHEN 325 MG TABLET. PO PRN (12:52)
--- NOTE | 2021-01-05 12:56 | NUR ---
SS following up with discharge planning. SS reviewed pt chart and discussed with pt RN. Pt is currently on Vapotherm at 100% and 30 liters. COVID19 positive. Pt on IV Doxycycline and Clinimix. SS will continue to follow for discharge planning.
--- NOTE | 2021-01-05 12:59 | PDOC ---
[facility] PROGRESS NOTE Date of Service DOS: DATE: 01/05/21 TIME: 12:52 Chief Complaint Chief Complaint Acute hypoxic respiratory failure Covid-19 Sepsis ANTHONY Elevated LFTs Elevated CRP Milk Hypokalemia Overactive bladder History of Present Illness History of Present Illness 01/05/2021: Pt seen and examined. Chart reviewed. Discussed with RN. Resting with NAD. On vapotherm 30 L 100% FiO2. 01/04/2021: Pt seen and examined. Resting with NAD. On vapotherm 35L 100% FiO2. 12/19: Seen in ICU. Afebrile. O2 saturation 92% on 40 L/min 100% FiO2 Vapotherm + facemask O2 15 L/min. Less GI upset. Cough improved with Tessalon. D/w pulmonology to change to Decadron from Solu-Medrol and dose with Actemra based on her highly elevated CRP 143.3 Seen in ICU afebrile. O2 saturations 94% 40 L/min FiO2 Vapotherm plus facemask O2 15 L/min. Still little appetite. Transaminases decreased. Feels a little better but is complaining of nasal drainage. cc time 30 min 12/21/20: Patient seen and examined in ICU. Patient currently on 100% O2 on Vapotherm with 40L O2 as well as 100% O2 on nonre breather. O2 sat is at 89% when examined. Patient has Dawn to bedside drainage. Discussed with RN. Chart reviewed. 12/22/20: Patient was seen and examined in the ICU today. She is complaining of ba ck pain so pain medications were adjusted for her. Currently on Clinimix. On nonre breather at 100% O2 and Vapotherm at 100% O2. Current O2 sat is 99%. Discussed with RN. Chart reviewed. 12/23/20: Patient seen and examined in ICU. Resting with NAD. Patient has been sleeping all day and night. Current O2 sat is at 95%. On Clinimix. On vapotherm with 100% O2 and non-rebreather at 100% O2. Discussed with RN. Chart reviewed. 12/24/20: Patient was seen and examined in the ICU today. She is currently on Vapotherm with 100% O2 as well as a non-rebreather with 100% O2 which she had on all night. O2 sat has been in the 90s for the past day. Patient has a Dawn to bedside as well as a PICC line in place in the left upper arm. She is on Clinimix. Discussed with RN who states that patient desats with movement or when she tries to stand up. Patient ate about 1/2 her breakfast this morning. Chart reviewed. 12/25/20: Patient seen and examined in the ICU. Currently on Vapotherm at 100% O2 as well as non-rebreather at 100% O2. Dawn to bedside present. On Clinimix. Patient does not have good appetite and only ate about 1/2 of her breakfast this morning. Discussed with RN. Chart reviewed. 12/26/20: Patient seen and examined in the ICU today. She is resting. O2 sat is at 98% while being examined. Dawn to bedside in place. She is on Vapotherm at 100% O2 and non-rebreather at 100% O2. She is still on Clinimix. Discussed with Rn. Chart reviewed. 12/27/20: Patient seen and examined in the ICU. Resting with NAD. O2 sat is at 94%. On non-rebreather at 100% O2 and Vapotherm at 100% O2. She is on IV fluid, Clinimix, and Doxycycline. Discussed with RN who states that patient is eating better this morning than yesterday. Chart reviewed. 12/28/2020: Patient seen in ICU. Afebrile, breathing on Vapotherm 40 L. She has completed remdesivir and s/p tocilizumab. Continue Decadron for 10-day course with slow taper to begin tomorrow. Continue empiric antibiotics. Continue supportive care, Clinimix. Critical care time 30 minutes spent reviewing charts, reviewing labs, reviewing imaging, discussing with RN. 12/29/2020: Afebrile overnight; breathing on Vapotherm 40 L. She has completed remdesivir and s/p tocilizumab. Continue Decadron for 10-day course with slow taper to begin tomorrow. Continue empiric antibiotics. Continue supportive care. Critical care time 30 minutes spent reviewing charts, reviewing labs, reviewing imaging, discussing with RN. 12/30/2020: Afebrile. On Vapotherm 40 L. Completed remdesivir and s/p tocilizumab. Completed Decadron for 10-day course; will initiate Decadron 5-day taper. Continue to monitor respiratory status in ICU. Continue empiric antibiotics. Continue supportive care. Critical care time 30 minutes spent reviewing charts, reviewing labs, reviewing imaging, discussing with RN. 12/31/2020: Sitting upright in bed eating food, using smart phone. Afebrile, on Vapotherm 40 L. Completed remdesivir and s/p tocilizumab. Continue Decadron taper. Continue to monitor respiratory status in ICU. Continue empiric antibiotics. Continue supportive care. Critical care time 30 minutes spent reviewing charts, reviewing labs, reviewing imaging, discussing with RN. 01/01/2021: Afebrile. Currently on 15 L nonrebreather. Completed remdesivir and s/p tocilizumab. Discussed with Dr. Davies, not a candidate for baricitinib. Continue Decadron taper. Continue empiric antibiotics. Continue supportive care and monitoring of respiratory status in ICU. Critical care time 30 minutes spent reviewing charts, reviewing labs, reviewing imaging, discussing with RN. 01/02/2021: Breathing on Vapotherm 40 L. Afebrile. No acute events overnight. S/P remdesivir and Tocilizumab; not a candidate for baricitinib. Continue Decadron taper and empiric antibiotics. Continue supportive care and monitoring of respiratory status in ICU. Critical care time 30 minutes spent reviewing charts, reviewing labs, reviewing imaging, discussing with RN. 01/03/2021: Afebrile. Breathing on Vapotherm 40 L. States she feels fine, just "picking at breakfast". S/P remdesivir and Tocilizumab; not a candidate for baricitinib. Will continue empiric antibiotics, with Decadron taper to end tomorrow. Will obtain chest x-ray tomorrow. Continue supportive care and monitoring of respiratory status in ICU. Critical care time 30 minutes spent reviewing charts, reviewing labs, reviewing imaging, discussing with RN. Vitals/I&O Vitals/I&O: Vital Signs Date Time Temp Pulse Resp B/P (MAP) Pulse Ox O2 Delivery O2 Flow Rate FiO2 01/05/21 12:48 98 VAPOTHERM 30.0 01/05/21 10:33 96.8 66 17 93/61 (72) 96.8 I & O 01/04/21 01/04/21 01/05/21 15:00 23:00 07:00 Intake Total 360 ml 1400 ml 0 ml Output Total 1500 ml 1100 ml Balance 360 ml -100 ml -1100 ml Physical Exam General: Alert, Oriented X3, Cooperative, No acute distress Heart: Regular rate Lungs: Clear Abdomen: Normal bowel sounds, Soft, No tenderness, No hepatosplenomegaly, No masses Extremities: No clubbing, No cyanosis, No edema, Normal pulses, No tenderness/swelling Skin: No rashes, No breakdown, No significant lesion Labs Labs: Laboratory Tests Test 01/04/21 17:11 01/04/21 20:36 01/05/21 08:35 01/05/21 11:32 Glucose (Fingerstick) 163 mg/dL (70-99) 173 mg/dL (70-99) 111 mg/dL (70-99) 131 mg/dL (70-99) Assessment and Plan Assessmemt and Plan Problems Medical Problems: (1) Acute respiratory failure with hypoxia Status: Acute (2) COVID-19 Status: Acute Acute hypoxic respiratory failure Covid-19 Sepsis ANTHONY Elevated LFTs Elevated CRP Milk Hypokalemia Overactive bladder Plan: Vapotherm 30 L 100% FiO2 IV Clinimix Solu-Medrol ASA Robitussin with codeine Multivitamin with minerals Home meds Trend labs DVT prophylaxis Full code Comment Review of Relevant I have reviewed the following items jeannie (where applicable) has been applied. Justifications for Admission Other Justification hypoxia ANJELICA AVILA III DO Jan 05, 2021 12:58
[2021-01-05 14:00] VITALS: BP 97/67
[2021-01-05] MEDS: ASPIRIN CHEWABLE 81 MG TABLET. PO SCH (14:17)
[2021-01-05] MEDS: MULTIVITAMIN with MINERAL TABLET. PO SCH (14:17)
[2021-01-05] MEDS: CALCIUM CARBONATE 500 MG TAB.CHEW PO PRN ×2 (18:28→21:39)
[2021-01-05 19:00] VITALS: BP 107/64
[2021-01-05] MEDS: ENOXAPARIN 40 MG/0.4 ML SYRINGE. SQ SCH (20:21)
[2021-01-05] MEDS: methylPREDNISolone SOD SUCC PF 40 MG/ML VIAL. IV SCH (20:21)
[2021-01-05] MEDS: ZOLPIDEM 5 MG TABLET. PO PRN (22:22)
[2021-01-05 23:00] VITALS: BP 100/62
[2021-01-06] MEDS: guaiFENesin/CODEINE 100mg/10mg 5 ML LIQUID PO PRN ×3 (00:14→16:49)
[2021-01-06 02:36] VITALS: BP 100/60
[2021-01-06 06:23] LABS: CALCIUM 9.2 mg/dL (8.5-10.1); CREATININE 0.6 mg/dL (0.6-1.0); GFR 104.6; POTASSIUM 4.5 mmol/L (3.5-5.1)
[2021-01-06 07:00] VITALS: BP 110/75
[2021-01-06] MEDS: ZINC SULFATE 220 MG CAPSULE. PO SCH (07:18)
[2021-01-06] MEDS: LACTOBACILLUS RHAMNOSUS GG 1 CAPSULE. PO SCH ×2 (07:18→22:03)
[2021-01-06] MEDS: THIAMINE 100 MG TABLET. PO SCH (07:18)
[2021-01-06] MEDS: CHOLECALCIFEROL (VITAMIN D3) 5,000 UNIT CAPSULE PO SCH (07:18)
[2021-01-06 07:19] LABS: BASO # 0.1 x10^3/uL (0.0-0.2); BASO % 1 % (0-3); EOS % 0 % (0-3); HEMATOCRIT 37.7 % (36.0-47.0); HEMOGLOBIN 12.8 g/dL (12.0-15.5); LYMPH # 0.7 x10^3/uL (1.0-4.8); LYMPH % 9 % (24-48); MEAN CORPUSCULAR HEMOGLOBIN 30 pg (25-35); MEAN CORPUSCULAR HGB CONC 34 g/dL (31-37); MEAN CORPUSCULAR VOLUME 88 fL (79-100); MONO # 0.2 x10^3/uL (0.0-1.1); MONO % 2 % (0-9); NEUT # 6.8 x10^3/uL (1.8-7.7); NEUT % 87 % (31-73); PLATELET COUNT 250 x10^3/uL (140-400); RED BLOOD COUNT 4.28 x10^6/uL (3.50-5.40); RED CELL DISTRIBUTION WIDTH 13.6 % (11.5-14.5); WHITE BLOOD COUNT 7.8 x10^3/uL (4.0-11.0)
[2021-01-06] MEDS: BENZONATATE 100 MG CAPSULE. PO SCH ×3 (07:19→22:04)
[2021-01-06] MEDS: methylPREDNISolone SOD SUCC PF 40 MG/ML VIAL. IV SCH ×2 (07:19→22:06)
[2021-01-06] MEDS: DOCUSATE SODIUM 100 MG CAPSULE. PO SCH ×2 (07:19→22:04)
[2021-01-06] MEDS: ASCORBIC ACID 500 MG TABLET PO SCH (07:19)
[2021-01-06] MEDS: MULTIVITAMIN with MINERAL TABLET. PO SCH (07:19)
[2021-01-06] MEDS: ASPIRIN CHEWABLE 81 MG TABLET. PO SCH (07:19)
[2021-01-06] MEDS: FAMOTIDINE 20 MG/2 ML VIAL IVP SCH (07:20)
[2021-01-06] MEDS: DOXYCYCLINE HYCLATE 100 MG in IV DEXTROSE 5% 100ML 100 ML IV SCH ×2 (07:20→22:05)
[2021-01-06] MEDS: INSULIN LISPRO 300 UNITS/3 ML VIAL. SQ SCH ×3 (07:38→16:49)
--- NOTE | 2021-01-06 09:16 | PDOC ---
[facility] [facility] PROGRESS NOTE Date of Service DOS: DATE: 01/06/21 TIME: 09:11 Chief Complaint Chief Complaint Acute hypoxic respiratory failure Covid-19 Sepsis ANTHONY Elevated LFTs Elevated CRP Milk Hypokalemia Overactive bladder History of Present Illness History of Present Illness 01/06/2021: Pt seen and examined. Discussed with RN. Chart reviewed. Patient is awake and cheerful. NAD. On vapotherm 30L at 100%FiO2. 01/05/2021: Pt seen and examined. Chart reviewed. Discussed with RN. Resting with NAD. On vapotherm 30 L 100% FiO2. 01/04/2021: Pt seen and examined. Resting with NAD. On vapotherm 35L 100% FiO2. 12/19: Seen in ICU. Afebrile. O2 saturation 92% on 40 L/min 100% FiO2 Vapotherm + facemask O2 15 L/min. Less GI upset. Cough improved with Tessalon. D/w pulmonology to change to Decadron from Solu-Medrol and dose with Actemra based on her highly elevated CRP 143.3 Seen in ICU afebrile. O2 saturations 94% 40 L/min FiO2 Vapotherm plus facemask O2 15 L/min. Still little appetite. Transaminases decreased. Feels a little better but is complaining of nasal drainage. cc time 30 min 12/21/20: Patient seen and examined in ICU. Patient currently on 100% O2 on Vapotherm with 40L O2 as well as 100% O2 on nonre breather. O2 sat is at 89% when examined. Patient has Dawn to bedside drainage. Discussed with RN. Chart reviewed. 12/22/20: Patient was seen and examined in the ICU today. She is complaining of back pain so pain medications were adjusted for her. Currently on Clinimix. On nonre breather at 100% O2 and Vapotherm at 100% O2. Current O2 sat is 99%. Discussed with RN. Chart reviewed. 12/23/20: Patient seen and examined in ICU. Resting with NAD. Patient has been sleeping all day and night. Current O2 sat is at 95%. On Clinimix. On vapotherm with 100% O2 and non-rebreather at 100% O2. Discussed with RN. Chart reviewed. 12/24/20: Patient was seen and examined in the ICU today. She is currently on Vap otherm with 100% O2 as well as a non-rebreather with 100% O2 which she had on all night. O2 sat has been in the 90s for the past day. Patient has a Dawn to bedside as well as a PICC line in place in the left upper arm. She is on Clinimix. Discussed with RN who states that patient desats with movement or when she tries to stand up. Patient ate about 1/2 her breakfast this morning. Chart reviewed. 12/25/20: Patient seen and examined in the ICU. Currently on Vapotherm at 100% O2 as well as non-rebreather at 100% O2. Dawn to bedside present. On Clinimix. Patient does not have good appetite and only ate about 1/2 of her breakfast this morning. Discussed with RN. Chart reviewed. 12/26/20: Patient seen and examined in the ICU today. She is resting. O2 sat is at 98% while being examined. Dawn to bedside in place. She is on Vapotherm at 100% O2 and non-rebreather at 100% O2. She is still on Clinimix. Discussed with Rn. Chart reviewed. 12/27/20: Patient seen and examined in the ICU. Resting with NAD. O2 sat is at 94%. On non-rebreather at 100% O2 and Vapotherm at 100% O2. She is on IV fluid, Clinimix, and Doxycycline. Discussed with RN who states that patient is eating better this morning than yesterday. Chart reviewed. 12/28/2020: Patient seen in ICU. Afebrile, breathing on Vapotherm 40 L. She has completed remdesivir and s/p tocilizumab. Continue Decadron for 10-day course with slow taper to begin tomorrow. Continue empiric antibiotics. Continue supportive care, Clinimix. Critical care time 30 minutes spent reviewing charts, reviewing labs, reviewing imaging, discussing with RN. 12/29/2020: Afebrile overnight; breathing on Vapotherm 40 L. She has completed remdesivir and s/p tocilizumab. Continue Decadron for 10-day course with slow taper to begin tomorrow. Continue empiric antibiotics. Continue supportive care. Critical care time 30 minutes spent reviewing charts, reviewing labs, reviewing imaging, discussing with RN. 12/30/2020: Afebrile. On Vapotherm 40 L. Completed remdesivir and s/p tocili zumab. Completed Decadron for 10-day course; will initiate Decadron 5-day taper. Continue to monitor respiratory status in ICU. Continue empiric antibiotics. Continue supportive care. Critical care time 30 minutes spent reviewing charts, reviewing labs, reviewing imaging, discussing with RN. 12/31/2020: Sitting upright in bed eating food, using smart phone. Afebrile, on Vapotherm 40 L. Completed remdesivir and s/p tocilizumab. Continue Decadron taper. Continue to monitor respiratory status in ICU. Continue empiric antibiotics. Continue supportive care. Critical care time 30 minutes spent reviewing charts, reviewing labs, reviewing imaging, discussing with RN. 01/01/2021: Afebrile. Currently on 15 L nonrebreather. Completed remdesivir and s/p tocilizumab. Discussed with Dr. Davies, not a candidate for baricitinib. Continue Decadron taper. Continue empiric antibiotics. Continue supportive care and monitoring of respiratory status in ICU. Critical care time 30 minutes spent reviewing charts, reviewing labs, reviewing imaging, discussing with RN. 01/02/2021: Breathing on Vapotherm 40 L. Afebrile. No acute events overnight. S/P remdesivir and Tocilizumab; not a candidate for baricitinib. Continue Decadron taper and empiric antibiotics. Continue supportive care and monitoring of respiratory status in ICU. Critical care time 30 minutes spent reviewing charts, reviewing labs, reviewing imaging, discussing with RN. 01/03/2021: Afebrile. Breathing on Vapotherm 40 L. States she feels fine, just "picking at breakfast". S/P remdesivir and Tocilizumab; not a candidate for baricitinib. Will continue empiric antibiotics, with Decadron taper to end tomorrow. Will obtain chest x-ray tomorrow. Continue supportive care and monitoring of respiratory status in ICU. Critical care time 30 minutes spent reviewing charts, reviewing labs, reviewing imaging, discussing with RN. Vitals/I&O Vitals/I&O: Vital Signs Date Time Temp Pulse Resp B/P (MAP) Pulse Ox O2 Delivery O2 Flow Rate FiO2 01/06/21 08:18 93 VAPOTHERM 30.0 01/06/21 07:00 98.6 87 18 110/75 (87) 98.6 I & O 01/05/21 01/05/21 01/06/21 15:00 23:00 07:00 Intake Total 430 ml 280 ml 400 ml Output Total 1300 ml 2000 ml Balance 430 ml -1020 ml -1600 ml Physical Exam General: Alert, Oriented X3, Cooperative, No acute distress Heart: Regular rate Lungs: Clear Abdomen: Normal bowel sounds, Soft, No tenderness, No hepatosplenomegaly, No masses Extremities: No clubbing, No cyanosis, No edema, Normal pulses, No tenderness/swelling Skin: No rashes, No breakdown, No significant lesion Labs Labs: Laboratory Tests Test 01/05/21 11:32 01/05/21 16:26 01/05/21 20:27 01/06/21 05:40 Glucose (Fingerstick) 131 mg/dL (70-99) 154 mg/dL (70-99) 137 mg/dL (70-99) White Blood Count 7.8 x10^3/uL (4.0-11.0) Red Blood Count 4.28 x10^6/uL (3.50-5.40) Hemoglobin 12.8 g/dL (12.0-15.5) Hematocrit 37.7 % (36.0-47.0) Mean Corpuscular Volume 88 fL (79-100) Mean Corpuscular Hemoglobin 30 pg (25-35) Mean Corpuscular Hemoglobin Concent 34 g/dL (31-37) Red Cell Distribution Width 13.6 % (11.5-14.5) Platelet Count 250 x10^3/uL (140-400) Neutrophils (%) (Auto) 87 % (31-73) Lymphocytes (%) (Auto) 9 % (24-48) Monocytes (%) (Auto) 2 % (0-9) Eosinophils (%) (Auto) 0 % (0-3) Basophils (%) (Auto) 1 % (0-3) Neutrophils # (Auto) 6.8 x10^3/uL (1.8-7.7) Lymphocytes # (Auto) 0.7 x10^3/uL (1.0-4.8) Monocytes # (Auto) 0.2 x10^3/uL (0.0-1.1) Eosinophils # (Auto) 0.0 x10^3/uL (0.0-0.7) Basophils # (Auto) 0.1 x10^3/uL (0.0-0.2) Sodium Level 138 mmol/L (136-145) Potassium Level 4.5 mmol/L (3.5-5.1) Chloride Level 101 mmol/L (98-107) Carbon Dioxide Level 30 mmol/L (21-32) Anion Gap 7 (6-14) Blood Urea Nitrogen 15 mg/dL (7-20) Creatinine 0.6 mg/dL (0.6-1.0) Estimated GFR (Cockcroft-Gault) 104.6 Glucose Level 165 mg/dL (70-99) Calcium Level 9.2 mg/dL (8.5-10.1) Test 01/06/21 07:26 Glucose (Fingerstick) 168 mg/dL (70-99) Assessment and Plan Assessmemt and Plan Problems Medical Problems: (1) Acute respiratory failure with hypoxia Status: Acute (2) COVID-19 Status: Acute Acute hypoxic respiratory failure Covid-19 Sepsis ANTHONY Elevated LFTs Elevated CRP Milk Hypokalemia Overactive bladder Plan: Cardiac monitoring Covid protocol Continue Vapotherm Home meds Trend labs Encourage PO intake DVT prophylaxis Full code Comment Review of Relevant I have reviewed the following items jeannie (where applicable) has been applied. Medications: Current Medications Medications (Trade) Dose Ordered Sig/Zoë Route PRN Reason Start Time Stop Time Status Last Admin Dose Admin Aspirin (Aspirin Chewable) 81 mg [id number] PO 01/05/21 14:00 01/06/21 07:19 Multivitamins (Thera M Plus) 1 tab DAILY PO 01/05/21 14:00 01/06/21 07:19 Methylprednisolone Sodium Succinate (SOLU-Medrol 40MG VIAL) 40 mg BID IV 01/05/21 21:00 01/06/21 07:19 Justifications for Admission Other Justification hypoxia ANJELICA AVILA III DO Jan 06, 2021 09:16
[2021-01-06 11:00] VITALS: BP 98/66
--- NOTE | 2021-01-06 13:49 | NUR ---
SS following up with discharge planning. SS reviewed pt chart and discussed with pt RN. Pt is currently on Vapotherm at 100% and 25 liters. COVID19 positive. Pt on IV Doxycycline and IV Sole-Medrol. PT/OT ordered. SS will continue to follow for discharge planning.
[2021-01-06 15:00] VITALS: BP 112/59
--- NOTE | 2021-01-06 15:05 | PDOC ---
PULMONARY PROGRESS NOTES DATE: 01/06/21 TIME: 15:04 Subjective 25 L 100% FiO2 Vitals Vital Signs Date Time Temp Pulse Resp B/P (MAP) Pulse Ox O2 Delivery O2 Flow Rate FiO2 01/06/21 12:32 96 VAPOTHERM 25.0 01/06/21 11:00 98.0 99 17 98/66 (77) 98.0 General: Alert Lungs: Clear Cardiovascular: S1 Abdomen: Soft Neuro Exam: Alert Extremities: No Edema Skin: Warm Labs Laboratory Tests Test 01/04/21 17:11 01/04/21 20:36 01/05/21 08:35 01/05/21 11:32 Glucose (Fingerstick) 163 mg/dL (70-99) 173 mg/dL (70-99) 111 mg/dL (70-99) 131 mg/dL (70-99) Test 01/05/21 16:26 01/05/21 20:27 01/06/21 05:40 01/06/21 07:26 Glucose (Fingerstick) 154 mg/dL (70-99) 137 mg/dL (70-99) 168 mg/dL (70-99) White Blood Count 7.8 x10^3/uL (4.0-11.0) Red Blood Count 4.28 x10^6/uL (3.50-5.40) Hemoglobin 12.8 g/dL (12.0-15.5) Hematocrit 37.7 % (36.0-47.0) Mean Corpuscular Volume 88 fL (79-100) Mean Corpuscular Hemoglobin 30 pg (25-35) Mean Corpuscular Hemoglobin Concent 34 g/dL (31-37) Red Cell Distribution Width 13.6 % (11.5-14.5) Platelet Count 250 x10^3/uL (140-400) Neutrophils (%) (Auto) 87 % (31-73) Lymphocytes (%) (Auto) 9 % (24-48) Monocytes (%) (Auto) 2 % (0-9) Eosinophils (%) (Auto) 0 % (0-3) Basophils (%) (Auto) 1 % (0-3) Neutrophils # (Auto) 6.8 x10^3/uL (1.8-7.7) Lymphocytes # (Auto) 0.7 x10^3/uL (1.0-4.8) Monocytes # (Auto) 0.2 x10^3/uL (0.0-1.1) Eosinophils # (Auto) 0.0 x10^3/uL (0.0-0.7) Basophils # (Auto) 0.1 x10^3/uL (0.0-0.2) Sodium Level 138 mmol/L (136-145) Potassium Level 4.5 mmol/L (3.5-5.1) Chloride Level 101 mmol/L (98-107) Carbon Dioxide Level 30 mmol/L (21-32) Anion Gap 7 (6-14) Blood Urea Nitrogen 15 mg/dL (7-20) Creatinine 0.6 mg/dL (0.6-1.0) Estimated GFR (Cockcroft-Gault) 104.6 Glucose Level 165 mg/dL (70-99) Calcium Level 9.2 mg/dL (8.5-10.1) Test 01/06/21 11:11 Glucose (Fingerstick) 270 mg/dL (70-99) Laboratory Tests Test 01/05/21 16:26 01/05/21 20:27 01/06/21 05:40 01/06/21 07:26 Glucose (Fingerstick) 154 mg/dL (70-99) 137 mg/dL (70-99) 168 mg/dL (70-99) White Blood Count 7.8 x10^3/uL (4.0-11.0) Red Blood Count 4.28 x10^6/uL (3.50-5.40) Hemoglobin 12.8 g/dL (12.0-15.5) Hematocrit 37.7 % (36.0-47.0) Mean Corpuscular Volume 88 fL (79-100) Mean Corpuscular Hemoglobin 30 pg (25-35) Mean Corpuscular Hemoglobin Concent 34 g/dL (31-37) Red Cell Distribution Width 13.6 % (11.5-14.5) Platelet Count 250 x10^3/uL (140-400) Neutrophils (%) (Auto) 87 % (31-73) Lymphocytes (%) (Auto) 9 % (24-48) Monocytes (%) (Auto) 2 % (0-9) Eosinophils (%) (Auto) 0 % (0-3) Basophils (%) (Auto) 1 % (0-3) Neutrophils # (Auto) 6.8 x10^3/uL (1.8-7.7) Lymphocytes # (Auto) 0.7 x10^3/uL (1.0-4.8) Monocytes # (Auto) 0.2 x10^3/uL (0.0-1.1) Eosinophils # (Auto) 0.0 x10^3/uL (0.0-0.7) Basophils # (Auto) 0.1 x10^3/uL (0.0-0.2) Sodium Level 138 mmol/L (136-145) Potassium Level 4.5 mmol/L (3.5-5.1) Chloride Level 101 mmol/L (98-107) Carbon Dioxide Level 30 mmol/L (21-32) Anion Gap 7 (6-14) Blood Urea Nitrogen 15 mg/dL (7-20) Creatinine 0.6 mg/dL (0.6-1.0) Estimated GFR (Cockcroft-Gault) 104.6 Glucose Level 165 mg/dL (70-99) Calcium Level 9.2 mg/dL (8.5-10.1) Test 01/06/21 11:11 Glucose (Fingerstick) 270 mg/dL (70-99) Comments Chest x-ray reviewed 12/28/2020 Diffuse interstitial infiltrates without any pleural effusion. Mild worsening Chest x-ray reviewed 12/23/2020. Diffuse bilateral interstitial infiltrates consistent with viral pneumonia. Impression . IMPRESSION: 1. Acute hypoxemic respiratory failure secondary to COVID-19 viral pneumonia. 2. Acute respiratory distress syndrome. 3. Sepsis secondary to above. 4. Acute kidney injury. 5. Elevated LFTs. 6. Hypokalemia. 7. Hypotension, suspect secondary to sepsis and volume depletion, stable now Plan . Updated 01/06 Patient's oxygen requirements have decreased Continue steroids Received toes vedolizumab and remdesivir Up to chair Titrate FiO2 down Updated 01/05 Continue current support Up to chair Avoid caffeinated beverages in the afternoon Received tocilizumab and remdesivir Updated 01/04 Continue oxygen supplementation Discussed with RN Up to chair Finish course of steroids Received tocilizumab in remdesivir ROMEL GRANADOS MD Jan 06, 2021 15:05
[2021-01-06] MEDS: CALCIUM CARBONATE 500 MG TAB.CHEW PO PRN ×2 (17:41→22:04)
[2021-01-06 19:00] VITALS: BP 113/64
[2021-01-06] MEDS: FAMOTIDINE 20 MG TABLET. PO SCH (22:04)
[2021-01-06] MEDS: ENOXAPARIN 40 MG/0.4 ML SYRINGE. SQ SCH (22:05)
[2021-01-06] MEDS: STERILE WATER for RESP 1,000 ML BAG. INH PRN (22:19)
[2021-01-06 22:41] VITALS: BP 110/69
[2021-01-07] MEDS: STERILE WATER for RESP 1,000 ML BAG. INH PRN (01:29)
[2021-01-07] MEDS: guaiFENesin/CODEINE 100mg/10mg 5 ML LIQUID PO PRN ×3 (02:39→21:55)
[2021-01-07 02:55] VITALS: BP 137/73
[2021-01-07 07:00] VITALS: BP 114/74
--- NOTE | 2021-01-07 08:30 | PDOC ---
PULMONARY PROGRESS NOTES DATE: 01/07/21 TIME: 08:28 Subjective Patient feels better, currently on 8 L of oxygen supplementation Not more short of air Vitals Vital Signs Date Time Temp Pulse Resp B/P (MAP) Pulse Ox O2 Delivery O2 Flow Rate FiO2 01/07/21 07:24 95 High Flow Nasal Cannula 8.0 01/07/21 07:00 97.2 73 20 114/74 (87) 97.2 General: Alert Lungs: Clear Cardiovascular: S1 Abdomen: Soft Neuro Exam: Alert Extremities: No Edema Skin: Warm Labs Laboratory Tests Test 01/05/21 08:35 01/05/21 11:32 01/05/21 16:26 01/05/21 20:27 Glucose (Fingerstick) 111 mg/dL (70-99) 131 mg/dL (70-99) 154 mg/dL (70-99) 137 mg/dL (70-99) Test 01/06/21 05:40 01/06/21 07:26 01/06/21 11:11 01/06/21 16:43 White Blood Count 7.8 x10^3/uL (4.0-11.0) Red Blood Count 4.28 x10^6/uL (3.50-5.40) Hemoglobin 12.8 g/dL (12.0-15.5) Hematocrit 37.7 % (36.0-47.0) Mean Corpuscular Volume 88 fL (79-100) Mean Corpuscular Hemoglobin 30 pg (25-35) Mean Corpuscular Hemoglobin Concent 34 g/dL (31-37) Red Cell Distribution Width 13.6 % (11.5-14.5) Platelet Count 250 x10^3/uL (140-400) Neutrophils (%) (Auto) 87 % (31-73) Lymphocytes (%) (Auto) 9 % (24-48) Monocytes (%) (Auto) 2 % (0-9) Eosinophils (%) (Auto) 0 % (0-3) Basophils (%) (Auto) 1 % (0-3) Neutrophils # (Auto) 6.8 x10^3/uL (1.8-7.7) Lymphocytes # (Auto) 0.7 x10^3/uL (1.0-4.8) Monocytes # (Auto) 0.2 x10^3/uL (0.0-1.1) Eosinophils # (Auto) 0.0 x10^3/uL (0.0-0.7) Basophils # (Auto) 0.1 x10^3/uL (0.0-0.2) Sodium Level 138 mmol/L (136-145) Potassium Level 4.5 mmol/L (3.5-5.1) Chloride Level 101 mmol/L (98-107) Carbon Dioxide Level 30 mmol/L (21-32) Anion Gap 7 (6-14) Blood Urea Nitrogen 15 mg/dL (7-20) Creatinine 0.6 mg/dL (0.6-1.0) Estimated GFR (Cockcroft-Gault) 104.6 Glucose Level 165 mg/dL (70-99) Calcium Level 9.2 mg/dL (8.5-10.1) Glucose (Fingerstick) 168 mg/dL (70-99) 270 mg/dL (70-99) 225 mg/dL (70-99) Test 01/06/21 20:41 01/07/21 08:04 Glucose (Fingerstick) 233 mg/dL (70-99) 147 mg/dL (70-99) Laboratory Tests Test 01/06/21 11:11 01/06/21 16:43 01/06/21 20:41 01/07/21 08:04 Glucose (Fingerstick) 270 mg/dL (70-99) 225 mg/dL (70-99) 233 mg/dL (70-99) 147 mg/dL (70-99) Comments Chest x-ray reviewed 12/28/2020 Diffuse interstitial infiltrates without any pleural effusion. Mild worsening Chest x-ray reviewed 12/23/2020. Diffuse bilateral interstitial infiltrates consistent with viral pneumonia. Impression . IMPRESSION: 1. Acute hypoxemic respiratory failure secondary to COVID-19 viral pneumonia. 2. Acute respiratory distress syndrome. 3. Sepsis secondary to above. 4. Acute kidney injury. 5. Elevated LFTs. 6. Hypokalemia. 7. Hypotension, suspect secondary to sepsis and volume depletion, stable now Plan . Updated 01/07 Patient's oxygen needs have diminished Continue steroids Possible discharge in 24 to 48 hours Up to chair Updated 01/06 Patient's oxygen requirements have decreased Continue steroids Received toes vedolizumab and remdesivir Up to chair Titrate FiO2 down Updated 01/05 Continue current support Up to chair Avoid caffeinated beverages in the afternoon Received tocilizumab and remdesivir Updated 01/04 Continue oxygen supplementation Discussed with RN Up to chair Finish course of steroids Received tocilizumab in remdesivir ROMEL GRANADOS MD Jan 07, 2021 08:30
[2021-01-07] MEDS: CALCIUM CARBONATE 500 MG TAB.CHEW PO PRN ×5 (09:34→18:39)
[2021-01-07] MEDS: LACTOBACILLUS RHAMNOSUS GG 1 CAPSULE. PO SCH ×2 (09:34→21:31)
[2021-01-07] MEDS: CHOLECALCIFEROL (VITAMIN D3) 5,000 UNIT CAPSULE PO SCH (09:35)
[2021-01-07] MEDS: ASPIRIN CHEWABLE 81 MG TABLET. PO SCH (09:35)
[2021-01-07] MEDS: FAMOTIDINE 20 MG TABLET. PO SCH (09:35)
[2021-01-07] MEDS: ZINC SULFATE 220 MG CAPSULE. PO SCH (09:35)
[2021-01-07] MEDS: ASCORBIC ACID 500 MG TABLET PO SCH (09:35)
[2021-01-07] MEDS: MULTIVITAMIN with MINERAL TABLET. PO SCH (09:35)
[2021-01-07] MEDS: BENZONATATE 100 MG CAPSULE. PO SCH ×3 (09:36→21:31)
[2021-01-07] MEDS: DOCUSATE SODIUM 100 MG CAPSULE. PO SCH ×2 (09:36→21:31)
[2021-01-07] MEDS: THIAMINE 100 MG TABLET. PO SCH (09:37)
[2021-01-07] MEDS: methylPREDNISolone SOD SUCC PF 40 MG/ML VIAL. IV SCH ×2 (09:38→21:32)
[2021-01-07] MEDS: DOXYCYCLINE HYCLATE 100 MG in IV DEXTROSE 5% 100ML 100 ML IV SCH (09:41)
[2021-01-07] MEDS: INSULIN LISPRO 300 UNITS/3 ML VIAL. SQ SCH ×3 (09:43→18:13)
[2021-01-07 10:54] VITALS: BP 112/75
[2021-01-07] MEDS: HYDROcodone/APAP 5/325MG 1 TAB TABLET PO PRN ×2 (11:47→21:33)
--- NOTE | 2021-01-07 12:01 | PDOC ---
[facility] PROGRESS NOTE Date of Service DOS: DATE: 01/07/21 TIME: 11:55 Chief Complaint Chief Complaint Acute hypoxic respiratory failure Covid-19 Sepsis ANTHONY Elevated LFTs Elevated CRP Milk Hypokalemia Overactive bladder History of Present Illness History of Present Illness 01/07/2021: Pt seen and examined. Discussed with RN. Chart reviewed. Pt awake, NAD, pleasant and upbeat. Off vapotherm. On 8L O2 per NC. O2 saturation 94%. 01/06/2021: Pt seen and examined. Discussed with RN. Chart reviewed. Patient is awake and cheerful. NAD. On vapotherm 30L at 100%FiO2. 01/05/2021: Pt seen and examined. Chart reviewed. Discussed with RN. Resting with NAD. On vapotherm 30 L 100% FiO2. 01/04/2021: Pt seen and examined. Resting with NAD. On vapotherm 35L 100% FiO2. 12/19: Seen in ICU. Afebrile. O2 saturation 92% on 40 L/min 100% FiO2 Vapotherm + facemask O2 15 L/min. Less GI upset. Cough improved with Tessalon. D/w pulmonology to change to Decadron from Solu-Medrol and dose with Actemra based on her highly elevated CRP 143.3 Seen in ICU afebrile. O2 saturations 94% 40 L/min FiO2 Vapotherm plus facemask O2 15 L/min. Still little appetite. Transaminases decreased. Feels a little better but is complaining of nasal drainage. cc time 30 min 12/21/20: Patient seen and examined in ICU. Patient currently on 100% O2 on Vapotherm with 40L O2 as well as 100% O2 on nonre breather. O2 sat is at 89% when examined. Patient has Dawn to bedside drainage. Discussed with RN. Chart reviewed. 12/22/20: Patient was seen and examined in the ICU today. She is complaining of back pain so pain medications were adjusted for her. Currently on Clinimix. On nonre breather at 100% O2 and Vapotherm at 100% O2. Current O2 sat is 99%. Discussed with RN. Chart reviewed. 12/23/20: Patient seen and examined in ICU. Resting with NAD. Patient has been sleeping all day and night. Current O2 sat is at 95%. On Clinimix. On vapotherm with 100% O2 and non-rebreather at 100% O2. Discussed with RN. Chart reviewed. 12/24/20: Patient was seen and examined in the ICU today. She is currently on Vapotherm with 100% O2 as well as a non-rebreather with 100% O2 which she had on all night. O2 sat has been in the 90s for the past day. Patient has a Dawn to bedside as well as a PICC line in place in the left upper arm. She is on Clinimix. Discussed with RN who states that patient desats with movement or when she tries to stand up. Patient ate about 1/2 her breakfast this morning. Chart reviewed. 12/25/20: Patient seen and examined in the ICU. Currently on Vapotherm at 100% O2 as well as non-rebreather at 100% O2. Dawn to bedside present. On Clinimix. Patient does not have good appetite and only ate about 1/2 of her breakfast this morning. Discussed with RN. Chart reviewed. 12/26/20: Patient seen and examined in the ICU today. She is resting. O2 sat is at 98% while being examined. Dawn to bedside in place. She is on Vapotherm at 100% O2 and non-rebreather at 100% O2. She is still on Clinimix. Discussed with Rn. Chart reviewed. 12/27/20: Patient seen and examined in the ICU. Resting with NAD. O2 sat is at 94%. On non-rebreather at 100% O2 and Vapotherm at 100% O2. She is on IV fluid, Clinimix, and Doxycycline. Discussed with RN who states that patient is eating better this morning than yesterday. Chart reviewed. 12/28/2020: Patient seen in ICU. Afebrile, breathing on Vapotherm 40 L. She has completed remdesivir and s/p tocilizumab. Continue Decadron for 10-day course with slow taper to begin tomorrow. Continue empiric antibiotics. Continue supportive care, Clinimix. Critical care time 30 minutes spent reviewing charts, reviewing labs, reviewing imaging, discussing with RN. 12/29/2020: Afebrile overnight; breathing on Vapotherm 40 L. She has completed remdesivir and s/p tocilizumab. Continue Decadron for 10-day course with slow taper to begin tomorrow. Continue empiric antibiotics. Continue supportive care. Critical care time 30 minutes spent reviewing charts, reviewing labs, reviewing imaging, discussing with RN. 12/30/2020: Afebrile. On Vapotherm 40 L. Completed remdesivir and s/p tocilizumab. Completed Decadron for 10-day course; will initiate Decadron 5-day taper. Continue to monitor respiratory status in ICU. Continue empiric antibiotics. Continue supportive care. Critical care time 30 minutes spent reviewing charts, reviewing labs, reviewing imaging, discussing with RN. 12/31/2020: Sitting upright in bed eating food, using smart phone. Afebrile, on Vapotherm 40 L. Completed remdesivir and s/p tocilizumab. Continue Decadron taper. Continue to monitor respiratory status in ICU. Continue empiric antibiotics. Continue supportive care. Critical care time 30 minutes spent reviewing charts, reviewing labs, reviewing imaging, discussing with RN. 01/01/2021: Afebrile. Currently on 15 L nonrebreather. Completed remdesivir and s/p tocilizumab. Discussed with Dr. Davies, not a candidate for baricitinib. Continue Decadron taper. Continue empiric antibiotics. Continue supportive care and monitoring of respiratory status in ICU. Critical care time 30 minutes spent reviewing charts, reviewing labs, reviewing imaging, discussing with RN. 01/02/2021: Breathing on Vapotherm 40 L. Afebrile. No acute events overnight. S/P remdesivir and Tocilizumab; not a candidate for baricitinib. Continue Decadron taper and empiric antibiotics. Continue supportive care and monitoring of respiratory status in ICU. Critical care time 30 minutes spent reviewing charts, reviewing labs, reviewing imaging, discussing with RN. 01/03/2021: Afebrile. Breathing on Vapotherm 40 L. States she feels fine, just "picking at breakfast". S/P remdesivir and Tocilizumab; not a candidate for baricitinib. Will continue empiric antibiotics, with Decadron taper to end tomorrow. Will obtain chest x-ray tomorrow. Continue supportive care and monitoring of respiratory status in ICU. Critical care time 30 minutes spent reviewing charts, reviewing labs, reviewing imaging, discussing with RN. Vitals/I&O Vitals/I&O: Vital Signs Date Time Temp Pulse Resp B/P (MAP) Pulse Ox O2 Delivery O2 Flow Rate FiO2 01/07/21 11:47 94 Nasal Cannula 01/07/21 11:21 8.0 01/07/21 10:54 97.3 89 18 112/75 (87) 97.3 I & O 01/06/21 01/06/21 01/07/21 15:00 23:00 07:00 Intake Total 520 ml 680 ml 300 ml Output Total 750 ml 650 ml Balance 520 ml -70 ml -350 ml Physical Exam General: Alert, Oriented X3, Cooperative, No acute distress Heart: Regular rate Lungs: Clear Abdomen: Normal bowel sounds, Soft, No tenderness, No hepatosplenomegaly, No masses Extremities: No clubbing, No cyanosis, No edema, Normal pulses, No tenderness/swelling Skin: No rashes, No breakdown, No significant lesion Labs Labs: Laboratory Tests Test 01/06/21 16:43 01/06/21 20:41 01/07/21 08:04 01/07/21 11:47 Glucose (Fingerstick) 225 mg/dL (70-99) 233 mg/dL (70-99) 147 mg/dL (70-99) 180 mg/dL (70-99) Assessment and Plan Assessmemt and Plan Problems Medical Problems: (1) Acute respiratory failure with hypoxia Status: Acute (2) COVID-19 Status: Acute Acute hypoxic respiratory failure Covid-19 Sepsis ANTHONY Elevated LFTs Elevated CRP Milk Hypokalemia Overactive bladder Plan: COVID protocol (Remdesivir, Solumedrol, Multivitamin w/minerals, Robitussin w/codeine, ASA, O2, Doxycycline) Cardiac monitoring DVT prophylaxis Home meds Trend labs Full code Comment Review of Relevant I have reviewed the following items jeannie (where applicable) has been applied. Medications: Current Medications Medications (Trade) Dose Ordered Sig/Zoë Route PRN Reason Start Time Stop Time Status Last Admin Dose Admin Famotidine (Pepcid) 20 mg BID PO 01/06/21 21:00 01/07/21 09:35 Justifications for Admission Other Justification hypoxia ANJELICA AVILA III DO Jan 07, 2021 12:01
--- NOTE | 2021-01-07 13:17 | NUR ---
SS following up with discharge planning. SS reviewed pt chart and discussed with pt RN. Pt is currently requiring oxygen at eight liters nasal canula. COVID19 positive. Pt has no home oxygen. Pt on IV Solu-Medrol. PT/OT ordered. PT recommended acute rehabilitation. Pt requesting to return to home at this time. Probable need for six minute walk if returning to home. SS will continue to follow for discharge planning.
[2021-01-07 15:00] VITALS: BP 114/69
[2021-01-07 19:00] VITALS: BP 119/80
[2021-01-07] MEDS: PANTOPRAZOLE 40 MG TABLET.DR. PO SCH (21:31)
[2021-01-07] MEDS: ENOXAPARIN 40 MG/0.4 ML SYRINGE. SQ SCH (21:33)
[2021-01-07 22:47] VITALS: BP 125/70
[2021-01-07] MEDS: ZOLPIDEM 5 MG TABLET. PO PRN (23:40)
[2021-01-08 03:00] VITALS: BP 115/68
[2021-01-08] MEDS: PANTOPRAZOLE 40 MG TABLET.DR. PO SCH ×2 (05:37→20:26)
[2021-01-08] MEDS: guaiFENesin/CODEINE 100mg/10mg 5 ML LIQUID PO PRN ×2 (05:56→13:35)
[2021-01-08 06:04] LABS: BASO # 0.1 x10^3/uL (0.0-0.2); BASO % 1 % (0-3); EOS % 0 % (0-3); HEMATOCRIT 34.2 % (36.0-47.0); HEMOGLOBIN 11.4 g/dL (12.0-15.5); LYMPH % 12 % (24-48); MEAN CORPUSCULAR HEMOGLOBIN 30 pg (25-35); MEAN CORPUSCULAR HGB CONC 33 g/dL (31-37); MEAN CORPUSCULAR VOLUME 89 fL (79-100); MONO # 0.4 x10^3/uL (0.0-1.1); MONO % 5 % (0-9); NEUT # 6.8 x10^3/uL (1.8-7.7); NEUT % 82 % (31-73); PLATELET COUNT 244 x10^3/uL (140-400); RED BLOOD COUNT 3.87 x10^6/uL (3.50-5.40); RED CELL DISTRIBUTION WIDTH 14.1 % (11.5-14.5); WHITE BLOOD COUNT 8.4 x10^3/uL (4.0-11.0)
[2021-01-08 07:55] VITALS: BP 114/74
[2021-01-08] MEDS: INSULIN LISPRO 300 UNITS/3 ML VIAL. SQ SCH ×3 (08:00→17:46)
[2021-01-08 08:46] LABS: CALCIUM 8.5 mg/dL (8.5-10.1); CREATININE 0.5 mg/dL (0.6-1.0); GFR 129.1
--- NOTE | 2021-01-08 08:53 | PDOC ---
PULMONARY PROGRESS NOTES DATE: 01/08/21 TIME: 08:53 Subjective Patient feels better currently on 8 L Vitals Vital Signs Date Time Temp Pulse Resp B/P (MAP) Pulse Ox O2 Delivery O2 Flow Rate FiO2 01/08/21 08:01 96 High Flow Nasal Cannula 8.0 01/08/21 07:55 97.7 88 16 114/74 (87) 97.7 General: Alert Lungs: Clear Cardiovascular: S1 Abdomen: Soft Neuro Exam: Alert Extremities: No Edema Skin: Warm Labs Laboratory Tests Test 01/06/21 11:11 01/06/21 16:43 01/06/21 20:41 01/07/21 08:04 Glucose (Fingerstick) 270 mg/dL (70-99) 225 mg/dL (70-99) 233 mg/dL (70-99) 147 mg/dL (70-99) Test 01/07/21 11:47 01/07/21 17:08 01/07/21 20:52 01/08/21 05:55 Glucose (Fingerstick) 180 mg/dL (70-99) 248 mg/dL (70-99) 194 mg/dL (70-99) White Blood Count 8.4 x10^3/uL (4.0-11.0) Red Blood Count 3.87 x10^6/uL (3.50-5.40) Hemoglobin 11.4 g/dL (12.0-15.5) Hematocrit 34.2 % (36.0-47.0) Mean Corpuscular Volume 89 fL (79-100) Mean Corpuscular Hemoglobin 30 pg (25-35) Mean Corpuscular Hemoglobin Concent 33 g/dL (31-37) Red Cell Distribution Width 14.1 % (11.5-14.5) Platelet Count 244 x10^3/uL (140-400) Neutrophils (%) (Auto) 82 % (31-73) Lymphocytes (%) (Auto) 12 % (24-48) Monocytes (%) (Auto) 5 % (0-9) Eosinophils (%) (Auto) 0 % (0-3) Basophils (%) (Auto) 1 % (0-3) Neutrophils # (Auto) 6.8 x10^3/uL (1.8-7.7) Lymphocytes # (Auto) 1.0 x10^3/uL (1.0-4.8) Monocytes # (Auto) 0.4 x10^3/uL (0.0-1.1) Eosinophils # (Auto) 0.0 x10^3/uL (0.0-0.7) Basophils # (Auto) 0.1 x10^3/uL (0.0-0.2) Sodium Level 138 mmol/L (136-145) Potassium Level 4.0 mmol/L (3.5-5.1) Chloride Level 103 mmol/L (98-107) Carbon Dioxide Level 30 mmol/L (21-32) Anion Gap 5 (6-14) Blood Urea Nitrogen 16 mg/dL (7-20) Creatinine 0.5 mg/dL (0.6-1.0) Estimated GFR (Cockcroft-Gault) 129.1 Glucose Level 166 mg/dL (70-99) Calcium Level 8.5 mg/dL (8.5-10.1) Test 01/08/21 07:58 Glucose (Fingerstick) 158 mg/dL (70-99) Laboratory Tests Test 01/07/21 11:47 01/07/21 17:08 01/07/21 20:52 01/08/21 05:55 Glucose (Fingerstick) 180 mg/dL (70-99) 248 mg/dL (70-99) 194 mg/dL (70-99) White Blood Count 8.4 x10^3/uL (4.0-11.0) Red Blood Count 3.87 x10^6/uL (3.50-5.40) Hemoglobin 11.4 g/dL (12.0-15.5) Hematocrit 34.2 % (36.0-47.0) Mean Corpuscular Volume 89 fL (79-100) Mean Corpuscular Hemoglobin 30 pg (25-35) Mean Corpuscular Hemoglobin Concent 33 g/dL (31-37) Red Cell Distribution Width 14.1 % (11.5-14.5) Platelet Count 244 x10^3/uL (140-400) Neutrophils (%) (Auto) 82 % (31-73) Lymphocytes (%) (Auto) 12 % (24-48) Monocytes (%) (Auto) 5 % (0-9) Eosinophils (%) (Auto) 0 % (0-3) Basophils (%) (Auto) 1 % (0-3) Neutrophils # (Auto) 6.8 x10^3/uL (1.8-7.7) Lymphocytes # (Auto) 1.0 x10^3/uL (1.0-4.8) Monocytes # (Auto) 0.4 x10^3/uL (0.0-1.1) Eosinophils # (Auto) 0.0 x10^3/uL (0.0-0.7) Basophils # (Auto) 0.1 x10^3/uL (0.0-0.2) Sodium Level 138 mmol/L (136-145) Potassium Level 4.0 mmol/L (3.5-5.1) Chloride Level 103 mmol/L (98-107) Carbon Dioxide Level 30 mmol/L (21-32) Anion Gap 5 (6-14) Blood Urea Nitrogen 16 mg/dL (7-20) Creatinine 0.5 mg/dL (0.6-1.0) Estimated GFR (Cockcroft-Gault) 129.1 Glucose Level 166 mg/dL (70-99) Calcium Level 8.5 mg/dL (8.5-10.1) Test 01/08/21 07:58 Glucose (Fingerstick) 158 mg/dL (70-99) Comments Chest x-ray reviewed 12/28/2020 Diffuse interstitial infiltrates without any pleural effusion. Mild worsening Chest x-ray reviewed 12/23/2020. Diffuse bilateral interstitial infiltrates consistent with viral pneumonia. Impression . IMPRESSION: 1. Acute hypoxemic respiratory failure secondary to COVID-19 viral pneumonia. 2. Acute respiratory distress syndrome. 3. Sepsis secondary to above. 4. Acute kidney injury. 5. Elevated LFTs. 6. Hypokalemia. 7. Hypotension, suspect secondary to sepsis and volume depletion, stable now Plan . Updated 01/08 Patient to work with PT OT 6-minute walk in the a.m. Possible discharge if oxygen needs diminished updated 01/07 Patient's oxygen needs have diminished Continue steroids Possible discharge in 24 to 48 hours Up to chair Updated 01/06 Patient's oxygen requirements have decreased Continue steroids Received toes vedolizumab and remdesivir Up to chair Titrate FiO2 down ROMEL GRANADOS MD Jan 08, 2021 08:53
[2021-01-08] MEDS: DOCUSATE SODIUM 100 MG CAPSULE. PO SCH ×2 (10:01→20:26)
[2021-01-08] MEDS: ASPIRIN CHEWABLE 81 MG TABLET. PO SCH (10:01)
[2021-01-08] MEDS: THIAMINE 100 MG TABLET. PO SCH (10:01)
[2021-01-08] MEDS: LACTOBACILLUS RHAMNOSUS GG 1 CAPSULE. PO SCH ×2 (10:01→20:25)
[2021-01-08] MEDS: MULTIVITAMIN with MINERAL TABLET. PO SCH (10:02)
[2021-01-08] MEDS: ZINC SULFATE 220 MG CAPSULE. PO SCH (10:02)
[2021-01-08] MEDS: CHOLECALCIFEROL (VITAMIN D3) 5,000 UNIT CAPSULE PO SCH (10:02)
[2021-01-08] MEDS: ASCORBIC ACID 500 MG TABLET PO SCH (10:02)
[2021-01-08] MEDS: BENZONATATE 100 MG CAPSULE. PO SCH ×3 (10:02→20:26)
[2021-01-08] MEDS: methylPREDNISolone SOD SUCC PF 40 MG/ML VIAL. IV SCH ×2 (10:03→20:25)
[2021-01-08 10:36] VITALS: BP_SYST 124; BP_SYST 144; BP_DIAS 74; BP_DIAS 79
--- NOTE | 2021-01-08 12:46 | PDOC ---
[facility] PROGRESS NOTE Date of Service DOS: DATE: 01/08/21 TIME: 12:41 Chief Complaint Chief Complaint Acute hypoxic respiratory failure Covid-19 Sepsis ANTHONY Elevated LFTs Elevated CRP Milk Hypokalemia Overactive bladder History of Present Illness History of Present Illness 01/08/2021: Pt seen and examined. Discussed with RN. Chart reviewed. Pt awake, NAD, cheerful. On 8L O2 per NC. 01/07/2021: Pt seen and examined. Discussed with RN. Chart reviewed. Pt awake, NAD, pleasant and upbeat. Off vapotherm. On 8L O2 per NC. O2 saturation 94%. 01/06/2021: Pt seen and examined. Discussed with RN. Chart reviewed. Patient is awake and cheerful. NAD. On vapotherm 30L at 100%FiO2. 01/05/2021: Pt seen and examined. Chart reviewed. Discussed with RN. Resting with NAD. On vapotherm 30 L 100% FiO2. 01/04/2021: Pt seen and examined. Resting with NAD. On vapotherm 35L 100% FiO2. 12/19: Seen in ICU. Afebrile. O2 saturation 92% on 40 L/min 100% FiO2 Vapotherm + facemask O2 15 L/min. Less GI upset. Cough improved with Tessalon. D/w pulmonology to change to Decadron from Solu-Medrol and dose with Actemra based on her highly elevated CRP 143.3 Seen in ICU afebrile. O2 saturations 94% 40 L/min FiO2 Vapotherm plus facemask O2 15 L/min. Still little appetite. Transaminases decreased. Feels a little better but is complaining of nasal drainage. cc time 30 min 12/21/20: Patient seen and examined in ICU. Patient currently on 100% O2 on Vapotherm with 40L O2 as well as 100% O2 on nonre breather. O2 sat is at 89% when examined. Patient has Dawn to bedside drainage. Discussed with RN. Chart reviewed. 12/22/20: Patient was seen and examined in the ICU today. She is complaining of back pain so pain medications were adjusted for her. Currently on Clinimix. On nonre breather at 100% O2 and Vapotherm at 100% O2. Current O2 sat is 99%. Discussed with RN. Chart reviewed. 12/23/20: Patient seen and examined in ICU. Resting with NAD. Patient has been sleeping all day and night. Current O2 sat is at 95%. On Clinimix. On vapotherm with 100% O2 and non-rebreather at 100% O2. Discussed with RN. Chart reviewed. 12/24/20: Patient was seen and examined in the ICU today. She is currently on Vapotherm with 100% O2 as well as a non-rebreather with 100% O2 which she had on all night. O2 sat has been in the 90s for the past day. Patient has a Dawn to bedside as well as a PICC line in place in the left upper arm. She is on Clinimix. Discussed with RN who states that patient desats with movement or when she tries to stand up. Patient ate about 1/2 her breakfast this morning. Chart reviewed. 12/25/20: Patient seen and examined in the ICU. Currently on Vapotherm at 100% O2 as well as non-rebreather at 100% O2. Dawn to bedside present. On Clinimix. Patient does not have good appetite and only ate about 1/2 of her breakfast this morning. Discussed with RN. Chart reviewed. 12/26/20: Patient seen and examined in the ICU today. She is resting. O2 sat is at 98% while being examined. Dawn to bedside in place. She is on Vapotherm at 100% O2 and non-rebreather at 100% O2. She is still on Clinimix. Discussed with Rn. Chart reviewed. 12/27/20: Patient seen and examined in the ICU. Resting with NAD. O2 sat is at 94%. On non-rebreather at 100% O2 and Vapotherm at 100% O2. She is on IV fluid, Clinimix, and Doxycycline. Discussed with RN who states that patient is eating better this morning than yesterday. Chart reviewed. 12/28/2020: Patient seen in ICU. Afebrile, breathing on Vapotherm 40 L. She has completed remdesivir and s/p tocilizumab. Continue Decadron for 10-day course with slow taper to begin tomorrow. Continue empiric antibiotics. Continue supportive care, Clinimix. Critical care time 30 minutes spent reviewing charts, reviewing labs, reviewing imaging, discussing with RN. 12/29/2020: Afebrile overnight; breathing on Vapotherm 40 L. She has completed remdesivir and s/p tocilizumab. Continue Decadron for 10-day course with slow taper to begin tomorrow. Continue empiric antibiotics. Continue supportive care. Critical care time 30 minutes spent reviewing charts, reviewing labs, reviewing imaging, discussing with RN. 12/30/2020: Afebrile. On Vapotherm 40 L. Completed remdesivir and s/p tocilizumab. Completed Decadron for 10-day course; will initiate Decadron 5-day taper. Continue to monitor respiratory status in ICU. Continue empiric antibiotics. Continue supportive care. Critical care time 30 minutes spent reviewing charts, reviewing labs, reviewing imaging, discussing with RN. 12/31/2020: Sitting upright in bed eating food, using smart phone. Afebrile, on Vapotherm 40 L. Completed remdesivir and s/p tocilizumab. Continue Decadron taper. Continue to monitor respiratory status in ICU. Continue empiric antibiotics. Continue supportive care. Critical care time 30 minutes spent reviewing charts, reviewing labs, reviewing imaging, discussing with RN. 01/01/2021: Afebrile. Currently on 15 L nonrebreather. Completed remdesivir and s/p tocilizumab. Discussed with Dr. Davies, not a candidate for baricitinib. Continue Decadron taper. Continue empiric antibiotics. Continue supportive care and monitoring of respiratory status in ICU. Critical care time 30 minutes spent reviewing charts, reviewing labs, reviewing imaging, discussing with RN. 01/02/2021: Breathing on Vapotherm 40 L. Afebrile. No acute events overnight. S/P remdesivir and Tocilizumab; not a candidate for baricitinib. Continue Decadron taper and empiric antibiotics. Continue supportive care and monitoring of respiratory status in ICU. Critical care time 30 minutes spent reviewing charts, reviewing labs, reviewing imaging, discussing with RN. 01/03/2021: Afebrile. Breathing on Vapotherm 40 L. States she feels fine, just "picking at breakfast". S/P remdesivir and Tocilizumab; not a candidate for baricitinib. Will continue empiric antibiotics, with Decadron taper to end tomorrow. Will obtain chest x-ray tomorrow. Continue supportive care and monitoring of respiratory status in ICU. Critical care time 30 minutes spent reviewing charts, reviewing labs, reviewing imaging, discussing with RN. Vitals/I&O Vitals/I&O: Vital Signs Date Time Temp Pulse Resp B/P (MAP) Pulse Ox O2 Delivery O2 Flow Rate FiO2 01/08/21 10:36 97.5 80 20 124/79 (94) 97 Nasal Cannula 8.0 97.5 I & O 01/07/21 01/07/21 01/08/21 15:00 23:00 07:00 Intake Total 760 ml 1020 ml 150 ml Output Total 1200 ml Balance 760 ml 1020 ml -1050 ml Physical Exam General: Alert, Oriented X3, Cooperative, No acute distress Heart: Regular rate Lungs: Clear Abdomen: Normal bowel sounds, Soft, No tenderness, No hepatosplenomegaly, No masses Extremities: No clubbing, No cyanosis, No edema, Normal pulses, No tenderness/swelling Skin: No rashes, No breakdown, No significant lesion Labs Labs: Laboratory Tests Test 01/07/21 17:08 01/07/21 20:52 01/08/21 05:55 01/08/21 07:58 Glucose (Fingerstick) 248 mg/dL (70-99) 194 mg/dL (70-99) 158 mg/dL (70-99) White Blood Count 8.4 x10^3/uL (4.0-11.0) Red Blood Count 3.87 x10^6/uL (3.50-5.40) Hemoglobin 11.4 g/dL (12.0-15.5) Hematocrit 34.2 % (36.0-47.0) Mean Corpuscular Volume 89 fL (79-100) Mean Corpuscular Hemoglobin 30 pg (25-35) Mean Corpuscular Hemoglobin Concent 33 g/dL (31-37) Red Cell Distribution Width 14.1 % (11.5-14.5) Platelet Count 244 x10^3/uL (140-400) Neutrophils (%) (Auto) 82 % (31-73) Lymphocytes (%) (Auto) 12 % (24-48) Monocytes (%) (Auto) 5 % (0-9) Eosinophils (%) (Auto) 0 % (0-3) Basophils (%) (Auto) 1 % (0-3) Neutrophils # (Auto) 6.8 x10^3/uL (1.8-7.7) Lymphocytes # (Auto) 1.0 x10^3/uL (1.0-4.8) Monocytes # (Auto) 0.4 x10^3/uL (0.0-1.1) Eosinophils # (Auto) 0.0 x10^3/uL (0.0-0.7) Basophils # (Auto) 0.1 x10^3/uL (0.0-0.2) Sodium Level 138 mmol/L (136-145) Potassium Level 4.0 mmol/L (3.5-5.1) Chloride Level 103 mmol/L (98-107) Carbon Dioxide Level 30 mmol/L (21-32) Anion Gap 5 (6-14) Blood Urea Nitrogen 16 mg/dL (7-20) Creatinine 0.5 mg/dL (0.6-1.0) Estimated GFR (Cockcroft-Gault) 129.1 Glucose Level 166 mg/dL (70-99) Calcium Level 8.5 mg/dL (8.5-10.1) Test 01/08/21 11:22 Glucose (Fingerstick) 179 mg/dL (70-99) Assessment and Plan Assessmemt and Plan Problems Medical Problems: (1) Acute respiratory failure with hypoxia Status: Acute (2) COVID-19 Status: Acute Acute hypoxic respiratory failure Covid-19 Sepsis ANTHONY Elevated LFTs Elevated CRP Milk Hypokalemia Overactive bladder Plan: Order oxybutynin 15mg po qd Continue O2 per [place] Trend labs DVT prophylaxis Home meds Full code Comment Review of Relevant I have reviewed the following items jeannie (where applicable) has been applied. Medications: Current Medications Medications (Trade) Dose Ordered Sig/Zoë Route PRN Reason Start Time Stop Time Status Last Admin Dose Admin Pantoprazole Sodium (Protonix) 40 mg BID PO 01/07/21 21:00 01/08/21 05:37 Justifications for Admission Other Justification hypoxia ANJELICA AVILA III DO Jan 08, 2021 12:46
--- NOTE | 2021-01-08 13:05 | NUR ---
SS following up with discharge planning. SS reviewed pt chart and discussed with pt RN. Pt is currently requiring oxygen at eight liters nasal canula. COVID19 positive. Pt has no home oxygen. Pt on IV Solu-Medrol. PT/OT ordered. PT recommended acute rehabilitation. Pt requesting to return to home at this time. Probable need for six minute walk and home healthcare if returning to home. SS will continue to follow for discharge planning.
[2021-01-08] MEDS: OXYBUTYNIN CHLORIDE 5 MG TABLET PO SCH ×2 (13:35→20:26)
[2021-01-08 14:44] VITALS: BP 114/72
[2021-01-08] MEDS: HYDROcodone/APAP 5/325MG 1 TAB TABLET PO PRN ×2 (15:34→20:32)
[2021-01-08 19:20] VITALS: BP 115/62
[2021-01-08] MEDS: ENOXAPARIN 40 MG/0.4 ML SYRINGE. SQ SCH (20:25)
[2021-01-08] MEDS: ZOLPIDEM 5 MG TABLET. PO PRN (22:56)
[2021-01-08 23:05] VITALS: BP 111/68
[2021-01-09 03:20] VITALS: BP 118/76
[2021-01-09] MEDS: guaiFENesin/CODEINE 100mg/10mg 5 ML LIQUID PO PRN ×2 (04:56→11:47)
[2021-01-09 06:59] VITALS: BP 113/76
[2021-01-09] MEDS: INSULIN LISPRO 300 UNITS/3 ML VIAL. SQ SCH ×3 (08:00→17:08)
--- NOTE | 2021-01-09 09:26 | PDOC ---
PULMONARY PROGRESS NOTES DATE: 01/09/21 TIME: 09:24 Subjective Patient feels better currently on 8 L Vitals Vital Signs Date Time Temp Pulse Resp B/P (MAP) Pulse Ox O2 Delivery O2 Flow Rate FiO2 01/09/21 06:59 97.4 73 21 113/76 (88) 100 Nasal Cannula 8.0 97.4 General: Alert Lungs: Other (no accessory muscle use) Cardiovascular: S1, S2 Neuro Exam: Alert Extremities: No Edema Skin: No Rashes Labs Laboratory Tests Test 01/07/21 11:47 01/07/21 17:08 01/07/21 20:52 01/08/21 05:55 Glucose (Fingerstick) 180 mg/dL (70-99) 248 mg/dL (70-99) 194 mg/dL (70-99) White Blood Count 8.4 x10^3/uL (4.0-11.0) Red Blood Count 3.87 x10^6/uL (3.50-5.40) Hemoglobin 11.4 g/dL (12.0-15.5) Hematocrit 34.2 % (36.0-47.0) Mean Corpuscular Volume 89 fL (79-100) Mean Corpuscular Hemoglobin 30 pg (25-35) Mean Corpuscular Hemoglobin Concent 33 g/dL (31-37) Red Cell Distribution Width 14.1 % (11.5-14.5) Platelet Count 244 x10^3/uL (140-400) Neutrophils (%) (Auto) 82 % (31-73) Lymphocytes (%) (Auto) 12 % (24-48) Monocytes (%) (Auto) 5 % (0-9) Eosinophils (%) (Auto) 0 % (0-3) Basophils (%) (Auto) 1 % (0-3) Neutrophils # (Auto) 6.8 x10^3/uL (1.8-7.7) Lymphocytes # (Auto) 1.0 x10^3/uL (1.0-4.8) Monocytes # (Auto) 0.4 x10^3/uL (0.0-1.1) Eosinophils # (Auto) 0.0 x10^3/uL (0.0-0.7) Basophils # (Auto) 0.1 x10^3/uL (0.0-0.2) Sodium Level 138 mmol/L (136-145) Potassium Level 4.0 mmol/L (3.5-5.1) Chloride Level 103 mmol/L (98-107) Carbon Dioxide Level 30 mmol/L (21-32) Anion Gap 5 (6-14) Blood Urea Nitrogen 16 mg/dL (7-20) Creatinine 0.5 mg/dL (0.6-1.0) Estimated GFR (Cockcroft-Gault) 129.1 Glucose Level 166 mg/dL (70-99) Calcium Level 8.5 mg/dL (8.5-10.1) Test 01/08/21 07:58 01/08/21 11:22 01/08/21 16:55 01/09/21 07:49 Glucose (Fingerstick) 158 mg/dL (70-99) 179 mg/dL (70-99) 217 mg/dL (70-99) 127 mg/dL (70-99) Laboratory Tests Test 01/08/21 11:22 01/08/21 16:55 01/09/21 07:49 Glucose (Fingerstick) 179 mg/dL (70-99) 217 mg/dL (70-99) 127 mg/dL (70-99) Comments Chest x-ray reviewed 12/28/2020 Diffuse interstitial infiltrates without any pleural effusion. Mild worsening Chest x-ray reviewed 12/23/2020. Diffuse bilateral interstitial infiltrates consistent with viral pneumonia. Impression . IMPRESSION: 1. Acute hypoxemic respiratory failure secondary to COVID-19 viral pneumonia. 2. Acute respiratory distress syndrome. 3. Sepsis secondary to above. 4. Acute kidney injury. 5. Elevated LFTs. 6. Hypokalemia. 7. Hypotension, suspect secondary to sepsis and volume depletion, stable now Plan . 01/09 titrate fio2 to keep sat 90% 6 min walk at dc change solumedrol to pred w taper lovenox protonix for prophylaxis Updated 01/08 Patient to work with PT OT 6-minute walk in the a.m. Possible discharge if oxygen needs diminished updated 01/07 Patient's oxygen needs have diminished Continue steroids Possible discharge in 24 to 48 hours Up to chair Updated 01/06 Patient's oxygen requirements have decreased Continue steroids Received toes vedolizumab and remdesivir Up to chair Titrate FiO2 down GIOVANNI BUSH MD Jan 09, 2021 09:25
[2021-01-09] MEDS: DOCUSATE SODIUM 100 MG CAPSULE. PO SCH ×2 (09:51→20:30)
[2021-01-09] MEDS: CHOLECALCIFEROL (VITAMIN D3) 5,000 UNIT CAPSULE PO SCH (09:51)
[2021-01-09] MEDS: LACTOBACILLUS RHAMNOSUS GG 1 CAPSULE. PO SCH ×2 (09:51→20:30)
[2021-01-09] MEDS: ASCORBIC ACID 500 MG TABLET PO SCH (09:51)
[2021-01-09] MEDS: THIAMINE 100 MG TABLET. PO SCH (09:51)
[2021-01-09] MEDS: ASPIRIN CHEWABLE 81 MG TABLET. PO SCH (09:51)
[2021-01-09] MEDS: MULTIVITAMIN with MINERAL TABLET. PO SCH (09:51)
[2021-01-09] MEDS: OXYBUTYNIN CHLORIDE 5 MG TABLET PO SCH ×3 (09:51→20:31)
[2021-01-09] MEDS: BENZONATATE 100 MG CAPSULE. PO SCH ×3 (09:52→20:30)
[2021-01-09] MEDS: ZINC SULFATE 220 MG CAPSULE. PO SCH (09:52)
[2021-01-09] MEDS: PANTOPRAZOLE 40 MG TABLET.DR. PO SCH ×2 (09:52→20:33)
[2021-01-09] MEDS: predniSONE 20 MG TABLET PO SCH (09:56)
[2021-01-09 10:57] VITALS: BP 114/79
--- NOTE | 2021-01-09 11:34 | PDOC ---
[employer] PROGRESS NOTE Date of Service DOS: DATE: 01/09/21 TIME: 11:32 Chief Complaint Chief Complaint Acute hypoxic respiratory failure Covid-19 Sepsis ANTHONY Elevated LFTs Elevated CRP Milk Hypokalemia Overactive bladder History of Present Illness History of Present Illness 01/09/2021: Pt seen and examined. Chart reviewed. Discussed with RN. Patient is awake, NAD, cheerful. Currently on 8L via NC with 96% oxygen saturation at rest. Patient relates feeling better and would like to go home. Patient defecated this morning and felt better because she has been constipated. Patient mentions having a few episodes of gasping for air while sleeping. 01/08/2021: Pt seen and examined. Discussed with RN. Chart reviewed. Pt awake, NAD, cheerful. On 8L O2 per NC. 01/07/2021: Pt seen and examined. Discussed with RN. Chart reviewed. Pt awake, NAD, pleasant and upbeat. Off vapotherm. On 8L O2 per NC. O2 saturation 94%. 01/06/2021: Pt seen and examined. Discussed with RN. Chart reviewed. Patient is awake and cheerful. NAD. On vapotherm 30L at 100%FiO2. 01/05/2021: Pt seen and examined. Chart reviewed. Discussed with RN. Resting with NAD. On vapotherm 30 L 100% FiO2. 01/04/2021: Pt seen and examined. Resting with NAD. On vapotherm 35L 100% FiO2. 12/19: Seen in ICU. Afebrile. O2 saturation 92% on 40 L/min 100% FiO2 Vapotherm + facemask O2 15 L/min. Less GI upset. Cough improved with Tessalon. D/w pulmonology to change to Decadron from Solu-Medrol and dose with Actemra based on her highly elevated CRP 143.3 Seen in ICU afebrile. O2 saturations 94% 40 L/min FiO2 Vapotherm plus facemask O2 15 L/min. Still little appetite. Transaminases decreased. Feels a little better but is complaining of nasal drainage. cc time 30 min 12/21/20: Patient seen and examined in ICU. Patient currently on 100% O2 on Vapotherm with 40L O2 as well as 100% O2 on nonre breather. O2 sat is at 89% when examined. Patient has Dwyer to bedside drainage. Discussed with RN. Chart reviewed. 12/22/20: Patient was seen and examined in the ICU today. She is complaining of back pain so pain medications were adjusted for her. Currently on Clinimix. On nonre breather at 100% O2 and Vapotherm at 100% O2. Current O2 sat is 99%. Discussed with RN. Chart reviewed. 12/23/20: Patient seen and examined in ICU. Resting with NAD. Patient has been sleeping all day and night. Current O2 sat is at 95%. On Clinimix. On vapotherm with 100% O2 and non-rebreather at 100% O2. Discussed with RN. Chart reviewed. 12/24/20: Patient was seen and examined in the ICU today. She is currently on Va potherm with 100% O2 as well as a non-rebreather with 100% O2 which she had on all night. O2 sat has been in the 90s for the past day. Patient has a Dwyer to bedside as well as a PICC line in place in the left upper arm. She is on Clinimix. Discussed with RN who states that patient desats with movement or when she tries to stand up. Patient ate about 1/2 her breakfast this morning. Chart reviewed. 12/25/20: Patient seen and examined in the ICU. Currently on Vapotherm at 100% O2 as well as non-rebreather at 100% O2. Dwyer to bedside present. On Clinimix. Patient does not have good appetite and only ate about 1/2 of her breakfast this morning. Discussed with RN. Chart reviewed. 12/26/20: Patient seen and examined in the ICU today. She is resting. O2 sat is a t 98% while being examined. Dwyer to bedside in place. She is on Vapotherm at 100% O2 and non-rebreather at 100% O2. She is still on Clinimix. Discussed with Rn. Chart reviewed. 12/27/20: Patient seen and examined in the ICU. Resting with NAD. O2 sat is at 94%. On non-rebreather at 100% O2 and Vapotherm at 100% O2. She is on IV fluid, Clinimix, and Doxycycline. Discussed with RN who states that patient is eating better this morning than yesterday. Chart reviewed. 12/28/2020: Patient seen in ICU. Afebrile, breathing on Vapotherm 40 L. She has completed remdesivir and s/p tocilizumab. Continue Decadron for 10-day course with slow taper to begin tomorrow. Continue empiric antibiotics. Continue supportive care, Clinimix. Critical care time 30 minutes spent reviewing charts, reviewing labs, reviewing imaging, discussing with RN. 12/29/2020: Afebrile overnight; breathing on Vapotherm 40 L. She has completed remdesivir and s/p tocilizumab. Continue Decadron for 10-day course with slow taper to begin tomorrow. Continue empiric antibiotics. Continue supportive care. Critical care time 30 minutes spent reviewing charts, reviewing labs, reviewing imaging, discussing with RN. 12/30/2020: Afebrile. On Vapotherm 40 L. Completed remdesivir and s/p tocil izumab. Completed Decadron for 10-day course; will initiate Decadron 5-day taper. Continue to monitor respiratory status in ICU. Continue empiric antibiotics. Continue supportive care. Critical care time 30 minutes spent reviewing charts, reviewing labs, reviewing imaging, discussing with RN. 12/31/2020: Sitting upright in bed eating food, using smart phone. Afebrile, on Vapotherm 40 L. Completed remdesivir and s/p tocilizumab. Continue Decadron taper. Continue to monitor respiratory status in ICU. Continue empiric antibiotics. Continue supportive care. Critical care time 30 minutes spent reviewing charts, reviewing labs, reviewing imaging, discussing with RN. 01/01/2021: Afebrile. Currently on 15 L nonrebreather. Completed remdesivir and s/p tocilizumab. Discussed with Dr. Davies, not a candidate for baricitinib. Continue Decadron taper. Continue empiric antibiotics. Continue supportive care and monitoring of respiratory status in ICU. Critical care time 30 minutes spent reviewing charts, reviewing labs, reviewing imaging, discussing with RN. 01/02/2021: Breathing on Vapotherm 40 L. Afebrile. No acute events overnight. S/P remdesivir and Tocilizumab; not a candidate for baricitinib. Continue Decadron taper and empiric antibiotics. Continue supportive care and monitoring of respiratory status in ICU. Critical care time 30 minutes spent reviewing charts, reviewing labs, reviewing imaging, discussing with RN. 01/03/2021: Afebrile. Breathing on Vapotherm 40 L. States she feels fine, just "picking at breakfast". S/P remdesivir and Tocilizumab; not a candidate for baricitinib. Will continue empiric antibiotics, with Decadron taper to end tomorrow. Will obtain chest x-ray tomorrow. Continue supportive care and monitoring of respiratory status in ICU. Critical care time 30 minutes spent reviewing charts, reviewing labs, reviewing imaging, discussing with RN. Vitals/I&O Vitals/I&O: Vital Signs Date Time Temp Pulse Resp B/P (MAP) Pulse Ox O2 Delivery O2 Flow Rate FiO2 01/09/21 10:57 97.3 112 20 114/79 (91) 98 Nasal Cannula 8.0 97.3 I & O 01/08/21 01/08/21 01/09/21 15:00 23:00 07:00 Intake Total 1200 ml 900 ml 420 ml Output Total 900 ml 850 ml Balance 1200 ml 0 ml -430 ml Physical Exam General: Alert, Oriented X3, Cooperative, No acute distress Heart: Regular rate Lungs: Other (no accessory muscle use) Abdomen: Normal bowel sounds, Soft, No tenderness, No hepatosplenomegaly, No masses Extremities: No clubbing, No cyanosis, No edema, Normal pulses, No tenderness/swelling Skin: No rashes, No breakdown, No significant lesion Labs Labs: Laboratory Tests Test 01/08/21 16:55 01/09/21 07:49 Glucose (Fingerstick) 217 mg/dL (70-99) 127 mg/dL (70-99) Assessment and Plan Assessmemt and Plan Problems Medical Problems: (1) Acute respiratory failure with hypoxia Status: Acute (2) COVID-19 Status: Acute Acute hypoxic respiratory failure Covid-19 Sepsis ANTHONY Elevated LFTs Elevated CRP Milk Hypokalemia Overactive bladder Plan: Continue Covid protocol without Remdesivir because patient has already received 4 doses. Cardiac monitoring Continue O2 per NC Try to titrate FiO2 down to 2L before discharge Plan to remove dwyer catheter today Plan to do a 6min walk on Monday with PT (Marah) Trend labs DVT prophylaxis Home meds Full code Appreciate pulmonary input Comment Review of Relevant I have reviewed the following items jeannie (where applicable) has been applied. Medications: Current Medications Medications (Trade) Dose Ordered Sig/Zoë Route PRN Reason Start Time Stop Time Status Last Admin Dose Admin Oxybutynin Chloride (Ditropan) 5 mg [id number] PO 01/08/21 14:00 01/09/21 09:51 Prednisone (Prednisone) 40 mg DAILY PO 01/09/21 10:00 01/09/21 09:56 Justifications for Admission Other Justification hypoxia ANJELICA AVILA III DO Jan 09, 2021 11:34
[2021-01-09 14:53] VITALS: BP 103/59
[2021-01-09 19:00] VITALS: BP 116/67
[2021-01-09] MEDS: HYDROcodone/APAP 5/325MG 1 TAB TABLET PO PRN (20:33)
[2021-01-09] MEDS: ENOXAPARIN 40 MG/0.4 ML SYRINGE. SQ SCH (20:33)
[2021-01-09 23:06] VITALS: BP 116/71
[2021-01-09] MEDS: ZOLPIDEM 5 MG TABLET. PO PRN (23:48)
--- NOTE | 2021-01-10 02:05 | NUR ---
O2 sat 99% on 10L; Oxygen decreased to 8L.
--- NOTE | 2021-01-10 02:20 | NUR ---
Late Entry: Nereyda lucas at 2240 on 01/09/2021
[2021-01-10 02:46] VITALS: BP 117/60
--- NOTE | 2021-01-10 05:38 | NUR ---
O2 sat 98% on 8L; oxygen decreased to 5L.
[2021-01-10] MEDS: PANTOPRAZOLE 40 MG TABLET.DR. PO SCH ×2 (06:21→21:52)
[2021-01-10 07:00] VITALS: BP 107/74
[2021-01-10] MEDS: INSULIN LISPRO 300 UNITS/3 ML VIAL. SQ SCH ×3 (08:00→17:13)
[2021-01-10] MEDS: CHOLECALCIFEROL (VITAMIN D3) 5,000 UNIT CAPSULE PO SCH (09:18)
[2021-01-10] MEDS: LACTOBACILLUS RHAMNOSUS GG 1 CAPSULE. PO SCH ×2 (09:18→21:52)
[2021-01-10] MEDS: OXYBUTYNIN CHLORIDE 5 MG TABLET PO SCH ×3 (09:18→21:52)
[2021-01-10] MEDS: ASCORBIC ACID 500 MG TABLET PO SCH (09:18)
[2021-01-10] MEDS: ASPIRIN CHEWABLE 81 MG TABLET. PO SCH (09:18)
[2021-01-10] MEDS: ZINC SULFATE 220 MG CAPSULE. PO SCH (09:18)
[2021-01-10] MEDS: predniSONE 20 MG TABLET PO SCH (09:18)
[2021-01-10] MEDS: THIAMINE 100 MG TABLET. PO SCH (09:18)
[2021-01-10] MEDS: DOCUSATE SODIUM 100 MG CAPSULE. PO SCH ×2 (09:18→21:52)
[2021-01-10] MEDS: MULTIVITAMIN with MINERAL TABLET. PO SCH (09:18)
[2021-01-10] MEDS: BENZONATATE 100 MG CAPSULE. PO SCH ×3 (09:18→21:52)
[2021-01-10] MEDS: HYDROcodone/APAP 5/325MG 1 TAB TABLET PO PRN ×2 (09:25→23:20)
--- NOTE | 2021-01-10 09:34 | PDOC ---
PULMONARY PROGRESS NOTES DATE: 01/10/21 TIME: 09:33 Subjective Patient feels better currently on 3 L has nasal congestion Vitals Vital Signs Date Time Temp Pulse Resp B/P (MAP) Pulse Ox O2 Delivery O2 Flow Rate FiO2 01/10/21 09:25 96 Nasal Cannula 3.0 01/10/21 07:00 98.3 72 18 107/74 (85) 98.3 Comments no distress on 02 General: Alert Lungs: Other (no accessory muscle use) Cardiovascular: S1, S2 Neuro Exam: Alert Extremities: No Edema Skin: No Rashes Labs Laboratory Tests Test 01/08/21 11:22 01/08/21 16:55 01/09/21 07:49 01/09/21 12:24 Glucose (Fingerstick) 179 mg/dL (70-99) 217 mg/dL (70-99) 127 mg/dL (70-99) 216 mg/dL (70-99) Test 01/09/21 16:52 01/09/21 20:40 01/10/21 07:25 Glucose (Fingerstick) 315 mg/dL (70-99) 119 mg/dL (70-99) 112 mg/dL (70-99) Laboratory Tests Test 01/09/21 12:24 01/09/21 16:52 01/09/21 20:40 01/10/21 07:25 Glucose (Fingerstick) 216 mg/dL (70-99) 315 mg/dL (70-99) 119 mg/dL (70-99) 112 mg/dL (70-99) Comments Chest x-ray reviewed 12/28/2020 Diffuse interstitial infiltrates without any pleural effusion. Mild worsening Chest x-ray reviewed 12/23/2020. Diffuse bilateral interstitial infiltrates consistent with viral pneumonia. Impression . IMPRESSION: 1. Acute hypoxemic respiratory failure secondary to COVID-19 viral pneumonia. 2. Acute respiratory distress syndrome. 3. Sepsis secondary to above. 4. Acute kidney injury. 5. Elevated LFTs. 6. Hypokalemia. 7. Hypotension, suspect secondary to sepsis and volume depletion, stable now Plan . 01/10 oxygenation improved titrate fio2 to keep sat 90% 6 min walk at dc pred w taper lovenox protonix for prophylaxis ?home soon 01/09 titrate fio2 to keep sat 90% 6 min walk at dc change solumedrol to pred w taper lovenox protonix for prophylaxis Updated 01/08 Patient to work with PT OT 6-minute walk in the a.m. Possible discharge if oxygen needs diminished updated 01/07 Patient's oxygen needs have diminished Continue steroids Possible discharge in 24 to 48 hours Up to chair Updated 01/06 Patient's oxygen requirements have decreased Continue steroids Received toes vedolizumab and remdesivir Up to chair Titrate FiO2 down GIOVANNI BUSH MD Jan 10, 2021 09:34
[2021-01-10 10:46] VITALS: BP 95/63
--- NOTE | 2021-01-10 11:49 | PDOC ---
[employer] PROGRESS NOTE Date of Service DOS: DATE: 01/10/21 TIME: 11:43 Chief Complaint Chief Complaint Acute hypoxic respiratory failure Covid-19 Sepsis ANTHONY Elevated LFTs Elevated CRP Milk Hypokalemia Overactive bladder History of Present Illness History of Present Illness 01/10/2021: Pt seen and examined. Discussed with RN. Chart reviewed. Pt resting, NAD. Has some nasal congestion. On 3L O2 per NC with 96% saturation. Pt requested to go to [facility] upon discharge. 01/09/2021: Pt seen and examined. Chart reviewed. Discussed with RN. Patient is awake, NAD, cheerful. Currently on 8L via NC with 96% oxygen saturation at rest. Patient relates feeling better and would like to go home. Patient defecated this morning and felt better because she has been constipated. Patient mentions having a few episodes of gasping for air while sleeping. 01/08/2021: Pt seen and examined. Discussed with RN. Chart reviewed. Pt awake, NAD, cheerful. On 8L O2 per NC. 01/07/2021: Pt seen and examined. Discussed with RN. Chart reviewed. Pt awake, NAD, pleasant and upbeat. Off vapotherm. On 8L O2 per NC. O2 saturation 94%. 01/06/2021: Pt seen and examined. Discussed with RN. Chart reviewed. Patient is awake and cheerful. NAD. On vapotherm 30L at 100%FiO2. 01/05/2021: Pt seen and examined. Chart reviewed. Discussed with RN. Resting with NAD. On vapotherm 30 L 100% FiO2. 01/04/2021: Pt seen and examined. Resting with NAD. On vapotherm 35L 100% FiO2. 12/19: Seen in ICU. Afebrile. O2 saturation 92% on 40 L/min 100% FiO2 Vapotherm + facemask O2 15 L/min. Less GI upset. Cough improved with Tessalon. D/w pulmonology to change to Decadron from Solu-Medrol and dose with Actemra based on her highly elevated CRP 143.3 Seen in ICU afebrile. O2 saturations 94% 40 L/min FiO2 Vapotherm plus facemask O2 15 L/min. Still little appetite. Transaminases decreased. Feels a little better but is complaining of nasal drainage. cc time 30 min 12/21/20: Patient seen and examined in ICU. Patient currently on 100% O2 on Vapotherm with 40L O2 as well as 100% O2 on nonre breather. O2 sat is at 89% when examined. Patient has Dawn to bedside drainage. Discussed with RN. Chart reviewed. 12/22/20: Patient was seen and examined in the ICU today. She is complaining of back pain so pain medications were adjusted for her. Currently on Clinimix. On nonre breather at 100% O2 and Vapotherm at 100% O2. Current O2 sat is 99%. Discussed with RN. Chart reviewed. 12/23/20: Patient seen and examined in ICU. Resting with NAD. Patient has been sleeping all day and night. Current O2 sat is at 95%. On Clinimix. On vapotherm with 100% O2 and non-rebreather at 100% O2. Discussed with RN. Chart reviewed. 12/24/20: Patient was seen and examined in the ICU today. She is currently on Vapotherm with 100% O2 as well as a non-rebreather with 100% O2 which she had on all night. O2 sat has been in the 90s for the past day. Patient has a Dawn to bedside as well as a PICC line in place in the left upper arm. She is on Clinimix. Discussed with RN who states that patient desats with movement or when she tries to stand up. Patient ate about 1/2 her breakfast this morning. Chart reviewed. 12/25/20: Patient seen and examined in the ICU. Currently on Vapotherm at 100% O2 as well as non-rebreather at 100% O2. Dawn to bedside present. On Clinimix. Patient does not have good appetite and only ate about 1/2 of her breakfast this morning. Discussed with RN. Chart reviewed. 12/26/20: Patient seen and examined in the ICU today. She is resting. O2 sat is at 98% while being examined. Dawn to bedside in place. She is on Vapotherm at 100% O2 and non-rebreather at 100% O2. She is still on Clinimix. Discussed with Rn. Chart reviewed. 12/27/20: Patient seen and examined in the ICU. Resting with NAD. O2 sat is at 94%. On non-rebreather at 100% O2 and Vapotherm at 100% O2. She is on IV fluid, Clinimix, and Doxycycline. Discussed with RN who states that patient is eating better this morning than yesterday. Chart reviewed. 12/28/2020: Patient seen in ICU. Afebrile, breathing on Vapotherm 40 L. She has completed remdesivir and s/p tocilizumab. Continue Decadron for 10-day course with slow taper to begin tomorrow. Continue empiric antibiotics. Continue supportive care, Clinimix. Critical care time 30 minutes spent reviewing charts, reviewing labs, reviewing imaging, discussing with RN. 12/29/2020: Afebrile overnight; breathing on Vapotherm 40 L. She has completed remdesivir and s/p tocilizumab. Continue Decadron for 10-day course with slow taper to begin tomorrow. Continue empiric antibiotics. Continue supportive care. Critical care time 30 minutes spent reviewing charts, reviewing labs, reviewing imaging, discussing with RN. 12/30/2020: Afebrile. On Vapotherm 40 L. Completed remdesivir and s/p tocilizumab. Completed Decadron for 10-day course; will initiate Decadron 5-day taper. Continue to monitor respiratory status in ICU. Continue empiric antibiotics. Continue supportive care. Critical care time 30 minutes spent reviewing charts, reviewing labs, reviewing imaging, discussing with RN. 12/31/2020: Sitting upright in bed eating food, using smart phone. Afebrile, on Vapotherm 40 L. Completed remdesivir and s/p tocilizumab. Continue Decadron taper. Continue to monitor respiratory status in ICU. Continue empiric antibiotics. Continue supportive care. Critical care time 30 minutes spent reviewing charts, reviewing labs, reviewing imaging, discussing with RN. 01/01/2021: Afebrile. Currently on 15 L nonrebreather. Completed remdesivir and s/p tocilizumab. Discussed with Dr. Davies, not a candidate for baricitinib. Continue Decadron taper. Continue empiric antibiotics. Continue supportive care and monitoring of respiratory status in ICU. Critical care time 30 minutes spent reviewing charts, reviewing labs, reviewing imaging, discussing with RN. 01/02/2021: Breathing on Vapotherm 40 L. Afebrile. No acute events overnight. S/P remdesivir and Tocilizumab; not a candidate for baricitinib. Continue Decadron taper and empiric antibiotics. Continue supportive care and monitoring of respiratory status in ICU. Critical care time 30 minutes spent reviewing charts, reviewing labs, reviewing imaging, discussing with RN. 01/03/2021: Afebrile. Breathing on Vapotherm 40 L. States she feels fine, just "picking at breakfast". S/P remdesivir and Tocilizumab; not a candidate for baricitinib. Will continue empiric antibiotics, with Decadron taper to end tomorrow. Will obtain chest x-ray tomorrow. Continue supportive care and monitoring of respiratory status in ICU. Critical care time 30 minutes spent reviewing charts, reviewing labs, reviewing imaging, discussing with RN. Vitals/I&O Vitals/I&O: Vital Signs Date Time Temp Pulse Resp B/P (MAP) Pulse Ox O2 Delivery O2 Flow Rate FiO2 01/10/21 10:46 97.9 92 18 95/63 (74) 95 Nasal Cannula 3.0 97.9 I & O 01/09/21 01/09/21 01/10/21 15:00 23:00 07:00 Intake Total 1200 ml 420 ml 150 ml Output Total 400 ml Balance 1200 ml 420 ml -250 ml Physical Exam General: Alert, Oriented X3, Cooperative, No acute distress Heart: Regular rate Lungs: Other (no accessory muscle use) Abdomen: Normal bowel sounds, Soft, No tenderness, No hepatosplenomegaly, No masses Extremities: No clubbing, No cyanosis, No edema, Normal pulses, No tenderness/swelling Skin: No rashes, No breakdown, No significant lesion Labs Labs: Laboratory Tests Test 01/09/21 12:24 01/09/21 16:52 01/09/21 20:40 01/10/21 07:25 Glucose (Fingerstick) 216 mg/dL (70-99) 315 mg/dL (70-99) 119 mg/dL (70-99) 112 mg/dL (70-99) Test 01/10/21 11:10 Glucose (Fingerstick) 195 mg/dL (70-99) Assessment and Plan Assessmemt and Plan Problems Medical Problems: (1) Acute respiratory failure with hypoxia Status: Acute (2) COVID-19 Status: Acute Acute hypoxic respiratory failure Covid-19 Sepsis ANTHONY Elevated LFTs Elevated CRP Milk Hypokalemia Overactive bladder Plan: COVID protocol (Predisone, Multivitamin w/minerals, ASA, Robitussin w/codeine) Appreciate subspecialist input (Pulm) Cardiac monitoring DVT prophylaxis Home meds Trend labs Full code Pt requests discharge to SNU at [facility] We will ask social services aide to arrange Comment Review of Relevant I have reviewed the following items jeannie (where applicable) has been applied. Justifications for Admission Other Justification hypoxia ANJELICA AVILA III DO Jan 10, 2021 11:49
[2021-01-10 15:22] VITALS: BP 111/65
[2021-01-10 19:50] VITALS: BP 118/70
[2021-01-10] MEDS: ENOXAPARIN 40 MG/0.4 ML SYRINGE. SQ SCH (21:52)
[2021-01-10] MEDS: ZOLPIDEM 5 MG TABLET. PO PRN (23:20)
[2021-01-10 23:30] VITALS: BP 120/73
[2021-01-11 03:35] VITALS: BP 104/55
[2021-01-11 07:00] VITALS: BP_SYST 111; BP_SYST 91; BP_DIAS 61; BP_DIAS 68
[2021-01-11] MEDS: INSULIN LISPRO 300 UNITS/3 ML VIAL. SQ SCH ×3 (08:00→17:15)
--- NOTE | 2021-01-11 08:40 | PDOC ---
PULMONARY PROGRESS NOTES DATE: 01/11/21 TIME: 08:40 Subjective Feeling better, walking the hallway Vitals Vital Signs Date Time Temp Pulse Resp B/P (MAP) Pulse Ox O2 Delivery O2 Flow Rate FiO2 01/11/21 07:00 97.8 69 17 91/61 (71) 97 Nasal Cannula 3.0 97.8 Comments no distress on 02 General: Alert Lungs: Other (no accessory muscle use) Cardiovascular: S1, S2 Neuro Exam: Alert Extremities: No Edema Skin: No Rashes Labs Laboratory Tests Test 01/09/21 12:24 01/09/21 16:52 01/09/21 20:40 01/10/21 07:25 Glucose (Fingerstick) 216 mg/dL (70-99) 315 mg/dL (70-99) 119 mg/dL (70-99) 112 mg/dL (70-99) Test 01/10/21 11:10 01/10/21 17:00 01/10/21 20:55 01/11/21 07:16 Glucose (Fingerstick) 195 mg/dL (70-99) 271 mg/dL (70-99) 150 mg/dL (70-99) 107 mg/dL (70-99) Laboratory Tests Test 01/10/21 11:10 01/10/21 17:00 01/10/21 20:55 01/11/21 07:16 Glucose (Fingerstick) 195 mg/dL (70-99) 271 mg/dL (70-99) 150 mg/dL (70-99) 107 mg/dL (70-99) Comments Chest x-ray reviewed 12/28/2020 Diffuse interstitial infiltrates without any pleural effusion. Mild worsening Chest x-ray reviewed 12/23/2020. Diffuse bilateral interstitial infiltrates consistent with viral pneumonia. Impression . IMPRESSION: 1. Acute hypoxemic respiratory failure secondary to COVID-19 viral pneumonia. 2. Acute respiratory distress syndrome. 3. Sepsis secondary to above. 4. Acute kidney injury. 5. Elevated LFTs. 6. Hypokalemia. 7. Hypotension, suspect secondary to sepsis and volume depletion, stable now Plan . 01/[address] New, home soon 6-minute walk PT OT 01/10 oxygenation improved titrate fio2 to keep sat 90% 6 min walk at dc pred w taper lovenox protonix for prophylaxis ?home soon 01/09 titrate fio2 to keep sat 90% 6 min walk at dc change solumedrol to pred w taper lovenox protonix for prophylaxis ROMEL GRANADOS MD Jan 11, 2021 08:40
[2021-01-11] MEDS: CHOLECALCIFEROL (VITAMIN D3) 5,000 UNIT CAPSULE PO SCH (09:35)
[2021-01-11] MEDS: LACTOBACILLUS RHAMNOSUS GG 1 CAPSULE. PO SCH ×2 (09:35→21:51)
[2021-01-11] MEDS: MULTIVITAMIN with MINERAL TABLET. PO SCH (09:36)
[2021-01-11] MEDS: ASCORBIC ACID 500 MG TABLET PO SCH (09:36)
[2021-01-11] MEDS: DOCUSATE SODIUM 100 MG CAPSULE. PO SCH ×2 (09:36→21:51)
[2021-01-11] MEDS: BENZONATATE 100 MG CAPSULE. PO SCH ×3 (09:36→21:51)
[2021-01-11] MEDS: ASPIRIN CHEWABLE 81 MG TABLET. PO SCH (09:36)
[2021-01-11] MEDS: OXYBUTYNIN CHLORIDE 5 MG TABLET PO SCH ×3 (09:37→21:51)
[2021-01-11] MEDS: guaiFENesin/CODEINE 100mg/10mg 5 ML LIQUID PO PRN (09:37)
[2021-01-11] MEDS: predniSONE 20 MG TABLET PO SCH (09:37)
[2021-01-11] MEDS: HYDROcodone/APAP 5/325MG 1 TAB TABLET PO PRN ×3 (09:37→21:51)
[2021-01-11] MEDS: THIAMINE 100 MG TABLET. PO SCH (09:40)
[2021-01-11] MEDS: ZINC SULFATE 220 MG CAPSULE. PO SCH (09:40)
[2021-01-11] MEDS: PANTOPRAZOLE 40 MG TABLET.DR. PO SCH ×2 (09:40→21:51)
[2021-01-11 11:00] VITALS: BP 111/68
--- NOTE | 2021-01-11 11:33 | NUR ---
SS following up with discharge planning. SS reviewed pt chart and discussed with pt RN. Pt is currently requiring oxygen at three liters nasal canula. COVID19 positive on 12/16/2020. PO medications. PT/OT recommended acute rehabilitation. Pt now wanting inpatient rehabilitation because she has 15 stairs. SS met with pt to discuss discharge planning and acute rehabilitation. Pt stating that her family is in [place] and she would prefer not to go outside of [place] due to proximity to family. Pt requesting referral to [facility], ; fax [phone], at this time. SS phoned and faxed referral as requested. SS will continue to follow for discharge planning.
--- NOTE | 2021-01-11 15:07 | PDOC ---
[employer] PROGRESS NOTE Date of Service DOS: DATE: 01/11/21 TIME: 15:06 Chief Complaint Chief Complaint Acute hypoxic respiratory failure Covid-19 Sepsis ANTHONY Elevated LFTs Elevated CRP Milk Hypokalemia Overactive bladder DM2 - A1c 7. Will transition to Metformin on discharge 35 MIN PT exam, chart review, > 50% of time spent with exam, chart review, pt care coordination. History of Present Illness History of Present Illness Seen bedside on 3 L nasal cannula oxygen. She still has desaturations with movement up to the chair and mid 80s. Only able to tolerate walking on 3 stairs and notes she has 15 stairs at home. Eating better 01/10/2021: Pt seen and examined. Discussed with RN. Chart reviewed. Pt resting, NAD. Has some nasal congestion. On 3L O2 per NC with 96% saturation. Pt requested to go to [facility] upon discharge. 01/09/2021: Pt seen and examined. Chart reviewed. Discussed with RN. Patient is awake, NAD, cheerful. Currently on 8L via NC with 96% oxygen saturation at rest. Patient relates feeling better and would like to go home. Patient defecated this morning and felt better because she has been constipated. Patient mentions having a few episodes of gasping for air while sleeping. 01/08/2021: Pt seen and examined. Discussed with RN. Chart reviewed. Pt awake, NAD, cheerful. On 8L O2 per NC. 01/07/2021: Pt seen and examined. Discussed with RN. Chart reviewed. Pt awake, NAD, pleasant and upbeat. Off vapotherm. On 8L O2 per NC. O2 saturation 94%. 01/06/2021: Pt seen and examined. Discussed with RN. Chart reviewed. Patient is awake and cheerful. NAD. On vapotherm 30L at 100%FiO2. 01/05/2021: Pt seen and examined. Chart reviewed. Discussed with RN. Resting with NAD. On vapotherm 30 L 100% FiO2. 01/04/2021: Pt seen and examined. Resting with NAD. On vapotherm 35L 100% FiO2. 12/19: Seen in ICU. Afebrile. O2 saturation 92% on 40 L/min 100% FiO2 Vapotherm + facemask O2 15 L/min. Less GI upset. Cough improved with Tessalon. D/w pulmonology to change to Decadron from Solu-Medrol and dose with Actemra based on her highly elevated CRP 143.3 Seen in ICU afebrile. O2 saturations 94% 40 L/min FiO2 Vapotherm plus facemask O2 15 L/min. Still little appetite. Transaminases decreased. Feels a little better but is complaining of nasal drainage. cc time 30 min 12/21/20: Patient seen and examined in ICU. Patient currently on 100% O2 on Vapotherm with 40L O2 as well as 100% O2 on nonre breather. O2 sat is at 89% when examined. Patient has Dawn to bedside drainage. Discussed with RN. Chart reviewed. 12/22/20: Patient was seen and examined in the ICU today. She is complaining of back pain so pain medications were adjusted for her. Currently on Clinimix. On nonre breather at 100% O2 and Vapotherm at 100% O2. Current O2 sat is 99%. Discussed with RN. Chart reviewed. 12/23/20: Patient seen and examined in ICU. Resting with NAD. Patient has been sleeping all day and night. Current O2 sat is at 95%. On Clinimix. On vapotherm with 100% O2 and non-rebreather at 100% O2. Discussed with RN. Chart reviewed. 12/24/20: Patient was seen and examined in the ICU today. She is currently on Vapotherm with 100% O2 as well as a non-rebreather with 100% O2 which she had on all night. O2 sat has been in the 90s for the past day. Patient has a Dawn to bedside as well as a PICC line in place in the left upper arm. She is on Clinimix. Discussed with RN who states that patient desats with movement or when she tries to stand up. Patient ate about 1/2 her breakfast this morning. Chart reviewed. 12/25/20: Patient seen and examined in the ICU. Currently on Vapotherm at 100% O2 as well as non-rebreather at 100% O2. Dawn to bedside present. On Clinimix. Andrea shields does not have good appetite and only ate about 1/2 of her breakfast this morning. Discussed with RN. Chart reviewed. 12/26/20: Patient seen and examined in the ICU today. She is resting. O2 sat is at 98% while being examined. Dawn to bedside in place. She is on Vapotherm at 100% O2 and non-rebreather at 100% O2. She is still on Clinimix. Discussed with Rn. Chart reviewed. 12/27/20: Patient seen and examined in the ICU. Resting with NAD. O2 sat is at 94%. On non-rebreather at 100% O2 and Vapotherm at 100% O2. She is on IV fluid, Clinimix, and Doxycycline. Discussed with RN who states that patient is eating better this morning than yesterday. Chart reviewed. 12/28/2020: Patient seen in ICU. Afebrile, breathing on Vapotherm 40 L. She has completed remdesivir and s/p tocilizumab. Continue Decadron for 10-day course with slow taper to begin tomorrow. Continue empiric antibiotics. Continue supportive care, Clinimix. Critical care time 30 minutes spent reviewing charts, reviewing labs, reviewing imaging, discussing with RN. 12/29/2020: Afebrile overnight; breathing on Vapotherm 40 L. She has completed remdesivir and s/p tocilizumab. Continue Decadron for 10-day course with slow taper to begin tomorrow. Continue empiric antibiotics. Continue supportive care. Critical care time 30 minutes spent reviewing charts, reviewing labs, reviewing imaging, discussing with RN. 12/30/2020: Afebrile. On Vapotherm 40 L. Completed remdesivir and s/p tocilizumab. Completed Decadron for 10-day course; will initiate Decadron 5-day taper. Continue to monitor respiratory status in ICU. Continue empiric antibiotics. Continue supportive care. Critical care time 30 minutes spent reviewing charts, reviewing labs, reviewing imaging, discussing with RN. 12/31/2020: Sitting upright in bed eating food, using smart phone. Afebrile, on Vapotherm 40 L. Completed remdesivir and s/p tocilizumab. Continue Decadron taper. Continue to monitor respiratory status in ICU. Continue empiric antibiotics. Continue supportive care. Critical care time 30 minutes spent reviewing charts, reviewing labs, reviewing imaging, discussing with RN. 01/01/2021: Afebrile. Currently on 15 L nonrebreather. Completed remdesivir and s/p tocilizumab. Discussed with Dr. Davies, not a candidate for baricitinib. Continue Decadron taper. Continue empiric antibiotics. Continue supportive care and monitoring of respiratory status in ICU. Critical care time 30 minutes spent reviewing charts, reviewing labs, reviewing imaging, discussing with RN. 01/02/2021: Breathing on Vapotherm 40 L. Afebrile. No acute events overnight. S/P remdesivir and Tocilizumab; not a candidate for baricitinib. Continue Decadron taper and empiric antibiotics. Continue supportive care and monitoring of respiratory status in ICU. Critical care time 30 minutes spent reviewing charts, reviewing labs, reviewing imaging, discussing with RN. 01/03/2021: Afebrile. Breathing on Vapotherm 40 L. States she feels fine, just "picking at breakfast". S/P remdesivir and Tocilizumab; not a candidate for baricitinib. Will continue empiric antibiotics, with Decadron taper to end tomorrow. Will obtain chest x-ray tomorrow. Continue supportive care and monitoring of respiratory status in ICU. Critical care time 30 minutes spent reviewing charts, reviewing labs, reviewing imaging, discussing with RN. Vitals/I&O Vitals/I&O: Vital Signs Date Time Temp Pulse Resp B/P (MAP) Pulse Ox O2 Delivery O2 Flow Rate FiO2 01/11/21 11:00 97.8 101 16 111/68 (82) 95 Nasal Cannula 3.0 97.8 I & O 01/10/21 01/10/21 01/11/21 15:00 23:00 07:00 Intake Total 980 ml 240 ml 300 ml Balance 980 ml 240 ml 300 ml Physical Exam General: Alert, Oriented X3, Cooperative, No acute distress Heart: Regular rate Lungs: Other (no accessory muscle use) Abdomen: Normal bowel sounds, Soft, No tenderness, No hepatosplenomegaly, No masses Extremities: No clubbing, No cyanosis, No edema, Normal pulses, No tenderness/swelling Skin: No rashes, No breakdown, No significant lesion Labs Labs: Laboratory Tests Test 01/10/21 17:00 01/10/21 20:55 01/11/21 07:16 01/11/21 11:56 Glucose (Fingerstick) 271 mg/dL (70-99) 150 mg/dL (70-99) 107 mg/dL (70-99) 170 mg/dL (70-99) Assessment and Plan Assessmemt and Plan Problems Medical Problems: (1) Acute respiratory failure with hypoxia Status: Acute (2) COVID-19 Status: Acute Comment Review of Relevant I have reviewed the following items jeannie (where applicable) has been applied. Justifications for Admission Other Justification hypoxia JOVANNY REEVES MD Jan 11, 2021 15:07
[2021-01-11] MEDS: metFORMIN 500 MG TABLET PO SCH (17:08)
[2021-01-11 19:00] VITALS: BP 111/79
[2021-01-11] MEDS: ENOXAPARIN 40 MG/0.4 ML SYRINGE. SQ SCH (21:50)
[2021-01-11 23:00] VITALS: BP 105/66
[2021-01-11] MEDS: ZOLPIDEM 5 MG TABLET. PO PRN (23:38)
[2021-01-12 03:00] VITALS: BP 91/51
[2021-01-12 07:00] VITALS: BP 119/77
--- NOTE | 2021-01-12 07:41 | PDOC ---
[employer] PROGRESS NOTE Date of Service DOS: DATE: 01/12/21 TIME: 07:41 Chief Complaint Chief Complaint Acute hypoxic respiratory failure Covid-19 Sepsis ANTHONY Elevated LFTs Elevated CRP Milk Hypokalemia Overactive bladder DM2 - A1c 7. Will transition to Metformin on discharge 35 MIN PT exam, chart review, > 50% of time spent with exam, chart review, pt care coordination. History of Present Illness History of Present Illness Ms Anton is a 55-year-old female with past medical history of overactive bladder who came to the ED at [facility] complaining of worsening shortness of breath fatigue and cough. Her shortness of breath began on 12/11/2020 she had fatigue started on 12/08/2020. She awoke on 12/12/2020 and noted myalgias and loss of appetite and diarrhea as well. She tested positive for COVID-19. Her also tested positive for COVID-19. She has complaints fever, chills, malaise, nausea, vomiting, arthralgia, myalgia, tachycardia, coughing and increased dyspnea. Patient has been exposed to inmates here plan seeing retirement who had COVID. Patient previously declined Covid vaccination. Patient now comes very dyspneic with any activity. Initially sats on room air in the 80s. Patient denies any recent travel. No specific ill contacts other than at work and her . Patient denies any previous history of immunosuppression. She had not been vaccinated for COVID-19 but after her daughter had contracted Covid she had planned to get the vaccine last week and had delayed due to her symptoms. 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 She has 3 children at home and 3 adult children whom have also had Covid with fairly severe symptoms and she also has 5 grandchildren, presumably healthy. Febrile on admission 100.8 F, heart rate 114 bpm, respirations 33/min, O2 saturation 86% on room air, blood pressure 113/69. Admission labs WBC 7.6, Hb 14.8, platelets 188, NA 140, K3.2, chloride 101, HCO3 24, BUN 26, CR 1.2, glucose 128, calcium 8.5, bilirubin 0.5, AST 111, ALT 64, alkaline phosphatase 117, troponin 0, albumin 3.2, NT proBNP 90, CRP 143.3. EKG normal sinus rhythm rate of 95 bpm leftward axis otherwise normal intervals, QTC [address] elevations or TWI. Chest radiograph with multifocal opacities. Due to tachycardia and hypoxemia she was evaluated with CTPA which was negative for pulmonary embolism and did reveal extensive bilateral groundglass opacities and incidental finding of enlarged spleen. Initially admitted to ICU at [facility] in [place] on 12/17/2020 given S olumedrol 60 three times a day and Remdesivir. Today she becomes significantly more hypoxic with O2 saturations 86% despite 10 L oxygen and was called for transfer to [facility]. Seen bedside in ICU 40 L/min 100% FiO2 Vapotherm with O2 saturations 93%. Requiring supplemental facemask O2 15 L/min. 12/19: Seen in ICU. Afebrile. O2 saturation 92% on 40 L/min 100% FiO2 Vapotherm + facemask O2 15 L/min. Less GI upset. Cough improved with Tessalon. D/w pulmonology to change to Decadron from Solu-Medrol and dose with Actemra based on her highly elevated CRP 143.3 12/20: Seen in ICU afebrile. O2 saturations 94% 40 L/min FiO2 Vapotherm plus facemask O2 15 L/min. Still little appetite. Transaminases decreased. Feels a little better but is complaining of nasal drainage. 12/21/20: Patient seen and examined in ICU. Patient currently on 100% O2 on Vapotherm with 40L O2 as well as 100% O2 on nonre breather. O2 sat is at 89% when examined. Patient has Dawn to bedside drainage. 12/22/20: Patient was seen and examined in the ICU today. She is complaining of back pain so pain medications were adjusted for her. Currently on Clinimix. On nonre breather at 100% O2 and Vapotherm at 100% O2. 12/23/20: Patient seen and examined in ICU. Resting with NAD. Patient has been sleeping all day and night. Current O2 sat is at 95%. On Clinimix. On vapotherm with 100% O2 and non-rebreather at 100% O2. 12/24/20: Patient was seen and examined in the ICU today. She is currently on Vapotherm with 100% O2 as well as a non-rebreather with 100% O2 which she had on all night. O2 sat has been in the 90s for the past day. Patient has a Dawn to bedside as well as a PICC line in place in the left upper arm. She is on Clinimix. Discussed with RN who states that patient desats with movement or when she tries to stand up. Patient ate about 1/2 her breakfast this morning. Chart reviewed. 12/25/20: Patient seen and examined in the ICU. Currently on Vapotherm at 100% O2 as well as non-rebreather at 100% O2. Dawn to bedside present. On Clinimix. Patient does not have good appetite and only ate about 1/2 of her breakfast this morning. Discussed with RN. Chart reviewed. 12/26/20: Patient seen and examined in the ICU today. She is resting. O2 sat is at 98% while being examined. Dawn to bedside in place. She is on Vapotherm at 100% O2 and non-rebreather at 100% O2. She is still on Clinimix. Discussed with Rn. Chart reviewed. 12/27/20: Patient seen and examined in the ICU. Resting with NAD. O2 sat is at 94%. On non-rebreather at 100% O2 and Vapotherm at 100% O2. She is on IV fluid, Clinimix, and Doxycycline. Discussed with RN who states that patient is eating better this morning than yesterday. Chart reviewed. 12/28/2020: Patient seen in ICU. Afebrile, breathing on Vapotherm 40 L. She has completed remdesivir and s/p tocilizumab. Continue Decadron for 10-day course with slow taper to begin tomorrow. Continue empiric antibiotics. Continue supportive care, Clinimix. Critical care time 30 minutes spent reviewing charts, reviewing labs, reviewing imaging, discussing with RN. 12/29/2020: Afebrile overnight; breathing on Vapotherm 40 L. She has completed remdesivir and s/p tocilizumab. Continue Decadron for 10-day course with slow taper to begin tomorrow. Continue empiric antibiotics. Continue supportive care. Critical care time 30 minutes spent reviewing charts, reviewing labs, reviewing imaging, discussing with RN. 12/30/2020: Afebrile. On Vapotherm 40 L. Completed remdesivir and s/p tocilizumab. Completed Decadron for 10-day course; will initiate Decadron 5-day taper. Continue to monitor respiratory status in ICU. Continue empiric antibiotics. Continue supportive care. Critical care time 30 minutes spent reviewing charts, reviewing labs, reviewing imaging, discussing with RN. 12/31/2020: Sitting upright in bed eating food, using smart phone. Afebrile, on Vapotherm 40 L. Completed remdesivir and s/p tocilizumab. Continue Decadron taper. Continue to monitor respiratory status in ICU. Continue empiric antibiotics. Continue supportive care. Critical care time 30 minutes spent reviewing charts, reviewing labs, reviewing imaging, discussing with RN. 01/01/2021: Afebrile. Currently on 15 L nonrebreather. Completed remdesivir and s/p tocilizumab. Discussed with Dr. Davies, not a candidate for baricitinib. Continue Decadron taper. Continue empiric antibiotics. Continue supportive care and monitoring of respiratory status in ICU. Critical care time 30 minutes spent reviewing charts, reviewing labs, reviewing imaging, discussing with RN. 01/02/2021: Breathing on Vapotherm 40 L. Afebrile. No acute events overnight. S/P remdesivir and Tocilizumab; not a candidate for baricitinib. Continue Decadron taper and empiric antibiotics. Continue supportive care and monitoring of respiratory status in ICU. Critical care time 30 minutes spent reviewing charts, reviewing labs, reviewing imaging, discussing with RN. 01/03/2021: Afebrile. Breathing on Vapotherm 40 L. States she feels fine, just "picking at breakfast". S/P remdesivir and Tocilizumab; not a candidate for baricitinib. Will continue empiric antibiotics, with Decadron taper to end tomorrow. Will obtain chest x-ray tomorrow. Continue supportive care and monitoring of respiratory status in ICU. Critical care time 30 minutes spent reviewing charts, reviewing labs, reviewing imaging, discussing with RN. 01/04: Pt seen and examined. Resting with NAD. On vapotherm 35L 100% FiO2. 01/05: Pt seen and examined. Chart reviewed. Discussed with RN. Resting with NAD. On vapotherm 30 L 100% FiO2. 01/06: Pt seen and examined. Discussed with RN. Chart reviewed. Patient is awake and cheerful. NAD. On vapotherm 30L at 100%FiO2. 01/07: Pt seen and examined. Discussed with RN. Chart reviewed. Pt awake, NAD, pleasant and upbeat. Off vapotherm. On 8L O2 per NC. O2 saturation 94%. 01/08: Pt seen and examined. Discussed with RN. Chart reviewed. Pt awake, NAD, cheerful. On 8L O2 per NC. 01/09: NAD, cheerful. Currently on 8L via NC with 96% oxygen saturation at rest. Patient relates feeling better and would like to go home. Patient defecated this morning and felt better because she has been constipated. 01/10: Pt seen and examined. Discussed with RN. Chart reviewed. Pt resting, NAD. Has some nasal congestion. On 3L O2 per NC with 96% saturation. Pt requested to go to [facility] upon discharge. 01/11: Seen bedside on 3 L nasal cannula oxygen. She still has desaturations with movement up to the chair and mid 80s. Only able to tolerate walking on 3 stairs and notes she has 15 stairs at home. Eating better Seen bedside on 2 L nasal cannula with O2 saturations 91%. 6-minute walk shows 2 L at rest and 2 L on exertion. Counseled on diabetes and prednisone taper and will have outpatient follow-up with pulmonology Vitals/I&O Vitals/I&O: Vital Signs Date Time Temp Pulse Resp B/P (MAP) Pulse Ox O2 Delivery O2 Flow Rate FiO2 01/12/21 03:00 98.0 90 19 91/51 (64) 96 Nasal Cannula 3.0 98.0 I & O 01/11/21 01/11/21 01/12/21 15:00 23:00 07:00 Intake Total 237 ml 240 ml 400 ml Balance 237 ml 240 ml 400 ml Physical Exam General: Alert, Oriented X3, Cooperative, No acute distress Heart: Regular rate Lungs: Other (no accessory muscle use) Abdomen: Normal bowel sounds, Soft, No tenderness, No hepatosplenomegaly, No masses Extremities: No clubbing, No cyanosis, No edema, Normal pulses, No tenderness/swelling Skin: No rashes, No breakdown, No significant lesion Labs Labs: Laboratory Tests Test 01/11/21 11:56 01/11/21 17:07 01/11/21 20:45 01/12/21 07:23 Glucose (Fingerstick) 170 mg/dL (70-99) 265 mg/dL (70-99) 180 mg/dL (70-99) 120 mg/dL (70-99) Assessment and Plan Assessmemt and Plan Problems Medical Problems: (1) Acute respiratory failure with hypoxia Status: Acute (2) COVID-19 Status: Acute Comment Review of Relevant I have reviewed the following items jeannie (where applicable) has been applied. Medications: Current Medications Medications (Trade) Dose Ordered Sig/Zoë Route PRN Reason Start Time Stop Time Status Last Admin Dose Admin Metformin HCl (Glucophage) 500 mg BIDWMEALS PO 01/11/21 17:00 01/11/21 17:08 Justifications for Admission Other Justification hypoxia JOVANNY REEVES MD Jan 12, 2021 07:41
[2021-01-12] MEDS: INSULIN LISPRO 300 UNITS/3 ML VIAL. SQ SCH ×3 (08:00→16:53)
[2021-01-12] MEDS: LACTOBACILLUS RHAMNOSUS GG 1 CAPSULE. PO SCH (08:21)
[2021-01-12] MEDS: DOCUSATE SODIUM 100 MG CAPSULE. PO SCH (08:21)
[2021-01-12] MEDS: MULTIVITAMIN with MINERAL TABLET. PO SCH (08:21)
[2021-01-12] MEDS: BENZONATATE 100 MG CAPSULE. PO SCH ×2 (08:21→13:12)
[2021-01-12] MEDS: metFORMIN 500 MG TABLET PO SCH ×2 (08:21→16:48)
[2021-01-12] MEDS: OXYBUTYNIN CHLORIDE 5 MG TABLET PO SCH ×2 (08:21→13:12)
[2021-01-12] MEDS: THIAMINE 100 MG TABLET. PO SCH (08:21)
[2021-01-12] MEDS: ZINC SULFATE 220 MG CAPSULE. PO SCH (08:22)
[2021-01-12] MEDS: ASCORBIC ACID 500 MG TABLET PO SCH (08:22)
[2021-01-12] MEDS: predniSONE 20 MG TABLET PO SCH (08:22)
[2021-01-12] MEDS: ASPIRIN CHEWABLE 81 MG TABLET. PO SCH (08:22)
[2021-01-12] MEDS: guaiFENesin/CODEINE 100mg/10mg 5 ML LIQUID PO PRN ×2 (08:22→13:15)
[2021-01-12] MEDS: CHOLECALCIFEROL (VITAMIN D3) 5,000 UNIT CAPSULE PO SCH (08:22)
[2021-01-12] MEDS: PANTOPRAZOLE 40 MG TABLET.DR. PO SCH (08:29)
[2021-01-12 11:00] VITALS: BP 119/66
--- NOTE | 2021-01-12 11:18 | NUR ---
SS following up with discharge planning. SS reviewed pt chart and discussed with pt RN. Pt is currently requiring oxygen at three liters nasal canula. COVID19 positive on 12/16/2020. PO medications. PT/OT recommended acute rehabilitation. Pt was declined at [facility], ; fax [phone], due to insurance not having SNU benefits. SS met with pt and discussed discharge planning. Pt declining inpatient rehabilitation now. Pt requesting to return to home with home healthcare and oxygen set up. Pt reported having no preference of home healthcare. Referral phoned and faxed to [facility], ; fax [phone], and pt accepted on services. Six minute walk ordered to assess needs. SS will continue to follow for discharge planning. Addendum: 01/12/21 at 1447 by AMIRA FAIRBANKS Script received for oxygen. Script and clinical phoned and faxed to [email or web address], ; fax [phone]. Oxygen tank provided to pt for home. Discharge orders sent to [facility]. Addendum: 09/28/21 at 1558 by AMIRA SARITA SS Script received for kimo. Script and clinical phoned and faxed to [facility], ; fax [phone]. Kimo provided to for home.
--- NOTE | 2021-01-12 11:25 | PDOC ---
PULMONARY PROGRESS NOTES DATE: 01/12/21 TIME: 11:23 Subjective Feeling better, on nasal cannula 3 L. Vitals Vital Signs Date Time Temp Pulse Resp B/P (MAP) Pulse Ox O2 Delivery O2 Flow Rate FiO2 01/12/21 09:04 96 High Flow Nasal Cannula 3.0 01/12/21 07:00 98.6 84 17 119/77 (91) 98.6 Comments no distress on 02 General: Alert Lungs: Other (no accessory muscle use) Cardiovascular: S1, S2 Neuro Exam: Alert Extremities: No Edema Skin: No Rashes Labs Laboratory Tests Test 01/10/21 17:00 01/10/21 20:55 01/11/21 07:16 01/11/21 11:56 Glucose (Fingerstick) 271 mg/dL (70-99) 150 mg/dL (70-99) 107 mg/dL (70-99) 170 mg/dL (70-99) Test 01/11/21 17:07 01/11/21 20:45 01/12/21 07:23 Glucose (Fingerstick) 265 mg/dL (70-99) 180 mg/dL (70-99) 120 mg/dL (70-99) Laboratory Tests Test 01/11/21 11:56 01/11/21 17:07 01/11/21 20:45 01/12/21 07:23 Glucose (Fingerstick) 170 mg/dL (70-99) 265 mg/dL (70-99) 180 mg/dL (70-99) 120 mg/dL (70-99) Comments Chest x-ray reviewed 12/28/2020 Diffuse interstitial infiltrates without any pleural effusion. Mild worsening Chest x-ray reviewed 12/23/2020. Diffuse bilateral interstitial infiltrates consistent with viral pneumonia. Impression . IMPRESSION: 1. Acute hypoxemic respiratory failure secondary to COVID-19 viral pneumonia. 2. Acute respiratory distress syndrome. Resolved. 3. Sepsis secondary to above. 4. Acute kidney injury. 5. Elevated LFTs. 6. Hypokalemia. 7. Hypotension, suspect secondary to sepsis and volume depletion, stable now Plan . 01/[address] New, Home today. 6-minute walk PT OT Will sign off. 01/10 oxygenation improved titrate fio2 to keep sat 90% 6 min walk at dc pred w taper lovenox protonix for prophylaxis ?home soon 01/09 titrate fio2 to keep sat 90% 6 min walk at dc change solumedrol to pred w taper lovenox protonix for prophylaxis KAYLA LUCERO MD Jan 12, 2021 11:24
[2021-01-12] MEDS ORDERED: PANT40TA77 PO (14:36)
[2021-01-12] MEDS ORDERED: ZINC220C5 PO (14:36)
[2021-01-12] MEDS ORDERED: ASPI-630 PO (14:36)
[2021-01-12] MEDS ORDERED: PRED-220 PO (14:36)
[2021-01-12] MEDS ORDERED: BENZ-8 PO (14:36)
[2021-01-12] MEDS ORDERED: METF500T16 PO (14:36)
[2021-01-12 15:00] VITALS: BP 127/67
[2021-01-12] MEDS ORDERED: SITA50TA PO (15:03)
--- NOTE | 2021-01-12 15:03 | SNU/HH DC ---
DISCHARGE WITH HOME HEALTH DISCHARGE INFORMATION: Discharge Date: Jan 12, 2021 Final Diagnosis: Problems Medical Problems: (1) Acute respiratory failure with hypoxia Status: Acute (2) COVID-19 Status: Acute Condition on Discharge: Stable CODE STATUS: Code Status: Full HOME HEALTH: Face to Face: I certify this patient is under my care and that I, or a nurse practitioner or physician's assistant in nursing working with me, had a face to face encounter that meets the physician face to face encounter requirements with this patient on 01/12/2021. Medical Complications: DM Prison For: Diabetic Care, Medication Management RN For Eval/Treatment: Yes Physical Therapy For: Evalulation/Treatment Occupational Therapy For: Evaluation/Treatment Pt Meets Homebound Status: Fatigue w/ amb., Limited distance walking POST DISCHARGE ORDERS: Activity Instructions for Disc: Activity as tolerated Weight Bearing Status after Di: Full weight bearing DIET AFTER DISCHARGE: ADA Wound/Incision Care: No wound care needed CHECKS AFTER DISCHARGE: Checks after discharge: Check blood press - daily, Check blood sugar, ac/hs, Check your Temp as needed FOLLOW-UP: Follow Up With: Primary care provider in 2 weeks Additional Instructions: Kendra Cardona, and Luz [address], [address] [place] [address] TREATMENT/EQUIPMENT ORDERS: Adaptive Equipment Issued: None Discharge Respiratory Equipmen: Oxygen (2L/min) CERTIFICATION STATEMENT: Certification Statement: Certification Statement: Based on the above finding, I certify that this patient is confined to the home and needs intermittent prison care, physical therapy and/or speech therapy, or continues to need occupational therapy.~ This patient is under my care, and I have initiated the establishment of the plan of care.~ This patient will be followed by myself or a community physician who will periodically review the plan of care. Home Meds Active Scripts Sitagliptin Phosphate (JANUVIA) 50 Mg Tablet, 1 TAB PO DAILY for DM2 for 30 Days, #30 TAB 3 Refills Prov:JOVANNY REEVES MD 01/12/21 Benzonatate (BENZONATATE) 100 Mg Capsule, 100 MG PO [id number] for Cough for 10 Days, #30 CAP Prov:JOVANNY REEVES MD 01/12/21 Aspirin (ASPIRIN) 81 Mg Tab.chew, 81 MG PO DAILYWBKFT for COVID 19 for 30 Days, #30 TAB.CHEW Prov:JOVANNY REEVES MD 01/12/21 Zinc Sulfate (Zinc Sulfate) 50 Mg Capsule, 50 MG PO DAILY for COVID 19 for 30 Days, #30 CAP Prov:JOVANNY REEVES MD 01/12/21 Metformin Hcl (METFORMIN HCL) 500 Mg Tablet, 500 MG PO BIDWMEALS for DM2 for 30 Days, #60 TAB 2 Refills Prov:JOVANNY REEVES MD 01/12/21 Pantoprazole Sodium (PANTOPRAZOLE SODIUM ) 40 Mg Tablet.dr, 40 MG PO DAILY for GERD for 30 Days, #30 TAB.SR Prov:JOVANNY REEVES MD 01/12/21 Prednisone (PREDNISONE ) 10 Mg Tablet, 10 MG PO UD for PREDNISONE TAPER for 12 Days, #39 TAB 0 Refills Take 3 tablets by mouth twice a day for 3 days, then take 2 tablets by mouth twice a day for 3 days, then take 1 tablet by mouth twice a day for 3 days, then take 1 tablet by mouth daily x 3 days, then stop. Prov:JOVANNY REEVES MD 01/12/21 JOVANNY REEVES MD Jan 12, 2021 15:03
--- NOTE | 2021-01-12 15:04 | PDOC3 ---
Discharge Summary Visit Information Date of Admission: Dec 18, 2020 Date of Discharge: Jan 12, 2021 Admitting Diagnosis: COVID 19 Final Diagnosis Problems Medical Problems: (1) Acute respiratory failure with hypoxia Status: Acute (2) COVID-19 Status: Acute Brief Hospital Course Allergies Allergies Coded Allergies Type Severity Reaction Last Updated Verified Penicillins Allergy Severe 12/18/20 Yes Vital Signs Vital Signs Date Time Temp Pulse Resp B/P (MAP) Pulse Ox O2 Delivery O2 Flow Rate FiO2 01/12/21 11:00 98.7 101 18 119/66 (83) 95 Nasal Cannula 3.0 98.7 Lab Results Laboratory Tests Test 01/10/21 17:00 01/10/21 20:55 01/11/21 07:16 01/11/21 11:56 Glucose (Fingerstick) 271 mg/dL (70-99) 150 mg/dL (70-99) 107 mg/dL (70-99) 170 mg/dL (70-99) Test 01/11/21 17:07 01/11/21 20:45 01/12/21 07:23 01/12/21 11:36 Glucose (Fingerstick) 265 mg/dL (70-99) 180 mg/dL (70-99) 120 mg/dL (70-99) 197 mg/dL (70-99) Laboratory Tests Test 01/11/21 17:07 01/11/21 20:45 01/12/21 07:23 01/12/21 11:36 Glucose (Fingerstick) 265 mg/dL (70-99) 180 mg/dL (70-99) 120 mg/dL (70-99) 197 mg/dL (70-99) Brief Hospital Course Ms Anton is a 55-year-old female with past medical history of overactive bladder who came to the ED at [facility] complaining of worsening shortness of b reath fatigue and cough. Her shortness of breath began on 12/11/2020 she had fatigue started on 12/08/2020. She awoke on 12/12/2020 and noted myalgias and loss of appetite and diarrhea as well. She tested positive for COVID-19. Her also tested positive for COVID-19. She has complaints fever, chills, malaise, nausea, vomiting, arthralgia, myalgia, tachycardia, coughing and increased dyspnea. 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 Patient previously declined Covid vaccination. Patient now comes very dyspneic with any activity. Initially sats on room air in the 80s. Patient denies any recent travel. No specific ill contacts other than at work and her . Patient denies any previous history of immunosuppression. She had not been vaccinated for COVID-19 but after her daughter had contracted Covid she had planned to get the vaccine last week and had delayed due to her symptoms. 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 She has 3 children at home and 3 adult children whom have also had Covid with fairly severe symptoms and she also has 5 grandchildren, presumably healthy. Febrile on admission 100.8 F, heart rate 114 bpm, respirations 33/min, O2 saturation 86% on room air, blood pressure 113/69. Admission labs WBC 7.6, Hb 14.8, platelets 188, NA 140, K3.2, chloride 101, HCO3 24, BUN 26, CR 1.2, glucose 128, calcium 8.5, bilirubin 0.5, AST 111, ALT 64, alkaline phosphatase 117, troponin 0, albumin 3.2, NT proBNP 90, CRP 143.3. EKG normal sinus rhythm rate of 95 bpm leftward axis otherwise normal intervals, QTC [address] elevations or TWI. Chest radiograph with multifocal opacities. Due to tachycardia and hypoxemia she was evaluated with CTPA which was negative for pulmonary embolism and did reveal extensive bilateral groundglass opacities and incidental finding of enlarged spleen. Initially admitted to ICU at [facility] in [place] on 12/17/2020 given Solumedrol 60 three times a day and Remdesivir. Today she becomes significantly more hypoxic with O2 saturations 86% despite 10 L oxygen and was called for transfer to [facility]. Seen bedside in ICU 40 L/min 100% FiO2 Vapotherm with O2 saturations 93%. Requiring supplemental facemask O2 15 L/min. 12/19: Seen in ICU. Afebrile. O2 saturation 92% on 40 L/min 100% FiO2 Vapotherm + facemask O2 15 L/min. Less GI upset. Cough improved with Tessalon. D/w pulmonology to change to Decadron from Solu-Medrol and dose with Actemra based on her highly elevated CRP 143.3 12/20: Seen in ICU afebrile. O2 saturations 94% 40 L/min FiO2 Vapotherm plus facemask O2 15 L/min. Still little appetite. Transaminases decreased. Feels a little better but is complaining of nasal drainage. 12/21/20: Patient seen and examined in ICU. Patient currently on 100% O2 on Vapotherm with 40L O2 as well as 100% O2 on nonre breather. O2 sat is at 89% when examined. Patient has Dawn to bedside drainage. 12/22/20: Patient was seen and examined in the ICU today. She is complaining of back pain so pain medications were adjusted for her. Currently on Clinimix. On nonre breather at 100% O2 and Vapotherm at 100% O2. 12/23/20: Patient seen and examined in ICU. Resting with NAD. Patient has been sleeping all day and night. Current O2 sat is at 95%. On Clinimix. On vapotherm with 100% O2 and non-rebreather at 100% O2. 12/24/20: Patient was seen and examined in the ICU today. She is currently on Vapotherm with 100% O2 as well as a non-rebreather with 100% O2 which she had on all night. O2 sat has been in the 90s for the past day. Patient has a Dawn to bedside as well as a PICC line in place in the left upper arm. She is on Clinimix. Discussed with RN who states that patient desats with movement or when she tries to stand up. Patient ate about 1/2 her breakfast this morning. Chart reviewed. 12/25/20: Patient seen and examined in the ICU. Currently on Vapotherm at 100% O2 as well as non-rebreather at 100% O2. Dawn to bedside present. On Clinimix. Patient does not have good appetite and only ate about 1/2 of her breakfast this morning. Discussed with RN. Chart reviewed. 12/26/20: Patient seen and examined in the ICU today. She is resting. O2 sat is at 98% while being examined. Dawn to bedside in place. She is on Vapotherm at 100% O2 and non-rebreather at 100% O2. She is still on Clinimix. Discussed with Rn. Chart reviewed. 12/27/20: Patient seen and examined in the ICU. Resting with NAD. O2 sat is at 94%. On non-rebreather at 100% O2 and Vapotherm at 100% O2. She is on IV fluid, Clinimix, and Doxycycline. Discussed with RN who states that patient is eating better this morning than yesterday. Chart reviewed. 12/28/2020: Patient seen in ICU. Afebrile, breathing on Vapotherm 40 L. She has completed remdesivir and s/p tocilizumab. Continue Decadron for 10-day course with slow taper to begin tomorrow. Continue empiric antibiotics. Continue supportive care, Clinimix. Critical care time 30 minutes spent reviewing charts, reviewing labs, reviewing imaging, discussing with RN. 12/29/2020: Afebrile overnight; breathing on Vapotherm 40 L. She has completed remdesivir and s/p tocilizumab. Continue Decadron for 10-day course with slow taper to begin tomorrow. Continue empiric antibiotics. Continue supportive care. Critical care time 30 minutes spent reviewing charts, reviewing labs, reviewing imaging, discussing with RN. 12/30/2020: Afebrile. On Vapotherm 40 L. Completed remdesivir and s/p tocilizumab. Completed Decadron for 10-day course; will initiate Decadron 5-day taper. Continue to monitor respiratory status in ICU. Continue empiric antibiotics. Continue supportive care. Critical care time 30 minutes spent reviewing charts, reviewing labs, reviewing imaging, discussing with RN. 12/31/2020: Sitting upright in bed eating food, using smart phone. Afebrile, on Vapotherm 40 L. Completed remdesivir and s/p tocilizumab. Continue Decadron taper. Continue to monitor respiratory status in ICU. Continue empiric antibiotics. Continue supportive care. Critical care time 30 minutes spent reviewing charts, reviewing labs, reviewing imaging, discussing with RN. 01/01/2021: Afebrile. Currently on 15 L nonrebreather. Completed remdesivir and s/p tocilizumab. Discussed with Dr. Davies, not a candidate for baricitinib. Continue Decadron taper. Continue empiric antibiotics. Continue supportive care and monitoring of respiratory status in ICU. Critical care time 30 minutes spent reviewing charts, reviewing labs, reviewing imaging, discussing with RN. 01/02/2021: Breathing on Vapotherm 40 L. Afebrile. No acute events overnight. S/P remdesivir and Tocilizumab; not a candidate for baricitinib. Continue Decadron taper and empiric antibiotics. Continue supportive care and monitoring of respiratory status in ICU. Critical care time 30 minutes spent reviewing charts, reviewing labs, reviewing imaging, discussing with RN. 01/03/2021: Afebrile. Breathing on Vapotherm 40 L. States she feels fine, just "picking at breakfast". S/P remdesivir and Tocilizumab; not a candidate for baricitinib. Will continue empiric antibiotics, with Decadron taper to end tomorrow. Will obtain chest x-ray tomorrow. Continue supportive care and monitoring of respiratory status in ICU. Critical care time 30 minutes spent reviewing charts, reviewing labs, reviewing imaging, discussing with RN. 01/04: Pt seen and examined. Resting with NAD. On vapotherm 35L 100% FiO2. 01/05: Pt seen and examined. Chart reviewed. Discussed with RN. Resting with NAD. On vapotherm 30 L 100% FiO2. 01/06: Pt seen and examined. Discussed with RN. Chart reviewed. Patient is awake and cheerful. NAD. On vapotherm 30L at 100%FiO2. 01/07: Pt seen and examined. Discussed with RN. Chart reviewed. Pt awake, NAD, pleasant and upbeat. Off vapotherm. On 8L O2 per NC. O2 saturation 94%. 01/08: Pt seen and examined. Discussed with RN. Chart reviewed. Pt awake, NAD, cheerful. On 8L O2 per NC. 01/09: NAD, cheerful. Currently on 8L via NC with 96% oxygen saturation at rest. Patient relates feeling better and would like to go home. Patient defecated this morning and felt better because she has been constipated. 01/10: Pt seen and examined. Discussed with RN. Chart reviewed. Pt resting, NAD. Has some nasal congestion. On 3L O2 per NC with 96% saturation. Pt requested to go to [facility] upon discharge. 01/11: Seen bedside on 3 L nasal cannula oxygen. She still has desaturations with movement up to the chair and mid 80s. Only able to tolerate walking on 3 stairs and notes she has 15 stairs at home. Eating better Seen bedside on 2 L nasal cannula with O2 saturations 91%. 6-minute walk shows 2 L at rest and 2 L on exertion. Counseled on diabetes and prednisone taper and will have outpatient follow-up with pulmonology Consults: Pulmonology Problem list: Acute hypoxic respiratory failure Covid-19 Sepsis ANTHONY Elevated LFTs Elevated CRP Milk Hypokalemia Overactive bladder DM2 - A1c 7. Will transition to Metformin on discharge Greater than 30 minutes spent on d/c home with home health Discharge Information Condition at Discharge: Improved Follow Up: Weeks (2) Disposition/Orders: D/C to Home Scheduled Aspirin (Aspirin) 81 Mg Tab.chew, 81 MG PO [id number] for COVID 19 for 30 Days, #30 Prescribed by: JOVANNY REEVES MD on 01/12/21 1436 Benzonatate (Benzonatate) 100 Mg Capsule, 100 MG PO [id number] for Cough for 10 Days, #30 Prescribed by: JOVANNY REEVES MD on 01/12/21 1436 Metformin Hcl (Metformin Hcl) 500 Mg Tablet, 500 MG PO BIDWMEALS for DM2 for 30 Days, #60 Ref 2 Prescribed by: JOVANNY REEVES MD on 01/12/21 1436 Pantoprazole Sodium (Pantoprazole Sodium ) 40 Mg Tablet.dr, 40 MG PO DAILY for GERD for 30 Days, #30 Prescribed by: JOVANNY REEVES MD on 01/12/21 1436 Prednisone (Prednisone ) 10 Mg Tablet, 10 MG PO UD for PREDNISONE TAPER for 12 Days, #39 Ref 0 Take 3 tablets by mouth twice a day for 3 days, then take 2 tablets by mouth twice a day for 3 days, then take 1 tablet by mouth twice a day for 3 days, then take 1 tablet by mouth daily x 3 days, then stop. Prescribed by: JOVANNY REEVES MD on 01/12/21 1436 Sitagliptin Phosphate (Januvia) 50 Mg Tablet, 1 TAB PO DAILY for DM2 for 30 Days, #30 Ref 3 Prescribed by: JOVANNY REEVES MD on 01/12/21 1503 Zinc Sulfate (Zinc Sulfate) 50 Mg Capsule, 50 MG PO DAILY for COVID 19 for 30 Days, #30 Prescribed by: JOVANNY REEVES MD on 01/12/21 1436 Justicifation of Admission Dx: Justifications for Admission: Justification of Admission Dx: Yes Respiratory Failure: Severe Vent Deficit JOVANNY REEVES MD Jan 12, 2021 15:04
--- NOTE | 2021-01-12 17:22 | NUR ---
Discharge Note: [facility] Discharge instructions and discharge home medications reviewed with Patient and a copy given. All questions have been answered and understanding verbalized. The following instructions and handouts were given: zinc, aspirin, metformin, sitagliptin, prednisone, pantoprazole, diabetes FAQs, diabetic meal planning. Patient discharged to home with home health via wheelchair. Patient sent home with 2L oxygen at rest and with exertion along with a walker.
== END 2021-01-12 17:00 | disposition home health service (06) | DRG 871 ==
LOC: 1 WEST ICU 16:45 → 6 SOUTH 01-03 15:55
PROVIDERS: ADMIT Internal Medicine; ATTEND Internal Medicine
PROC: XW033E5 Introduction of Remdesivir Anti-infective into Peripheral Vein, Percutaneous Approach, New Technology Group 5 (ICD-10-PCS; principal; 2020-12-18)
PROC: XW033H5 Introduction of Tocilizumab into Peripheral Vein, Percutaneous Approach, New Technology Group 5 (ICD-10-PCS; 2020-12-19)
PROC: 02HV33Z Insertion of Infusion Device into Superior Vena Cava, Percutaneous Approach (ICD-10-PCS; 2020-12-23)
PROC: 5A0935A Assistance with Respiratory Ventilation, Less than 24 Consecutive Hours, High Flow/Velocity Cannula (ICD-10-PCS; 2021-01-03)
PROC: 5A0935A Assistance with Respiratory Ventilation, Less than 24 Consecutive Hours, High Flow/Velocity Cannula (ICD-10-PCS; 2021-01-07)
PROC: 5A0935A Assistance with Respiratory Ventilation, Less than 24 Consecutive Hours, High Flow/Velocity Cannula (ICD-10-PCS; 2021-01-08)
PROC: 5A0935A Assistance with Respiratory Ventilation, Less than 24 Consecutive Hours, High Flow/Velocity Cannula (ICD-10-PCS; 2021-01-09)
PROC: 5A0935A Assistance with Respiratory Ventilation, Less than 24 Consecutive Hours, High Flow/Velocity Cannula (ICD-10-PCS; 2021-01-10)
PROC: 5A0935A Assistance with Respiratory Ventilation, Less than 24 Consecutive Hours, High Flow/Velocity Cannula (ICD-10-PCS; 2021-01-12)
DX: A41.89 Other specified sepsis (principal); J12.82 Pneumonia due to coronavirus disease 2019; N17.0 Acute kidney failure with tubular necrosis; J96.01 Acute respiratory failure with hypoxia; U07.1 COVID-19; E11.9 Type 2 diabetes mellitus without complications; E87.6 Hypokalemia; J45.909 Unspecified asthma, uncomplicated; K59.00 Constipation, unspecified; N32.81 Overactive bladder; I95.9 Hypotension, unspecified; K30 Functional dyspepsia; Z88.0 Allergy status to penicillin
CPT/HCPCS: 36415; 36569; 71045; 80048; 80053; 82962; 83036; 85007; 85025; 86140; 94618; 94640; 94760; A4314; J0780; J1100; J1200; J1650; J1815; J2405; J2920; J2997; J3010; J3262; J3490; J7050; J7060; J7120; J7512; 97530-GO; 97530-GP; 97535-GO; G0378; J7030